=== PATIENT | male | born 1990 | race Caucasian/White ===

== ENCOUNTER 2019-05-04 18:31 | Inpatient (IN) | payer OTHER ==
[2019-05-04 21:30] VITALS: BMI 23.7
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
[2019-05-04] MEDS ORDERED: P-EPHED 60MG/TRIPROLIDI 2.5MG TABLET PO PRN (23:26)
[2019-05-04] MEDS ORDERED: MAGNESIUM CITRATE 300 ML BOTTLE PO PRN (23:26)
[2019-05-04] MEDS ORDERED: LOPERAMIDE HCL 2 MG CAPSULE PO PRN (23:26)
[2019-05-04] MEDS ORDERED: MAGNESIUM HYDROX 2400MG/30ML ORAL SUSPENSION 30 ML CUP PO PRN (23:26)
[2019-05-04] MEDS ORDERED: IBUPROFEN 400 MG TABLET (FP) PO PRN (23:26)
[2019-05-04] MEDS ORDERED: ACETAMINOPHEN 325 MG TABLET (FP) PO PRN (23:26)
[2019-05-04] MEDS ORDERED: MAG HYDROX/AL HYDROX/SIMETH 30 ML UNIT-DOSE CUP PO PRN (23:26)
[2019-05-05] MEDS: hydrOXYzine PAMOATE 50 MG CAPSULE (FP) PO PRN ×2 (03:00→21:39)
--- NOTE | 2019-05-05 10:14 | EKG ---
Test Reason : Blood Pressure : / mmHG Vent. Rate : 064 BPM Atrial Rate : 064 BPM P-R Int : 158 ms QRS Dur : 088 ms QT Int : 404 ms P-R-T Axes : 042 083 062 degrees QTc Int : 416 ms NORMAL SINUS RHYTHM NORMAL ECG NO PREVIOUS ECGS AVAILABLE Confirmed by Clifford Laguna MD ([id number]) on 05/05/2019 10:13:54 AM Referred By: JEANNA Confirmed By:Clifford Laguna MD
[2019-05-05] MEDS: PRENATAL VITAMINS W/ FOLIC ACID TABLET (FP) PO SCH (10:36)
[2019-05-05] MEDS: NICOTINE 14 MG/24 HOURS TOPICAL PATCH TD SCH (10:36)
[2019-05-05 12:08] LABS: HEMATOCRIT 43.6 % (35.4-49); HEMOGLOBIN 14.9 GM/dL (11.7-16.9); MCHC 34.3 g/dl (32.0-35.9); MEAN CELL VOLUME 87.4 fl (80-96); MEAN PLT VOLUME 8.3 fl (7.5-11.1); PLATELET COUNT 371 K/MM3 (134-434); RBC 4.99 M/mm3 (4.00-5.60); RDW 13.1 % (11.9-15.9); WHITE BLOOD COUNT 6.9 K/mm3 (4.0-10.0)
[2019-05-05 12:35] LABS: ALBUMIN 3.8 g/dl (3.4-5.0); BILIRUBIN,TOTAL 0.4 mg/dL (0.2-1); BLOOD UREA NITROGEN 15.2 mg/dL (7-18); CALCIUM 9.3 mg/dL (8.5-10.1); CREATININE 0.9 mg/dL (0.55-1.3); POTASSIUM 4.2 mmol/L (3.5-5.1); TOT PROT 7.1 g/dl (6.4-8.2)
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
[2019-05-05] MEDS: NICOTINE POLACRILEX 2 MG GUM BC PRN ×2 (13:54→17:29)
[2019-05-05] MEDS: MELATONIN 5 MG TABLETS PO PRN (21:37)
[2019-05-05] MEDS: THIAMINE HCL 100 MG TABLET (FP) PO SCH (21:37)
[2019-05-05] MEDS: MIRTAZAPINE 15 MG TABLET (FP) PO PRN (21:39)
[2019-05-05] MEDS ORDERED: MIRTAZAPINE 15 MG TABLET (FP) ONE (21:39)
[2019-05-06] MEDS: PRENATAL VITAMINS W/ FOLIC ACID TABLET (FP) PO SCH (10:25)
[2019-05-06] MEDS: NICOTINE 14 MG/24 HOURS TOPICAL PATCH TD SCH (10:25)
[2019-05-06] MEDS: NICOTINE POLACRILEX 2 MG GUM BC PRN ×3 (10:27→17:17)
[2019-05-06] MEDS: THIAMINE HCL 100 MG TABLET (FP) PO SCH (22:03)
[2019-05-07] MEDS: hydrOXYzine PAMOATE 50 MG CAPSULE (FP) PO PRN ×2 (06:15→21:46)
[2019-05-07] MEDS: PRENATAL VITAMINS W/ FOLIC ACID TABLET (FP) PO SCH (11:14)
[2019-05-07] MEDS: NICOTINE 14 MG/24 HOURS TOPICAL PATCH TD SCH (11:14)
[2019-05-07] MEDS: MENTHOL/PHENOL 1 EACH UD MM PRN (11:16)
[2019-05-07 17:12] LABS: PH,URINE >= 9.0 (5.0-8.0); URINE APPEARANCE CLEAR; URINE BILIRUBIN NEGATIVE (NEGATIVE); URINE COLOR YELLOW; URINE GLUCOSE (UA) NEGATIVE (NEGATIVE); URINE KETONE NEGATIVE (NEGATIVE); URINE LEUK ESTERASE NEGATIVE (NEGATIVE); URINE NITRITE NEGATIVE (NEGATIVE); URINE PROTEIN NEGATIVE (NEGATIVE); URINE UROBILINOGEN 0.2 mg/dL (0.2-1.0)
[2019-05-07] MEDS: NICOTINE POLACRILEX 2 MG GUM BC PRN ×2 (17:50→19:49)
[2019-05-07] MEDS: MELATONIN 5 MG TABLETS PO PRN (21:45)
[2019-05-07] MEDS: THIAMINE HCL 100 MG TABLET (FP) PO SCH (21:45)
[2019-05-07] MEDS: MIRTAZAPINE 15 MG TABLET (FP) PO PRN (21:47)
[2019-05-08] MEDS: PRENATAL VITAMINS W/ FOLIC ACID TABLET (FP) PO SCH (10:43)
[2019-05-08] MEDS: NICOTINE 14 MG/24 HOURS TOPICAL PATCH TD SCH (10:43)
[2019-05-08] MEDS: hydrOXYzine PAMOATE 50 MG CAPSULE (FP) PO PRN ×2 (10:45→21:38)
[2019-05-08] MEDS: NICOTINE POLACRILEX 2 MG GUM BC PRN ×2 (16:05→21:38)
[2019-05-08] MEDS: THIAMINE HCL 100 MG TABLET (FP) PO SCH (21:37)
[2019-05-08] MEDS: MIRTAZAPINE 15 MG TABLET (FP) PO PRN (21:38)
[2019-05-09] MEDS: NICOTINE 14 MG/24 HOURS TOPICAL PATCH TD SCH (10:17)
[2019-05-09] MEDS: PRENATAL VITAMINS W/ FOLIC ACID TABLET (FP) PO SCH (10:17)
[2019-05-09] MEDS: NICOTINE POLACRILEX 2 MG GUM BC PRN ×2 (10:18→18:30)
[2019-05-09] MEDS: THIAMINE HCL 100 MG TABLET (FP) PO SCH (21:37)
[2019-05-09] MEDS: MIRTAZAPINE 15 MG TABLET (FP) PO PRN (21:37)
[2019-05-09] MEDS: hydrOXYzine PAMOATE 50 MG CAPSULE (FP) PO PRN (21:37)
[2019-05-10] MEDS: PRENATAL VITAMINS W/ FOLIC ACID TABLET (FP) PO SCH (10:28)
[2019-05-10] MEDS: NICOTINE 14 MG/24 HOURS TOPICAL PATCH TD SCH (10:28)
[2019-05-10] MEDS: hydrOXYzine PAMOATE 50 MG CAPSULE (FP) PO PRN (10:29)
[2019-05-10] MEDS: NICOTINE POLACRILEX 2 MG GUM BC PRN (10:30)
[2019-05-10] MEDS: MELATONIN 5 MG TABLETS PO PRN (21:27)
[2019-05-10] MEDS: THIAMINE HCL 100 MG TABLET (FP) PO SCH (21:27)
[2019-05-11] MEDS: MENTHOL/PHENOL 1 EACH UD MM PRN (06:50)
[2019-05-11] MEDS: PRENATAL VITAMINS W/ FOLIC ACID TABLET (FP) PO SCH (10:21)
[2019-05-11] MEDS: NICOTINE 14 MG/24 HOURS TOPICAL PATCH TD SCH (10:21)
[2019-05-11] MEDS: hydrOXYzine PAMOATE 50 MG CAPSULE (FP) PO PRN ×3 (10:27→21:39)
[2019-05-11] MEDS: guaiFENesin 200 MG/10 ML 10 ML UNIT-DOSE CUPS PO PRN (16:42)
[2019-05-11] MEDS: THIAMINE HCL 100 MG TABLET (FP) PO SCH (21:38)
[2019-05-11] MEDS: MELATONIN 5 MG TABLETS PO PRN (21:38)
[2019-05-11] MEDS: MIRTAZAPINE 15 MG TABLET (FP) PO PRN (21:40)
[2019-05-12] MEDS: guaiFENesin 200 MG/10 ML 10 ML UNIT-DOSE CUPS PO PRN (08:19)
[2019-05-12] MEDS: hydrOXYzine PAMOATE 50 MG CAPSULE (FP) PO PRN ×3 (08:21→21:37)
[2019-05-12] MEDS: PRENATAL VITAMINS W/ FOLIC ACID TABLET (FP) PO SCH (11:02)
[2019-05-12] MEDS: NICOTINE 14 MG/24 HOURS TOPICAL PATCH TD SCH (11:02)
[2019-05-12] MEDS ORDERED: TUBERCULIN PPD 5 TU/0.1ML VIAL ID ONE (15:47)
[2019-05-12] MEDS: MELATONIN 5 MG TABLETS PO PRN (21:36)
[2019-05-12] MEDS: MIRTAZAPINE 15 MG TABLET (FP) PO PRN (21:36)
[2019-05-12] MEDS: THIAMINE HCL 100 MG TABLET (FP) PO SCH (21:36)
[2019-05-13] MEDS: PRENATAL VITAMINS W/ FOLIC ACID TABLET (FP) PO SCH (10:29)
[2019-05-13] MEDS: hydrOXYzine PAMOATE 50 MG CAPSULE (FP) PO PRN ×3 (10:29→21:31)
[2019-05-13] MEDS: NICOTINE 14 MG/24 HOURS TOPICAL PATCH TD SCH (10:29)
[2019-05-13] MEDS: NICOTINE POLACRILEX 2 MG GUM BC PRN (10:30)
[2019-05-13] MEDS: guaiFENesin 200 MG/10 ML 10 ML UNIT-DOSE CUPS PO PRN (19:41)
[2019-05-13] MEDS: THIAMINE HCL 100 MG TABLET (FP) PO SCH (21:30)
[2019-05-13] MEDS: MELATONIN 5 MG TABLETS PO PRN (21:31)
[2019-05-13] MEDS: MIRTAZAPINE 15 MG TABLET (FP) PO PRN (21:31)
[2019-05-14] MEDS: NICOTINE 14 MG/24 HOURS TOPICAL PATCH TD SCH (10:16)
[2019-05-14] MEDS: PRENATAL VITAMINS W/ FOLIC ACID TABLET (FP) PO SCH (10:16)
[2019-05-14] MEDS: hydrOXYzine PAMOATE 50 MG CAPSULE (FP) PO PRN ×2 (10:17→21:26)
[2019-05-14] MEDS: THIAMINE HCL 100 MG TABLET (FP) PO SCH (21:25)
[2019-05-14] MEDS: MIRTAZAPINE 15 MG TABLET (FP) PO PRN (21:26)
[2019-05-14] MEDS: MELATONIN 5 MG TABLETS PO PRN (21:27)
[2019-05-15] MEDS: PRENATAL VITAMINS W/ FOLIC ACID TABLET (FP) PO SCH (10:25)
[2019-05-15] MEDS: NICOTINE 14 MG/24 HOURS TOPICAL PATCH TD SCH (10:25)
[2019-05-15] MEDS: NICOTINE POLACRILEX 2 MG GUM BC PRN ×2 (10:27→17:04)
[2019-05-15] MEDS: hydrOXYzine PAMOATE 50 MG CAPSULE (FP) PO PRN ×2 (17:04→21:26)
[2019-05-15] MEDS: MIRTAZAPINE 15 MG TABLET (FP) PO PRN (21:26)
[2019-05-15] MEDS: MELATONIN 5 MG TABLETS PO PRN (21:26)
[2019-05-15] MEDS: THIAMINE HCL 100 MG TABLET (FP) PO SCH (21:26)
[2019-05-16] MEDS: hydrOXYzine PAMOATE 50 MG CAPSULE (FP) PO PRN ×2 (11:15→21:49)
[2019-05-16] MEDS: NICOTINE 14 MG/24 HOURS TOPICAL PATCH TD SCH (11:15)
[2019-05-16] MEDS: PRENATAL VITAMINS W/ FOLIC ACID TABLET (FP) PO SCH (11:15)
[2019-05-16] MEDS: NICOTINE POLACRILEX 2 MG GUM BC PRN ×3 (11:17→21:50)
[2019-05-16] MEDS: THIAMINE HCL 100 MG TABLET (FP) PO SCH (21:48)
[2019-05-16] MEDS: MIRTAZAPINE 15 MG TABLET (FP) PO PRN (21:49)
[2019-05-16] MEDS: MELATONIN 5 MG TABLETS PO PRN (21:49)
[2019-05-17] MEDS: PRENATAL VITAMINS W/ FOLIC ACID TABLET (FP) PO SCH (10:09)
[2019-05-17] MEDS: NICOTINE 14 MG/24 HOURS TOPICAL PATCH TD SCH (10:09)
[2019-05-17] MEDS: hydrOXYzine PAMOATE 50 MG CAPSULE (FP) PO PRN (10:09)
[2019-05-17] MEDS: NICOTINE POLACRILEX 2 MG GUM BC PRN (10:12)
[2019-05-17] MEDS: THIAMINE HCL 100 MG TABLET (FP) PO SCH (21:38)
[2019-05-17] MEDS: MIRTAZAPINE 15 MG TABLET (FP) PO PRN (21:38)
[2019-05-18] MEDS: hydrOXYzine PAMOATE 50 MG CAPSULE (FP) PO PRN ×3 (02:06→21:23)
[2019-05-18] MEDS: NICOTINE 14 MG/24 HOURS TOPICAL PATCH TD SCH (10:33)
[2019-05-18] MEDS: PRENATAL VITAMINS W/ FOLIC ACID TABLET (FP) PO SCH (10:33)
[2019-05-18] MEDS: NICOTINE POLACRILEX 2 MG GUM BC PRN (10:38)
--- NOTE | 2019-05-18 13:57 | PN ---
[facility] Progress Note Note: c/o groin itch when used soap on the wall to shower. Denies pain or burning on urination. Vital Signs - 24 hr 05/18/19 05/18/19 00:30 06:30 Respiratory 18 18 Rate Laboratory Tests 05/05/19 05/05/19 05/05/19 08:20 08:20 08:20 WBC 6.9 RBC 4.99 Hgb 14.9 Hct 43.6 MCV 87.4 MCH 30.0 MCHC 34.3 RDW 13.1 Plt Count 371 MPV 8.3 Sodium 139 Potassium 4.2 Chloride 104 Carbon Dioxide 28 Anion Gap 7 L BUN 15.2 Creatinine 0.9 Est GFR (CKD-EPI)AfAm 133.30 Est GFR (CKD-EPI)NonAf 115.01 Random Glucose 90 Calcium 9.3 Total Bilirubin 0.4 AST 17 ALT 41 Alkaline Phosphatase 58 Total Protein 7.1 Albumin 3.8 Urine Color Urine Appearance Urine pH Ur Specific [place] Urine Protein Urine Glucose (UA) Urine Ketones Urine Blood Urine Nitrite Urine Bilirubin Urine Urobilinogen Ur Leukocyte Esterase RPR Titer Nonreactive 05/07/19 11:50 WBC RBC Hgb Hct MCV MCH MCHC RDW Plt Count MPV Sodium Potassium Chloride Carbon Dioxide Anion Gap BUN Creatinine Est GFR (CKD-EPI)AfAm Est GFR (CKD-EPI)NonAf Random Glucose Calcium Total Bilirubin AST ALT Alkaline Phosphatase Total Protein Albumin Urine Color Yellow Urine Appearance Clear Urine pH >= 9.0 H Ur Specific [place] 1.022 Urine Protein Negative Urine Glucose (UA) Negative Urine Ketones Negative Urine Blood Negative Urine Nitrite Negative Urine Bilirubin Negative Urine Urobilinogen 0.2 Ur Leukocyte Esterase Negative RPR Titer Labs wnl A/P groin itch Tinea cruris D/w pt will order Tinactin cream apply as directed Aveeno soap increase po fluids. Requests to repeat urine because he wants to be sure it is still ok with no infection.
[2019-05-18] MEDS: TOLNAFTATE 1% CREAM 15 GM TUBE TP SCH ×2 (14:31→21:45)
[2019-05-18] MEDS: THIAMINE HCL 100 MG TABLET (FP) PO SCH (21:23)
[2019-05-18] MEDS: MIRTAZAPINE 15 MG TABLET (FP) PO PRN (21:23)
[2019-05-18] MEDS: MELATONIN 5 MG TABLETS PO PRN (21:23)
[2019-05-19] MEDS: TOLNAFTATE 1% CREAM 15 GM TUBE TP SCH ×2 (10:21→21:25)
[2019-05-19] MEDS: NICOTINE 14 MG/24 HOURS TOPICAL PATCH TD SCH (10:21)
[2019-05-19] MEDS: PRENATAL VITAMINS W/ FOLIC ACID TABLET (FP) PO SCH (10:21)
[2019-05-19] MEDS: hydrOXYzine PAMOATE 50 MG CAPSULE (FP) PO PRN ×2 (10:23→21:25)
[2019-05-19] MEDS: NICOTINE POLACRILEX 2 MG GUM BC PRN ×3 (10:24→21:25)
[2019-05-19 12:13] LABS: EPI CELLS 1.6 /HPF (0-5/HPF); HYALINE CASTS 17 /lpf (0-8); URINE APPEARANCE CLEAR; URINE BACTERIA 2.4 /hpf (NEGATIVE); URINE BILIRUBIN NEGATIVE (NEGATIVE); URINE COLOR YELLOW; URINE GLUCOSE (UA) NEGATIVE (NEGATIVE); URINE KETONE NEGATIVE (NEGATIVE); URINE LEUK ESTERASE TRACE (NEGATIVE); URINE NITRITE NEGATIVE (NEGATIVE); URINE PROTEIN NEGATIVE (NEGATIVE); URINE RBC 6 /hpf (0-4); URINE UROBILINOGEN 0.2 mg/dL (0.2-1.0); URINE WBC 4 /hpf (0-5)
[2019-05-19] MEDS: MELATONIN 5 MG TABLETS PO PRN (21:25)
[2019-05-19] MEDS: MIRTAZAPINE 15 MG TABLET (FP) PO PRN (21:25)
[2019-05-19] MEDS: THIAMINE HCL 100 MG TABLET (FP) PO SCH (21:25)
[2019-05-20] MEDS: NICOTINE 14 MG/24 HOURS TOPICAL PATCH TD SCH (10:39)
[2019-05-20] MEDS: PRENATAL VITAMINS W/ FOLIC ACID TABLET (FP) PO SCH (10:39)
[2019-05-20] MEDS: TOLNAFTATE 1% CREAM 15 GM TUBE TP SCH ×2 (10:39→21:33)
[2019-05-20] MEDS: NICOTINE POLACRILEX 2 MG GUM BC PRN (15:57)
[2019-05-20] MEDS: THIAMINE HCL 100 MG TABLET (FP) PO SCH (21:33)
[2019-05-20] MEDS: MELATONIN 5 MG TABLETS PO PRN (21:33)
[2019-05-21] MEDS: TOLNAFTATE 1% CREAM 15 GM TUBE TP SCH ×2 (10:26→21:24)
[2019-05-21] MEDS: NICOTINE 14 MG/24 HOURS TOPICAL PATCH TD SCH (10:26)
[2019-05-21] MEDS: PRENATAL VITAMINS W/ FOLIC ACID TABLET (FP) PO SCH (10:26)
[2019-05-21] MEDS: MELATONIN 5 MG TABLETS PO PRN (21:23)
[2019-05-21] MEDS: THIAMINE HCL 100 MG TABLET (FP) PO SCH (21:23)
[2019-05-22] MEDS: hydrOXYzine PAMOATE 50 MG CAPSULE (FP) PO PRN ×3 (01:36→21:41)
[2019-05-22] MEDS: TOLNAFTATE 1% CREAM 15 GM TUBE TP SCH ×2 (10:38→21:40)
[2019-05-22] MEDS: NICOTINE POLACRILEX 2 MG GUM BC PRN (10:39)
[2019-05-22] MEDS: PRENATAL VITAMINS W/ FOLIC ACID TABLET (FP) PO SCH (10:40)
[2019-05-22] MEDS: NICOTINE 14 MG/24 HOURS TOPICAL PATCH TD SCH (10:40)
[2019-05-22] MEDS: THIAMINE HCL 100 MG TABLET (FP) PO SCH (21:40)
[2019-05-22] MEDS: MIRTAZAPINE 15 MG TABLET (FP) PO PRN (21:41)
[2019-05-23] MEDS: TOLNAFTATE 1% CREAM 15 GM TUBE TP SCH ×2 (10:32→21:27)
[2019-05-23] MEDS: PRENATAL VITAMINS W/ FOLIC ACID TABLET (FP) PO SCH (10:32)
[2019-05-23] MEDS: NICOTINE 14 MG/24 HOURS TOPICAL PATCH TD SCH (10:32)
[2019-05-23] MEDS: NICOTINE POLACRILEX 2 MG GUM BC PRN ×2 (15:39→18:05)
[2019-05-23] MEDS: MELATONIN 5 MG TABLETS PO PRN (21:26)
[2019-05-23] MEDS: MIRTAZAPINE 15 MG TABLET (FP) PO PRN (21:26)
[2019-05-23] MEDS: hydrOXYzine PAMOATE 50 MG CAPSULE (FP) PO PRN (21:26)
[2019-05-23] MEDS: THIAMINE HCL 100 MG TABLET (FP) PO SCH (21:27)
[2019-05-24] MEDS: NICOTINE 14 MG/24 HOURS TOPICAL PATCH TD SCH (09:56)
[2019-05-24] MEDS: NICOTINE POLACRILEX 2 MG GUM BC PRN ×2 (09:57→12:24)
[2019-05-24] MEDS: PRENATAL VITAMINS W/ FOLIC ACID TABLET (FP) PO SCH (09:57)
[2019-05-24] MEDS: TOLNAFTATE 1% CREAM 15 GM TUBE TP SCH ×2 (09:58→21:23)
--- NOTE | 2019-05-24 14:08 | PN ---
[facility] Progress Note Note: Patient is scheduled for discharge tomorrow. Script for 30 days supply of Remeron 15 mg/hs will be electronically transmitted to [facility] at [address] [place] [address] Pharmacy at [address] [place] [address]
[2019-05-24] MEDS: MIRTAZAPINE 15 MG TABLET (FP) PO PRN (21:22)
[2019-05-24] MEDS: MELATONIN 5 MG TABLETS PO PRN (21:22)
[2019-05-24] MEDS: hydrOXYzine PAMOATE 50 MG CAPSULE (FP) PO PRN (21:22)
[2019-05-24] MEDS: THIAMINE HCL 100 MG TABLET (FP) PO SCH (21:22)
[2019-05-25 07:18] VITALS: BP 106/68; PULSE 64; TEMP 98
--- NOTE | 2019-05-25 09:45 | DS ---
[facility] Rehab Discharge Summary - [facility] Rehab Discharge Summary Admission Date: 05/04/19 Discharge Date: 05/25/19 - History Present History: Alcohol dependence, Cannabis dependence, Cocaine dependence Additional Comments: Pt is a 28 y/o male with a hx of polysubstance use disorder admitted to rehab and discharged today. Pertinent Past History: Hx Diverticulitis Insomnia Anxiety Disorder - Discharge Physical Exam Vital Signs: Vital Signs Temperature 98.0 F 05/25/19 07:17 Pulse Rate 64 05/25/19 07:17 Respiratory Rate 18 05/25/19 07:17 Blood Pressure 106/68 05/25/19 07:17 O2 Sat by Pulse Oximetry (%) Alert o x 3 nad oob ambulating with steady gait cardiac:s1 s2,rrr lungs:cta,tristen. abdomen:soft,+bs,nt,nd extremities/skin:no edema,Full ROM;skin intact Pertinent Admission Physical Exam Findings: Laboratory Tests 05/05/19 05/05/19 05/05/19 08:20 08:20 08:20 WBC 6.9 RBC 4.99 Hgb 14.9 Hct 43.6 MCV 87.4 MCH 30.0 MCHC 34.3 RDW 13.1 Plt Count 371 MPV 8.3 Sodium 139 Potassium 4.2 Chloride 104 Carbon Dioxide 28 Anion Gap 7 L BUN 15.2 Creatinine 0.9 Est GFR (CKD-EPI)AfAm 133.30 Est GFR (CKD-EPI)NonAf 115.01 Random Glucose 90 Calcium 9.3 Total Bilirubin 0.4 AST 17 ALT 41 Alkaline Phosphatase 58 Total Protein 7.1 Albumin 3.8 Urine Color Urine Appearance Urine pH Ur Specific [place] Urine Protein Urine Glucose (UA) Urine Ketones Urine Blood Urine Nitrite Urine Bilirubin Urine Urobilinogen Ur Leukocyte Esterase Urine WBC (Auto) Urine RBC (Auto) Urine Casts (Auto) U Epithel Cells (Auto) Urine Bacteria (Auto) RPR Titer Nonreactive 05/07/19 05/19/19 11:50 10:25 WBC RBC Hgb Hct MCV MCH MCHC RDW Plt Count MPV Sodium Potassium Chloride Carbon Dioxide Anion Gap BUN Creatinine Est GFR (CKD-EPI)AfAm Est GFR (CKD-EPI)NonAf Random Glucose Calcium Total Bilirubin AST ALT Alkaline Phosphatase Total Protein Albumin Urine Color Yellow Yellow Urine Appearance Clear Clear Urine pH >= 9.0 H 7.0 D Ur Specific [place] 1.022 1.023 Urine Protein Negative Negative Urine Glucose (UA) Negative Negative Urine Ketones Negative Negative Urine Blood Negative Negative Urine Nitrite Negative Negative Urine Bilirubin Negative Negative Urine Urobilinogen 0.2 0.2 Ur Leukocyte Esterase Negative Trace Urine WBC (Auto) 4 Urine RBC (Auto) 6 Urine Casts (Auto) 17 U Epithel Cells (Auto) 1.6 Urine Bacteria (Auto) 2.4 RPR Titer - Treatment Discharge Condition: Discharge condition good Hospital Course: Rehabilitated safely and responded well. Participated in unit activities/groups. CD aftercare accepted - Medication Discharge Medications: Ambulatory Orders Mirtazapine [Remeron -] 15 mg PO HS #30 tablet 05/24/19 - Medication-Assisted Treatment (MAT) Medication-Assisted Treatment (MAT): No - Discharge Instructions Diet, activity, other medical instructions: Diet:Regular Activity: ad zohra Other medical instructions:follow up with CD aftercare at [facility] as recommended/scheduled. Follow up with primary care with your primary care within 1 - 2 weeks after discharge. - Diagnosis (1) Alcohol dependence Status: Chronic Qualifiers: Substance use status: uncomplicated Qualified Code(s): F10.20 - Alcohol dependence, uncomplicated (2) Cannabis dependence Status: Chronic (3) Cocaine dependence Status: Chronic Qualifiers: Substance use status: uncomplicated Qualified Code(s): F14.20 - Cocaine dependence, uncomplicated (4) Nicotine dependence Status: Chronic Qualifiers: Nicotine product type: cigarettes Substance use status: uncomplicated Qualified Code(s): F17.210 - Nicotine dependence, cigarettes, uncomplicated (5) Nicotine dependence Status: Chronic Qualifiers: Nicotine product type: cigarettes Substance use status: uncomplicated Qualified Code(s): F17.210 - Nicotine dependence, cigarettes, uncomplicated (6) Uncomplicated alcohol dependence Status: Chronic (7) Cannabis dependence, uncomplicated Status: Chronic (8) Cocaine dependence, uncomplicated Status: Chronic - Follow-up Referral Minutes to complete discharge: 20 - AMA Did Patient Leave Against Medical Advice: No Additional Comments: Pt reports he has a primary care at [address] [place] [address]. Forgot the name of the doctor.
[2019-05-25] MEDS: TOLNAFTATE 1% CREAM 15 GM TUBE TP SCH (10:04)
[2019-05-25] MEDS: PRENATAL VITAMINS W/ FOLIC ACID TABLET (FP) PO SCH (10:04)
[2019-05-25] MEDS: NICOTINE 14 MG/24 HOURS TOPICAL PATCH TD SCH (10:04)
== END 2019-05-25 10:05 | disposition home or self-care (01) | DRG 772 ==
LOC: YASAS 18:31 → Y5N 23:28
PROVIDERS: ADMIT Neuromusculoskeletal Medicine & OMM; ATTEND Neuromusculoskeletal Medicine & OMM
PROC: HZ42ZZZ Group Counseling for Substance Abuse Treatment, Cognitive-Behavioral (ICD-10-PCS; principal; 2019-05-04)
DX: F10.20 Alcohol dependence, uncomplicated (principal); F14.20 Cocaine dependence, uncomplicated; F12.20 Cannabis dependence, uncomplicated; F17.210 Nicotine dependence, cigarettes, uncomplicated; F19.280 Other psychoactive substance dependence with psychoactive substance-induced anxiety disorder; F19.282 Other psychoactive substance dependence with psychoactive substance-induced sleep disorder; K57.92 Diverticulitis of intestine, part unspecified, without perforation or abscess without bleeding; B35.6 Tinea cruris
CPT/HCPCS: 36415; 80053; 81003; 85027; 86593; 93005; 93010

== ENCOUNTER 2020-04-16 08:15 | Inpatient (IN) | payer OTHER ==
--- NOTE | 2020-04-16 08:58 | BHS.RME ---
Substance Use & Tx History - Substance Use History Heroin Substance amount: 20 bags Frequency of use: Daily Substance route: Inhalation (ex: sniffing or snorting) Date of Last Use: 04/15/20 Cocaine- Powder Substance amount: 2 grams Frequency of use: Less than 3 times per week Date of Last Use: 04/11/20 Marijuana/Hashish Substance amount: 5$ Frequency of use: Less than 3 times per week Substance route: Smoking Date of Last Use: 04/09/20 Buprenorphine Substance amount: 4mg/1mg Substance route: Oral Date of Last Use: 04/12/20 - Last Treatment Date of last treatment: [facility] 12/20/19 to 12/25/19 Where was last treatment: Detox Physical/Psych/Mental Status - Behavior Eye Contact: Normal - Cooperativeness Cooperativeness: Cooperative - Thinking Thought Processes: Logical Thought content: Future oriented - Physical Health Problems Is patient presently having any pain?: No Does patient presently have any injuries (include location): No Does patient currently have a fever: No COWS - Scale Resting Pulse: 0= RI 80 or Below Sweatin= No chills or Flushing Restless Observation: 0= Sits Still Pupil Size: 1= Pupils >than Normal Bone or Joint Aches: 2= Severe Diffuse Aches Runny Nose/ Eye Tearin= Runny Nose/Eyes GI Upset > 30mins: 2= Nausea/Diarrhea Tremor Observation: 2= Slight Tremor Visible Yawning Observation: 1= 1-2x During Session Anxiety or Irritability: 2=Irritable/Anxious Goose Flesh Skin: 3=Piloerection COWS Score: 15
--- NOTE | 2020-04-16 09:43 | HP ---
COWS - Scale Resting Pulse: 0= [place] 80 or Below Sweatin= No chills or Flushing Restless Observation: 0= Sits Still Pupil Size: 1= Pupils >than Normal Bone or Joint Aches: 2= Severe Diffuse Aches Runny Nose/ Eye Tearin= Runny Nose/Eyes GI Upset > 30mins: 2= Nausea/Diarrhea Tremor Observation: 2= Slight Tremor Visible Yawning Observation: 1= 1-2x During Session Anxiety or Irritability: 2=Irritable/Anxious Goose Flesh Skin: 3=Piloerection COWS Score: 15 CIWA Score - Admission Criteria OASAS Guidelines: Admission for Medically Managed Detox: Requires at least one of the followin. CIWA greater than 12 2. Seizures within the past 24 hours 3. Delirium tremens within the past 24 hours 4. Hallucinations within the past 24 hours 5. Acute intervention needed for co occurring medical disorder 6. Acute intervention needed for co occurring psychiatric disorder 7. Severe withdrawal that cannot be handled at a lower level of care (continued vomiting, continued diarrhea, abnormal vital signs) requiring intravenous medication and/or fluids 8. Admitting History and Physical - Admission Chief Complaint: i need help to stop using drugs History of Present Illness: this 29 years old male with heroin and cocaine,marijuana dependence seeking help to stop History Source: Patient Limitations to Obtaining History: No Limitations - Smoking History Smoking history: Current every day smoker Have you smoked in the past 12 months: Yes Aproximately how many cigarettes per day: 5 - Alcohol/Substance Use Hx Alcohol Use: Yes - Social History Usual Living Arrangement: Yes: Other (homeless) Do you think of yourself as: Straight/Heterosexual History of Recent Travel: No Other Social History: homeless.unemployed,no legal issue Admission ROS [facility] Chief Complaint: i need help to strop using heroin and drugs Allergies/Adverse Reactions: Allergies Allergy/AdvReac Type Severity Reaction Status Date / Time No Known Allergies Allergy Verified 04/16/20 10:00 History of Present Illness: this 29 years old with heroin ,cocaine,marijuana dependence seeking help in detox,withdrawal symptom, had previous admissions in this facility before detox and rehab last admission in detox 12/20/19 to 12/25/19 denied seizure,denied syncope denied suboxone maintenance i stop showed patient suboxone 4mg/1 mg 30 films on 02/26/20 stated use suboxone off the street 4mg/1 mg film on 04/11/20 homeless,unemployed,no legal issue no significant period of sobriety plan for rehab after detox Exam Limitations: No Limitations - Ebola screening Have you traveled outside of the country in the last 21 days: No Have you had contact with anyone from an Ebola affected area: No Have you been sick,other than usual withdrawal symptoms: No Do you have a fever: No - Review of Systems Constitutional: Loss of Appetite, Malaise, Night Sweats, Changes in sleep EENT: reports: Nose Congestion Respiratory: reports: No Symptoms reported Cardiac: reports: No Symptoms Reported GI: reports: Diarrhea, Nausea, Poor Appetite, Vomiting, Abdominal cramping : reports: No Symptoms Reported Musculoskeletal: reports: Back Pain, Joint Pain, Muscle Pain Integumentary: reports: Dryness Neuro: reports: Headache, Tremors Endocrine: reports: No Symptoms Reported Hematology: reports: No Symptoms Reported Psychiatric: reports: No Sypmtoms Reported, Judgement Intact, Mood/Affect Appropiate, Orientated x3 Patient History - Patient Medical History Hx Anemia: No Hx Asthma: No Hx Chronic Obstructive Pulmonary Disease (COPD): No Hx Cancer: No Hx Cardiac Disorders: No Hx Congestive Heart Failure: No Hx Hypertension: No Hx Hypercholesterolemia: No Hx Pacemaker: No HX Cerebrovascular Accident: No Hx Seizures: No Hx Dementia: No Hx Diabetes: No Hx Gastrointestinal Disorders: No Hx Liver Disease: No Hx Genitourinary Disorders: No Hx Sexually Transmitted Disorders: No Hx Renal Disease (ESRD): No Hx Thyroid Disease: No Hx Human Immunodeficiency Virus (HIV): No (last 12/2019 negative) Hx Hepatitis C: No Hx Depression: Yes Hx Suicide Attempt: No Hx Bipolar Disorder: No Hx Schizophrenia: No Other Medical History: no suicidal,no homicidal - Patient Surgical History Past Surgical History: No Hx Neurologic Surgery: No Hx Cataract Extraction: No Hx Cardiac Surgery: No Hx Lung Surgery: No Hx Breast Surgery: No Hx Breast Biopsy: No Hx Abdominal Surgery: No Hx Appendectomy: No Hx Cholecystectomy: No Hx Genitourinary Surgery: No Hx Section: No Hx Orthopedic Surgery: No Anesthesia Reaction: No - PPD History Previous Implant?: Yes Documented Results: Negative w/proof Implanted On Prior R Admission?: Yes Date: 12/22/19 Results: 0 mm. PPD to be Administered?: No - Smoking Cessation Smoking history: Current every day smoker Have you smoked in the past 12 months: Yes Aproximately how many cigarettes per day: 5 Cigars Per Day: 0 Hx Chewing Tobacco Use: No Initiated information on smoking cessation: Yes 'Breaking Loose' booklet given: 04/16/20 - Substance & Tx. History Hx Alcohol Use: No Hx Substance Use: Yes Substance Use Type: Cocaine, Heroin, Marijuana Hx Substance Use Treatment: Yes ([facility] 12/2019) - Substances abused Heroin Substance route: Inhalation Frequency: Daily Amount used: 20 bags Age of first use: 26 Date of last use: 04/15/20 Cocaine Substance route: Inhalation Frequency: 1-2 times per week Amount used: 2 grams Age of first use: 25 Date of last use: 04/11/20 Marijuana/Hashish Substance route: Smoking Frequency: 1-2 times per week Amount used: 5$ Age of first use: 16 Date of last use: 04/09/20 Buprenorphine Substance route: Oral Frequency: 1-3 times last 30 days Amount used: 4mg/1mg film Age of first use: 29 Date of last use: 04/11/20 Admission Physical Exam S - Vital Signs Vital Signs: 119/81,p63,r18,t98.7 radha 0.00,pulse ox 100 - Physical General Appearance: Yes: Moderate Distress, Tremorous, Irritable, Sweating, Anxious HEENTM: Yes: Normal ENT Inspection, MICKI, Pharynx Normal Respiratory: Yes: Lungs Clear, Normal Breath Sounds, No Respiratory Distress Neck: Yes: Within Normal Limits, Supple, Trachea in good position Breast: Yes: Within Normal Limits Cardiology: Yes: Within Normal Limits, Regular Rhythm, Regular Rate, S1, S2 Abdominal: Yes: Within Normal Limits, Normal Bowel Sounds, Non Tender, Flat, Soft Genitourinary: Yes: Within Normal Limits Back: Yes: Muscle Spasm Musculoskeletal: Yes: Back pain, Muscle Pain Extremities: Yes: Within Normal Limits, Normal Range of Motion, Tremors Neurological: Yes: quality 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 coach II-XII NML intact, Fully Oriented, Alert, Motor Strength 5/5 Integumentary: Yes: Dry Lymphatic: Yes: Within Normal Limits - Diagnostic (1) Opioid dependence with withdrawal Current Visit: Yes Status: Acute (2) Cannabis dependence, uncomplicated Current Visit: No Status: Chronic (3) Cocaine dependence Current Visit: No Status: Chronic Qualifiers: Substance use status: uncomplicated Qualified Code(s): F14.20 - Cocaine dependence, uncomplicated (4) Nicotine dependence Current Visit: No Status: Chronic Qualifiers: Nicotine product type: cigarettes Substance use status: uncomplicated Qualified Code(s): F17.210 - Nicotine dependence, cigarettes, uncomplicated (5) Insomnia Current Visit: Yes Status: Acute Cleared for Admission S - Detox or Rehab [facility] Level of Care: Medically Managed Detox Regimen/Protocol: Methadone Breathalyzer - Breathalyzer Breathalyzer: 0 Urine Drug Screen - Test Device Lot number: [id number] Expiration date: 04/04/21 - Control Is test valid?: Yes - Results Drug screen NEGATIVE: No Urine drug screen results: THC-Marijuana, NATALIIA-Cocaine, FEN-Fentanyl, MOP- Opiates, BZO-Benzodiazepines Inpatient Rehab Admission - Rehab Decision to Admit Inpatient rehab admission?: No
[2020-04-16 10:07] VITALS: BMI 23.8
[2020-04-16] MEDS ORDERED: cloNIDine HCL 0.1 MG TABLET PO PRN (10:08)
[2020-04-16] MEDS ORDERED: IBUPROFEN 400 MG TABLET (FP) PO PRN (10:08)
[2020-04-16] MEDS ORDERED: BISMUTH SUBSALICYLATE 524 MG/30 ML UD PO PRN (10:08)
[2020-04-16] MEDS ORDERED: NALOXONE HCL 0.4 MG/ML VIAL IM PRN (10:08)
[2020-04-16] MEDS ORDERED: METHADONE HCL 10 MG TABLET (FOR DETOX USE ONLY) PO ONE (10:08)
[2020-04-16] MEDS ORDERED: MENTHOL/PHENOL 1 EACH UD MM PRN (10:08)
[2020-04-16] MEDS ORDERED: MAGNESIUM HYDROX 2400MG/30ML ORAL SUSPENSION 30 ML CUP PO PRN (10:08)
[2020-04-16] MEDS ORDERED: MAGNESIUM CITRATE 300 ML BOTTLE PO PRN (10:08)
[2020-04-16] MEDS ORDERED: ACETAMINOPHEN 325 MG TABLET (FP) PO PRN (10:08)
[2020-04-16] MEDS ORDERED: ONDANSETRON *ODT* 4 MG TABLET SL PRN (10:08)
[2020-04-16] MEDS ORDERED: MAG HYDROX/AL HYDROX/SIMETH 30 ML UNIT-DOSE CUP PO PRN (10:08)
[2020-04-16] MEDS: hydrOXYzine PAMOATE 25 MG CAPSULE (FP) PO SCH ×2 (14:34→23:57)
[2020-04-16 15:05] LABS: HEMATOCRIT 44.6 % (35.4-49); HEMOGLOBIN 14.4 GM/dL (11.7-16.9); MCH 28.9 pg (25.7-33.7); MCHC 32.3 g/dl (32.0-35.9); MEAN CELL VOLUME 89.4 fl (80-96); MEAN PLT VOLUME 8.5 fl (7.5-11.1); PLATELET COUNT 300 K/MM3 (134-434); RBC 4.98 M/mm3 (4.00-5.60); RDW 14.1 % (11.9-15.9); WHITE BLOOD COUNT 6.1 K/mm3 (4.0-10.0)
[2020-04-16 15:10] LABS: BILIRUBIN,TOTAL 0.4 mg/dL (0.2-1); CALCIUM 9.2 mg/dL (8.5-10.1); POTASSIUM 4.6 mmol/L (3.5-5.1); TOT PROT 7.5 g/dl (6.4-8.2)
[2020-04-16] MEDS: MELATONIN 5 MG TABLETS PO SCH (23:56)
[2020-04-16] MEDS: THIAMINE HCL 100 MG TABLET (FP) PO SCH (23:57)
[2020-04-17] MEDS: hydrOXYzine PAMOATE 25 MG CAPSULE (FP) PO SCH ×5 (07:20→23:45)
[2020-04-17] MEDS ORDERED: METHADONE HCL 5 MG TABLET (FOR DETOX USE ONLY) ONE (09:28)
[2020-04-17] MEDS ORDERED: METHADONE HCL 10 MG TABLET (FOR DETOX USE ONLY) ONE (09:28)
[2020-04-17] MEDS: PRENATAL VITAMINS W/ FOLIC ACID TABLET (FP) PO SCH (09:58)
[2020-04-17] MEDS ORDERED: METHADONE (DETOX) 20 MG, METHADONE (DETOX) 5 MG PO ONE (10:00)
[2020-04-17] MEDS: NICOTINE 7 MG/24 HOURS TOPICAL PATCH TD SCH (10:01)
[2020-04-17] MEDS: NICOTINE POLACRILEX 2 MG GUM BUC PRN ×2 (11:45→18:40)
--- NOTE | 2020-04-17 14:58 | PN ---
S COWS - Scale Resting Pulse: 0= [place] 80 or Below Sweatin= Chills/Flushing Restless Observation: 0= Sits Still Pupil Size: 1= Pupils >than Normal Bone or Joint Aches: 2= Severe Diffuse Aches Runny Nose/ Eye Tearin= None GI Upset > 30mins: 1= Stomach Cramp Tremor Observation of Outstretched Hands: 2= Slight Tremor Visible Yawning Observation: 0= None Anxiety or Irritability: 2=Irritable/Anxious Goose Flesh Skin: 3=Piloerection COWS Score: 12 S Progress Note (SOAP) Subjective: 29 years old male was admitted on 04/15/20 for opiate withdrawal sx management treating with methadone detox regiment reports long history of anxiety requests to be seen by a psychiatrist psychiatrist referral vistaril increase to 50mg po Objective: 04/17/20 14:59 Vital Signs - 24 hr 04/16/20 04/16/20 04/17/20 16:39 20:51 05:20 Temperature 97.7 F 97.5 F L 97.5 F L Pulse Rate 73 80 69 Respiratory 18 18 18 Rate Blood Pressure 134/80 115/66 95/55 L O2 Sat by Pulse 96 97 Oximetry (%) 04/17/20 08:27 Temperature 97.1 F L Pulse Rate 65 Respiratory 18 Rate Blood Pressure 115/75 O2 Sat by Pulse Oximetry (%) Laboratory Tests 04/16/20 04/16/20 04/16/20 10:10 10:10 10:10 WBC RBC Hgb Hct MCV MCH MCHC RDW Plt Count MPV Sodium 140 Potassium 4.6 Chloride 107 Carbon Dioxide 31 Anion Gap 3 L BUN 13.0 Creatinine 1.0 Est GFR (CKD-EPI)AfAm 116.54 Est GFR (CKD-EPI)NonAf 100.55 Random Glucose 59 L Calcium 9.2 Total Bilirubin 0.4 AST 15 ALT 26 Alkaline Phosphatase 63 Total Protein 7.5 Albumin 4.0 Syphilis Serology Non-reactive COVID-19 ([facility]) Not detected 04/16/20 10:10 WBC 6.1 RBC 4.98 Hgb 14.4 Hct 44.6 MCV 89.4 MCH 28.9 MCHC 32.3 RDW 14.1 Plt Count 300 D MPV 8.5 Sodium Potassium Chloride Carbon Dioxide Anion Gap BUN Creatinine Est GFR (CKD-EPI)AfAm Est GFR (CKD-EPI)NonAf Random Glucose Calcium Total Bilirubin AST ALT Alkaline Phosphatase Total Protein Albumin Syphilis Serology COVID-19 ([facility]) lab noted Assessment: 04/17/20 15:00 opiate withdrawal Plan: methadone regiment
[2020-04-17] MEDS: diazePAM 5 MG TABLET PO PRN ×2 (18:40→23:48)
[2020-04-17] MEDS: MELATONIN 5 MG TABLETS PO SCH (23:44)
[2020-04-17] MEDS: THIAMINE HCL 100 MG TABLET (FP) PO SCH (23:45)
[2020-04-18] MEDS: hydrOXYzine PAMOATE 25 MG CAPSULE (FP) PO SCH ×4 (05:18→22:53)
[2020-04-18] MEDS: diazePAM 5 MG TABLET PO PRN ×4 (05:20→19:11)
--- NOTE | 2020-04-18 09:05 | CONSULT ---
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 Refer to addiction counselor's summary for further information Medical History: Significant for diverticulitis and history of treatment for gastroenteritis at [facility]. Smokes 5 cigarettes daily Psychiatric History: Patient is known for three previous admissions to this facility. He was approached at bedside for psychiatric interview and he declined to be seen
[2020-04-18] MEDS ORDERED: METHADONE HCL 10 MG TABLET (FOR DETOX USE ONLY) PO ONE (10:00)
[2020-04-18] MEDS: PRENATAL VITAMINS W/ FOLIC ACID TABLET (FP) PO SCH (10:24)
[2020-04-18] MEDS: NICOTINE 7 MG/24 HOURS TOPICAL PATCH TD SCH (10:24)
[2020-04-18] MEDS: NICOTINE POLACRILEX 2 MG GUM BUC PRN ×3 (10:28→18:04)
--- NOTE | 2020-04-18 12:09 | PN ---
S COWS - Scale Resting Pulse: 0= [place] 80 or Below Sweatin= No chills or Flushing Restless Observation: 0= Sits Still Pupil Size: 1= Pupils >than Normal Bone or Joint Aches: 2= Severe Diffuse Aches Runny Nose/ Eye Tearin= Runny Nose/Eyes GI Upset > 30mins: 2= Nausea/Diarrhea Tremor Observation of Outstretched Hands: 2= Slight Tremor Visible Yawning Observation: 1= 1-2x During Session Anxiety or Irritability: 2=Irritable/Anxious Goose Flesh Skin: 0=Smooth Skin COWS Score: 12 S Progress Note (SOAP) Subjective: alert,irritable,anxious,interrupted sleep,tremor,pain in the body and back,interrupted sleep,aching pain Objective: 04/18/20 18:03 Vital Signs Temperature 98.0 F 04/18/20 16:28 Pulse Rate 73 04/18/20 16:28 Respiratory Rate 18 04/18/20 16:28 Blood Pressure 109/58 L 04/18/20 16:28 O2 Sat by Pulse Oximetry (%) 96 04/18/20 12:58 Laboratory Last Values WBC 6.1 K/mm3 (4.0-10.0) 04/16/20 10:10 RBC 4.98 M/mm3 (4.00-5.60) 04/16/20 10:10 Hgb 14.4 GM/dL (11.7-16.9) 04/16/20 10:10 Hct 44.6 % (35.4-49) 04/16/20 10:10 MCV 89.4 fl (80-96) 04/16/20 10:10 MCH 28.9 pg (25.7-33.7) 04/16/20 10:10 MCHC 32.3 g/dl (32.0-35.9) 04/16/20 10:10 RDW 14.1 % (11.9-15.9) 04/16/20 10:10 Plt Count 300 K/MM3 (134-434) D 04/16/20 10:10 MPV 8.5 fl (7.5-11.1) 04/16/20 10:10 Sodium 140 mmol/L (136-145) 04/16/20 10:10 Potassium 4.6 mmol/L (3.5-5.1) 04/16/20 10:10 Chloride 107 mmol/L (98-107) 04/16/20 10:10 Carbon Dioxide 31 mmol/L (21-32) 04/16/20 10:10 Anion Gap 3 MMOL/L (8-16) L 04/16/20 10:10 BUN 13.0 mg/dL (7-18) 04/16/20 10:10 Creatinine 1.0 mg/dL (0.55-1.3) 04/16/20 10:10 Est GFR (CKD-EPI)AfAm 116.54 04/16/20 10:10 Est GFR (CKD-EPI)NonAf 100.55 04/16/20 10:10 Random Glucose 59 mg/dL (74-106) L 04/16/20 10:10 Calcium 9.2 mg/dL (8.5-10.1) 04/16/20 10:10 Total Bilirubin 0.4 mg/dL (0.2-1) 04/16/20 10:10 AST 15 U/L (15-37) 04/16/20 10:10 ALT 26 U/L (13-61) 04/16/20 10:10 Alkaline Phosphatase 63 U/L (45-117) 04/16/20 10:10 Total Protein 7.5 g/dl (6.4-8.2) 04/16/20 10:10 Albumin 4.0 g/dl (3.4-5.0) 04/16/20 10:10 Syphilis Serology Non-reactive (NONREACTIVE) 04/16/20 10:10 COVID-19 ([facility]) Not detected (Not Detected) 04/16/20 10:10 Assessment: 04/18/20 18:04 withdrawal symptom Plan: continue detox methadone regimen,initial glucose 59,repeat bgm now
[2020-04-18] MEDS: METHOCARBAMOL 500 MG TABLET PO PRN (15:11)
[2020-04-18] MEDS: THIAMINE HCL 100 MG TABLET (FP) PO SCH (22:53)
[2020-04-18] MEDS: MELATONIN 5 MG TABLETS PO SCH (22:53)
[2020-04-19] MEDS: diazePAM 5 MG TABLET PO PRN ×2 (05:21→09:26)
[2020-04-19] MEDS: METHOCARBAMOL 500 MG TABLET PO PRN ×3 (05:21→18:53)
[2020-04-19] MEDS: hydrOXYzine PAMOATE 25 MG CAPSULE (FP) PO SCH ×4 (05:22→22:59)
[2020-04-19] MEDS ORDERED: METHADONE HCL 10 MG TABLET (FOR DETOX USE ONLY) ONE (09:09)
[2020-04-19] MEDS ORDERED: METHADONE HCL 5 MG TABLET (FOR DETOX USE ONLY) ONE (09:09)
[2020-04-19] MEDS ORDERED: METHADONE (DETOX) 10 MG, METHADONE (DETOX) 5 MG PO ONE (10:00)
[2020-04-19] MEDS: PRENATAL VITAMINS W/ FOLIC ACID TABLET (FP) PO SCH (10:34)
[2020-04-19] MEDS: NICOTINE 7 MG/24 HOURS TOPICAL PATCH TD SCH (10:35)
--- NOTE | 2020-04-19 10:52 | PN ---
[facility] CIWA - CIWA Score Nausea/Vomitin-Mild Nausea/No Vomiting Muscle Tremors: 2 Anxiety: 2 Agitation: 2 Paroxysmal Sweats: No Perspiration Orientation: 0-Oriented Tacttile Disturbances: 1-Very Mild Itch/Numbness Auditory Disturbances: 0-None Visual Disturbances: 0-None Headache: 2-Mild CIWA-Ar Total Score: 10 BHS COWS - Scale Resting Pulse: 1= [place] 81-100 Sweatin= No chills or Flushing Restless Observation: 0= Sits Still Pupil Size: 0= Normal to Room Light Bone or Joint Aches: 1= Mild Discomfort Runny Nose/ Eye Tearin= Nasal Congestion GI Upset > 30mins: 1= Stomach Cramp Tremor Observation of Outstretched Hands: 2= Slight Tremor Visible Yawning Observation: 0= None Anxiety or Irritability: 2=Irritable/Anxious Goose Flesh Skin: 0=Smooth Skin COWS Score: 8 BHS Progress Note (SOAP) Subjective: alert,irritable,anxious,interrupted sleep,aching pain in the body and back Objective: 04/19/20 15:38 Vital Signs Temperature 97.3 F L 04/19/20 12:44 Pulse Rate 81 04/19/20 12:44 Respiratory Rate 18 04/19/20 12:44 Blood Pressure 118/78 04/19/20 12:44 O2 Sat by Pulse Oximetry (%) 98 04/19/20 12:44 Laboratory Last Values WBC 6.1 K/mm3 (4.0-10.0) 04/16/20 10:10 RBC 4.98 M/mm3 (4.00-5.60) 04/16/20 10:10 Hgb 14.4 GM/dL (11.7-16.9) 04/16/20 10:10 Hct 44.6 % (35.4-49) 04/16/20 10:10 MCV 89.4 fl (80-96) 04/16/20 10:10 MCH 28.9 pg (25.7-33.7) 04/16/20 10:10 MCHC 32.3 g/dl (32.0-35.9) 04/16/20 10:10 RDW 14.1 % (11.9-15.9) 04/16/20 10:10 Plt Count 300 K/MM3 (134-434) D 09/12/20 10:10 MPV 8.5 fl (7.5-11.1) 04/16/20 10:10 Sodium 140 mmol/L (136-145) 04/16/20 10:10 Potassium 4.6 mmol/L (3.5-5.1) 04/16/20 10:10 Chloride 107 mmol/L (98-107) 04/16/20 10:10 Carbon Dioxide 31 mmol/L (21-32) 04/16/20 10:10 Anion Gap 3 MMOL/L (8-16) L 04/16/20 10:10 BUN 13.0 mg/dL (7-18) 04/16/20 10:10 Creatinine 1.0 mg/dL (0.55-1.3) 04/16/20 10:10 Est GFR (CKD-EPI)AfAm 116.54 04/16/20 10:10 Est GFR (CKD-EPI)NonAf 100.55 04/16/20 10:10 POC Glucometer 107 UNITS (80-120) 04/19/20 05:23 Random Glucose 59 mg/dL (74-106) L 04/16/20 10:10 Calcium 9.2 mg/dL (8.5-10.1) 04/16/20 10:10 Total Bilirubin 0.4 mg/dL (0.2-1) 04/16/20 10:10 AST 15 U/L (15-37) 04/16/20 10:10 ALT 26 U/L (13-61) 04/16/20 10:10 Alkaline Phosphatase 63 U/L (45-117) 04/16/20 10:10 Total Protein 7.5 g/dl (6.4-8.2) 04/16/20 10:10 Albumin 4.0 g/dl (3.4-5.0) 04/16/20 10:10 Syphilis Serology Non-reactive (NONREACTIVE) 04/16/20 10:10 COVID-19 ([facility]) Not detected (Not Detected) 04/16/20 10:10 Assessment: 04/19/20 15:39 withdrawal symptom Plan: continue detox methadone and librium regimen
[2020-04-19] MEDS: THIAMINE HCL 100 MG TABLET (FP) PO SCH (22:59)
[2020-04-19] MEDS: MELATONIN 5 MG TABLETS PO SCH (22:59)
[2020-04-20] MEDS: hydrOXYzine PAMOATE 25 MG CAPSULE (FP) PO SCH ×4 (06:52→22:52)
--- NOTE | 2020-04-20 09:46 | PN ---
[facility] CIWA - CIWA Score Nausea/Vomitin-Mild Nausea/No Vomiting Muscle Tremors: 1-None Visible, but [place] Anxiety: 2 Agitation: 2 Paroxysmal Sweats: No Perspiration Orientation: 0-Oriented Tacttile Disturbances: 1-Very Mild Itch/Numbness Auditory Disturbances: 0-None Visual Disturbances: 0-None Headache: 1-Very Mild CIWA-Ar Total Score: 8 S COWS - Scale Resting Pulse: 0= [place] 80 or Below Sweatin= No chills or Flushing Restless Observation: 0= Sits Still Pupil Size: 0= Normal to Room Light Bone or Joint Aches: 1= Mild Discomfort Runny Nose/ Eye Tearin= Nasal Congestion GI Upset > 30mins: 1= Stomach Cramp Tremor Observation of Outstretched Hands: 2= Slight Tremor Visible Yawning Observation: 0= None Anxiety or Irritability: 2=Irritable/Anxious Goose Flesh Skin: 0=Smooth Skin COWS Score: 7 S Progress Note (SOAP) Subjective: alert,irritable,anxious,interrupted sleep,aching pain in the body and back Objective: 04/20/20 14:47 Vital Signs Temperature 96.9 F L 04/20/20 12:55 Pulse Rate 108 H 04/20/20 12:55 Respiratory Rate 18 04/20/20 12:55 Blood Pressure 128/79 04/20/20 12:55 O2 Sat by Pulse Oximetry (%) 98 04/20/20 12:55 04/20/20 14:47 Laboratory Last Values WBC 6.1 K/mm3 (4.0-10.0) 04/16/20 10:10 RBC 4.98 M/mm3 (4.00-5.60) 04/16/20 10:10 Hgb 14.4 GM/dL (11.7-16.9) 04/16/20 10:10 Hct 44.6 % (35.4-49) 04/16/20 10:10 MCV 89.4 fl (80-96) 04/16/20 10:10 MCH 28.9 pg (25.7-33.7) 04/16/20 10:10 MCHC 32.3 g/dl (32.0-35.9) 04/16/20 10:10 RDW 14.1 % (11.9-15.9) 04/16/20 10:10 Plt Count 300 K/MM3 (134-434) D 04/16/20 10:10 MPV 8.5 fl (7.5-11.1) 04/16/20 10:10 Sodium 140 mmol/L (136-145) 04/16/20 10:10 Potassium 4.6 mmol/L (3.5-5.1) 04/16/20 10:10 Chloride 107 mmol/L (98-107) 04/16/20 10:10 Carbon Dioxide 31 mmol/L (21-32) 04/16/20 10:10 Anion Gap 3 MMOL/L (8-16) L 04/16/20 10:10 BUN 13.0 mg/dL (7-18) 04/16/20 10:10 Creatinine 1.0 mg/dL (0.55-1.3) 04/16/20 10:10 Est GFR (CKD-EPI)AfAm 116.54 04/16/20 10:10 Est GFR (CKD-EPI)NonAf 100.55 04/16/20 10:10 POC Glucometer 107 UNITS (80-120) 04/19/20 05:23 Random Glucose 59 mg/dL (74-106) L 04/16/20 10:10 Calcium 9.2 mg/dL (8.5-10.1) 04/16/20 10:10 Total Bilirubin 0.4 mg/dL (0.2-1) 04/16/20 10:10 AST 15 U/L (15-37) 04/16/20 10:10 ALT 26 U/L (13-61) 04/16/20 10:10 Alkaline Phosphatase 63 U/L (45-117) 04/16/20 10:10 Total Protein 7.5 g/dl (6.4-8.2) 04/16/20 10:10 Albumin 4.0 g/dl (3.4-5.0) 04/16/20 10:10 Syphilis Serology Non-reactive (NONREACTIVE) 04/16/20 10:10 COVID-19 ([facility]) Not detected (Not Detected) 04/16/20 10:10 Assessment: 04/20/20 14:48 withdrawal symptom Plan: continue detox methadone and librium regimen,discharge in am
[2020-04-20] MEDS ORDERED: METHADONE HCL 10 MG TABLET (FOR DETOX USE ONLY) PO ONE (10:00)
[2020-04-20] MEDS: METHOCARBAMOL 500 MG TABLET PO PRN ×2 (10:14→17:26)
[2020-04-20] MEDS: PRENATAL VITAMINS W/ FOLIC ACID TABLET (FP) PO SCH (10:14)
[2020-04-20] MEDS: NICOTINE 7 MG/24 HOURS TOPICAL PATCH TD SCH (10:15)
[2020-04-20] MEDS: ACETAMINOPHEN 325 MG TABLET (FP) PO PRN (17:27)
[2020-04-20] MEDS: NICOTINE POLACRILEX 2 MG GUM BUC PRN (19:11)
[2020-04-20] MEDS: MELATONIN 5 MG TABLETS PO SCH (22:52)
[2020-04-20] MEDS: THIAMINE HCL 100 MG TABLET (FP) PO SCH (22:52)
[2020-04-21] MEDS ORDERED: METHADONE HCL 5 MG TABLET (FOR DETOX USE ONLY) PO ONE (06:00)
[2020-04-21 06:16] VITALS: TEMP 98.2
[2020-04-21] MEDS: hydrOXYzine PAMOATE 25 MG CAPSULE (FP) PO SCH (07:16)
--- NOTE | 2020-04-21 07:35 | PN ---
[facility] Progress Note Note: addendum patient is on methadone regimen
--- NOTE | 2020-04-21 08:52 | PN ---
[facility] COWS - Scale Resting Pulse: 1= [place] 81-100 Sweatin= No chills or Flushing Restless Observation: 0= Sits Still Pupil Size: 0= Normal to Room Light Bone or Joint Aches: 0= None Runny Nose/ Eye Tearin= None GI Upset > 30mins: 0= None Tremor Observation of Outstretched Hands: 0= None Yawning Observation: 0= None Anxiety or Irritability: 1=Feels Anxious/Irritable Goose Flesh Skin: 0=Smooth Skin COWS Score: 2 BHS Progress Note (SOAP) Subjective: alert,no complaint Objective: 04/21/20 10:08 Vital Signs Temperature 98.2 F 04/21/20 08:39 Pulse Rate 83 04/21/20 08:39 Respiratory Rate 18 04/21/20 08:39 Blood Pressure 127/76 04/21/20 08:39 O2 Sat by Pulse Oximetry (%) 99 04/21/20 06:16 Assessment: 04/21/20 10:08 detox completed,no withdrawal symptom Plan: discharge today,follow up with after care program [facility] as arrangement
--- NOTE | 2020-04-21 08:52 | DS ---
[facility] Detox Discharge Summary Admission Date: 04/16/20 Discharge Date: 04/21/20 - History Present History: Cannabis Dependence, Cocaine Dependence, Opioid Dependence Additional Comments: alert,oriented x 3 ambulation on the unit lung clear on auscultation bilaterally abdomen soft,no distension,no pain or tenderness detox completed,no withdrawal symptom stable for discharge today follow up with after care program as arrangement rehab total time of discharge spending 35 minutes Pertinent Past History: nicotine dependence anxiety disorder - Physical Exam Results Vital Signs: Vital Signs Temperature 98.2 F 04/21/20 06:16 Pulse Rate 66 04/21/20 06:16 Respiratory Rate 18 04/21/20 06:16 Blood Pressure 104/62 04/21/20 06:16 O2 Sat by Pulse Oximetry (%) 99 04/21/20 06:16 Pertinent Admission Physical Exam Findings: withdrawal signs and symptom Vital Signs Temperature 98.2 F 04/21/20 08:39 Pulse Rate 83 04/21/20 08:39 Respiratory Rate 18 04/21/20 08:39 Blood Pressure 127/76 04/21/20 08:39 O2 Sat by Pulse Oximetry (%) 99 04/21/20 06:16 Laboratory Last Values WBC 6.1 K/mm3 (4.0-10.0) 04/16/20 10:10 RBC 4.98 M/mm3 (4.00-5.60) 04/16/20 10:10 Hgb 14.4 GM/dL (11.7-16.9) 04/16/20 10:10 Hct 44.6 % (35.4-49) 04/16/20 10:10 MCV 89.4 fl (80-96) 04/16/20 10:10 MCH 28.9 pg (25.7-33.7) 04/16/20 10:10 MCHC 32.3 g/dl (32.0-35.9) 04/16/20 10:10 RDW 14.1 % (11.9-15.9) 04/16/20 10:10 Plt Count 300 K/MM3 (134-434) D 04/16/20 10:10 MPV 8.5 fl (7.5-11.1) 04/16/20 10:10 Sodium 140 mmol/L (136-145) 04/16/20 10:10 Potassium 4.6 mmol/L (3.5-5.1) 04/16/20 10:10 Chloride 107 mmol/L (98-107) 04/16/20 10:10 Carbon Dioxide 31 mmol/L (21-32) 04/16/20 10:10 Anion Gap 3 MMOL/L (8-16) L 04/16/20 10:10 BUN 13.0 mg/dL (7-18) 04/16/20 10:10 Creatinine 1.0 mg/dL (0.55-1.3) 04/16/20 10:10 Est GFR (CKD-EPI)AfAm 116.54 04/16/20 10:10 Est GFR (CKD-EPI)NonAf 100.55 04/16/20 10:10 POC Glucometer 107 UNITS (80-120) 04/19/20 05:23 Random Glucose 59 mg/dL (74-106) L 04/16/20 10:10 Calcium 9.2 mg/dL (8.5-10.1) 04/16/20 10:10 Total Bilirubin 0.4 mg/dL (0.2-1) 04/16/20 10:10 AST 15 U/L (15-37) 04/16/20 10:10 ALT 26 U/L (13-61) 04/16/20 10:10 Alkaline Phosphatase 63 U/L (45-117) 04/16/20 10:10 Total Protein 7.5 g/dl (6.4-8.2) 04/16/20 10:10 Albumin 4.0 g/dl (3.4-5.0) 04/16/20 10:10 Syphilis Serology Non-reactive (NONREACTIVE) 04/16/20 10:10 COVID-19 ([facility]) Not detected (Not Detected) 04/16/20 10:10 - Treatment Hospital Course: Detox Protocol Followed, Detoxed Safely, Responded well, Discharged Condition Good, Rehab Referral Accepted - Medication Discharge Medications: Ambulatory Orders NK [No Known Home Medication] 04/16/20 - Diagnosis (1) Opioid dependence with withdrawal Status: Acute (2) Cannabis dependence, uncomplicated Status: Chronic (3) Cocaine dependence Status: Chronic Qualifiers: Substance use status: uncomplicated Qualified Code(s): F14.20 - Cocaine dependence, uncomplicated (4) Nicotine dependence Status: Chronic Qualifiers: Nicotine product type: cigarettes Substance use status: uncomplicated Qualified Code(s): F17.210 - Nicotine dependence, cigarettes, uncomplicated (5) Insomnia Status: Acute - AMA Did Patient Leave Against Medical Advice: No
[2020-04-21] MEDS: METHOCARBAMOL 500 MG TABLET PO PRN (09:04)
[2020-04-21] MEDS: ACETAMINOPHEN 325 MG TABLET (FP) PO PRN (09:05)
[2020-04-21] MEDS: NICOTINE 7 MG/24 HOURS TOPICAL PATCH TD SCH (09:06)
[2020-04-21] MEDS: PRENATAL VITAMINS W/ FOLIC ACID TABLET (FP) PO SCH (09:06)
[2020-04-21 09:23] VITALS: BP 127/76; PULSE 83
== END 2020-04-21 09:26 | disposition other institution (70) | DRG 773 ==
LOC: YASAS 08:15 → Y3N 09:48
PROVIDERS: ADMIT Allergy & Immunology; ATTEND Allergy & Immunology
PROC: HZ2ZZZZ Detoxification Services for Substance Abuse Treatment (ICD-10-PCS; principal; 2020-04-16)
DX: F11.23 Opioid dependence with withdrawal (principal); F14.20 Cocaine dependence, uncomplicated; F12.20 Cannabis dependence, uncomplicated; F17.210 Nicotine dependence, cigarettes, uncomplicated; F41.9 Anxiety disorder, unspecified; G47.00 Insomnia, unspecified; Z87.19 Personal history of other diseases of the digestive system; Z56.0 Unemployment, unspecified; Z59.0 Homelessness
CPT/HCPCS: 36415; 80053; 82962; 85027; 86780; U0003

== ENCOUNTER 2020-04-21 09:37 | Inpatient (IN) | payer OTHER ==
--- OUTSIDE RECORDS SUMMARY | 2020-04-21 10:38 | XMS ---
:1990 Author Organization [facility] Care Team Providers Name Role Phone LIONEL ASKEW Unavailable Unavailable KULDEEP RHODES MD Unavailable Unavailable Re-disclosure Warning The records that you are about to access may contain information from federally- assisted alcohol or drug abuse programs. If such information is present, then the following federally mandated warning applies: This information has been disclosed to you from records protected by federal confidentiality rules (42 CFR part 2). The federal rules prohibit you from making any further disclosure of this information unless further disclosure is expressly permitted by the written consent of the person to whom it pertains or as otherwise permitted by 42 CFR part 2. A general authorization for the release of medical or other information is NOT sufficient for this purpose. The Federal rules restrict any use of the information to criminally investigate or prosecute any alcohol or drug abuse patient.The records that you are about to access may contain highly sensitive health information, the redisclosure of which is protected by Article 27-F of the [facility] Public Health law. If you continue you may haveaccess to information: Regarding HIV / AIDS; Provided by facilities licensed or operated by the [facility] Office of Mental Health; or Provided by the [facility] Office for People With Developmental Disabilities. If such information is present, then the following [facility] mandated warning applies: This information has been disclosed to you from confidential records which are protected by state law. State law prohibits you from making any further disclosure of this information without the specific written consent of the person to whom it pertains, or as otherwise permitted by law. Any unauthorized further disclosure in violation of state law may result in a fine or custodial sentence or both. A general authorization for the release of medical or other information is NOT sufficient authorization for further disclosure. Encounters Encounter Providers Location Date Indications Data Source(s ) IR Admitter: KULDEEP 10/10/2019 Opiate dependence [facility] AFFUL 02:23:00 PM Hospital EST - 11/07/2019 10:00:00 AM EDT Opiate dependence Patient discharged. Inpatient 10/10/2019 01:00:00 [facility] AM EST [facility] IR Admitter: LIONEL 10/06/2019 07:07:38 [facility] 10[facility]10[facility]2019 treatment Hospi ananda 02:15:00 PM EST EVAL for special treatment Patient discharged. Emergency 10/06/2019 12:00:00 AM EST [facility] Emergency 10/05/2019 04:06:23 PM EST - eval de tox [facility] 10/05/2019 07:32:00 PM EST eval detox Patient discharged. Emergency 10/05/2019 12:00:00 AM EST [facility] Immunizations Vaccine Date Status Description Data Source(s) TB Skin test 11/06/2019 completed TB Skin Test 11/06/2019 [facility] is not 12:00:00 AM EDT (PPD) (Deferred: - Shan[place] vaccine. Intradermal neg), 11/05/2019 H [facility]alth (), 11/04/2019, [employer] 10/06/2019 () Deferred: - neg TB Skin test 11/05/2019 completed TB Skin Test 11/06/2019 [facility] is not 12:00:00 AM EDT (PPD) (Deferred: - [place] vaccine. Intradermal neg), 11/05/2019 H ealth (), 11/04/2019, [employer] 10/06/2019 () TB Skin test 11/04/2019 completed TB Skin Test 11/06/2019 [facility] is not 12:00:00 AM EDT (PPD) (Deferred: - [place] vaccine. Intradermal neg), 11/05/2019 H ealth (), 11/04/2019, [employer] 10/06/2019 () TB Skin test 10/06/2019 completed TB Skin Test 11/06/2019 [facility] is not 12:00:00 AM EST (PPD) (Deferred: - [place] vaccine. Intradermal neg), 11/05/2019 H [facility]alth (), 11/04/2019, [facility] 10/06/2019 () Medications Medication Brand Start Product Dose Route Administrative Pharmacy [facility] Indications Reaction Description Data Name Date Form Instructions Instructions Source(s) Buprenorphi bupren SubLIN aborted prevention 2 Film by Bon ne 2 MG / orphin 2019 {film Gual of relapse SubLIN Gual [facility] Naloxone e-nalo 12:00: } to opioid route d aily Shanique 0.5 MG Oral xone 00 AM dependence for 7 days. Health Strip (SUBOX EDT Max Daily [employer] buprenorphi ONE) Amount: 2 ne-naloxone 2-0.5 Film. (SUBOXONE) mg Indications: 2-0.5 mg film prevention film sublin of relapse sublingual gual to opioid film film dependence prevention of relapse to opioid dependen ce Buprenorphine 2 MG / buprenorphine-naloxone 11/07/2019 2 SubL INGual active prevention 2 Film by Bon Naloxone 0.5 MG Oral (SUBOXONE) 2-0.5 mg 12:00:00 AM {film} of relapse SubLINGual [facility] Strip film sublingual film EDT to opioid route daily [place] buprenorphine-naloxone dependence for 7 days. Health (SUBOXONE) 2-0.5 mg Max D aily System film sublingual film Amou nt: 2 Inc Film. Indications: prevention of relapse to opioid dependence prevention of relapse to opioid dependen ce Buprenorphine 2 MG / buprenorphine-naloxone 11/07/2019 2 SubL INGual aborted prevention 2 Film by Bon Naloxone 0.5 MG Oral (SUBOXONE) 2-0.5 mg 12:00:00 AM {film} of relapse SubLINGual [facility] Strip film sublingual film EDT to opioid route daily [place] buprenorphine-naloxone dependence for 7 days. Health (SUBOXONE) 2-0.5 mg Max D aily System film sublingual film Amou nt: 2 Inc Film. Indications: prevention of relapse to opioid dependence prevention of relapse to opioid dependen ce Trazodone traZODone 11/06/2019 150 Oral active insomnia Take 1 Tab by Bon Hydrochloride (DESYREL) 12:00:00 AM mg associate d mouth nightly [facility] 150 MG Oral 150 mg EDT with for 30 days . Shanique Tablet tablet depression Indication s: Health traZODone insomnia System (DESYREL) 150 associated Inc mg tablet with depression insomnia associated with depression Cephalexin cephALEXin 10/05/2019 500 Oral completed 500 mg, Bon 500 MG Oral (KEFLEX) 06:57:00 PM mg Or al, [facility] Capsule capsule 500 EST NOW, 1 Coty rity cephALEXin mg dose, Health (KEFLEX) Mon System capsule 500 3/2/20 Inc mg at 1857 Medication administered onsite Ibuprofen ibuprofen 10/05/2019 600 mg Oral completed 600 mg, Bon 600 MG Oral (MOTRIN) 06:57:00 PM Or al, [facility] Tablet tablet 600 EST NOW, 1 Cielo ty ibuprofen mg dose, Health (MOTRIN) Mon System tablet 600 3/2/20 Inc mg at 1857 Medication administered onsite Cephalexin 500 cephALEXin 10/05/2019 500 Oral aborted Take 1 Bon MG Oral Capsule (KEFLEX) 500 mg 12:00:00 AM mg Cap by [facility] cephALEXin capsule EST mouth Cielo ty (KEFLEX) 500 mg four Heal th capsule (4) System times Inc daily for 7 days. Ibuprofen 600 ibuprofen 10/05/2019 600 Oral aborted Take 1 Bon MG Oral Tablet (MOTRIN) 600 mg 12:00:00 AM mg Tab by [facility] ibuprofen tablet EST mouth Shanique (MOTRIN) 600 mg every Hea lth tablet six (6) System hours Inc as needed for Pain. Acetaminophen acetaminophen 10/05/2019 650 Oral active pain Take 2 Bon 325 MG Oral (TYLENOL) 325 12:00:00 AM mg Tabs by [facility] Tablet mg tablet EST mouth Shanique acetaminophen every Healt h (TYLENOL) 325 four System mg tablet (4) Inc hours as needed for Pain. pain Insurance Providers Payer name Policy type Policy ID Covered Covered green party's Policy P dayron / Coverage green party ID relationship to Lopez Inf ormation type lopez [facility] [id number] T [facility] [id number] T [facility] [id number] T [facility] [id number] [place] [employer] Managed Care [id number] MEDICAID Medicaid MEDICAID [id number] Problems, Conditions, and Diagnoses Code Display Name Description Problem Type Effective Data Sour ce(s) Dates F11.10 Opiate abuse, Opiate abuse, 15070226 10/11/2019 [facility] continuous continuous 12:00:00 AM [employer] 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 Severe major 14889680 10/09/2019 Baird s depression without depression without 12:00:00 AM [employer] psychotic features psychotic features EST System Inc F17.210 Dependence on Dependence on 66273083 10/07/2019 [facility] nicotine from nicotine from 12:00:00 AM [employer] cigarettes cigarettes EST System Inc F14.10 Cocaine abuse Cocaine abuse 23250336 10/07/2019 [facility] 12:00:00 AM [employer] EST System Inc F12.10 Marijuana abuse Marijuana abuse 44059538 10/07/2019 [facility] 12:00:00 AM [employer] F11.10 Heroin abuse Heroin abuse 93112370 10/07/2019 Baird s 12:00:00 AM [employer] F11.23 Opiate withdrawal Opiate withdrawal 14704100 10/06/2019 [facility] 12:00:00 AM [employer] F11.10 Opioid abuse, Opioid abuse, Diagnosis 10/10/2019 [facility] - uncomplicated uncomplicated 02:23:00 PM [facility] [place] [place] F11.23 Opioid dependence Opioid dependence Diagnosis 10/06/2019 [facility] - with withdrawal with withdrawal 06:54:56 AM [facility] L08.9 Local infection of Local infection of Diagnosis 0 [facility] - the skin and the skin and 03:49:03 PM [facility] subcutaneous subcutaneous [facility] Hospital tissue, tissue, unspecified unspecified H60.12 Cellulitis of left Cellulitis of left Diagnosis 0 [facility] - external ear external ear 03:49:03 PM [facility] 4082 4082 prevention of Diagnosis [facility] relapse to opioid Shan[place] Well [employer] dependence [facility] 4082 4082 prevention of Diagnosis [facility] relapse to opioid [place] Well [employer] dependence System Inc 4851 4853 insomnia Diagnosis [facility] associated with [facility] depression System Inc 4082 4082 [facility] to [facility] dependence System [facility] [phone] pain Diagnosis [facility] Surgeries/Procedures Procedure Description Date Indications Data Source(s) PLEASE READ & <td><content 11/06/2019 Antonio Hand arity DOCUMENT PPD TEST ID="[id number]"> 08:52:00 PM [facility] HRS PLEASE READ & EDT DOCUMENT PPD TEST IN 48 HRS</content></td><td >Routine</td><td>10/2019 8:52 PM EDT</td><td></td><td> <paragraph styleCode="header">Re sults for this procedure are in the <content styleCode="xLink2-Res [id number]">results section</content>.</p aragraph></td> HEPATIC FUNCTION HEPATIC FUNCTION STAT 10/31/2019 Bon PANEL PANEL 7:02 AM EDT 07:02:00 AM [facility] EDT [facility] HC DRUG SCR QL HC DRUG SCR QL STAT 10/26/2019 020 Bon INST ALLEGRA INST ALLEGRA 2:45 PM EDT 02:45:00 PM [facility] OPTICAL READ OPTICAL READ EDT [facility] HC DRUG SCR QL HC DRUG SCR QL Routine 10/24/2019 020 Bon INST ALLEGRA INST ALLEGRA 7:50 PM EDT 07:50:00 PM [facility] OPTICAL READ OPTICAL READ EDT [facility] URINALYSIS W/ URINALYSIS W/ STAT 10/06/2019 0 Bon RFLX MICROSCOPIC RFLX MICROSCOPIC 7:05 AM EST 07 :05:00 AM [facility] EST [facility] HC DRUG SCR QL HC DRUG SCR QL STAT 10/06/2019 020 Bon INST ALLEGRA INST ALLEGRA 7:05 AM EST 07:05:00 AM [facility] OPTICAL READ OPTICAL READ EST [facility] URINE MICROSCOPIC URINE MICROSCOPIC STAT 10/05/2019 0 10/05/2019 Bon 4:10 PM EST 04:10:00 PM [facility] EST [facility] BILIRUBIN, BILIRUBIN, STAT 10/05/2019 10/05/2019 Bon CONFIRM CONFIRM 4:10 PM EST 04:10:[facility]/ URINALYSIS W/ STAT 10/05/2019 0 Bon RFLX MICROSCOPIC RFLX MICROSCOPIC 4:10 PM EST 04 :10:00 [facility] DR[facility] S[facility]EN, DRUG SCREEN, STAT 10/05/2019 10/05/2019 Bon URINE URINE 4:10 PM EST 04:10:00 [facility] HC DRUG SCR QL HC DRUG SCR QL STAT 10/05/2019 020 Bon INST ALLEGRA INST ALLEGRA 4:05 PM EST 04:05:00 [facility] OPTICAL READ OPTICAL READ [facility] nc METABOLIC PANEL, METABOLIC PANEL, STAT 10/05/201909/2019 Bon COMPREHENSIVE COMPREHENSIVE 4:05 PM EST 04:05:00 PM [facility] nc CBC WITH CBC WITH STAT 10/05/2019 10/05/2019 Bon AUTOMATED DIFF AUTOMATED DIFF 4:05 PM EST 04:05: 00 PM [facility] nc XR SHOULDER LT XR SHOULDER LT STAT 10/05/2019 020 Bon AP/LAT MIN 2 V AP/LAT MIN 2 V 3:59 PM EST 03:59: 54 PM [facility] nc Results ID Date Data Source [id number] 04/16/2020 10:10:00 AM EDT [facility] Name Value Range Interpretation Description Data Sup porting Code Source(s) Document(s ) SARS [facility] coronavirus 2 RNA This lab was ordered by [facility] ct Bill Inter and reported by [facility]. ID Date Data Source [id number] 12/20/2019 03:45:00 PM EDT [facility] Name Value Range Interpretation Description Data Sup porting Code Source(s) Document(s ) SARS [facility] CORONAVIRUS 2 RNA This lab was ordered by [facility] Ac ct Bill Inter and reported by [facility]. ID Date Data Source [id number] 11/26/2019 12:44:11 PM EDT [facility] Discharge summary:Rikki Eckert [address] [phone] (home): 1990S#: [id number] or/Plan Subscr Sex Relation Sub. Ins. ID Effective Group Num1. [place] [facility]* RIKKI LUO 1990 Male Self [id number] 05/05/19 [place] [id number] was admitted to the program on [facility]10[facility] as of 11/07/2019 Date Reviewed: 10/19/2019 Codes Class Noted - Reso lved POA Opiate abuse, continuous (HCC) ICD-10-CM: F11.10ICD-9-CM: 305.51 020 - Present Yes Severe major depression without psychotic features (HCC) ICD-10- CM: F32.2ICD-9-CM: 296.23 10/09/2019 - Present Yes Marijuana abuse ICD-10-CM: F12.10ICD -9-CM: 305.20 10/07/2019 - Present Yes Cocaine abuse (HCC) ICD-10-CM: F14.10ICD-9-CM: 3 05.60 10/07/2019 - Present Yes Dependence on nicotine from cigarettes ICD-10-CM: F17. 210ICD-9-CM: 305.1 10/07/2019 - Present YesCourse of treatment: Rikki was activ lenny participated in the program, completedassignments when given, followe d all unit rules/regulations. Rikki D/C onS11/08/19 to his sister house at [address] [place] [address]. [place], [place].Rikki outpatient program is at [address] [phone] fax [phone] on Saturday11/10/19 at 10:00am with Delaney for his substance abuse and MAT Suboxion. he will see the onSaturday11/10/2019 to continue his MAT. Rikki was accepted t [facility] ,but need to call daily ,they was not accepting new admission be cause ofthe COVID-19 disaster emergency Stop his admission at this time. Babita mix [facility] Department of homeless Services new intake packet, emailed [email or web address].[email or web address] as instructed. Turnaround time could be 1-2 businessdays. Treatment tiffany acosta also included [facility] Homeless Residential information if needed,[facility] if needed, and [facility] if needed on his D/C papers. Rikki was able toreport how his addiction affe ct his life and what he needs to implement in hislife ,so he can become a better fathe r and a productive member of society.Sky Diver gave pt. information on effective commun ication skills, Basic DistressTolerance, Coping strategies that he would be able to practice in life to helpmaintain his sobriety. Rikki reported being aware of his feelings to have abetter understanding of emotional triggers. Rikki completed the program with acertificate and coin.Discharge/Aftercare: Patient did floyd ccessfully complete the program on 11/07/2019Follow-up Information Follow up With Specialties Details Why Contact Info [facility] Call he was ac cepted, but is on hold at this time forlong-term treatment he need to contin ue calling [address] [place] [address] [phone] sig gerardo Sister home Go on 11/07/2019 [place] [phone] [facility] re Recovery [facility] On 11/10/2019 at 10:00 am with Delaney for his substanceabuse and MAT Suboxone. he will see the Dr. Luna [address] [address] fax [phone] signed [facility] Call To follow up on celso hearn for residential chemical dependencytreatment [address] [place], [place] [address]Y: [phone]: [phone] consent [facility] Homeless Residential Intake Center Go to As needed, [facility] [address], [place]: [place] [address] east to [address] venue, turn left, andgo north to [address]. Entrance is now at [address] and [address]. [facility] Go to As needed, Emergency housin goption near sister's home [address] [place], [place] [address]C: [phone] [facility] residence Go to As needed, Emergencyhou sing option near sister's home [address] [place], [place] [address]Y: [phone] [facility] Housing Go to As needed, Emergencyhousi ng option near sister's home [address] [place], [place] [address]T: [phone] [facility] Marlena Go to As needed, Emergency housing optionnear sis ter's home [address] [place], [place] [address]K: [phone] Bsi, Not On File Not O n File (58) Patient has a PCP but that physician isnot listed in [facility]. Name Value Range Interpretation Code Description Data Tashia rce(s) Supporting Document(s ) ID Date Data Source [id number] 11/17/2019 01:57:49 PM EDT [facility] Problem: Chemical Dependency (Adult/Ped iatric)Goal: *STG: Able to indentify relapse triggers including interpersonal/sociala nd familial factorsDescription: Rikki will begin to explore triggers that promote i ncrease inurges or cravings to use. Rikki will identify at least 4 triggers that c ouldlead to a possible relapse and explore 4 coping skills that can be utilized topre vent a potential relapse to decrease urges and cravings.Outcome: Resolved/MetProble m: Chemical Dependency (Adult/Pediatric)Goal: *STG/LTG: Relapse prevention plan in kirsten ce to include housing/aftercare,leisure activities, and spiritualityDescription: Rikki and counselor will set up the appropriate after care asneeded to [facility] help him in his recovery.Outcome: Progressing Towards GoalRikki reported that he recognize that boredom is a trigger for him. Rikkireported that he needs to stay busy. Rikki's outpatient program is at [address] [place] [address], [id number] fax [phone] on Saturday11/10/2019 at 10:00 am with Usha alex his substance abuse treatment. Rikki was accepted to [facility] to continue calling them daily for approval for admission. Rikki willattend online meet ings until they open back up for walk in's.AA/NA meetings - MeetMeTix and Https:// Football Meister.PolyeraProblem: Social DiscomfortGoal: *STG: Verbally re port positive outcomes of participation in social &support groupsDescription: Karla whalen will identify the positive things he has learn/experiencedin the groups dony vargas here in rehabOutcome: Progressing Towards GoalRikik reported that he learned that they are two type of behavioral relapsesuch as; A Chemical relapse, And a 0behavior al relapse.Rikki reported that he has learned how to manage his anxiety in hea lthy wayssuch as; breathing and praying.Rikki reported that he learnd m ore ways to address his addiction such as; goingto AA/NA meeting,outpatient program and findingAway to talk about his emotions Name Value Range Interpretation Code Description Data Tashia rce(s) Supporting Document(s ) ID Date Data Source [id number] 11/17/2019 01:56:51 PM EDT [facility] Treatment Plan ReviewRikki marquez date: 10/10/2019 2:23 PMToday's date: 10/22/19Members Present During Treatment Plan Review: [x] Patient [x] Nurse: Selina Peguero [x] NICHOLE [facility] team to review patient's progress toward treatment goals andaddre ss any concerns or discharge needs. For detail on progress please see careplan.C urrent Urges & Cravings: None at this timePost acute withdrawal updates: liam Solorzano planning progress: Rikki D/C date is Saturday10/27/19 he was acce [facility]tedto [facility].Additional Information/Assessment: Rikki refuse to take some of his medication.He stated that his sister just had a nervous breakdown, Rikki mother said " becareful of the medication that you are taking." Rikki reported that when hefirst came into rehab he wanted anything to get a" buzz". Jhon monson reported sincehe been here and learned some things ,he no longer want to take anything thatis a mood altering chemical. Name Value Range Interpretation Code Description Data Tashia rce(s) Supporting Document(s ) ID Date Data Source [id number] 11/17/2019 01:52:24 PM EDT [facility] Treatment Plan ReviewRikki Lucio alma date: 10/10/2019 2:23 PMToday's date: 10/29/19Members Present During Treatment Plan Review: [x] Patient [x] Nurse: Laura Flores [x] NICHOLE [facility] treatment team to review patient's progress toward treatment goals andaddre ss any concerns or discharge needs. For detail on progress please see careplan.C urrent Urges & Cravings: yes feeling agitatedPost acute withdrawal updates: a nxiousnessDischarge planning progress: Rikki is getting D/C to his sister home at [address] [place] [address]. [place], [place].He is going to a outpatient program [facility] [place] [address] fax [phone] on Saturday11/10/2019 at 10:00 amwith Delaney. Consent was signed. Rikki D/C is Saturday11/06/19. Rikki was accepted[facility] but have to continue calling them daily for approval foradmission.Additional Informa tion/Assessment: Rikki reported that he is bored, Sky Diver willcontinue giving him as signments.Rikki would like to start MAT Suboxone and his outpatient will continu eUrszula Writekenyon Logan [facility] will need a pres cription for MAT for a week worth of Suboxone.He will see the , on 11/11/2019 Name Value Range Interpretation Code Description Data Tashia rce(s) Supporting Document(s ) ID Date Data Source [id number] 11/17/2019 01:51:35 PM EDT [facility] Note -3:15am- 4:00 pmGroup Topic - The [place] and Struggle of Free Will. Sky Diver brought literaturefocusing on wha t you deciding to do for your recovery, what you willing to doand not willing to do f or your recovery. The discussion about the literatureturned into a group discussion about the effort that it is going to take fromthe individual to get started on the road to recovery such as; Building aFoundation for recovery, Avoiding Relap se, attending Rehab, Going to Self- Helpgroups, Participating in Outpatient Programs, Learning How to Stuart attitude,Ideas, and Behaviors. What you are not willing to do such as; Changing friends,finding new places to hang out a t, not changing attitude, ideas and behaviors,not staying away from people w ho used drugs/or alcohol, not going to anyaftercare from rehab, and not trying to develop something positive for leisuretime. The topic took on a life o f its own in the group as each participant hadthe chance to share their ideas, thou ghts, Feeling and experiences about whatthey willing or not willing to do for their r ecovery. Sky Diver elaborated on howthe above mentioned components (some of many) of r ecovery were essential inunderstanding the magnitude of addiction and what it will take to properlyaddress it. Patient participated in topic being discussed an d how it pertained to theirrecovery. Name Value Range Interpretation Code Description Data Tashia rce(s) Supporting Document(s ) ID Date Data Source [id number] 11/13/2019 09:51:20 AM EDT [facility] Discharge Summary Rikki Mendoza / [id number] : 1990 Admitted 10/10/2019 Discharged: 11/07/19COURSE OF HOSPITAL STA Y: Rikki Mendoza is a 29 y.o. male who was admitted forinpatient rehab treatment. P atient successfully completed the rehab treatmentand was discharged as scheduled on Saturday11/07/19.Discharge Medication List as of 11/07/2019 9:52 AMSTART taking thes e medications DetailstraZODone (DESYREL) 150 mg tablet Take 1 Tab by mouth nightly fo r 30 days.Indications: insomnia associated with depression, Normal, Disp-30 Tab, R- 0CONTINUE these medications which have CHANGED Detailsbuprenorphine-naloxone (S UBOXONE) 2-0.5 mg film sublingual film 2 Film bySubLINGual route daily for 7 days. Max Daily Amount: 2 Film. Indications:prevention of relapse to opioid dependence, Print, Disp-14 Film,[id number] these medications which have NOT CHANGED Detai lsacetaminophen (TYLENOL) 325 mg tablet Take 2 Tabs by mouth every four (4) hoursas n eeded for Pain., Normal, Disp-20 Tab, R-0STOP taking these medications ibuprofen (MOTR IN) 600 mg tablet Comments:Reason for Stopping: cephALEXin (KEFLEX) 500 mg cap dillan Comments:Reason for Stopping:No Known AllergiesDISCHARGE DIAGNOSIS/PLAN:Jr peguero Active Problem List Diagnosis Date Noted Opiate abuse, continuous ([facility]) 0 Severe major depression without psychotic features ([facility]) 10/09/2019 Heroin abuse ([facility]) 10/07/2019 Marijuana abuse 10/07/2019 Cocaine abuse ([facility]) 10/07/2019 Dependen ce on nicotine from cigarettes 10/07/2019 Opiate withdrawal ([facility]) 10/06/2019Contin ue after care as set up and agreed upon with clinical counselorFU with PCP and Psychi atrist as outpatientFollowing instructions given to patient:Take discharge medicati ons as prescribed and as instructed. It is important that you take the medication e xactly as they are prescribed. Keep your medication in the bottles provided by [facility] pharmacist and keep a listof the medication names, dosages, and times to be taken in your wallet. Do not take other medications without consulting your doct or.Risks/Benefits/potential adverse reactions have been discussed with the patientfor current and new medicationsEmmanjosephine Marquez NP Name Value Range Interpretation Code Description Data Tashia rce(s) Supporting Document(s ) ID Date Data Source [id number] 11/10/2019 02:44:41 PM EDT [facility] Group Topic: 11:15 AM- 12:00 PMGroup Not e: Spiritual Principals: Sky Diver gave out a sheet of paper with a listof Spiritual p rincipals: Spiritual principal are essentially universal truthsrelating to the deepest values and meanings by which people live in order toachieve genuine i nner peace. Spiritual principal (some of many) can be Discoverthe essence of one' s being such as: Honesty ,acceptance, Surrender, Hope,Commitment, jamel ,Coura ge, Willingness, Humility, Unconditional love,Perseverance, Open mindedness, God- centeredness, Awareness and Self -discipline,Positive thinking, Forgivene ss, Gratitude, service, and Tolerance. Writerelaborated on how the above mentio gerardo Spiritual Principals are essential inunderstanding the magnitude of differe nt solutions and what it will take toproperly address their Addicted behavior. Sky Diver spoke on the SpiritualPrincipal that can play a major role in their recovery. Each mem igor also sharedtheir own experience with spiritual principal and talk about what spiritualprincipal means to them and the need for applying them in their daily life. T heywere supportive towards each other.Patient was accepting of the information and ack nowledged the benefits ofspiritual principals in their life. Name Value Range Interpretation Code Description Data Tashia rce(s) Supporting Document(s ) ID Date Data Source [id number] 11/10/2019 02:43:36 PM EDT [facility] Group Note: 1:15-3:pmGroup Topic: Formin g Stable Relationships:Exploring the different between Healthy and Unhealthy relationships, due torelationships being one of the common stressors that lead to a r elapse. A Goodrelationship supports recovery under other kinds of stress. Forming sta blerelationships is a valuable life skill. Sky Diver explored ways of identifyingsigns of an unhealthy and healthy relationships and tips for maintaining healthyrelation ships with the group members. Some characteristics of healthyrelationships: Honesty, Compromise, Good communication, Anger control, Mutualrespect, Individual ity, Fighting Fear, Understanding, and Self-confidence. Theunhealthy characteri stics is; Control, Hostility, Dishonesty, Disrespect,intimidation, Physical violen ce, Sexual violence. Each Patient provided theirown experience and each patient gav e supportive feedback to their peers. Writeralso included education on addicti on, and the process of relapse that canoccurred in their recovery. Not just putting down the drink or drug but changingtheir attitude, Idea, and behavi or, in order to stay in recovery. Sky Diver dariaa Movie called through the good ti mes and through the bad times, When a ManLoves a Woman, a passionate couple wh ose once-stable marriage is rocked by herincreasing dependence on alcohol. As they strive to overcome this challenge,they discover a renewed sense of love and com mitment to themselves and eachother.Patient was engaged and participated in topic/mo vie being watch and discussed. Name Value Range Interpretation Code Description Data Tashia rce(s) Supporting Document(s ) ID Date Data Source [id number] 11/06/2019 05:01:53 PM EDT [facility] Problem: Chemical Dependency (Adult/Pedi atric)Goal: *STG/LTG: Relapse prevention plan in place to include housing/aftercare,le isure activities, and spiritualityDescription: Rikki and ermelinda shaw will set up the appropriate after care asneeded to further help him in his [place] very.Outcome: Resolved/Met Completed [facility] Department of Homeless Services new jaison ke packet, emailed [email or web address] as instruc maria del rosario. Turnaround time could be 1-2 businessdays. James updated that he woul d likely still need [facility] [place] and comp lete the process there as well. Goldyrequested to try speaking with his sister one more time to explore that as ahousing option. In speaking with his si ster and her boyfriend, both agreed thatif James if making healthy choices he would be able to stay there but if he isstruggling with sobriety then he would have to sumaya gonsalves James verbalizedunderstanding and communicated the aftercare plans with des malin by phone. Directorof Social Work Elaine obtained train ticket to [place] which is very close tohis sister's residence in [place], [place]. James still plans on att ending outpttxt in [place] as scheduled. KENNETH Burk made aware of plan. [facility] sportation arranged for discharge via [employer] at 9AM on 11/06 (invoice#[phone]) t o take him to [facility] [employer] in [place] to case picker medicationsthen to [facility] s Train station in order to get 10:40AM train to [facility];James will then make his own way from [place] to his sister's place in [facility]. Name Value Range Interpretation Code Description Data Tashia rce(s) Supporting Document(s ) ID Date Data Source [id number] 11/06/2019 04:38:04 PM EDT [facility] Dual Diagnosis Group Note 11:15AM-12PMDi fferential diagnosis: Purpose to provide better understanding of howaddiction, ps ychiatric conditions, and medical conditions can overlap in theirappearances.Group wa s provided with broad understanding of mood disorders, thoughtdisorders, and persona lity disorders including their typical symptoms, culturalinfluences, and possib le treatment options (medications, therapy, etc.).Discussion ensured regarding perso nal experiences with specific diagnosis orcircumstances that contributed to them . Provided with basic criterion of selectpsychiatric conditions and what ot her possible medical or psychiatric conditionscould look similar depending o n the situation. For example, someone having apanic attack may appear on a superficia l level to be having heart attack orsomeone under the influence of cocaine could lee ear manic.Pt was not present for group. Followed up after and stated that he fel l asleepaccidentally. Name Value Range Interpretation Code Description Data Tashia rce(s) Supporting Document(s ) ID Date Data Source [id number] 11/06/2019 04:07:40 PM EDT [facility] Group Note 3:15PM-4PM"DBT House": Purpos e is to identify how things build on each other and functiontogether in order to g ain a positive outcome overall.Group was asked to identify part of a house and ho w they function: foundation issomething you build on, galdamez are supportive, roof is protective, a banner showsthe outside world what we're about, each level builds on t he previous one, achimney releases something and how each part can relate to life. Gr oup wasinstructed to draw a picture of a house with each of those parts and 4 lev fei identify each of the following for themselves.Group then processed which ar eas of the house were easier and most difficulty toidentify for themselves. Th e majority of the group identified that it was easierto identify the things that ma ke them happy and that it was more difficult tothe things that keep them hidden from others. Group then processed how each ofthese aspects of a house affect how the overal l house functions. For example, ifsteam can't escape from the roof then smoke will meehan ld up and suffocate what'sin the house or if one doesn't have the support from the mn lls each level can'tbuild on itself. Group was receptive to the activity and acknow ledged thatunderstanding how each aspect is connected helps in a house makes it help ful tosee how things in a person's life are also connected. Name Value Range Interpretation Code Description Data [facility](s) Supporting Document(s ) ID Date Data Source [id number] 11/06/2019 12:42:17 PM EDT [facility] Pt collecting breakfast tray and does no t show up for morning meds. [facility] 1230. When asked why, Pt replied "no onewoke me up". Reminded of of the daily rules of the it as well as medicationand rule times. Pt stormed off stating he will not take his evening meds. Name Value Range Interpretation Code Description Data [facility](s) Supporting Document(s ) ID Date Data Source [id number] 11/06/2019 11:25:08 AM EDT [facility] Progress Note:Patient missed 9 am group this morning, asked RN's if patient was excused andRN's confirmed that patient w as not excused from group.Counselor aware, and was reported in AM rounds/report (9: 15). Name Value Range Interpretation Code Description Data [facility](s) Supporting Document(s ) ID Date Data Source [id number] 11/06/2019 09:06:07 AM EDT [facility] Late entry for 11/04:Stages of Change Grou p Note 1:15PM-2PMStages of Change: Purpose is to educate on the process of the stages of changeand be able to identify statements in each category.Provided with a basic u nderstanding of pre-contemplation, contemplation,preparation, action, maint enance, and relapse. Group members were then givenexamples of statements and were tas ked to identify which stage it belonged in.Pt was accepting of the information and was able to identify appropriate stagesof change. Name Value Range Interpretation Code Description Data Tashia rce(s) Supporting Document(s ) ID Date Data Source [id number] 11/05/2019 05:50:25 PM EDT [facility] Problem: Chemical Dependency (Adult/Pedi atric)Goal: *STG: Will identify negative impact of chemical dependency including theuse of tobacco, alcohol, and other substancesDescription: Rikki will work with his primary counselor to identify andverbalize the negative impact that dr barriga and alcohol have had on his life.Rikki will also identify how a life free of dr barriga and alcohol can restore asense of normalcy to her life.Outcome: Resolved/M etProblem: Chemical Dependency (Adult/Pediatric)Goal: *STG: Agrees to p articipate in outpatient after care program [facility] healthOutcome: Resolved/MetProblem: Chemical Dependency (Adult/Pediatric)Goal: *STG: Identify li festyle changes to support alf sobriety such asvocation, employment, education, and legal issuesDescription: Rikki will begin to implement a daily schedule/rout ine for himselfincorporating positive activities that are substance-free. Jhon monson will identifypositive activities and work with counselor to being implementation i nto a soberlifestyle.Outcome: Resolved/MetProblem: Social DiscomfortGo al: *STG: Verbally report positive outcomes of participation in social &support grou psDescription: Rikki will identify the positive things he has learn/experienced in the groups setting here in rehabOutcome: Progressing Towards GoalTylerdeion was able to report that he has learned that his disease is his thinking.He reported that he has learned that changing is prespective is changing his oldway of thinking.Clara hearn reported that he has learned that he needs to make self-help groups andget a sponso r.Rikki reported that he learned that he has to change his behaviors,attitude andidea s to maintain his recovery. Name Value Range Interpretation Code Description Data Tashia rce(s) Supporting Document(s ) ID Date Data Source [id number] 11/05/2019 05:50:20 PM EDT [facility] Treatment Plan ReviewRikki marquez date: 10/10/2019 2:23 PMToday's date: 11/05/19Members Present During Treatment Plan Review: [x] Patient [x] Nurse: Jerardo Alex [x] [facility] to review patient's progress toward treatment goals andaddre ss any concerns or discharge needs. For detail on progress please see careplan.C urrent Urges & Cravings: None at this timePost acute withdrawal updates: anxio usness and anxiety.Discharge planning progress: Rikki D/C was Saturday 0 going home to hismother or father house in [place]. Rikki parents stated he could not c ome home atthis time. Rikki D/C planing has change his D[facility] still at [address] [address] fax [phone] on Saturday11/10/19 at10:00 am with Delaney for his substance abuse and MAT Suboxone. he will see theDr. Yepez ay 11/10/2019. Rikki need to fill out the packet forAdditional Information/Assessm ent: Rikki need to case picker his prescriptionbefore he get's to the [facility]. Rikki don't have any money for the co-paymentif needed. Name Value Range Interpretation Code Description Data Tashia rce(s) Supporting Document(s ) ID Date Data Source [id number] 11/05/2019 05:41:27 PM EDT [facility] Patient declined 1600 Suboxone stating t hat he did not sleep well in the nightand believes that the medicine kept him awak e. Name Value Range Interpretation Code Description Data Tashia rce(s) Supporting Document(s ) ID Date Data Source [id number] 11/05/2019 05:09:05 PM EDT [facility] Group Note (4:15-5:00 pm) TOPIC: ADDICTI ON Documentary-Why can't they just stop?Documentary from the National [facility] tute on Drug Abuse (MANUELA) Table of Contents: Continue of Disc 1. Saturday night in a [place] [facility]. A mother's desperation. The science ofrelapse. The adolescent addict . Brain imaging. Opiate addiction: a new medication. Topiramate: a clinical trial foralcoholism. [facility] 638. Insurance woes Patient's all watched dis c 1 of the Documentary. Patient's all were observedactively listening to topic at h and. Name Value Range Interpretation Code Description Data Tashia rce(s) Supporting Document(s ) ID Date Data Source [id number] 11/05/2019 04:21:19 PM EDT [facility] Group Note (3:15-4:00 pm)TOPIC: ADDICTIO N Documentary-Why can't they just stop?[facility] the [facility] ([facility])Table of Contents:? Disc 1. Saturday night in a [place] [facility]. A mother's desperation. The science ofrelapse. The adolescent addict. Brain imaging. Op iate addiction: a new medication. Topiramate: a clinical trial foralcoholism. [facility] 638. Insurance woesPatient's all watched disc 1 of the Documentary. P atient's all were observedactively listening to topic at hand. Name Value Range Interpretation Code Description Data Tashia rce(s) Supporting Document(s ) ID Date Data Source [id number] 11/05/2019 04:13:29 PM EDT [facility] Inpatient Behavioral Health ServicesProv ider Daily Progress NotePatient: Rikki Mendoza Age: 29 y.o. : 1990EX : male CSN: [id number] Date: 10/10/2019 Attending: Bryon Rhodes, MDSUBJECTIVE: Patient seen with the treatment team. Treatment plan goals and aftercare plans discussed with the patient. Patient denies any cravings at thistime. Patient maintained on MAT with suboxone Doing well in rehabtreatment. Attending groups. Stable on current meds. Denies si/hi. Denieshallucinations. Denies CP, Palpita tions, SOB.OBJECTIVE:Physical Exam:CHEST: Heart S1, S2, no murmurs, gallops, rhyth m regular.LUNGS: Clear, no rales, no rhonchi heard.ABDOMEN: Soft, nontender, no organ omegaly noted.EXTREMITIES: no cyanosis, clubbing, edema noted.CENTRAL NERVOUS SY STEM: Unremarkable.Vitals:Patient Vitals for the past 24 hrs: Temp Pulse Resp BP SpO2 11/05/19 0803 97.6 F (36.4 C) 68 14 115/78 100 %11/04/192010 98.6 F (37 C) 88 - 133/79 96 %Visit VitalsBP 115/78Pulse 68Temp 97.6 F (36.4 C)Resp 14Wt 77.6 kg (171 lb)SpO2 100%BMI 21.96 kg/m Current Medications:Current Facility-Administere d MedicationsMedication Dose Route Frequency Provider Last Rate Last Dose tuberculin injection 5 Units 5 Units IntraDERMal ONCE Wm Marquez NP 5Units at 11/04/192105 buprenorphine-naloxone (SUBOXONE) 2mg-0.5mg SL film 1 Film SubLINGual BID Wm Marquez NP 1 Film at 11/05/19 1034 traZODone (DESYREL) tablet 150 mg 150 mg Oral QHS Wm Marquez NP 150mg at 11/04/19 210 diphenhydrAMINE (BENADRYL ) capsule 50 mg 50 mg Oral QHS PRN Gómez Solis MD 50 mg at 11/05/19 0115 a cetaminophen (TYLENOL) tablet 650 mg 650 mg Oral Q4H PRN Kuldeep Rhodes MD alum-ma g hydroxide-simeth (MYLANTA) oral suspension 30 mL 30 mL Oral Q4H PRNAKuldeep chino MD bisacodyL (DULCOLAX) tablet 5 mg 5 mg Oral DAILY PRN Kuldeep Rhodes MD cloNI Dine HCL (CATAPRES) tablet 0.1 mg 0.1 mg Oral Q4H PRN Kuldepe Rhodes MD cyclobe nzaprine (FLEXERIL) tablet 10 mg 10 mg Oral TID PRN Kuldeep Rhodes MD10 mg at 10/11 223 dicyclomine (BENTYL) capsule 20 mg 20 mg Oral Q8H PRN Kuldeep Rhodes MD h ydrOXYzine HCL (ATARAX) tablet 50 mg 50 mg Oral Q4H PRN Kuldeep Rhodes MD50 mg at 11/04/192101 ibuprofen (MOTRIN) tablet 600 mg 600 mg Oral Q6H PRN Kuldeep Rhodes MD 600mg at 11/04/19 1650 loperamide (IMODIUM) capsule 2 mg 2 mg Oral Q3H [place] Kuldeep Rhodes MD magnesium hydroxide (MILK OF MAGNESIA) 400 mg/5 mL oral susp ension 30 mL 30mL Oral QHS PRN Kuldeep Rhodes MD prochlorperazine (COMPAZINE ) tablet 10 mg 10 mg Oral Q6H PRN Kuldeep Rhodes MD trimethobenzamide (TIGAN) in jection 200 mg 200 mg IntraMUSCular Q6H PRNAKuldeep chino MD nicotine (NICORET TE) gum 4 mg 4 mg Oral Q2H PRN Kuldeep Rhodes MD 4 mg at11/05/19 1040Labs: Results:Chemistry No results for input(s): GLU, NA, K, CL, CO2, BUN, CREA, CA, AGAP ,BUCR, TBIL, GPT, AP, TP, ALB, GLOB, AGRAT in the last 72 hours.CBC w/Diff No results for input(s): WBC, RBC, HGB, HCT, PLT, GRANS, LYMPH, EOS,HGBEXT, HCTEXT, PLTEXT, HGBEX T, HCTEXT, PLTEXT in the last 72 hours.Coagulation No results for input(s ): PTP, INR, APTT, INREXT, INREXT in the last72 hours.Liver Enzymes No results fo r input(s): TP, ALB, TBIL, AP, SGOT, GPT in the last72 hours.No lab exists for compo nent: DBILUrine Analysis ColorDate Value Ref Range Ihbwgy3310/06/2019 YELLOW FinalApp earanceDate Value Ref Range Rtffve1310/06/2019 CLEAR FinalpH (UA)Date Value Ref Range Brfcvy8510/06/2019 7.0 FinalProteinDate Value Ref Range Mcibqj6210/06/2019 NEGATIV E mg/dL FinalKetoneDate Value Ref Range Birvbu7610/06/2019 NEGATIVE mg/dL FinalBi lirubinDate Value Ref Range Hlsgxq9310/06/2019 NEGATIVE FinalBloodDate Value Ref Ran ge Regblm1910/06/2019 NEGATIVE FinalUrobilinogenDate Value Ref Range St atus10/06/2019 2.0 EU/dL FinalNitritesDate Value Ref Range Nokbdc6410/06/2019 NEGATIV E FinalLeukocyte EsteraseDate Value Ref Range Wypbxl7610/06/2019 NEGATIVE Final ASSESSMENT/PLAN:Active Problems: Marijuana abuse (10/07/2019) Cocaine abuse (HCC) () Dependence on nicotine from cigarettes (10/07/2019) Severe major depr ession without psychotic features (HCC) (10/09/2019) Opiate abuse, continuous ([facility] C) (10/11/2019) Continue rehab treatment per unit protocol.Pt is participating in ind ividual and group therapies.Encourage PO fluids to maintain hydrationHydroxyzine PRN for anxietyMVI dailyPsych FU PRN for Supportive Psychoeducation and Psychiatr ic medication review.Patient continues to receive:Substance Abuse Treatment Counse vlad including Family CounselingGroup [id number], Continuing Care, and Ps ychoeducation.Individual therapy-Behavioral, Cognitive, Cognitive-Behavioral, and Con tinuingCare.Will continue to adjust medications as deemed appropriate and to response forsymptom management (see medication orders made in EMR).Risks/Dmitriy efits/potential adverse reactions have been discussed with the patientfor current an d new medicationsEmnathaniel Marquez NP11/05/2019 Name Value Range Interpretation Code Description Data Tashia rce(s) Supporting Document(s ) ID Date Data Source [id number] 11/05/2019 04:12:10 PM EDT [facility] Inpatient Behavioral Health ServicesProv ider Daily Progress NotePatient: Rikki Mendoza Age: 29 y.o. : 1990EX : male CSN: [id number] Date: 10/10/2019 Attending: Bryon Rhodes, MDSUBJECTIVE: Patient started on MAT with suboxone by the covering psychiatrist.No c/o except for insomnia. Trazodone increased. Prescribing provider contacte dto confirm suboxone dose and dose was decreased. Doing well in rehabtreatment. Attending groups. Stable on current meds. Denies si/hi. Denieshallucinations. Star es CP, Palpitations, SOB.OBJECTIVE:Physical Exam:CHEST: Heart S1, S2, no murmurs, ga llops, rhythm regular.LUNGS: Clear, no rales, no rhonchi heard.ABDOMEN: Soft, nontende r, no organomegaly noted.EXTREMITIES: no cyanosis, clubbing, edema noted.CENTRAL NERVOUS SYSTEM: Unremarkable.Vitals:Patient Vitals for the past 24 hrs: Temp Pulse R aurelia BP CwS95011/03/19 0801 98 F (36.7 C) 85 16 121/83 96 %11/03/19 0717 98.1 F (36. 7 C) - - - -11/02/19 1758 98.2 F (36.8 C) 99 17 130/87 98 %Visit VitalsBP 121/83Pu lse 85Temp 98 F (36.7 C)Resp 16Wt 77.6 kg (171 lb)SpO2 96%BMI 21.96 kg/m Current M edications:Current Facility-Administered MedicationsMedication Dose Route Frequen cy Provider Last Rate Last Dose traZODone (DESYREL) tablet 100 mg 100 mg Oral QHS Wm Marquez NP buprenorphine-naloxone (SUBOXONE) 2mg-0.5mg SL film 1 Film Sub LINGual BIDAntocherise, MD Shira diphenhydrAMINE (BENADRYL) capsule 50 mg 50 mg Oral QHS PRN Gómez Solis MD 50 mg at 11/03/19 0333 acetaminophen (TYLE NOL) tablet 650 mg 650 mg Oral Q4H PRN Kuldeep Rhodes MD alum-mag hydroxide-s imeth (MYLANTA) oral suspension 30 mL 30 mL Oral Q4H PRNAKuldeep chino MD bisacody L (DULCOLAX) tablet 5 mg 5 mg Oral DAILY PRN Kuldeep Rhodes MD cloNIDine HCL (CATAP RES) tablet 0.1 mg 0.1 mg Oral Q4H PRN Kuldeep Rhodes MD cyclobenzaprine (FLE XERIL) tablet 10 mg 10 mg Oral TID PRN Kuldeep Rhodes MD10 mg at 10/12/192231 dicyclomine (BENTYL) capsule 20 mg 20 mg Oral Q8H PRN Kuldeep Rhodes MD hydrOXY zine HCL (ATARAX) tablet 50 mg 50 mg Oral Q4H PRN Kuldeep Rhodes MD50 mg at 11/02 0801 ibuprofen (MOTRIN) tablet 600 mg 600 mg Oral Q6H PRN Kuldeep Rhodes MD 600mg at 10/30/19 1340 loperamide (IMODIUM) capsule 2 mg 2 mg Oral Q3H PRN Hi Rhodes MD magnesium hydroxide (MILK OF MAGNESIA) 400 mg/5 mL oral suspension 30 mL 30mL Oral QHS PRN Kuldeep Rhodes MD prochlorperazine (COMPAZINE) tablet 10 m g 10 mg Oral Q6H PRN Kuldeep Rhodes MD trimethobenzamide (TIGAN) injection 200 mg 200 mg IntraMUSCular Q6H PRNAKuldeep chino MD nicotine (NICORETTE) gum 4 mg 4 mg Oral Q2H PRN Kuldeep Rhodes MD 4 mg at11/03/19 1238Labs: Results:Chemistr y No results for input(s): GLU, NA, K, CL, CO2, BUN, CREA, CA, AGAP,BUCR, TBIL, GPT , AP, TP, ALB, GLOB, AGRAT in the last 72 hours.CBC w/Diff No results for input(s) : WBC, RBC, HGB, HCT, PLT, GRANS, LYMPH, EOS,HGBEXT, HCTEXT, PLTEXT in the last 7 2 hours.Coagulation No results for input(s): PTP, INR, APTT, INREXT in the last 72hou rs.Liver Enzymes No results for input(s): TP, ALB, TBIL, AP, SGOT, GPT in the last72 h ours.No lab exists for component: DBILUrine Analysis ColorDate Value Ref Range Statu s010/06/2019 YELLOW FinalAppearanceDate Value Ref Range Jxodub4510/06/2019 CLEAR FinalpH (UA)Date Value Ref Range Pfmxsg6010/06/2019 7.0 FinalProteinDate Value Ref Range Qjqele6210/06/2019 NEGATIVE mg/dL FinalKetoneDate Value Ref Range St atus10/06/2019 NEGATIVE mg/dL FinalBilirubinDate Value Ref Range Statu s010/06/2019 NEGATIVE FinalBloodDate Value Ref Range Qwzdhl1210/06/2019 NEGATIVE F inalUrobilinogenDate Value Ref Range Tnjdxb1610/06/2019 2.0 EU/dL FinalNitrites Date Value Ref Range Vpvjgg5410/06/2019 NEGATIVE FinalLeukocyte EsteraseDate Value Ref Range Deiagh4310/06/2019 NEGATIVE FinalASSESSMENT/PLAN:Active Problems: M arijuana abuse (10/07/2019) Cocaine abuse (HCC) (10/07/2019) Dependence on nicotine from cigarettes (10/07/2019) Severe major depression without psychotic features (H CC) (10/09/2019) Opiate abuse, continuous (HCC) (10/11/2019) Continue rehab treatme nt per unit protocol.Pt is participating in individual and group therapies.Encourage PO fluids to maintain hydrationHydroxyzine PRN for anxietyMVI dailyPsych FU PRN for Supportive Psychoeducation and Psychiatric medication review.Patient continues to r eceive:Substance Abuse Treatment Counseling including Family CounselingGroup therapy -12-Step, Continuing Care, and Psychoeducation.Individual therapy-Behav ioral, Cognitive, Cognitive-Behavioral, and ContinuingCare.Will continue to adjust m edications as deemed appropriate and to response forsymptom management (see medi cation orders made in EMR).Risks/Benefits/potential adverse re actions have been discussed with the patientfor current and new medicationsEm nathaniel Marquez, NP11/03/2019 Name Value Range Interpretation Code Description Data [facility](s) Supporting Document(s ) ID Date Data Source [id number] 11/05/2019 03:06:33 PM EDT [facility] Nurse Group Note: Theme: What do you wa nt on our crown? The Peres-virus as aconduit of depression, devastation, and was the backdrop for ourdiscussion. Patients were given paper crowns and a w ord list with both positiveand negative qualities and entities that patients cou ld select from. They wereto select words that they regarded as aspirational and a ppropriate for they waythey want to lead their life --words that would be emblema tic of a "crown thatthey would wear." All who attended participated in the project/dis cussion. Name Value Range Interpretation Code Description Data [facility](s) Supporting Document(s ) ID Date Data Source [id number] 11/05/2019 01:47:58 PM EDT [facility] Patient much more conversational -- sull en mood lifted. States that he is doingmuch better. Eating. Interacting with select peers. Name Value Range Interpretation Code Description Data [facility](s) Supporting Document(s ) ID Date Data Source [id number] 11/05/2019 10:11:02 AM EDT [facility] Rikki did not attend morning group. I requested him to come now to receive hismedications. He stated that he did n ot sleep well in the night. He wasencouraged to come down to the desk which he said h e would do. Name Value Range Interpretation Code Description Data [facility](s) Supporting Document(s ) ID Date Data Source [id number] 11/05/2019 09:25:38 AM EDT [facility] Patient presents as sullen this morning. No brightening upon approach.Cooperated with vital signs but did not stay to acc ept medications. Notinterested in conversation as he usually is. Continue to monitor. Name Value Range Interpretation Code Description Data [facility](s) Supporting Document(s ) ID Date Data Source [id number] 11/04/2019 05:25:20 PM EDT [facility] Sky Diver met with PT, he was mora during t he session. Rikki was told by hissister that he could not come and stay with her and his mother at [address] [place] [address]. Rikki sister stated that his mother is staying with herto babysit her granddaughter at this time; also it's no t enough room for pt.Rikki reach out to his father Mr. Mendoza who stated to Tech (Y M) she wastranslating Telugu to Turkish for telegraphic typewriter operator chief, saying don't believe Rikki will go to his long-term treatment program [place], [place]. Mr. Mendoza stated that Rikki will try and manipulate him, sohe doesn't go to [facility]. Rikki fatherstated that pt. told him [facility] is a dangerous and nasty place suchas; "patients are eating out o f the garbage". Mr. Mendoza stated Rikki cannotcome and stay with him at t his time. Sky Diver reported to Rikki what his fatherstated and Rikik stated "that's f ine I will go to a snf". Rikki reportedto telegraphic typewriter operator chief that he would like his outpatient to stay where it's at [address] [place] [address] and if wr iter can get him a snf around [facility] or in [place]. Sky Diver reaches out to a homeless snf such as; [facility] at [address] [place] [address] # Who stated they have totake in people from [facility] [address] [place] [id number] # [phone] who stated they are not krzysztof ing any more admissionat this time, [facility] Department of Homeless [address] [place], [place] [address] #[phone] telegraphic typewriter operator chief left message. Sky Diver [facility] consent was sign ed. Name Value Range Interpretation Code Description Data [facility](s) Supporting Document(s ) ID Date Data Source [id number] 11/04/2019 04:27:55 PM EDT [facility] Group Note (3:15-4:00 pm)TOPIC: Motivati onal Speech by Zackery Mix."How to stop negative thinking"Patient's all lis tened to motivational speech by Zackery Mix. Patients were allasked about what they t hought of the speech and if it was helpful in motivatingthem. What resonated with them ? How can you incorporate or try these suggestionsin speech in their lives? Wha t holds them back from trying new and positivethings in their lives? Patient's all discussed questions at the end andidentified with materials that was sp oken about.Patient participated in the group process. Name Value Range Interpretation Code Description Data [facility](s) Supporting Document(s ) ID Date Data Source [id number] 11/04/2019 04:20:52 PM EDT [facility] Group Note 2:15 -2:45 pmTOPIC: Recovery Jenga/FeelingsPt's were all asked to play recovery Jenga. They set up teams of 5 a nd pickedpiecesAnd answered one question on one side of the piece, and on the opposi te side wasAnother question. Some examples of questions on the pieces were:One thing I am most proud of is?What is one thing I am not?Ten years from now what do I want to remember?Tell me about a time when you were most Vulnerable?Pt's all participated in the group process. Each gave positive feedback to eachOther during the group p rocess.These are just some examples of the questions, pt's all participated in theg roup process.Pt's all had the opportunity to also give feed back to their peers. Name Value Range Interpretation Code Description Data [facility](s) Supporting Document(s ) ID Date Data Source [id number] 11/04/2019 01:45:49 PM EDT [facility] Stress Management Group Note 1:15PM-2PMP rogressive Muscle Relaxation: Purpose is to learn stress management techniques.Group was provided with general information on stress management in physicallyactive (e x: exercise) and physically passive (ex: deep breathing) ways and thatit is beneficial to having more than one way to manage stress in differentsituations. Group was advise d that it is important not to strain to the point ofpain and each person has their o wn range of motion especially if they have a hxof injuries where pain can be exacerba maria del rosario. Group then practiced tensing andreleasing different muscles throughou t their body starting with hands, neck, andjaw then arms and midsection, then le gs and feet.Pt participated in the activity and acknowledged that it will take time to learnhow to relax without mood altering substances. Name Value Range Interpretation Code Description Data [facility](s) Supporting Document(s ) ID Date Data Source [id number] 11/03/2019 11:38:54 PM EDT [facility] Pt showered and now requesting prn Benad ryl, states he feels his BP is high.WNL. Will monitor. Name Value Range Interpretation Code Description Data [facility](s) Supporting Document(s ) ID Date Data Source [id number] 11/03/2019 04:21:38 PM EDT [facility] Group Note 3:15PM-4PMDistorted thinking: Purpose is to identify how thought process can interferewith rational thinking and decision-making.Group was provided with psycho-education on 10 types of distorte d thinking - Allor nothing thinking, Overgeneralization, Mental filter, Disco unting thepositive, Jumping to conclusions (mind reading, fortune telling), Magnifi cation,Emotional reasoning, "Should" statements, Labeling, andPersonalization /blaming. Group then took turns choosing popular songs to listento then would cho ose the examples of distorted thought processes in the lyrics.Pt participated in the group and acknowledged the role of thought processes inrecovery. Name Value Range Interpretation Code Description Data [facility] rce(s) Supporting Document(s ) ID Date Data Source [id number] 11/03/2019 12:17:27 PM EDT [facility] Nurse group note: 11:15 Decision making . Patients were given a useful decisionmaking grid to assist in making life choices. All in the group participated inthe discussion. Name Value Range Interpretation Code Description Data [facility] rce(s) Supporting Document(s ) ID Date Data Source [id number] 11/03/2019 11:13:21 AM EDT [facility] Discussed in morning meeting that pt has been awake all night related to lateadministration time and dosage of Floyd boxone. Per Latisha INFORMATION RESOURCE CONSULTANT , she will speakwith prescribing MD Bar about it. Name Value Range Interpretation Code Description Data [facility] rce(s) Supporting Document(s ) ID Date Data Source [id number] 11/03/2019 08:06:05 AM EDT [facility] Patient c/o being very tired. Did not sl eep at all last night. Referred to NPfor med review. Name Value Range Interpretation Code Description Data [facility] rce(s) Supporting Document(s ) ID Date Data Source [id number] 11/03/2019 04:40:58 AM EDT [facility] 0440- Pt to mens lounge to watch TV. Name Value Range Interpretation Code Description Data [facility] rce(s) Supporting Document(s ) ID Date Data Source [id number] 11/03/2019 03:50:44 AM EDT [facility] Pt still awake , now asking for cereal a nd milk. Given and pt returned to room.0330 pt awake again requesting prn Benadryl, given and showered. Will monitor,pt then asking for nicotine gum. Informed that t his is not administered throughthe middle of the night.Perhaps the new dose of Suboxo ne may need to be adjusted. Pt had not been takingmuch medication at HS. Name Value Range Interpretation Code Description Data [facility](s) Supporting Document(s ) ID Date Data Source [id number] 11/02/2019 11:57:55 PM EDT [facility] Pt given standing Trazodone at HS. Now r equesting prn vistaril to assist withsleep. Given and returned to bed. Will monitor. Name Value Range Interpretation Code Description Data [facility] rce(s) Supporting Document(s ) ID Date Data Source [id number] 11/02/2019 10:44:40 PM EDT [facility] VSS. Visible on the unit. Андрей snacks & b everages. Name Value Range Interpretation Code Description Data [facility] rce(s) Supporting Document(s ) ID Date Data Source [id number] 11/02/2019 04:05:42 PM EDT [facility] Family Dynamics Group Note 3:15PM-4PMPut ting yourself in a loved ones shoes: Purpose is to practice empathy andimprove insigh t toward family members.Group was given general education on how addiction is a disease that can affectthe whole family. Provided group with education on the str ramone genetic componentwith addiction as well. Tasked the group to consider what their family (lovedones, spouses, children, parents, etc.) would think, feel, and ac t if given theopportunity to explain their points of view. Volunteers then pretende d to putthemselves in a loved ones shoes where the group asked questions to thevo lunteer and they would answer as if they were the family member.James volunteered to p ut himself in his father's shoes; identified that hisfather does see value in James a s a father himself and does have valid advicefor him since he is in recovery hi mself. Name Value Range Interpretation Code Description Data [facility](s) Supporting Document(s ) ID Date Data Source [id number] 11/02/2019 04:00:17 PM EDT [facility] Life Skills Group Note 1:15PM-2PMConflic t Resolution: Purpose is to provide tools necessary to communicateeffectively. Sher up was provided with a list of strategies for managing conflictin an assertive way inc luding the following: when angry, separate yourself fromthe situation and take time to cool off, attack the problem, not the person,focus on the issue, not your posi tion on the issue, accept and respect thatindividual opinions may differ, don' t try to force compliance, work to develop acommon agreement, don't make assumption s about what another person is feeling orthinking, listen without interrupting, forget the past and stay in the present.Group then engaged in several ro le plays where they communicated passively,passive-aggressively, aggressi vely, and assertively and discussed how eachscenario could be improved using ass ertive skills.Pt was accepting of the information and acknowledged the benefit s of improvinginterpersonal communication. Name Value Range Interpretation Code Description Data [facility](s) Supporting Document(s ) ID Date Data Source [id number] 11/02/2019 01:16:16 PM EDT [facility] Patient seen and evaluated and I am fami liar with the patient as I have seen him2 other times. He has a history of opiate depeendence and was on Suboxone last 6months ago. He has not had any withdrawal sympt oms but has he gets closer todischarge he gets concerned about relapsing. We will restart medications he waspreviously on of suboxone 2-..5 one BIDPatient will need a close appointment made for his new Suboxone provider. Name Value Range Interpretation Code Description Data [facility](s) Supporting Document(s ) ID Date Data Source [id number] 11/02/2019 01:09:07 PM EDT [facility] Pt meeting with Dr Bar for MAT. Name Value Range Interpretation Code Description Data [facility](s) Supporting Document(s ) ID Date Data Source [id number] 11/01/2019 06:40:06 PM EDT [facility] SBAR report given to Operator Engineer. Name Value Range Interpretation Code Description Data [facility](s) Supporting Document(s ) ID Date Data Source [id number] 11/01/2019 05:50:04 PM EDT [facility] Pt was cooperative and pleasant. Pt atte nded groups. Pt was social with peersand staff. Pt took all scheduled meds. Name Value Range Interpretation Code Description Data [facility] r[facility](s) Supporting Document(s ) ID Date Data Source [id number] 11/01/2019 04:25:32 PM EDT [facility] Group Note 3:15 pm - cravings and urges. The discussion is a follow up discussion from yesterday's topic. The purpose offollowi ng up was to process any lingering though's about using drugs at thistime. The group members were made aware that due to the adjustments in their txschedule, and on the unit, it can illicit feelings of frustration anddiscouragement. As a resu lt, thoughts of using can become pattern. They weremade aware that it's okay to dey ve thoughts or caving's, and that it's better toshare about it and not keep it a secre t. They were also made aware that acraving reaches it maximum level of intensity in 15 minutes. During that timeit's crucial to utilize the coping techniques they learn ed to manage that 15minute period. The discussion was low on energy and enthusi asm. The groupmembers appeared to be only moderately interested on the topic. Tam bj, theywere supportive towards each other Name Value Range Interpretation Code Description Data [facility](s) Supporting Document(s ) ID Date Data Source [id number] 10/31/2019 06:39:57 PM EDT [facility] SBAR report given to Operator Engineer. Name Value Range Interpretation Code Description Data [facility](s) Supporting Document(s ) ID Date Data Source [id number] 10/31/2019 04:04:35 PM EDT [facility] Sky Diver met with PT he was anxious and ex periencing urges and craving during the, session. Rikki reported that he has str ramone urges and craving on Saturday10/31/19. Sky Diver was able to get an appointment wi th his outpatient program thatwill continue his MAT Suboxone. Rikki came to telegraphic typewriter operator chief and stated he seen thepsychiatrist who stated he could not start it this but h e need to waituntil Saturday. Rikki was upset and stated to telegraphic typewriter operator chief that he mention thi s onThurs10/29/19 and why it can't get done. Sky Diver tried to encourage pt. that he needs to practice some coping skill so he can continue managing his emotionswith t he help of this telegraphic typewriter operator chief. Sky Diver sat with pt. and did motivationalinterviewing with loraine karla to help with his urges and craving and went over somecoping strategies. Rikki atten ds all the groups and participated in thediscussions. Rikki wanted to use the phone to speak to his cousin. Writersencourage Rikki to speak Turkish on the phone and remember that his last phonecall trigger him,so he has to put i t on speaker phone. Name Value Range Interpretation Code Description Data [facility]ia e(s) Supporting Document(s ) ID Date Data Source [id number] 10/31/2019 02:55:55 PM EDT [facility] Treatment planning group 1:15-2pmThe gr oup was asked to bring in their tx plans to work on an exercise designedto help them get sufficiently specific with their tx plan goals. They wereencouraged to be suffi ciently detailed in looking at the components of theirlast relapse in order to make a detailed plan corresponding from the identifiedproblem issues (ex. factors le ading to their relapse). The major theme detailedtoday was looking at relapse pre vention detail including from usingfriends, and identifying specific t riggers and the power of the triggers inrelationship to other life values (chi ldren, moral standards, health). Patient participated in topic being discussed an d how it pertained to theirrecovery. Name Value Range Interpretation Code Description Data [facility](s) Supporting Document(s ) ID Date Data Source [id number] 10/31/2019 02:47:07 PM EDT [facility] Group Note: 11:15am-12pmTopics: Urges an d Cravings and ways to manage subconcious/conscious reservationto rati onalize relapse upon discharge.Discussed with patient recent reports given that unit p opulation is experiencingurges and cravings to use. Addressed with group the reality that drugs/alcoholcan be available in unexpected places and that "plans" stuart e and how groupplans to better manage unforseen situations and life circumstan nikhil upondischarge.Patient was engaged in topic and feedback being discussed.Abbi Triplett LMSW Name Value Range Interpretation Code Description Data [facility](s) Supporting Document(s ) ID Date Data Source [id number] 10/31/2019 02:03:50 PM EDT [facility] Patient cooperative with staff and peers . Name Value Range Interpretation Code Description Data [facility] r[facility](s) Supporting Document(s ) ID Date Data Source [id number] 10/31/2019 07:28:44 AM EDT [facility] Name Value Range Interpretation Description Data Sup porting Code Source(s) Document(s ) Bilirubin.total 0.5 0.2-1.0 [facility] [Mass/volume] in mg/dL [facility] Serum or Plasma [employer] Bilirubin.direct 0.1 0.1-0.2 [facility] [Mass/volume] in mg/dL [facility] Serum or Plasma [employer] Alanine 27 U/L 12-78 [facility] aminotransferase Shanique [Enzymatic Health activity/volume] in [employer] Serum or Plasma Aspartate 12 U/L 15-37 Below low normal [facility] aminotransferase Shanique [Enzymatic Health activity/volume] in [employer] Serum or Plasma by With P-5'-P Alkaline 60 U/L 46-116 [facility] phosphatase Shanique [Enzymatic Health activity/volume] in [employer] Serum or Plasma Protein 7.3 6.4-8.2 [facility] [Mass/volume] in g/dL [facility] Serum or Plasma [facility] Albumin 3.8 3.4-5.0 [facility] [Mass/volume] in g/dL [facility] Serum or Plasma [employer] Bromocresol purple [employer] (BCP) dye binding method Globulin 3.5 2.8-3.9 [facility] [Mass/volume] in g/dL Shanique Serum by [facility] [employer] Albumin/Globulin 1.1 1.0-1.5 [facility] [Mass Ratio] in Shanique Serum or Plasma [facility] [employer] ID Date Data Source [id number] 10/31/2019 02:01:45 AM EDT [facility] Problem: Chemical Dependency (Adult/Pedi atric)Goal: *STG: Remains safe in hospitalOutcome: Progressing Towards Goa l Name Value Range Interpretation Code Description Data [facility] r[facility](s) Supporting Document(s ) ID Date Data Source [id number] 10/30/2019 04:19:45 PM EDT [facility] Group Note 1:15-2:00 pmTopic: Film on 'W hy can't he/she just stop using", by Daniel Corral MD, [facility].Film di scussed the Disease of Addiction, gave examples of what makes addictionand alco holism a disease. Discussed the progression of addiction/alcoholism andwalked audien ce through the early, middle, and late stages of addiction.Educated the audience on facts of the disease of chemical dependencyexamples being: chronic, compu lsive, progressive, having tolerance, physicaladdiction, withdrawals, and biog enetic.Patient's all actively listened and discussed material at the end of group.P atient's all identified with the topics at hand and processed the information.Stephanie nt was late to group, came at 1:22 pm, after staying for about 5 minutespatient got u p and left group with out being excused from this telegraphic typewriter operator chief.Patient never returned to oup. Name Value Range Interpretation Code Description Data Tashia rce(s) Supporting Document(s ) ID Date Data Source [id number] 10/30/2019 03:44:32 PM EDT [facility] Dual Diagnosis Group Note 11:15AM-12PMPo st-Traumatic Stress Disorder: Purpose is to provide psychoeducation on traumadisorde rs and responses.Reviewed basic information on mood disorders and how our responses to stressfulsituations may not make sense to others and often are the result of manyf actors. Group was provided basic criteria for PTSD and Acute Stress Disorder.Group was educated on overlapping symptoms with other psychiatric disorders.Provided informati on on fight and flight responses which are typically moreassociated with male respo nses and that those who display this type do notnecessarily feel traumatized since th ey have taken a more active role incombating it. Provided information on freeze, frie nd, and flop responses whichare generally more associated with women and children, which tend to be moretraumatized as they are more passive ways of responding. Discuss ed how none ofthe responses or right or wrong, but each person can respond diffe rently even ifit does not make sense to them or the outside world. Encouraged group t o speakindividually with counseling staff to discuss information further if needed.Pt was accepting of the information and acknowledged that trauma is common among substance use and would benefit from learning more about it. Name Value Range Interpretation Code Description Data Tashia rce(s) Supporting Document(s ) ID Date Data Source [id number] 10/30/2019 02:50:09 PM EDT [facility] Inpatient Behavioral Health ServicesProv ider Daily Progress NotePatient: Rikki Mendoza Age: 29 y.o. : 1990EX : male CSN: [id number] Date: 10/10/2019 Attending: Bryon Rhodes MDSUBJECTIVE: Patient was educated and asked about MAT on a few occasionsinclud ing yesterday during treatment team meeting and opted not to try any MAT.Today, trang ent voiced interested on starting MAT with suboxone. Patient stateshe's having urge s and is craving heroin. Patient's current labs from thisadmission reviewed-Kidney function are normal but LFT AST noted to be elevatedat 109 on admission. LFTs repeat ed today. Once patient is medically cleared, hewill be initiated on MAT with suboxone . He already has a confirmed appointmentwith an outpatient provider for continuation of MAT. Otherwise doing well inrehab treatment. Attending groups. Denies si/ hi. Denies hallucinations. DeniesCP, Palpitations, SOB.OBJECTIVE:Physical Exa m:CHEST: Heart S1, S2, no murmurs, gallops, rhythm regular.LUNGS: Clear, no rales, n o rhonchi heard.ABDOMEN: Soft, nontender, no organomegaly noted.EXTREMITIES: no cyano sis, clubbing, edema noted.CENTRAL NERVOUS SYSTEM: Unremarkable.Vitals:Patient Makayla ls for the past 24 hrs: Temp Pulse Resp BP [id number]/30/19 0846 97.6 F (36.4 C) - - - -10/29/192002 98.2 F (36.8 C) 86 16 117/73 96 %Visit VitalsBP 117/73 (BP 1 L ocation: Left arm, BP Patient Position: Standing)Pulse 86Temp 97.6 F (36.4 C)R aurelia 16Wt 77.6 kg (171 lb)SpO2 96%BMI 21.96 kg/m Current Medications:Current Facilit y-Administered MedicationsMedication Dose Route Frequency Provider Last Rate Last Dose diphenhydrAMINE (BENADRYL) capsule 50 mg 50 mg Oral QHS PRN Gómez Solis M D 50 mg at 10/19/19 0009 acetaminophen (TYLENOL) tablet 650 mg 650 mg Oral Q4H PRN Kuldeep Rhodes MD alum-mag hydroxide-simeth (MYLANTA) oral suspensi on 30 mL 30 mL Oral Q4H PRNAKuldeep chino MD bisacodyL (DULCOLAX) tablet 5 mg 5 mg Oral DAILY PRN Kuldeep Rhodes MD cloNIDine HCL (CATAPRES) tablet 0.1 mg 0.1 mg Oral Q4H PRN Kuldeep Rhodes MD cyclobenzaprine (FLEXERIL) tablet 10 mg 10 mg Oral TID PRN Kuldeep Rhodes MD10 mg at 10/12/19 2232 dicyclomine (BENTYL) c apsule 20 mg 20 mg Oral Q8H PRN Kuldeep Rhodes MD hydrOXYzine HCL (ATARAX) ta blet 50 mg 50 mg Oral Q4H PRN Kuldeep Rhodes MD50 mg at 10/30/19 1420 ibupr ofen (MOTRIN) tablet 600 mg 600 mg Oral Q6H PRN Kuldeep Rhodes MD 600mg at 0 1340 loperamide (IMODIUM) capsule 2 mg 2 mg Oral Q3H PRN Kuldeep Rhodes MD magn esium hydroxide (MILK OF MAGNESIA) 400 mg/5 mL oral suspension 30 mL 30mL Oral QHS PRN Kuldeep Rhodes MD prochlorperazine (COMPAZINE) tablet 10 mg 10 mg Oral Q6H PRN Kuldeep Rhodes MD trimethobenzamide (TIGAN) injection 200 mg 200 mg IntraMU SCular Q6H PRNAKuldeep chino MD nicotine (NICORETTE) gum 4 mg 4 mg Oral Q2H PRN Kuldeep Rhodes MD 4 mg at10/20/19 1418 traZODone (DESYREL) tablet 50 mg 50 mg Oral QHS Kuldeep Rhodes MD 50 mg at10/27/19 2249Labs: Results:Chemistry N o results for input(s): GLU, NA, K, CL, CO2, BUN, CREA, CA, AGAP,BUCR, TBIL, GPT, AP, TP, ALB, GLOB, AGRAT in the last 72 hours.CBC w/Diff No results for input(s) : WBC, RBC, HGB, HCT, PLT, GRANS, LYMPH, EOS,HGBEXT, HCTEXT, PLTEXT in the last 7 2 hours.Coagulation No results for input(s): PTP, INR, APTT, INREXT in the last 72hou rs.Liver Enzymes No results for input(s): TP, ALB, TBIL, AP, SGOT, GPT in the last72 h ours.No lab exists for component: DBILUrine Analysis ColorDate Value Ref Range Statu s010/06/2019 YELLOW FinalAppearanceDate Value Ref Range Ecwwsg0010/06/2019 CLEAR FinalpH (UA)Date Value Ref Range Tztymy6110/06/2019 7.0 FinalProteinDate Value Ref Range Sozoci3110/06/2019 NEGATIVE mg/dL FinalKetoneDate Value Ref Range St atus10/06/2019 NEGATIVE mg/dL FinalBilirubinDate Value Ref Range Statu s010/06/2019 NEGATIVE FinalBloodDate Value Ref Range Zszpnh4410/06/2019 NEGATIVE F inalUrobilinogenDate Value Ref Range Mtonne8810/06/2019 2.0 EU/dL FinalNitrites Date Value Ref Range Rbxdvv4610/06/2019 NEGATIVE FinalLeukocyte EsteraseDate Value Ref Range Jbvxlu3410/06/2019 NEGATIVE FinalASSESSMENT/PLAN:Active Problems: M arijuana abuse (10/07/2019) Cocaine abuse (HCC) (10/07/2019) Dependence on nicotine from cigarettes (10/07/2019) Severe major depression without psychotic features (H CC) (10/09/2019) Opiate abuse, continuous (HCC) (10/11/2019)Follow LFT resultCoverin g Psychiatrist to evaluate patient for initiation of suboxone in am. Continue r ehab treatment per unit protocol.Pt is participating in individual and group th erapies.Encourage PO fluids to maintain hydrationHydroxyzine PRN for anxietyMVI dailyPsych FU PRN for Supportive Psychoeducation and Psychiatric medicati on review.Patient continues to receive:Substance Abuse Treatment Counse vlad including Family CounselingGroup [id number], Continuing Care, and Ps ychoeducation.Individual therapy-Behavioral, Cognitive, Cognitive-Behavioral, and Con tinuingCare.Will continue to adjust medications as deemed appropriate and to response forsymptom management (see medication orders made in EMR).Risks/Dmitriy efits/potential adverse reactions have been discussed with the patientfor current an d new medicationsWm Marquez NP10/30/2019 Name Value Range Interpretation Code Description Data [facility]) Supporting Document(s ) ID Date Data Source [id number] 10/30/2019 01:42:07 PM EDT [facility] Pt has been given verbal and literary ed ucation upon and since admission. Willcontinue to provide education as nee ded.Pt has been visible on the unit throughout the day. Pt has been social withstaff and peers. Compliant with medications and program. No complaints. Willcontinue to monitor for safety. Name Value Range Interpretation Code Description Data [facility]) Supporting Document(s ) ID Date Data Source [id number] 10/30/2019 06:47:39 AM EDT [facility] SBAR report given to Day Shift. Name Value Range Interpretation Code Description Data [facility]) Supporting Document(s ) ID Date Data Source [id number] 10/30/2019 02:57:12 AM EDT [facility] Problem: Chemical Dependency (Adult/Pedi atric)Goal: *STG: Remains safe in hospitalOutcome: Progressing Towards Goa lGoal: *STG: Complies with medication therapyOutcome: Not Progressing Towards GoalGoal: *STG: Attends activities and groupsOutcome: Not Progressing Towards G oalGoal: *STG: Maintains appropriate nutrition and hydrationOutcome: Progress ing Towards GoalGoal: *STG: Vital signs within defined limitsOutcome: Progressin g Towards Goal Refuses all meds. Does not follow rules or instructions. Difficult to redirect.Visible on unit. Ongoing monitoring. Safety checks in place. Name Value Range Interpretation Code Description Data Tashia rce(s) Supporting Document(s ) ID Date Data Source [id number] 10/29/2019 04:56:08 PM EDT [facility] Clinical meeting held with donal manriquez RN, to address staff putting him mik 24 hour contract for non-compliance with ru les and regulations of the unitsuch as; tampering with a smoke detector (putting paper towels over device tocover it), attempting to smoke and/or obtain matche s or oil well service operator helper from someoneelse on the unit. Rikki had to address the treatment team and explain why theteam should have him continue staying here in [place]. Rikki reportedthat he put that towels during the time he rolled over from detox to re habintending that he would get a cigarette during his stay in rehab. Rikkireported that desire to smoke a cigarette was no longer and issue he stated hedidn't even use gum or patch during his stay in rehab. Rikki reported that henoticed that his behaviors became very apparent and disruptive to him and hispeers. Rikki reported brandan t he is aware of his addictive behaviors and coming torehab gave him the opportunity to address some of his behaviors. Rikki statedthat he has been learning that his problem is his behaviors, and attitude. Hethought it was appropriate and he is f inding out that his thinking is distorted.Rikki reported that he never thought he would feel grateful about getting upevery morning clean, not wanting to go use any drugs/alcohol. Rikki seems likehe want more of this recovery process and i s willing to continue working thisprogram. Sky Diver did motivational interviewing wit h pt to try and get him tounderstanding that his poor decisions is not a setback, but can be a set up forhim to continue learning from his mistakes. Rikki reported that he was sorryfor his behaviors and will not break any rules or regulations while he is herein rehab. Sky Diver received a message from Gus at [facility] he stat edthat at this time there will not be bringing any new admissions. Sky Diver call [facility] and left message about they pt that got accepted to their facility.Sky Diver apryl Brandt set up another aftercare plan such as; Rikki getting D/C tohis sister home at [address] [place] [address]. [place], [place] going to his outpatientprogram for his s ubstance abuse treatment at [address] [place], [place] [id number] fa x [phone] on Saturday11/10/2019 at 10:00 am with Olgaand consent signed. Rikki D /C is Saturday11/06/19. Name Value Range Interpretation Code Description Data Tashia rce(s) Supporting Document(s ) ID Date Data Source [id number] 10/29/2019 04:24:16 PM EDT [facility] Group Note 3:15 pm - The fuck it'sGroup members were educated on the poor me syndrome also known as "a case of thefuck it s". They were allowed to process why they abandon there commitment whenfaced with adversity. Some of the group members shared about experiencing timeswhen they was un willing to fight through adversary because it was to challengingand there was no guara ntee that the outcome would be what they wanted. Some ofthe other reasons was brandan t they change their short term goals . The group endedafter they were encouraged to constantly renew their committment to recovery andface adversary. Name Value Range Interpretation Code Description Data Tashia rce(s) Supporting Document(s ) ID Date Data Source [id number] 10/29/2019 02:27:26 PM EDT [facility] Stages of Change Group Note 1:15Pm-2PMEm ergency Crisis Plan: Purpose is to develop an emergency/crisis place for ifrelapse saini s occur.Group was educated on the benefits of having an emergency plan so that ifrelap se does occur, they already have a plan in place for how to do the nextright thing instead of scrambling to create a plan when things are already notgoing well. Group together created a sample plan with at least 3 options for whoto call, where to go, a nd what to do (ex: coping skills to get back on track).Group processed how external f actors could affect the plan (ex: no beds atrehab, no transportation to a self-hel p meeting, etc.) so it is important tohave a variety of options but not so much that it is overwhelming to complete,3-5 being a good start. Group also processed how to mitigate risks so that ifyou do not have adequate coping skills then it is import ant to have people orplaces that are healthy in place or vice versa. Group struggled withcross-talking throughout even after many redirections. Advised that due torunning out of time we would have to complete the assignment at a later time.Pt participat ed in the activity and acknowledged the importance to use the timenow to have a healthy plan instead of waiting until he is already in anemergency. Name Value Range Interpretation Code Description Data Tashia rce(s) Supporting Document(s ) ID Date Data Source [id number] 10/29/2019 12:03:31 PM EDT [facility] Inpatient Behavioral Health ServicesProv ider Daily Progress NotePatient: Rikki Mendoza Age: 29 y.o. : 1990EX : male CSN: [id number] Date: 10/10/2019 Attending: Bryon Rhodes MDSUBJECTIVE: Patient seen with the treatment team. Treatment plan goals and aftercare plans discussed with the patient. Patient denies any cravings at thistime. Doing well in rehab treatment. Attending groups. Stable on current meds.Denies si /hi. Denies hallucinations. Denies CP, Palpitations, SOB.OBJECTIVE:Physical Exa m:CHEST: Heart S1, S2, no murmurs, gallops, rhythm regular.LUNGS: Clear, no rales, n o rhonchi heard.ABDOMEN: Soft, nontender, no organomegaly noted.EXTREMITIES: no cyano sis, clubbing, edema noted.CENTRAL NERVOUS SYSTEM: Unremarkable.Vitals:Patient Makayla ls for the past 24 hrs: Temp Pulse Resp BP [id number]/29/19 0820 97.6 F (36.4 C) - - - -10/28/192008 99 F (37.2 C) 84 16 128/66 98 %Visit VitalsBP 128/66 (BP 1 Location : Left arm, BP Patient Position: Sitting)Pulse 84Temp 97.6 F (36.4 C)Re sp 16Wt 77.6 kg (171 lb)SpO2 98%BMI 21.96 kg/m Current Medications:Current Facilit y-Administered MedicationsMedication Dose Route Frequency Provider Last Rate Last Dose diphenhydrAMINE (BENADRYL) capsule 50 mg 50 mg Oral QHS PRN Gómez Solis M D 50 mg at 10/19/19 0009 acetaminophen (TYLENOL) tablet 650 mg 650 mg Oral Q4H PRN Kuldeep Rhodes MD alum-mag hydroxide-simeth (MYLANTA) oral suspensi on 30 mL 30 mL Oral Q4H PRKuldeep Astorga MD bisacodyL (DULCOLAX) tablet 5 mg 5 mg Oral DAILY PRN Kuldeep Rhodes MD cloNIDine HCL (CATAPRES) tablet 0.1 mg 0.1 mg Oral Q4H PRN Kuldeep Rhodes MD cyclobenzaprine (FLEXERIL) tablet 10 mg 10 mg Oral TID PRN Kuldeep Rhodes MD10 mg at 10/12/192 dicyclomine (BENTYL) c apsule 20 mg 20 mg Oral Q8H PRN Kuldeep Rhodes MD hydrOXYzine HCL (ATARAX) ta blet 50 mg 50 mg Oral Q4H PRN Kuldeep Rhodes MD50 mg at 10/26/198 ibupr ofen (MOTRIN) tablet 600 mg 600 mg Oral Q6H PRN Kuldeep Rhodes MD loperamide (IMOD IUM) capsule 2 mg 2 mg Oral Q3H PRN Kuldeep Rhodes MD magnesium hydroxide (MILK O F MAGNESIA) 400 mg/5 mL oral suspension 30 mL 30mL Oral QHS PRN Kuldeep Rhodes MD p rochlorperazine (COMPAZINE) tablet 10 mg 10 mg Oral Q6H PRN Kuldeep Rhodes MD trime thobenzamide (TIGAN) injection 200 mg 200 mg IntraMUSCular Q6H PRKuldeep Astorga MD nicotine (NICORETTE) gum 4 mg 4 mg Oral Q2H PRN Kuldeep Rhodes MD 4 mg at10/20/19 1418 traZODone (DESYREL) tablet 50 mg 50 mg Oral QHS Kuldeep Rhodes MD 50 mg a t010/27/19 2249Labs: Results:Chemistry No results for input(s): GLU, NA, K, CL, CO 2, BUN, CREA, CA, AGAP,BUCR, TBIL, GPT, AP, TP, ALB, GLOB, AGRAT in the last 72 hour s.CBC w/Diff No results for input(s): WBC, RBC, HGB, HCT, PLT, GRANS, LYMPH, EOS,HG BEXT, HCTEXT, PLTEXT in the last 72 hours.Coagulation No results for input(s ): PTP, INR, APTT, INREXT in the last 72hours.Liver Enzymes No results for inp ut(s): TP, ALB, TBIL, AP, SGOT, GPT in the last72 hours.No lab exists for component : DBILUrine Analysis ColorDate Value Ref Range Lsmxcy4610/06/2019 YELLOW FinalApp earanceDate Value Ref Range Rcdvkq9610/06/2019 CLEAR FinalpH (UA)Date Value Ref Range Pdxfdh0910/06/2019 7.0 FinalProteinDate Value Ref Range Igrsvu1710/06/2019 NEGATIV E mg/dL FinalKetoneDate Value Ref Range Gvaxvs8710/06/2019 NEGATIVE mg/dL FinalBi lirubinDate Value Ref Range Hwswem7610/06/2019 NEGATIVE FinalBloodDate Value Ref Ran ge Czkqnz1810/06/2019 NEGATIVE FinalUrobilinogenDate Value Ref Range St atus10/06/2019 2.0 EU/dL FinalNitritesDate Value Ref Range Vogkmi8310/06/2019 NEGATIV E FinalLeukocyte EsteraseDate Value Ref Range Vgebkh4910/06/2019 NEGATIVE Final ASSESSMENT/PLAN:Active Problems: Marijuana abuse (10/07/2019) Cocaine abuse (HCC) () Dependence on nicotine from cigarettes (10/07/2019) Severe major depr ession without psychotic features (HCC) (10/09/2019) Opiate abuse, continuous (HC C) (10/11/2019) Continue rehab treatment per unit protocol.Pt is participating in ind ividual and group therapies.Encourage PO fluids to maintain hydrationHydroxyzine PRN for anxietyMVI dailyPsych FU PRN for Supportive Psychoeducation and Psychiatr ic medication review.Patient continues to receive:Substance Abuse Treatment Arnol chu including Family CounselingGroup [id number], Continuing Care, and Ps ychoeducation.Individual therapy-Behavioral, Cognitive, Cognitive-Behavioral, and Con tinuingCare.Will continue to adjust medications as deemed appropriate and to response forsymptom management (see medication orders made in EMR).Risks/Dmitriy efits/potential adverse reactions have been discussed with the patientfor current an d new medicationsKailanathaniel MarquezKENNETH10/29/2019 Name Value Range Interpretation Code Description Data Tashia rce(s) Supporting Document(s ) ID Date Data Source [id number] 10/29/2019 08:37:24 AM EDT [facility] Late Entry note for 10/28/2019:Group Top ic: Relapse Prevention PlanThis telegraphic typewriter operator chief brought in a folder that included a carmen jamison for the followingtopics in order for the client to develop a relapse preventi on plan:Trigger, Managing Cravings, Useful Tools i.e Gratitude list, relaxationtec hniques, stress management techniques, Support Network, Red Flags, RiskySituati ons, People, Places, Things, Life Improvements, and Recovery Program.This telegraphic typewriter operator chief shared with the group that by working this plan on a daily basis, itwill keep their awareness heightened to the point where they will understandthemselves better th an anyone and it will assist them in avoiding relapse.This telegraphic typewriter operator chief also shared with the group that this plan will not be done whilethey are in treatment, the fact brandan t this plan will be forever in the works issomething they need to understand full y in order to work on themselves daily.This telegraphic typewriter operator chief suggested they share their plan w ith a loved one or someone inrecovery that can understand them better in order to s ee their red flags or therisky situations they are putting themselves in when they choose to ignore themin order to avoid relapse.Patient participated in the grou p process. Name Value Range Interpretation Code Description Data Tashia rce(s) Supporting Document(s ) ID Date Data Source [id number] 10/28/2019 08:22:03 PM EDT [facility] Pt found by MHT SS in room 405. Pt arcadio dy on contract; Pt dis-interested inprogram. Pt relates he went into 405 to see pt PD & that PD was saying his leghurt. Reminded James that he has difficulty following t he unit rules &guidelines. He is now late for 815 group, going to his room a second ti mebecause he "forgot his inventory paper:" Name Value Range Interpretation Code Description Data [facility]) Supporting Document(s ) ID Date Data Source [id number] 10/28/2019 06:50:46 PM EDT [facility] Verbal report given to oncoming shift us ing SBAR, Doc Flowsheets and MAR. Name Value Range Interpretation Code Description Data [facility](s) Supporting Document(s ) ID Date Data Source [id number] 10/28/2019 04:11:46 PM EDT [facility] Group Note: 3:15-4:00pm Motivational G Roberthis group was shown a video, The Simple Secret to Happiness,and The Crawls cene from facing adversity which talked about learning to find your motivationwithin y ourself. It modeled perseverance and courage to face adversities. Ittalked about bein g the best version of you, helping others with no intent,Pouring happiness in some one life, Making that first impression stick and countfor something good. After the v ideo there was a group discussion about how thevideo impacted them and their lives. They participants an shared their thoughtsand experiences related to the movie and how they were inspired to continuetheir journey of recovery and adversities in their own lives.Patient participated in topic being discussed and how it pertained to theirr ecovery Name Value Range Interpretation Code Description Data [facility]) Supporting Document(s ) ID Date Data Source [id number] 10/28/2019 03:27:54 PM EDT [facility] Late Entry for 10/12/2019Writer met with Stanislaw Peguero he was restless and anxious during the 1,1 session. Rikki florencia 29 year old male. Patient completed detox treatment for opiatewithdrawal and rolled over to reha b to address his substance abuse. Patientdenied a history of rehab and out patient before but feels like he could benefitfrom rehab at this time. Rikki r eported using 2 bags/daily (snorting) ofheroin, weekly use of cocaine and augustin vida, As a result he as poorrelationship with his family, poor parenting skills, conflict with family andhis daughter's mother, having legal issues, and difficu lty getting employment.Rikki reported originally being from the [place] but relocated due to hisaddiction and is currently residing with his parents. Man deion reported pendinggrand larceny charges in [facility]. Rikki Reported to have had court o n 10/01/19 whichhe did'nt attend. Rikki reports to have one daughter age 4 that [facility]. Reports having contact with his daughter's but limited due to h isaddiction. Rikki denies history of mental health at this time. Rikki reportedbein g very anxious and restlessness at this time. Sky Diver had a conversation withpt. about attending all groups and only being excused by Nurse or counselor forthe second time . Name Value Range Interpretation Code Description Data Tashia macias(s) Supporting Document(s ) ID Date Data Source [id number] 10/28/2019 03:27:33 PM EDT [facility] This telegraphic typewriter operator chief and supervisor fine grading Elaine Muñiz met with pt. And addressed his poorgroup attendance. He was made aware of the nee d to attend all groups and followall of the unit rules and regulations. He was in ag reement with thatrecommendation. He stated that he was not getting much sleep durin g the night,and is using music as a coping technique to stay woke during the day ti me.However, after the conversation he missed the next group.[facility]. His aftercare plan is still beingexplored wi mary telegraphic typewriter operator chief and Rikki. Name Value Range Interpretation Code Description Data [facility] Supporting Document(s ) ID Date Data Source [id number] 10/28/2019 10:37:42 AM EDT [facility] Group Topic: 3:15 PM- 4:00 PMGroup Note: Spiritual Principals: Sky Diver gave out a sheet of paper with a listof Spiritual p rincipals: Spiritual principal are essentially universal truthsrelating to the deepest values and meanings by which people live in order toachieve genuine i nner peace. Spiritual principal (some of many) can be Discoverthe essence of one' s being such as: Honesty ,acceptance, Surrender, Hope,Commitment, jamel ,Coura ge, Willingness, Humility, Unconditional love,Perseverance, Open mindedness, God- centeredness, Awareness and Self -discipline,Positive thinking, Forgivene ss, Gratitude, service, and Tolerance. Writerelaborated on how the above mentio gerardo Spiritual Principals are essential inunderstanding the magnitude of differe nt solutions and what it will take toproperly address their Addicted behavior. Sky Diver spoke on the SpiritualPrincipal that can play a major role in their recovery. Each mem igor also sharedtheir own experience with spiritual principal and talk about what spiritualprincipal means to them and the need for applying them in their daily life. T heywere supportive towards each other.Patient was accepting of the information and ack nowledged the benefits ofspiritual principals in their life. Name Value Range Interpretation Code Description Data Tashia rce(s) Supporting Document(s ) ID Date Data Source [id number] 10/28/2019 10:37:26 AM EDT [facility] Group Topic: 3:15 PM- 4:00 PMGroup Note: Spiritual Principals: Sky Diver gave out a sheet of paper with a listof Spiritual p rincipals: Spiritual principal are essentially universal truthsrelating to the deepest values and meanings by which people live in order toachieve genuine i nner peace. Spiritual principal (some of many) can be Discoverthe essence of one' s being such as: Honesty ,acceptance, Surrender, Hope,Commitment, jamel ,Coura ge, Willingness, Humility, Unconditional love,Perseverance, Open mindedness, God- centeredness, Awareness and Self -discipline,Positive thinking, Forgivene ss, Gratitude, service, and Tolerance. Writerelaborated on how the above mentio gerardo Spiritual Principals are essential inunderstanding the magnitude of differe nt solutions and what it will take toproperly address their Addicted behavior. Sky Diver spoke on the SpiritualPrincipal that can play a major role in their recovery. Each mem igor also sharedtheir own experience with spiritual principal and talk about what spiritualprincipal means to them and the need for applying them in their daily life. T heywere supportive towards each other.Patient was accepting of the information and ack nowledged the benefits ofspiritual principals in their life. Name Value Range Interpretation Code Description Data Tashia rce(s) Supporting Document(s ) ID Date Data Source [id number] 10/28/2019 10:34:32 AM EDT [facility] Problem: Chemical Dependency (Adult/Pedi atric)Goal: *STG: Will identify negative impact of chemical dependency including theuse of tobacco, alcohol, and other substancesDescription: Rikki will work with his primary counselor to identify andverbalize the negative impact that dr barriga and alcohol have had on his life.Rikki will also identify how a life free of dr barriga and alcohol can restore asense of normalcy to her life.Outcome: Jamilah Chau Pérez reported that his addiction affected his relationship with his daughter'smother and his daughter,Rikki reported that his addiction affected his employment and housingsituations. He has been living with different family member s. Rikki reportedthat taking care of his self-care was affected by his addiction. Problem: Chemical Dependency (Adult/Pediatric)Goal: *STG: Identify li festyle changes to support ceiling installer sobriety such asvocation, employment, education, and legal issuesDescription: Rikki will begin to implement a daily schedule/rout ine for himselfincorporating positive activities that are substance-free. Jhon monson will identifypositive activities and work with counselor to being implementation i nto a soberlifestyle.Outcome: Progressing Towards Pérez reported that he need s to address his addiction for more than 28 days.Rikki wanted to attend a long-term treatment program such as; [facility]. Rikki reported that he needs to get a s upport groups that can help himwith his sobriety. Rikki reported that he would like to go back to school. Rikki reported that he would like to relocate to a [email or web address] community.Problem: Chemical Dependency (Adult/Pediatric)Goal: *STG/LTG: Relapse prevention plan in place to include housing/aftercare,leisure activities, an d spiritualityDescription: Rikki and counselor will set up the appropriate af ter care asneeded to further help him in his recovery.Outcome: Progressing Towards Go Mckenzie was [facility] to [facility] on 10/27/19 to help maintain hissobrietyManu iona reported that he would be attending self- help group once he get D/C fromhis long -term treatment program.Rikki reported that he would get a sponsor to help guide him through hisrecovery. Name Value Range Interpretation Code Description Data [facility](s) Supporting Document(s ) ID Date Data Source [id number] 10/28/2019 10:32:15 AM EDT [facility] Rikki had a phone screening with [facility] today Saturday10/20/2019. Whostated to give them a call t o see if he was accepted to their long-termtreatment program. Sky Diver is st ill waiting for a phone assessment from [facility], sohe can get some assistance to attend a long-term treatment program. Rikki isstill working on his treatment goals and manag ing his emotions. Sky Diver was doinggroup and witnessed another peer getting smart wit h Rikki for no reason,however, Rikki didn't respond to it. Sky Diver encouraged Rikki to continue tostay focused on his own behaviors and not respond to someone els gabriel's badbehavior. Sky Diver informed Rikki that recovery happens in the moment ,and he d loan good job by not responding to the negativity. Name Value Range Interpretation Code Description Data [facility](s) Supporting Document(s ) ID Date Data Source [id number] 10/28/2019 10:26:04 AM EDT [facility] Group Note 3:15 pm- 4:00 pmGroups Topic: Unhealthy Boundaries/ Healthy Boundaries members participated in adiscussion cent ered on boundaries: Sky Diver handed out a paper with differentSigns of Unhealthy Boundar ies/ Healthy Boundaries. Sky Diver talk about somedifferent statements on unhealthy taz undaries such as, Going against personalvalues or rights in order to ple ase others, Giving as much as you can for thesake of giving, Not speaking up when you are treated poorly, and healthyboundaries such as; Being more in touch with realit y, Staying focused on yourown growth and recovery, Knowing who you are and what y ou want, Appropriatetrust, The group was able to talk about some possible solutions wi th Healthy/unhealthy boundaries that occurred in their lives. Sky Diver elaborated on how theabove mentioned components (some of many) of recovery were essential inunderstandi ng the magnitude of different solutions and what it will take toproperly address the ir Healthy/Unhealthy Boundaries. Sky Diver also includededucation on addiction. Each mem igor shard their thoughts on boundaries amongeach other and gave feedback.Jr sudhir participated in topic being discussed on Unhealthy Boundaries/ HealthyBoundaries and how it pertained to their recovery. Name Value Range Interpretation Code Description Data Tashia e(s) Supporting Document(s ) ID Date Data Source [id number] 10/28/2019 10:24:37 AM EDT [facility] Group Note 3:15pm-4:00pmGroup Topic: Per tatyana Drug Use QuestionnaireGroup members participated in a discussion centered on Readiness for change inalcohol/drug abusers. Sky Diver handed out a packet with ningchano peguero questions toassess the motivation for change ,which they had to indicate how m uch they agreeor disagree with it right now such as; I really want to make changes i n my useof drugs/alcohol, Sometimes I wonder if I am an alcoholic, If I don't change mydrinking soon ,my problems are going to get worse, Sometimes I wonder if mydrinking is hurting other people, I am an alcoholic/addict, I am working hard toch jaron my drinking/drugs, There are times when I wonder if I drink/used drugstoo much , I'm not just thinking about changing my drinking, I'm already doingsomething abo ut it. Sky Diver also included education on addiction, and the processof relapse brandan t can occurred in their recovery, not just putting down the drinkor drug but changi ng their attitude Ideas and behavior. Each group member alsoshared their experience with the different questions. They were supportivetowards each other.Patient was an active participant in the group discussion. Name Value Range Interpretation Code Description Data Tashia rce(s) Supporting Document(s ) ID Date Data Source [id number] 10/28/2019 06:37:47 AM EDT [facility] Report to day staff using SBAR Name Value Range Interpretation Code Description Data Tashia rce(s) Supporting Document(s ) ID Date Data Source [id number] 10/27/2019 06:35:50 PM EDT [facility] Treatment Plan ReviewRikki Lucio alma date: 10/10/2019 2:23 PMToday's date: 10/15/19Members Present During Treatment Plan Review: [x] Patient [x] Nurse: Selina Rosas [] Nam GreenMet with treatme nt team to review patient's progress toward treatment goals andaddress any concerns or discharge needs. For detail on progress please see careplan.Current Urges & Crav ings: yes nightmares of using drugsPost acute withdrawal updates: anxietyDischarge kirsten nning progress: Counselor and Rikki is still working on his D/Cdate. Rikki [facility] was [facility]: Rikki will like to start MAT Vivitrol tohelp him with his urges and cravings. Name Value Range Interpretation Code Description Data Tashia rce(s) Supporting Document(s ) ID Date Data Source [id number] 10/27/2019 06:35:13 PM EDT [facility] Group Note: 11:15-12:00 pmCBT, Behaviora l and Solution Focused TherapyGroup Topic: Irrational and Distorted Thinking patter ns. Sky Diver discussed withgroup 9 common irrational or distorted thinking pattern s and ways to changeirrational belief system. Sky Diver discussed statements of irrationa lity and waysto promote a more rational thinking pattern. Sky Diver explored ways t he groupmembers could implement a more rational thinking pattern by Practicings tatements and challenging irrational believe with factual evidence. 9 commonexamples of negative thinkin. I will be happy once I have, 2. I wish I wereas, 3. seeing ot hers becoming successful makes me jealous and resentful, 4. I ama miserable failure-I can't seem to do anything right,5. I'm going to beat so-and-so no matter what -I'm be tter than him, And there's no way I'll help himsucceed -he might beat me.,6. Dammit! Why do these bad things always happen tome, 7. You can't do anything right! Why can' t you be like so-and-so, 8.Oh yeah?Well up yours too! 9. I don't think I can do thi s -I don't have enoughdiscipline. maybe some other time. Each Patient provided their own experienceand each patient gave supportive feedback to their peers.Stephanie ruelas participated in topic being discussed and how it pertained to theirrecovery Name Value Range Interpretation Code Description Data Tashia rce(s) Supporting Document(s ) ID Date Data Source [id number] 10/27/2019 06:34:57 PM EDT [facility] Group Note 1:15 pm-2:00 pmGroup Note: P ositive Problem Solving their Addiction.Group members participated in a discussion lorena tered on Positive Problem Solvingin Addiction. Sky Diver handed out a paper so patient can write out a list ofoptions and possible solutions that could help them in their recovery such as:AA/NA meeting, Medication/MAT, Sponsor, AA Big Book, NA Book, [facility], Positive people , Therapist, Psychiatrist, Outpatient balta tment ,Residential Program, Sky Diver elaborated on how the above mentioned co mponents(some of many) of recovery were essential in understanding the magnitude ofdifferent solutions and what it will take to properly address the Addictions.Write r also included education on addiction. Each member had to pick out someand write curt n their plan for them coming out this rehab. The group shared theirplan among each ot her and gave feedbackPatient participated in topic being discussed and how it pertain ed to theirrecovery Name Value Range Interpretation Code Description Data Tashia rce(s) Supporting Document(s ) ID Date Data Source [id number] 10/27/2019 04:52:55 PM EDT [facility] Group Note: 3:15pm-4:00pmGroup Topic: H ow to take responsibility for your actionsThis telegraphic typewriter operator chief brought in literature for the group to read aloud in group on how totake responsibility for your actions d ue to in our active addiction we did nottake responsibility for our actions and we di d not take accountability, we wouldblame others, and we would not even acknowledg e our wrong doings. This writerreviewed the following ways in how to start to take r esponsibility for our ownactions:1) Be accountable; whatever you do, you are re sponsible for your actions2) Stop Blaming others; Switch your focus from what went wrong to what wentright3) Acknowledge what happened so your integrity earns respect 4) Accentuate the positive, a small shift in focus turns a loser into a winner5) See yourself clearly; a responsible person continues to grow emotionally6) Say "Brandan nk You" and be sincere .7) Practice healthy self-focus, by knowing yourself and what makes you tick, robe gentle, reflective way is the beginning of self-love and person alresponsibility.This telegraphic typewriter operator chief had each member of the group write out the following:- T heir purpose-Their Gifts/Talents- Their strengths-Their weaknessPT participated in group. Name Value Range Interpretation Code Description Data Tashia rce(s) Supporting Document(s ) ID Date Data Source [id number] 10/27/2019 02:20:10 PM EDT [facility] Stress Management Group Note 1:15PM-2PMB reathing exercises: Purpose is to learn basic skills to monitor breaths andlengthen/sh orten breaths that may help manage anxiety or stress moreeffectively.Group provided [facility] basic psycho-education on breathing techniques and how theyserve as a fundam ent aspect of other relaxation or stress management techniques.Provided with samp le exercises for squeezing out more air at the end of a breathin order to full up w ith more air, breathing slower and deeper to manipulatebreaths more, and using counti ng to slow down breaths (breath in for 4 seconds,hold for 7, breath out for 8).Pt participated in the activity and acknowledged that it will take time to l earnhow to relax without mood altering substances. Name Value Range Interpretation Code Description Data Tashia rce(s) Supporting Document(s ) ID Date Data Source [id number] 10/26/2019 04:59:18 PM EDT [facility] Progress Note:Sky Diver, EVERTON Marks and Clara hearn met to place patient on a 24 Hr. Contract. patientwas being placed on a 24 Hr. Cont ract due to non compliance with rules andregulations of the unit, tampering wi th a smoke detector (putting paper towelsover device to cover it), attempting to smoke and/or obtain matches or lighterfrom someone else on the unit, and engaging in addict nakul behavior's. patient wasaccepting of the 24 Hr. Notice Contract and was informed of what he is expectedto do when meeting with the [place] Team on 10/26 @ 10:30 am. Patient was told thathe is to explain why he would like to remain in [place] at [facility], and writedown what behaviors moving forward are we expected to see from him that are positive. Patient acknowledged.Will continue to monitor patient. Name Value Range Interpretation Code Description Data Tashia rce(s) Supporting Document(s ) ID Date Data Source [id number] 10/26/2019 04:44:50 PM EDT [facility] Group Note: 3:15-4pmDiscussing recovery plans, supports systems, and ways to promote self-awarenessin recovery as a form of r elapse prevention. Group discussed triggers inrelation to support systems, ways to b bobby manage support systems andcommunicate in addition to ways to challenge their o wn thinking patterns andbehaviors to prevent relapse upon discharge.Patient briefly p articipated in topic being discussed, prior to being pulled outby clinical team.Sam Triplett LMSW Name Value Range Interpretation Code Description Data Tashia rce(s) Supporting Document(s ) ID Date Data Source [id number] 10/26/2019 03:10:34 PM EDT [employer] [facility] Name Value Range Interpretation Description Data Sup porting Code Source(s) Document(s ) Amphetamine NEG [facility] Urine by Screen [employer] method Inc Backup method used Methamphetamine [Presence] in Urine NEG [facility] [employer] [facility] [employer] Backup method used Barbiturates [Presence] in Urine by NEG [employer] Screen method Inc Backup method used Benzodiazepines [Presence] in Urine NEG [facility] Inc Backup method used Cocaine [Presence] in Urine by Screen NEG [facility] method Inc Backup method used Methadone [Presence] in Urine NEG [facility] Inc Backup method used Opiates [Presence] in Urine NEG [facility] Backup method used Phencyclidine [Presence] in NEG Abnormal (applies to [facility] Urine non-numeric results) [facility] Cannabinoids [Presence] in NEG [facility] Urine by Screen method [facility] Backup method used Tricyclic antidepressants [Presence] in NEG [facility] Inc Backup method used(NOTE)Threshold Concen trations:Acetaminophen 5ug/mld-Amphetamine 1000ng/mld-M ethamphetamine 1000ng/mlBarbiturates 300ng/mlBenzodiazepine 300ng/ mlCocaine 300ng/mlMethadone 300ng/mlOpiates 30 0ng/mlPCP 25ng/mlTHC 50ng/mlTCA 1000ng/mlThese threshold concentrations are used to separate a negative resultfrom a presumptive positive result. These results are unconfirmed. Ifconfirmation of a pre sumptive positive is desired, an order for thespecific drug test is needed within 7 2 hours. A listing ofinterfering substances is available at the nursing unit and in thelaboratory. [employer] [facility] ID Date Data Source [id number] 10/26/2019 02:34:14 PM EDT [facility] Life Skills Group Note 1:15PM-2PMExpecta tions of self, others, and situations: Purpose is to learn how toidentify reali stic versus unrealistic expectations.Group was provided with psycho-education and s ituations involving emotionalsituations such as anger. For example, a father getting angry that his andtwo young children are not ready to leave for vacation early in the morning.Group then identified his expectations including: that his childre n would beready without help, that family would be as focused on leaving early as he was,that objects such as alarm clock and car would be in perfect working order, a ndthat traffic would be significant which justified leaving early. They thenidenti fied which of these were realistic and unrealistic then developed a planfor how to manage that situation differently.Pt was receptive to understanding that having e xpectations of ourselves, others,and situations is normal, but it is importan t to acknowledge when it isunrealistic that expectations be met at all times. Name Value Range Interpretation Code Description Data [facility] Supporting Document(s ) ID Date Data Source [id number] 10/26/2019 01:13:54 PM EDT [facility] Left message for Lidya Bucio ([phone], ext [phone]) to confirmif patient is still confirmed for admission tomorrow, or if all admissions areno longer being allowed. Requested call back.Abbi Triplett [facility] Name Value Range Interpretation Code Description Data [facility](s) Supporting Document(s ) ID Date Data Source [id number] 10/26/2019 01:01:05 PM EDT [facility] During unit searches, patient's bathroom smoke detector was found to have papertowels wrapped around it. Brought patient and his roommate in to the room toquestion them. Rikki did state that it was "an ex periment". His roommate wasexcused from the room and discussed further with Rikki. Patient stated someonehad cigarettes on the unit so he was going to smoke but then d enied smoking.Patient denied having cigarettes. He was confronted on possib ly being involvedwith using other contraband on the unit as well. He denied using an y othersubstance on unit. Will continue to monitor for safety. Name Value Range Interpretation Code Description Data [facility](s) Supporting Document(s ) ID Date Data Source [id number] 10/25/2019 06:50:09 AM EDT [facility] SBAR report given to Day Shift Name Value Range Interpretation Code Description Data [facility](s) Supporting Document(s ) ID Date Data Source [id number] 10/25/2019 05:14:28 AM EDT [facility] Problem: Chemical Dependency (Adult/Pedi atric)Goal: *STG: Remains safe in hospitalOutcome: Progressing Towards Goa lGoal: *STG: Complies with medication therapyOutcome: Not Progressing Towards GoalGoal: *STG: Maintains appropriate nutrition and hydrationOutcome: Progress ing Towards GoalGoal: *STG: Vital signs within defined limitsOutcome: Progressin g Towards Goal Name Value Range Interpretation Code Description Data Tashia rce(s) Supporting Document(s ) ID Date Data Source [id number] 10/24/2019 07:58:12 PM EDT [facility] Rikki was found during 7:15pm group in the [facility] lounge watching television. Hewas directed to go to group and then started walking to his room. He wasdirected again to group but attempted to resist stating he had to use thebathroom. He was reminded he didn't have to use the bathroom while watchingtelevision and to go to group.He complied. Name Value Range Interpretation Code Description Data [facility] rce(s) Supporting Document(s ) ID Date Data Source [id number] 10/24/2019 08:38:21 PM EDT [employer] [facility] [employer] [facility] [employer] Name Value Range Interpretation Description Data Sup porting Code Source(s) Document(s ) Amphetamine NEG [facility] Urine by Screen [employer] method Inc Backup method used Methamphetamine [Presence] in Urine NEG [facility] Backup method used Barbiturates [Presence] in Urine by NEG [facility] Screen method Inc Backup method used Benzodiazepines [Presence] in Urine NEG [facility] Backup method used Cocaine [Presence] in Urine by Screen NEG [facility] method Inc Backup method used Methadone [Presence] in Urine NEG [facility] Backup method used Opiates [Presence] in Urine NEG [facility] Backup method used Phencyclidine [Presence] in NEG Abnormal (applies to [facility] Urine non-numeric results) [facility] [employer] [facility] Cannabinoids [Presence] in NEG [facility] Urine by Screen method [facility] Backup method used Tricyclic antidepressants [Presence] in NEG [facility] Backup method used(NOTE)Threshold Concen trations:Acetaminophen 5ug/mld-Amphetamine 1000ng/mld-M ethamphetamine 1000ng/mlBarbiturates 300ng/mlBenzodiazepine 300ng/ mlCocaine 300ng/mlMethadone 300ng/mlOpiates 30 0ng/mlPCP 25ng/mlTHC 50ng/mlTCA 1000ng/mlThese threshold concentrations are used to separate a negative resultfrom a presumptive positive result. These results are unconfirmed. Ifconfirmation of a pre sumptive positive is desired, an order for thespecific drug test is needed within 7 2 hours. A listing ofinterfering substances is available at the nursing unit and in thelaboratory. MIGUEL [facility] ID Date Data Source [id number] 10/24/2019 03:06:49 PM EDT [facility] Treatment Planning group 1:15-2pmThe sher up was given a piece of paper to work on a "specificity exercise" thattaught them h ow to identify a specific relapse trigger and then identify thespecifics using who, wh at , where , when, how and why . After identifying thesespecifics they were the n asked to come up with a corresponding relapseprevention plan/skill . The empha sis was on treatment plan specificity and itscorresponding higher probability of s uccess. Rikki wrote that "[place]" washis main trigger and that he needs to "stay and and pray" Name Value Range Interpretation Code Description Data Tashia rce(s) Supporting Document(s ) ID Date Data Source [id number] 10/24/2019 02:00:51 PM EDT [facility] Problem: Falls - Risk ofGoal: *Absence o f FallsDescription: Document Qian Fall Risk and appropriate interventions in theflow sheet.Outcome: Progressing Towards GoalNote: Fall Risk Interventions:Rikki remains s table. Ambulatory on the unit with a steady gait. Verbalizeswith staff and peers. Dey s remained compliant with unit rules. Attends andparticipates in groups and activities . Offers no complaints at this time. Willcontinue to monitor for safety. Name Value Range Interpretation Code Description Data Tsahia rce(s) Supporting Document(s ) ID Date Data Source [id number] 10/24/2019 12:13:44 PM EDT [facility] Group Note 11:15 AM - The Stabilization Stage of Recovery.Group members were educated on the stabilization stage of the recove ry process.The discussion centered around making them aware that after putting curt n thealcohol and drugs the next step is to assess their physical, emotional, mental impairment that was caused by their chronic alcohol and drug use. That includemedica tion adjustment if needed, any mental health limitations, and cognitivedysfunction. M ost of the discussion focused on their poor decisions, emotionaloutburst, and consta ntly misunderstanding other people's intentions. Some of thegroup members sha red on how their poor assessment of others contributed tohaving a verbal conflict. They were encouraged to continue sharing honestly, andhaving a open mind by allow ing new information to come in. The group memberswere supportive towards others. Name Value Range Interpretation Code Description Data Tashia rce(s) Supporting Document(s ) ID Date Data Source [id number] 10/24/2019 06:43:49 AM EDT [facility] Report to day staff using SBAR Name Value Range Interpretation Code Description Data Tashia rce(s) Supporting Document(s ) ID Date Data Source [id number] 10/24/2019 02:07:13 AM EDT [facility] Patient administered vistaril 50 mg po a t this time to encourage rest Name Value Range Interpretation Code Description Data Tashia rce(s) Supporting Document(s ) ID Date Data Source [id number] 10/23/2019 12:12:37 PM EDT [facility] Dual Diagnosis Group Note 11:15AM-12PMUn derstanding Dual Diagnosis: Purpose is to provide basic information on howmental h ealth issues and addiction issues can relate and exacerbate one another.Group was pro vided with basic psycho-education on how symptoms of mental healthissues can over lap and can be difficult to distinguish between them. Advised ofthe importance o f having txt for both conditions at the same time due to highlikelihood of relapse if one condition or both are not being treated. Discussedhow self-medication is common as a means to reduce symptoms despite thelong-term consequences (ex: legal iss ues, symptoms worsening over time,relationship conflict, loss of empl oyment, etc.)Pt was accepting of the information and acknowledged the need to treat mentalhealth and addiction issues simultaneously for greater effectiveness . Name Value Range Interpretation Code Description Data Tashia rce(s) Supporting Document(s ) ID Date Data Source [id number] 10/23/2019 04:51:59 AM EDT [facility] Problem: Chemical Dependency (Adult/Pedi atric)Goal: *STG: Remains safe in hospitalOutcome: Progressing Towards Goa l Name Value Range Interpretation Code Description Data [facility] rce(s) Supporting Document(s ) ID Date Data Source [id number] 10/22/2019 05:29:43 PM EDT [facility] Group Note 3:15 PM - SUPPORT NETWORKGrou p members participated in a discussion centered around the benefits ofhaving a support network. The group members were made aware of what a supportnetwork is and th at it requires them to allow other to get to know them. Some ofthe patients stated th at they have difficulty trusting others, and takingsuggestion. The were supportive to wards each other and provided helpfulsuggestions. Name Value Range Interpretation Code Description Data [facility]) Supporting Document(s ) ID Date Data Source [id number] 10/22/2019 03:23:43 PM EDT [facility] Group Note 1:71Kp-2IORulwdcollv-Hjsawvwo Treatment: Purpose is to provide education on a using [place] to assist in the recovery process.Group was provided with education on examples of Medication-assi sted treatmentfor tobacco, alcohol, and opiates and potential risks and benefits of it.Provided information on how MAT can be used as a skill to enhance recovery,prov ided additional support to manage cravings/urges, and connect with medical professions on other areas that may be in impacted by substance use. Alsorodriguez tate discussed the stigma inside and outside of the addiction fieldregarding MAT.Pt was initially present for group, left midway to meet with counselor. WhenManny returned he stayed for about 10 minutes then left without explanation.Prior to group, Gold tate made a comment to this telegraphic typewriter operator chief about not attending thegroup if he did not feel li ke in a very casual manner but ultimately waspresent. At the beginning of group, Karla burris and other peers (RW, PD, OH, TW)appeared to be making sarcastic comments to one a nother in mumbled voices. Noneof which prevented group from moving forward. Dileep Oglesby advised of themadison. Name Value Range Interpretation Code Description Data Tashia rce(s) Supporting Document(s ) ID Date Data Source [id number] 10/22/2019 11:51:27 AM EDT [facility] Daily Progress NotePatient: Rikki Mendoza Age: 29 y.o. : 1990EX : male CSN: [id number] Date: 10/10/2019 Attending: Bryon Rhodes, TINYUBJECTIVE: Patient seen with the treatment team. Treatment plan goals and aftercare plans discussed with the patient. Patient denies any cravings at thistime. Doing well in rehab treatment. Attending groups. Stable on current meds.Denies si /hi. Denies hallucinations. Denies CP, Palpitations, SOB.OBJECTIVE:Physical Exa m:CHEST: Heart S1, S2, no murmurs, gallops, rhythm regular.LUNGS: Clear, no rales, n o rhonchi heard.ABDOMEN: Soft, nontender, no organomegaly noted.EXTREMITIES: no cyano sis, clubbing, edema noted.CENTRAL NERVOUS SYSTEM: Unremarkable.Vitals: No data fou nd.Visit VitalsBP 130/88 (BP 1 Location: Right arm)Pulse 84Temp 98.5 F (36.9 C) Resp 16Wt 77.6 kg (171 lb)SpO2 98%BMI 21.96 kg/m Current Medications:Current Facilit y-Administered MedicationsMedication Dose Route Frequency Provider Last Rate Last Dose diphenhydrAMINE (BENADRYL) capsule 50 mg 50 mg Oral QHS PRN Gómez Solis M D 50 mg at 10/19/19 0009 acetaminophen (TYLENOL) tablet 650 mg 650 mg Oral Q4H PRN Kuldeep Rhodes MD alum-mag hydroxide-simeth (MYLANTA) oral suspensi on 30 mL 30 mL Oral Q4H PRNAKuldeep chino MD bisacodyL (DULCOLAX) tablet 5 mg 5 mg Oral DAILY PRN Kuldeep Rhodes MD cloNIDine HCL (CATAPRES) tablet 0.1 mg 0.1 mg Oral Q4H PRN Kuldeep Rhodes MD cyclobenzaprine (FLEXERIL) tablet 10 mg 10 mg Oral TID PRN Kuldeep Rhodes MD10 mg at 10/12/19 2232 dicyclomine (BENTYL) c apsule 20 mg 20 mg Oral Q8H PRN Kuldeep Rhodes MD hydrOXYzine HCL (ATARAX) ta blet 50 mg 50 mg Oral Q4H PRN Kuldeep Rhodes MD50 mg at 10/19/19 0114 ibupr ofen (MOTRIN) tablet 600 mg 600 mg Oral Q6H PRN Kuldeep Rhodes MD loperamide (IMOD IUM) capsule 2 mg 2 mg Oral Q3H PRN Kuldeep Rhodes MD magnesium hydroxide (MILK O F MAGNESIA) 400 mg/5 mL oral suspension 30 mL 30mL Oral QHS PRN Kuldeep Rhodes MD m ultivitamin (ONE A DAY) tablet 1 Tab 1 Tab Oral DAILY Kuldeep Rhodes MD 1Tab at 10/16/19 1001 prochlorperazine (COMPAZINE) tablet 10 mg 10 mg Oral Q6H PRN Kuldeep Rhodes MD thiamine mononitrate (B-1) tablet 100 mg 100 mg Oral DAILY Kuldeep Rhodes MD100 mg at 10/16/19 1001 trimethobenzamide (TIGAN) injection 200 mg 200 mg IntraMUSCular Q6H PRNAKuldeep chino MD mupirocin (BACTROBAN) 2 % o intment Topical DAILY Kuldeep Rhodes MD nicotine (NICORETTE) gum 4 mg 4 mg Oral Q2H PRN Kuldeep Rhodes MD 4 mg at10/20/19 1418 traZODone (DESYREL) tablet 50 mg 50 mg Oral QHS Kuldeep Rhodes MD 50 mg at10/19/19 2234Labs: Results:Chemistry N o results for input(s): GLU, NA, K, CL, CO2, BUN, CREA, CA, AGAP,BUCR, TBIL, GPT, AP, TP, ALB, GLOB, AGRAT in the last 72 hours.CBC w/Diff No results for input(s) : WBC, RBC, HGB, HCT, PLT, GRANS, LYMPH, EOS,HGBEXT, HCTEXT, PLTEXT in the last 7 2 hours.Coagulation No results for input(s): PTP, INR, APTT, INREXT in the last 72hou rs.Liver Enzymes No results for input(s): TP, ALB, TBIL, AP, SGOT, GPT in the last72 h ours.No lab exists for component: DBILUrine Analysis ColorDate Value Ref Range Statu s010/06/2019 YELLOW FinalAppearanceDate Value Ref Range Pumfio9210/06/2019 CLEAR FinalpH (UA)Date Value Ref Range Bfzhjs5810/06/2019 7.0 FinalProteinDate Value Ref Range Gzcmpx7910/06/2019 NEGATIVE mg/dL FinalKetoneDate Value Ref Range St atus10/06/2019 NEGATIVE mg/dL FinalBilirubinDate Value Ref Range Statu s010/06/2019 NEGATIVE FinalBloodDate Value Ref Range Eebknw1110/06/2019 NEGATIVE F inalUrobilinogenDate Value Ref Range Bhpboe1810/06/2019 2.0 EU/dL FinalNitrites Date Value Ref Range Hjxgns8510/06/2019 NEGATIVE FinalLeukocyte EsteraseDate Value Ref Range Tgbwev4610/06/2019 NEGATIVE FinalASSESSMENT/PLAN:Active Problems: M arijuana abuse (10/07/2019) Cocaine abuse (HCC) (10/07/2019) Dependence on nicotine from cigarettes (10/07/2019) Severe major depression without psychotic features (H CC) (10/09/2019) Opiate abuse, continuous (HCC) (10/11/2019) Continue rehab treatme nt per unit protocol.Pt is participating in individual and group therapies.Encourage PO fluids to maintain hydrationHydroxyzine PRN for anxietyMVI dailyPsych FU PRN for Supportive Psychoeducation and Psychiatric medication review.Patient continues to r eceive:Substance Abuse Treatment Counseling including Family CounselingGroup therapy -12-Step, Continuing Care, and Psychoeducation.Individual therapy-Behav ioral, Cognitive, Cognitive-Behavioral, and ContinuingCare.Will continue to adjust m edications as deemed appropriate and to response forsymptom management (see medi cation orders made in EMR).Risks/Benefits/potential adverse re actions have been discussed with the patientfor current and new medicationsEm nathaniel Marquez, NP10/22/2019 Name Value Range Interpretation Code Description Data Tashia rce(s) Supporting Document(s ) ID Date Data Source [id number] 10/22/2019 02:38:52 AM EDT [facility] Problem: Chemical Dependency (Adult/Pedi atric)Goal: *STG: Remains safe in hospitalOutcome: Progressing Towards Goa lGoal: *STG: Complies with medication therapyOutcome: Progressing Towards Goal Name Value Range Interpretation Code Description Data [facility] rce(s) Supporting Document(s ) ID Date Data Source [id number] 10/21/2019 06:53:46 PM EDT [facility] SBAR report given to silo painter. Name Value Range Interpretation Code Description Data [facility] rce(s) Supporting Document(s ) ID Date Data Source [id number] 10/21/2019 04:51:43 PM EDT [facility] Rikki has been visible on he unit. Att ending and participating in groupactivities. Maintaining safety. Taking nourishment. Name Value Range Interpretation Code Description Data [facility] rce(s) Supporting Document(s ) ID Date Data Source [id number] 10/21/2019 04:31:39 PM EDT [facility] Group Note 3:15 PM - The progression of addiction, and cognitive impairment.Group members participated in a discussion brandan t focused on understanding howalcohol and drug use progresses to dependency. The g roup members were made awarethat during the course of demonstrating high risk taking behavior it progressesto consequences and impaired logic that include justifying t heir behavior, andignoring consequences to achieve whatever pleasure they are seeki ng.Some of thegroup members shared examples of how their addiction to out of control use andthe some of the problems that were caused by their usage. They were alsosup portive towards each other. Name Value Range Interpretation Code Description Data [facility] rce(s) Supporting Document(s ) ID Date Data Source [id number] 10/21/2019 03:40:52 PM EDT [facility] Group Note 1:15PM-2PMAddictions as a Bra in Disease: Purpose is to provide education on how drugs (ex:alcohol, cocaine, heroi n, caffeine, nicotine, etc.) affect brain function andpleasure centers in the brai n.Group was provided with education on brain structure, neurotransmitters, and howthe y are connected with substance use, withdrawal, and continued addictivebehav ior. Information also given on how relapse/adherence to treatment rates are roughly the same with addiction as they are to other chronic medical conditions(HTC, asthma, diabetes) and overall brain/body system of how these diseases workare sim ilar to addiction. Provided with examples of how overdose is treated inan ED compared to any other emergent medical condition and the shame that isattached to addiction a nd noncompliance with treatment.Pt was receptive to the information and acknowl edged that having a betterunderstanding of addiction can help to plan for long-term sobriety. Name Value Range Interpretation Code Description Data [facility](s) Supporting Document(s ) ID Date Data Source [id number] 10/21/2019 01:37:36 PM EDT [facility] Group Note 11:15 PM - consequences of po or decisions.Group members participated in a discussion centered around identifying t heconsequences from their poor decisions. The goal of the discussion was toacknowledge that chronic drug and alcohol use contribute to poor decisions, andthat taking a look at those decisions and the consequences that followed canprevent a repeat of that beh avior. They were also encouraged to verbalize thefeelings they experienced because of the consequences.. Group members were alsoencouraged to identify some of the p ositive decisions they made and the positiveresults from those decisions. Th e decisions that were identified consisted ofvarious things including using drugs a nd alcohol, quitting school, havingchildren at a young age, and recent relapse. They were supportive towards eachother. Name Value Range Interpretation Code Description Data [facility]) Supporting Document(s ) ID Date Data Source [id number] 10/21/2019 05:09:36 AM EDT [facility] Pt declined scheduled HS Trazodone; " I want to try to sleep without it". Thiswriter reminded pt that he tried this the prior evening, was unable to sleep &eventually took the trazodone. Pt decided to shower & try to sleep. No furtherc/o @ this time. Name Value Range Interpretation Code Description Data [facility]) Supporting Document(s ) ID Date Data Source [id number] 10/20/2019 06:50:13 PM EDT [facility] Pt has been given verbal and literary ed ucation on hospital safety. Pt has beenambulating on the unit with a steady gait.Pt has been visible on the unit throughout the day. Pt has been social withstaff and peers. Compliant with medications and program. Pt has attende d andparticipated in Nursing Group on the topic of Medications. No complaints. W illcontinue to monitor for safety. Name Value Range Interpretation Code Description Data [facility](s) Supporting Document(s ) ID Date Data Source [id number] 10/20/2019 02:13:45 PM EDT [facility] Stress Management Group Note 1:15PM-2PMV isualization: Purpose is to develop relaxation skills to help manage stresso rs.Group was directed to make themselves as comfortable as possible (ex: puttingthei r head down, using a pillow). Group then watched a video with guidance onbreathin g and relaxation that also included visuals of the ocean to help withcreating a soot beata atmosphere. Following the activity, group members wereencouraged to take not ice of their internal body stress (physical sensations,thought pattern) to gauge if their stress/anxiety level was better, worse, orabout the same than when they began.Pt was meeting with counselor during group. Name Value Range Interpretation Code Description Data [facility](s) Supporting Document(s ) ID Date Data Source [id number] 10/19/2019 04:52:30 PM EDT [facility] Group Note 1:15PM-2PMGroup followed up o n topic of recent stressors. Group identified recent publichealth issues as a concern for themselves and for their loved ones. Processedthe change in [facility] but alsofeeling powerless to manage their ow n environment the way they would in thecommunity. For example, the group mely ntified that if they were home and feltsick they could take direct action to ease th eir symptoms by taking OTCmedications or making an appt with their doctor whereas here they mustcommunicate their symptoms to medical staff then wait for the INFORMATION RESOURCE CONSULTANT/MD wh ich couldtake longer than they wish. Group was able to identify things that couldal leviate their stress in some way such as going for a walk outside to get freshair .James was initially present for group, left midway and did not return. Name Value Range Interpretation Code Description Data Tashia rce(s) Supporting Document(s ) ID Date Data Source [id number] 10/19/2019 04:48:45 PM EDT [facility] Health ServicesProv ider Daily Progress NotePatient: Rikki Mendoza Age: 29 y.o. : 1990EX : male CSN: [id number] Date: 10/10/2019 Attending: Bryon Rhodes MDSUBJECTIVE: Patient has been refusing his medications, got agitated yesterday, punch and broke a wall sign. Paych consult pending for evaluation. Attendinggroups . Denies si/hi. Denies hallucinations.OBJECTIVE:Physical Exam:C HEST: Heart S1, S2, no murmurs, gallops, rhythm regular.LUNGS: Clear, no rales, n o rhonchi heard.ABDOMEN: Soft, nontender, no organomegaly noted.EXTREMITIES: no cyano sis, clubbing, edema noted.CENTRAL NERVOUS SYSTEM: Unremarkable.Vitals:Patient Makayla ls for the past 24 hrs: Temp Pulse Resp BP [id number]/18/19 2134 98.4 F (36.9 C) 82 1 6 128/77 99 %Visit VitalsBP 128/77 (BP 1 Location: Left arm, BP Patient Position: At rest)Pulse 82Temp 98.4 F (36.9 C)Resp 16Wt 77.6 kg (171 lb)SpO2 99%BMI 21.96 k g/m Current Medications:Current Facility-Administered MedicationsMedicat ion Dose Route Frequency Provider Last Rate Last Dose diphenhydrAMINE (BENADRYL) ca psule 50 mg 50 mg Oral QHS PRN Gómez Solis MD 50 mg at 10/19/19 0009 acetami nophen (TYLENOL) tablet 650 mg 650 mg Oral Q4H PRN Kuldeep Rhodes MD alum-mag hyd roxide-simeth (MYLANTA) oral suspension 30 mL 30 mL Oral Q4H PRNAKuldeep chino MD b isacodyL (DULCOLAX) tablet 5 mg 5 mg Oral DAILY PRN Kuldeep Rhodes MD cloNIDine HCL (CATAPRES) tablet 0.1 mg 0.1 mg Oral Q4H PRN Kuldeep Rhodes MD cyclobenzaprine (FLEXERIL) tablet 10 mg 10 mg Oral TID PRN Kuldeep Rhodes MD10 mg at 10/12/19 2232 dicyclomine (BENTYL) capsule 20 mg 20 mg Oral Q8H PRN Kuldeep Rhodes MD hydrOXY zine HCL (ATARAX) tablet 50 mg 50 mg Oral Q4H PRN Kuldeep Rhodes MD50 mg at 10/18 0114 ibuprofen (MOTRIN) tablet 600 mg 600 mg Oral Q6H PRN Kuldeep Rhodes MD loperamide (IMODIUM) capsule 2 mg 2 mg Oral Q3H PRN Kuldeep Rhodes MD magnesium hy droxide (MILK OF MAGNESIA) 400 mg/5 mL oral suspension 30 mL 30mL Oral QHS PRN Kuldeep Clemons MD multivitamin (ONE A DAY) tablet 1 Tab 1 Tab Oral DAILY Rina Rhodes MD 1Tab at 10/16/19 1001 prochlorperazine (COMPAZINE) tablet 10 m g 10 mg Oral Q6H PRN Kuldeep Rhodes MD thiamine mononitrate (B-1) tablet 100 mg 100 mg Oral DAILY Kuldeep Rhodes MD100 mg at 10/16/19 1001 trimethobenzamide (TIG AN) injection 200 mg 200 mg IntraMUSCular Q6H PRNAKuldeep chino MD mupirocin (BA CTROBAN) 2 % ointment Topical DAILY Kuldeep Rhodes MD nicotine (NICORETTE) gum 4 mg 4 mg Oral Q2H PRN Kuldeep Rhodes MD 4 mg at10/18/19 1359 traZODone (DESYREL) tablet 50 mg 50 mg Oral QHS Kuldeep Rhodes MD 50 mg at10/15/193Labs: Results: Chemistry No results for input(s): GLU, NA, K, CL, CO2, BUN, CREA, CA, AGAP,BUCR, TB IL, GPT, AP, TP, ALB, GLOB, AGRAT in the last 72 hours.CBC w/Diff No results for input (s): WBC, RBC, HGB, HCT, PLT, GRANS, LYMPH, EOS,HGBEXT, HCTEXT, PLTEXT, HGBEXT, HCTE XT, PLTEXT in the last 72 hours.Coagulation No results for input(s): PTP, INR, APTT, INREXT, INREXT in the last72 hours.Liver Enzymes No results for input(s): TP, ALB , TBIL, AP, SGOT, GPT in the last72 hours.No lab exists for component: DBILUrine Anal ysis ColorDate Value Ref Range Bjfsjg5210/06/2019 YELLOW FinalAppearanc eDate Value Ref Range Qdxwri9210/06/2019 CLEAR FinalpH (UA)Date Value Ref Range Status 10/06/2019 7.0 FinalProteinDate Value Ref Range Odexdp4410/06/2019 NEGATIVE mg/dL F inalKetoneDate Value Ref Range Hromdz9310/06/2019 NEGATIVE mg/dL FinalBi lirubinDate Value Ref Range Sveoph6110/06/2019 NEGATIVE FinalBloodDate Value Ref Ran ge Afxhes9410/06/2019 NEGATIVE FinalUrobilinogenDate Value Ref Range St atus10/06/2019 2.0 EU/dL FinalNitritesDate Value Ref Range Huuupv5410/06/2019 NEGATIV E FinalLeukocyte EsteraseDate Value Ref Range Qiocgg9010/06/2019 NEGATIVE Final ASSESSMENT/PLAN:Active Problems: Marijuana abuse (10/07/2019) Cocaine abuse (HCC) () Dependence on nicotine from cigarettes (10/07/2019) Severe major depr ession without psychotic features (HCC) (10/09/2019) Opiate abuse, continuous (HC C) (10/11/2019)Psych consult for Psychiatric medication review.Continue rehab treatme nt per unit protocol.Pt is participating in individual and group therapies.Encourage PO fluids to maintain hydrationHydroxyzine PRN for anxietyMVI dailyPatient continue s to receive:Substance Abuse Treatment Counseling including Family CounselingGr oup [id number], Continuing Care, and Psychoeducation.Individual therapy-Behav ioral, Cognitive, Cognitive-Behavioral, and ContinuingCare.Will continue to adjust m edications as deemed appropriate and to response forsymptom management (see medi cation orders made in EMR).Risks/Benefits/potential adverse re actions have been discussed with the patientfor current and new medicationsEm nathaniel Marquez, NP10/19/2019 Name Value Range Interpretation Code Description Data Tashia rce(s) Supporting Document(s ) ID Date Data Source [id number] 10/19/2019 01:16:11 AM EDT [facility] Pt c/o room mate talking in his sleep. R equested prn Vistaril now. Name Value Range Interpretation Code Description Data Tashia rce(s) Supporting Document(s ) ID Date Data Source [id number] 10/19/2019 12:11:41 AM EDT [facility] Pt awake, requested prn Benadryl. Given and returned to bed. Name Value Range Interpretation Code Description Data Tashia rce(s) Supporting Document(s ) ID Date Data Source [id number] 10/18/2019 06:11:56 PM EDT [facility] Pt has been given verbal and literary ed ucation upon and since admission. Willcontinue to provide education as nee ded.Pt has been visible on the unit throughout the day. Pt has been social withstaff and peers. Compliant with medications and program. No complaints. Willcontinue to monitor for safety. Name Value Range Interpretation Code Description Data Tashia rce(s) Supporting Document(s ) ID Date Data Source [id number] 10/18/2019 04:28:17 PM EDT [facility] SW Note - 4:15pm group: Patient attended group as required. Sky Diver went aroundthe room to check in with patients that had a visit to see if they were willingto share their thoughts, feelings or had any comm ents regarding their visit.Others that didn't have a visit were asked to share their t houghts or feelingson not having one, and how, or if it impacted their stay here i n rehab. Patientparticipated in the group discussion.Jason Hobbs LMSW,SHAMAR Name Value Range Interpretation Code Description Data Tashia rce(s) Supporting Document(s ) ID Date Data Source [id number] 10/18/2019 06:39:57 AM EDT [facility] Report to day staff using SBAR Name Value Range Interpretation Code Description Data Tashia rce(s) Supporting Document(s ) ID Date Data Source [id number] 10/18/2019 06:08:05 AM EDT [facility] Pt awake, states he slept well. Name Value Range Interpretation Code Description Data Tashia rce(s) Supporting Document(s ) ID Date Data Source [id number] 10/18/2019 12:57:38 AM EDT [facility] Seen by Dr Solis late evening who adjuste d his medication regime to facilitatesleep Will continue to monitor Name Value Range Interpretation Code Description Data [facility] rce(s) Supporting Document(s ) ID Date Data Source [id number] 10/17/2019 08:01:33 PM EDT [facility] Patient reports that he lost his temper earlier and punched the wall. He statesthat he does not usually loose his temper eas camryn most of the time. He statesthat his depression and anxiety have resolved and has not been taking hisvenlafaxine due to that. Reports that he still has some di fficulty with sleepand he wishes to try benadryl prn for sleep.Risks/Benefits/po tential adverse reactions have been discussed with the patientfor current and new medi cations Name Value Range Interpretation Code Description Data [facility] rce(s) Supporting Document(s ) ID Date Data Source [id number] 10/17/2019 05:30:16 PM EDT [facility] Patient refused all his medications toda y. When asked why, patient replied he"was gonna do it right this time and not take anything that he didn't think heneeded or was helping him." Name Value Range Interpretation Code Description Data [facility] rce(s) Supporting Document(s ) ID Date Data Source [id number] 10/17/2019 03:49:50 PM EDT [facility] SW Note: Sky Diver met with patient and RN Selina after this telegraphic typewriter operator chief was informedthat this patient became upset and hit a sign on t he wall and the sign broke.This telegraphic typewriter operator chief spoke with staff and patient to get all of the facts regarding whattook place so that this telegraphic typewriter operator chief could proceed in a fair and just manner. Writerwas informed that this patient was told that he could not go outside be cause hedid not go to group in the morning. Patient made this telegraphic typewriter operator chief aware that he w asexcused from group by nursing staff. This was not mentioned initially. Thiswriter asked Selina could a patient be refused a walk if he was excused bymedical staff from [place] earlier in the day. Selina stated that patient still hadthe right to go on a wa lk. This telegraphic typewriter operator chief asked "then why was he told he could notgo on the walk?". This write r counseled patient on his response to being told"no". Sky Diver reiterated to patient that even if he felt he was being treatedwrongly that he still has respons ibility to address his issue in the appropriatemanner. Patient was contrite and apologetic for his behavior but stated that hefelt that he has been targeted by [facility] in small ways for some time now. Hestated that he feels that he pushes hi s buttons to get a response out of him.This telegraphic typewriter operator chief told Selina and patient that this information would be [facility] counselor and the rest of the st aff in handoff and this issuecan hopefully be resolved. This telegraphic typewriter operator chief is taking no actio n at this time as thereseems to be some possible transference/countertransferen ce issues that may beworth exploring prior to any punitive actions.Jason TAYLOR,ANDREA Name Value Range Interpretation Code Description Data Tashia rce(s) Supporting Document(s ) ID Date Data Source [id number] 10/17/2019 03:09:44 PM EDT [facility] Pt came to breakfast this morning wearin g patient pajama pants. Pt was remindedthat he needed to be dressed when out of his room. Pt reported that he had noclothes. Pt was told that we could look in donation closet later if he wanted totry to find some clothes. Pt did not respond. Later after breakfast, pt'sroommate came to this telegraphic typewriter operator chief reporting, "are you guys gonna do someth ing with myroommate? He smells, doesn't shower, has clothes all over floor." As roommatewas saying this, Rikki was walking around the corner of nursing station. Th iswriter again reminded pt that if he had clothes that he needed to be wearingthem when out of his room instead of pajamas. Pt just continued to walk down thehall and ignore this telegraphic typewriter operator chief. Pt shortly after asked for shampoo and soap fortheshower. Name Value Range Interpretation Code Description Data Tashia rce(s) Supporting Document(s ) ID Date Data Source [id number] 10/17/2019 03:04:22 PM EDT [facility] Pt did not attend the 11:15am group and was not medically excused. Name Value Range Interpretation Code Description Data [facility] rce(s) Supporting Document(s ) ID Date Data Source [id number] 10/17/2019 03:03:46 PM EDT [facility] Pt watching tv during the entire free ti me period today from 10am to 11:15 anddecided to go use the bathroom at 11:15am which is when group began. Pt wasapproximately 10 minutes late for group. Name Value Range Interpretation Code Description Data [facility](s) Supporting Document(s ) ID Date Data Source [id number] 10/17/2019 03:03:25 PM EDT [facility] Late entry: A female pt LORI came to this telegraphic typewriter operator chief reporting that another peerobserved Rikki standing outside her bedroom door with his ear to the door forseveral minutes the other night. Pt LORI voiced feeling un comfortable about thisbehavior. Told LORI that the above would be addressed. Name Value Range Interpretation Code Description Data [facility](s) Supporting Document(s ) ID Date Data Source [id number] 10/17/2019 03:02:18 PM EDT [facility] Pt continues to test limits and boundari es. Immediately following the reportfrom counseling that pt is being placed on a behavioral contract, he is observedcoming out of room 412. Pt was told by this telegraphic typewriter operator chief that he can not go into otherrooms. Pt reported, "there's no one in this room." Again pt was told to read hisrule book. 5 minutes later pt is seen eating from a b owl of fresh fruit that hetook off a dirty tray sitting on a cart in the crump way. Pt again was remindedthat he was just literally placed on a behavorial contrac t and that he needed tofollow the unit rules in order to continue with this program. Pt reported,"what? It was just left there. I'm hungry. Pt had just been offered sec onds onsnack and did not accept 5 minutes prior to eating this fruit. Also reminde d ptof the health risk he is taking by taking food off of some one else's half eatentr ay. Name Value Range Interpretation Code Description Data [facility](s) Supporting Document(s ) ID Date Data Source [id number] 10/17/2019 02:39:53 PM EDT [facility] Treatment planning group 1:15-2pmThe sher up was first asked to identify the specific location where their lastrelapse occurre d and then unpack the specifics details surrounding andcontributing to that rela pse. They were then asked if they believed that thiscontained virtually everything they needed to formulate a current treatmentplan. The group then shared th eir specific locations of their last relapses andcontinued to ask each other more spec ifying questions identifying the specificcircumstances, triggers and warn ing signs. From this they worked on the specificcorresponding relapse prevention skills. Manual shared how he was using inrehab, but then had to leave the group because he was feeling triggered andnervous hearing the other stories. He was debrie fed about this in a one on onesession after the group which helped him process the f eelings. Name Value Range Interpretation Code Description Data [facility](s) Supporting Document(s ) ID Date Data Source [id number] 10/17/2019 01:28:12 PM EDT [facility] SW Note 11:15am Group - Sky Diver introduce d literature titled "coping afterrehab". The literature covered subtopics like "the d angers of relapse,challenges of moving from rehab to normal living, how to cope afte r rehab andpreparing to leave rehab". Patient was an active participant in the groupdi scussion following the reading of the literature.Jason Hobbs LMSW,CASAC Name Value Range Interpretation Code Description Data [facility]s) Supporting Document(s ) ID Date Data Source [id number] 10/17/2019 06:56:41 AM EDT [facility] Report to day staff using SBAR Name Value Range Interpretation Code Description Data Tashia rce(s) Supporting Document(s ) ID Date Data Source [id number] 10/17/2019 02:00:00 AM EDT [facility] Patient refused his HS medications stati ng that trazodone makes him anxiousRefused offered vistaril stating that he does no t want to leave treatmentaddicted to drugs Unwilling to accept medication but daniel nues frustratedbecause he is awake. All attempts to encourage him to a different understandingrejected Patient states that he would like to speak with MD in am Name Value Range Interpretation Code Description Data [facility] rce(s) Supporting Document(s ) ID Date Data Source [id number] 10/16/2019 07:00:38 PM EDT [facility] Verbal report given to oncoming shift us ing SBAR, Doc Flowsheets and MAR. Name Value Range Interpretation Code Description Data [facility]s) Supporting Document(s ) ID Date Data Source [id number] 10/16/2019 04:32:04 PM EDT [facility] Group Note 1:15 PM - SpiritualityGroup m embers were made aware of the difference between latter day andspirituality, and wh y spiritual values are important in the recovery process.The discussion centered around identifying spiritual values that will enhancetheir recovery. Some of the qualities that were discussed included honesty,acceptance, respect, patients, s elf less ness, and accountable.They were alsosupportive towards each other. Name Value Range Interpretation Code Description Data [facility]s) Supporting Document(s ) ID Date Data Source [id number] 10/16/2019 04:13:05 PM EDT [facility] Group Note 3:15PM-4PMDischarge planning: Purpose is to provide information on differences between LOC(criteria and pro s/cons).Group was provided with basic information regarding OASAS tool to dete rmineappropriate treatment (LOCADTR) from most intensive to least intensive. Revie wedthe pros and cons of each such as an Intensive Residential being very help to those who have having behavioral/emotional instability in a controlled settingbut i t does put many other life issues on hold (ex: family obligations, legalobligation s, etc.). Discussed how someone may benefit from a LOC but notnecessary require the type of treatment (ex: it could help someone get a jumpstart with medical or psychiat johnnie co-morbidities that could also occur over alonger period of time at a lower LOC). Also advised of practice things that canaffect where someone goes for treatme nt including insurance benefits, publicassistance, or history of violence /aggression.Pt was accepting of the information and acknowledge the factors that impacttreatment placement. Name Value Range Interpretation Code Description Data Tashia rce(s) Supporting Document(s ) ID Date Data Source [id number] 10/16/2019 03:53:44 PM EDT [facility] Group Note 11:15pm-12:00pmGroup Topic: T wo Kinds of RelapseGroup members participated in a discussion centered on two kinds of Relapse Triggers. Sky Diver distribute handout on the topic that identify therelapse be fore it becomes a reality. The addict in recovery wants to stoprelapse in its tra cks, for this reason, we conceptualize two types of relapse:behavioral relapse and Chemical relapse. Sky Diver explained the differences andhow they were related, Be havioral relapse describes a time of eminent danger ofrelapse, The person may start h aving old thoughts of using or going back toplaces where they used ,or suffering f rom some of the emotional pains thatcaused them to use in the first place. The Chem ical relapse describes when aperson actually used the drink/drug. The group discussed individual relapsesituations and brainstorm other alternative methods of stopping re lapse. Writerreceived feedback from the group, Sky Diver talked about the benefits ofrecognizing potentially risky situations that can lead up to relapsebefore that h appens. Group select a few risky situations and role -play each oneto allow members to be aware of relapse behavioral. However if one does notpossess the tools and the re sources to deal with Life's stresses, they tend tofall back on old inappropriate me thods and relapse on the drug/alcohol or oldbehaviors. Sky Diver also included educa tion on addiction, and the process ofrelapse that can occurred in their recovery. Not just putting down the drink ordrug but changing their attitude Idea and behavio r in order to stay clean. Eachgroup member also shared their experience with the di fferent Risky Situationsand their relapse. They were supportive towards each other. Patient participated in topic being discussed and how it pertained to theirr ecovery Name Value Range Interpretation Code Description Data Tashia macias(s) Supporting Document(s ) ID Date Data Source [id number] 10/16/2019 03:44:06 PM EDT [facility] Problem: Chemical Dependency (Adult/Pedi atric)Goal: *STG: Able to indentify relapse triggers including interpersonal/sociala nd familial factorsDescription: Rikki will begin to explore triggers that promote i ncrease inurges or cravings to use. Rikki will identify at least 4 triggers that c ouldlead to a possible relapse and explore 4 coping skills that can be utilized topre vent a potential relapse to decrease urges and cravings.Outcome: Progressing Toward s GoalRikki reported that his triggers are going back to [place].Rikki reported that wi s trigger is being around other people that is using.Rikki reported that going back to his old neighborhood is a triggerProblem: Chemical Dependency (Adult/Pediatric)Goa l: *STG: Identify lifestyle changes to support alf sobriety such asvocati on, employment, education, and legal issuesDescription: Rikki will begin to implement a daily schedule/routine for himselfincorporating positive activities that are substance-free. Rikki will identifypositive activities and work wit h counselor to being implementation into a soberlifestyle.Outcome: Progressing Towa rds GoalRikki reported that he would like to start MAT vivitrol to help him with hisu rges and craving.Rikki reported that he understand that he needs to attend NA/AA meeting to helpsupport his recovery.Rikki reported that he would stay away from p eope and places.Problem: Social DiscomfortGoal: *STG: Verbally report po sitive outcomes of participation in social &support groupsDescription: Rikki will identify the positive things he has learn/experiencedin the groups setting h ere in rehabOutcome: Progressing Towards GoalRikki will continue atending the gr oups to learn about his disease and copingskill that can help him maintain his sobriety. Name Value Range Interpretation Code Description Data Tashia rce(s) Supporting Document(s ) ID Date Data Source [id number] 10/16/2019 03:05:00 PM EDT [facility] Pt was seen as he stopped taking the Eff exor as he felt it was not helpful andhe felt he could handle things on his own. He dey d Was having nightmares Butthat's better. He is really opening up to counselots fo r the first time. Iwarned him of potential issues of withdrawal with effexor..sierra red to when Iprevious saw he is much better. Not feeling down and not depressed. We w ill talkmore next week Name Value Range Interpretation Code Description Data [facility](s) Supporting Document(s ) ID Date Data Source [id number] 10/16/2019 10:02:45 AM EDT [facility] Pt refused Neurontin and Effexor, states "I am not feeling anxious, I don't wantthose meds" Name Value Range Interpretation Code Description Data [facility](s) Supporting Document(s ) ID Date Data Source [id number] 10/15/2019 06:17:04 PM EDT [facility] Kimberley Floyd RNRegistered [facility] NotesSignedDate of Service: 10/15/191813[]Hide copied text[]Murray garner or detailsNurse Group Notes: 2:15 Theme was the "Hidden Faces of Anger." Patient slearned about the various emotional expressions that masquerade anger. Ways todeal with anger in a healthy way were discussed. Name Value Range Interpretation Code Description Data [facility](s) Supporting Document(s ) ID Date Data Source [id number] 10/15/2019 04:35:16 PM EDT [facility] Group Note 3:15 PM - POP QUIZGroup membe rs participated in a discussion centered around answering questionthat explained basic information about the recovery process. The questionsincluded what is the differ ence between a craving and a urge, verbalize 5 PAWsymptoms, Verbalize 5 defence mecha nisms, verbalize the difference betweenevaluation someone and judging so meone. There were other question they wereexpected to answer that related to t heir recovery. They were also supportivetowards each other. Name Value Range Interpretation Code Description Data Tashia rce(s) Supporting Document(s ) ID Date Data Source [id number] 10/15/2019 03:53:05 PM EDT [facility] Stages of Change Group Note 1:15PM-2PmUn [facility] Change [facility] Scale (URICA): Purpose is tocomplete que stionnaire identifying one's stage of change with regards to theirsubstance of choice .Group completed the URICA scale, scored themselves, and then discussed resultsin the group included where they fell on within the pre-contemplation,contemplation, pre paration/action, maintenance stages of change. Advised groupthat stage of stuart e can depend on current stressors, motivation, physicalcondition, mental he alth conditions, and mood. Encouraged pt to keep theirsurveys to compare scores toda y with a later time to see the progress orsetbacks they may experience. Also enc ouraged pts to review individual scoreswith their counselors to assess more fully th eir motivation and readiness tomake meaningful change.Pt was meeting with co unselor for majority of group, when present was acceptingof the information. Name Value Range Interpretation Code Description Data Tashia rce(s) Supporting Document(s ) ID Date Data Source [id number] 10/15/2019 02:35:27 PM EDT [facility] Discharge summary:Rikki Bartholomewra[address] [phone] (home): 1990S#: [id number] or/Plan Subscr Sex Relation Sub. Ins. ID Effective Group Num1. [place] [facility]* RIKKI LUO 1990 Male Self [id number] 05[birth year]05/19 [place] [id number] was admitted to the program on 10/06/2019 for detox tx.Hospita l Problems as of 10/10/2019 Date Reviewed: 10/09/2019 Codes Class Noted - Resol michael POA Severe major depression without psychotic features (HCC) ICD-10-CM: F32. 2ICD-9-CM: 296.23 10/09/2019 - Present Yes Heroin abuse (HCC) ICD-10-CM: F11.10ICD- 9-CM: 305.50 10/07/2019 - Present Yes Marijuana abuse ICD-10-CM: F12.10ICD-9-C M: 305.20 10/07/2019 - Present Yes Cocaine abuse (HCC) ICD-10-CM: F14.10ICD-9-CM: 3 05.60 10/07/2019 - Present Yes Dependence on nicotine from cigarettes ICD-10-CM: F17. 210ICD-9-CM: 305.1 10/07/2019 - Present Yes * (Principal) Opiate withdrawal (HCC) ICD- 10-CM: F11.23ICD-9-CM: 292.0, 304.00 10/06/2019 - Present YesCourse of treatmen t: Rikki was self referred to detox to address his opiatewithdrawal symptoms. Jimbo rios complied with the withdrawal medication protocol andsuccessfully completed detox . His aftercare plan consist of rolling over torehab to continue his substance abuse tx. He was physically stable upondischarge, and appeared to be motivated for tx at t his time.Discharge/Aftercare: Patient did successfully complete the program on 10/09.Follow-up Information Follow up With Specialties Details Why Contact Info Dis charge to inpatient rehabiltiation Pt interested to roll over to inpatientwhen taper is completed. Shuttle Fixer made aware [facility] New D[facility], Not On File Not On File (58) Patient has a PCP but that physician isnot listed in [facility]. Name Value Range Interpretation Code Description Data [facility](s) Supporting Document(s ) ID Date Data Source [id number] 10/15/2019 02:31:39 PM EDT [facility] This telegraphic typewriter operator chief met with pt in his room. He stated that he was feeling physicallysick.He also stated that he made the medical sta ff aware of his withdrawalsymptoms. Name Value Range Interpretation Code Description Data [facility](s) Supporting Document(s ) ID Date Data Source [id number] 10/15/2019 11:30:41 AM EDT [facility] Late entry for 10/12:Stress Management Gr oup Note 1:15PM-2PMNature Sounds: Purpose is to develop relaxation skills to help man age stressors.Group listened to a relaxation tape in which calming and soothing natur e soundsplayed without narration or guidance. Group was instructed to make themselves ascomfortable as possible in the room by playing their heads on the table orclosi ng their eyes while listening to the tape. Group advised that it may bedifficult to focus on the exercise due to background noise from the hallway andnoises from pe ers within the room; however, there is likely never to be aperfect circumstance to foster rn and practice relaxation skills as distractions area normal part of the pro cess.Pt was not present for group. Name Value Range Interpretation Code Description Data [facility] rce(s) Supporting Document(s ) ID Date Data Source [id number] 10/15/2019 11:10:10 AM EDT [facility] Late entry for 10/13: During 3:15PM grou p, James and peer WR were heard shoutingin the day room. James was escorted by staf f to the hallway by staff. Uponfurther conversation with WR and other peers pre sent (KJ, MS, NK), NK wassharing a personal experience of difficulty at age 15 when she became ,WR then began laughing at the other end of the room. James then re sponded bysaying something similar to "why are you laughing? You have a 16 y/o daug hter,what if that happened to her?" WR reportedly then began shouting at [facility] to notspeak about his daughter and reportedly pushed the table toward James. Staffable to deescalate situation and switch rooms so that Manhy and WR are notrooming mari swenson Name Value Range Interpretation Code Description Data [facility] rce(s) Supporting Document(s ) ID Date Data Source [id number] 10/15/2019 06:40:29 AM EDT [facility] Verbal report given to day shift using SBAR and MAR. Name Value Range Interpretation Code Description Data [facility] rce(s) Supporting Document(s ) ID Date Data Source [id number] 10/15/2019 03:34:39 AM EDT [facility] Patient able to attend all of evening program. Patient refused neurontin,stated it might bother his stomach if taken with t he trazodone. Name Value Range Interpretation Code Description Data Tashia rce(s) Supporting Document(s ) ID Date Data Source [id number] 10/14/2019 06:42:48 PM EDT [facility] Pt has been given verbal and literary ed ucation upon and since admission. Willcontinue to provide education as nee jamal.Pt has been visible on the unit throughout the day. Pt has been social withstaff and peers. Compliant with medications and program. Pt has attende d andparticipated in Nursing Group with topic of Rules and Regulations. Nocomplaints. Will continue to monitor for safety. Name Value Range Interpretation Code Description Data [facility]) Supporting Document(s ) ID Date Data Source [id number] 10/14/2019 05:18:03 PM EDT [facility] Pt was involved in a verbal altercation with another male pt on the unit. Itappeared to be a misunderstanding that escalated to a verbal confrontation thatwas centered around a comment that was said during gr oup. Both pts were wereseparated and spoken to be staff. However because they were r oom mates, one ofthe pt's was moved to another room. Both pt. Need to be monito red very closely. Name Value Range Interpretation Code Description Data [facility]) Supporting Document(s ) ID Date Data Source [id number] 10/14/2019 04:58:21 PM EDT [facility] Group Note 3:15-4pm: Discussing early ex posure to substance use during childhoodand when the first time one utilized a subst ance what was going on in theirlife, to better understand early stages of learne d behavior and coping. Patient was involved in group topic. Patient during female pa tient discussingevents of her hx, was observed to be in an argument with patie nt W.R. Thiswriter turned when patient W.R. was getting louder. This telegraphic typewriter operator chief overhear d W.Rreference a comment Jessica made about his daughter. This was not overheard by this telegraphic typewriter operator chief. This telegraphic typewriter operator chief observed patient M.B continuing to engage in argument withpat leobardo, and was asked by this telegraphic typewriter operator chief to stop, while this telegraphic typewriter operator chief asked patientW.R to le ave the room and go for a walk. Neither patient listened, continued toescalate w hen patient W.R pushed table into M.B and this telegraphic typewriter operator chief requested staffassistance.Catarino borrego was taken out by clinical team to deescalate. Patient returned to groupand continued to be involved in topic. Pierre Triplett [facility] Name Value Range Interpretation Code Description Data [facility]) Supporting Document(s ) ID Date Data Source [id number] 10/14/2019 02:58:18 PM EDT [facility] Group Note 1:15 PM - men's groupThe disc ussion centered around identifying qualities that contribute to becominga man. Group members identified qualities such as, being a leader, being strong,being honest, havin g dignity,and being dependable.as some of the qualities thatthat help them be and live as men. They were also made aware of the need tocontinue to develop relationships with other men in recovery. Name Value Range Interpretation Code Description Data [facility](s) Supporting Document(s ) ID Date Data Source [id number] 10/14/2019 05:53:55 AM EDT [facility] Patient doesn't appear vested in program . Asked for Vistaril at 0600 for sleep.When patient was denied and upset when he did not get his own way. Name Value Range Interpretation Code Description Data [facility](s) Supporting Document(s ) ID Date Data Source [id number] 10/13/2019 07:02:38 PM EDT [facility] Admission note:Rikki Bartholomewra[address] [phone] (home): 1990S#: [id number] or/Plan Subscr Sex Relation Sub. Ins. ID Effective Group Num1. [place] [facility] STEVE IMELDARIKKI 1990 Male Self [id number] 05/[birth year] [place] [id number] was admitted [facility] for [x] Rehab [] Detox on .Met with pt to begin BPS, PAS, and txt plan. Patient's mood is anxious. Catarino andino cooperative with assessment.Pt was referred by selfPt was usingHave You Con sumed Alcohol Over the Past 12 Months: Yes (10/10/19 155)Have You Used Tobacco in the Past 30 Days: Yes (10/10/19 155)Marijuana: Yes (10/10/19 155)Cocai ne/Crack: Yes (10/10/19 155)Heroin: Yes (10/10/19 155)Benzodiazepines/Barbitura niya: Yes (10/10/191550)Hallucinogens: No (10/10/191550)Club Drugs: No (10/10/191550)Opiates: No (10/10/191550)Methadone: No (10/10/191550)Inhalants/Other: No (02/21)What urges & cravings is patient experiencing: strong thoughts of usingto bacco,restlessnessAre there post acute withdrawal symptoms present (give specif ics): anxiety andanxiousnessDISCHARGE PLANNING:Treatment Recommendation & Init ial Discharge Plan: [x] To home outpatient [] Inpatient Rehab [] Residential [ ] Other:Program Name: to be determinedPt. signed consents for the following: none at this time.Will continue to work with pt on treatment and aftercare needs. Name Value Range Interpretation Code Description Data [facility]ash[facility] rce(s) Supporting Document(s ) ID Date Data Source [id number] 10/13/2019 07:01:55 PM EDT [facility] UpdateTylerchildren[facility] [address] [phone] (home): 1990S#: [id number]/Plan Subscr Sex Rel ation Sub. Ins. ID Effective Group Num1. [place] [facility] RIKKI MENDOZA 1990 Mal e Self [id number] [birth year] [place] [id number] FOR ENTERING TREATMENT AT THIS TIME (in the patient's own words): I wantto learn ho w to stay stopSubstance Use Since Last Admission (type, amount, frequency, age at onset,impairment, treatment):TYPE OF DRUG USED SPECIFIC TYPE OF DRUG OR ALCOHOL RO HUSSEIN OF ADMINISTRATION AGEOF 1ST USE AMOUNT & FREQUENCY DATE/AMOUNT OF LAST USEHave Yo u Consumed Alcohol Over the Past 12 Months: Yes (10/10/191550)Have You Used Tobacco in the Past 30 Days: Yes (10/10/191550)Marijuana: Yes (10/10/191550)Cocai ne/Crack: Yes (10/10/191550)Heroin: Yes (10/10/191550)Benzodiazepines/Barbitura niya: Yes (10/10/191550)Hallucinogens: No (10/10/191550)Club Drugs: No (10/10/191550)Opiates: No (10/10/191550)Methadone: No (10/10/191550)Inhalants/Other: No (02/21)Alcohol/Substance Use Treatment Since Last Admission:Program Name Type o f Program Dates Attended CompletedNone reported [] Inpatient [] Outpatient/IO P[] Residential [] Crisis[] Frannie [] Detox[] Other: [] Yes [] No [] In patient [] Outpatient/IOP[] Residential [] Crisis[] Frannie [] Detox[] Ot her: [] Yes [] No [] Inpatient [] Outpatient/IOP[] Residential [] Crisi s[] Frannie [] Detox[] Other: [] Yes [] No [] Inpatient [] Outpatient/ IOP[] Residential [] Crisis[] Frannie [] Detox[] Other: [] Yes [] N oFamily/Social Changes Since Last Admission: poor social and family relationshipsat t his time.Housing: The patient does plan to return home upon discharge. This enviro nmentis conducive to recovery.Employment/Education Changes Si nce Last Admission: NoneWhat does the patient see as their strengths? Motivation for t x at this time.Mental Health Treatment Since Last Admission:Facility Dates ReasonNone reportedLegal Changes Since Last Admission: NoneDISCHARGE PLANNING:Addictions Treatm ent:: The level of care recommended is Inpatient, Outpatient,Residential, Halfw ay House, Intensive Outpatient, Self- help and MAT. Thepatient is willing to attend In patient, Outpatient, Residential, Frannie,Intensive Outpatient, Self-help, M AT and Peer Support. Specifically, referralswill be made to none at this [facility].Mental Health Treatment: He reported being depressed and would benefit from apsych eval.Housing: Plan for snf is he has a home to return to, however, he isconside ring being referred to tx program with a housing component ([facility]).Transpo rtation: transportation is needed upon discharge.Financial: noneWork / School: unemployedSpiritual Needs: He believes in GOD.Legal Follow-up Needed: He has briana ges pending, he also missed court on 10/01/19[place] 10/11/2019[facility] Rikki [address] [place] [address] [phone] (home): 1990S#: [id number] or/Plan Subscr Sex Relation Sub. Ins. ID Effective Group Num1. [place] [facility] STEVE SEGURARIKKI 1990 Male Self [id number] 05[birth year] [place] [id number] REASON FOR ENTERING TREATMENT AT THIS TIME (in the patient's own words): "Ineed to be there for my daughter" ETHNICITY/CULTURE:Race: HISP ANIC Ethnicity: Unknown Primary Language: Turkish PHYSICAL HEALTH: Primary Medica l Doctor: Michael, Not On File Other Medical Providers: Medical History:Past Medical History:Diagnosis Date Heroin abuse (HCC) []? History of Seizures related to wit hdrawal Date of LastSeizure: []? History of blackouts Date o f Last blackout: Does getting high affect your physical health or physical health lead to gettinghigh? Patient reported having been prescribed percocet 5mg afte r a tooth achewhich had lead to his substance abuse. HIV RISK ASSESSMENT (per patient ) HIV STATUS: []? Unknown [x]?Negative []? PositiveDat e of last test: Have you put yourself at risk? NO[]? Unprotected sex []? M ultiple partners[]? Sharing needles []? Other:Substance Use History (type, amoun t, frequency, age at onset, impairment,treatment):TYPE OF DRUG USED SPECIFIC TYPE OF DRUG OR ALCOHOL ROUTE OF ADMINISTRATION AGEOF 1ST USE AMOUNT & FR EQUENCY DATE/AMOUNT OF LAST USEHave You Consumed Alcohol Over the Past 12 Months : Yes (10/06/19821) Beer Oral17 2-3 fhbvd4f/month 2weeks agoHave You Used To bacco in the Past 30 Days: Yes (10/06/19821) Ciggs Smoking 241/2 ppd 10/06/19Mari vida: Yes (10/06/19821) Marijuana Smoking 17 1 blunt/week 10/06/19Cocaine/Crack: Yes (10/06/19821) Cocaine Snorting 25 $10 worth/week 1 week agoHeroin: Yes (821) Heroin Snorting 27 2 bags/day 10/06/19Benzodiazepines/Barbiturates: Yes (10/06/19821) Xanax Oral 21 2 mg 1 week agoHallucinogens: No (10/06/19821) Den ied Club Drugs: No (10/06/19821) Denied Opiates: No (10/06/19821 ) Denied Methadone: No (10/06/19821) Denied Inhalants/Other: No (10/05) Denied ALCOHOL/SUBSTANCE ABUSE TREATMENT PROGRAMS ATTENDED WITHIN THE PAST THREE YEARS:Program Name Type of Program Dates Attended [facility]pleted[facility] [place] []? Inpatient []? Outpatient/IOP[]? Residential []? Cri sis[]? Frannie [x]? Detox[]? Other: 05/2019 [x]? Yes []? No [facility] []? Inpatient []? Outpatient/IOP[]? Residential []? Crisis[]? [facility] [x]? Detox[]? Other: 2017 [x]? Yes []? No Denied hx of inpatient or outpatient tx []? Inpatient []? Outpatient/IOP[]? Residential []? Crisis[]? [facility] []? Detox[]? Other: []? Yes []? No []? Inpatient []? Outpatient/IOP[]? Re sidential []? Crisis[]? Frannie []? Detox[]? Other: []? Yes []? No Cu rrent Symptoms: chills, sweats, body aches and cravings History of Symptoms: vomit ing, diarrhea, chills, sweats, body aches andcravings SELF HELP EXPERIENCE: Have y ou ever regularly attended a 12-step program? NO Do you have a sponsor? NO IMPACT OF USE: Uses aloneMorning useContinuous use for 30 daysContinuous use despite awaren ess of problems/consequencesUse interferes with important activities such as taking care daughter, legalissuesFeelings of anxietyFeelings of depression RELAPSE H ISTORY:What is your longest abstinence from all mood-altering chemicals and howachie michael? 8 months in 2016 through reconnecting with family. What triggers/cures can yo u identify as leading to relapse? (What was happening,NOT happening?Feelings? Though ts?) Thinking about my daughter and her mother, I get depressedand sad that I am not with them. FAMILY/RELATIONSHIPS:The patient was born in [place], [place] and raised by both parents. Family historyPositive for mental illness and Positive for substanc e abuse. Reports thatfather is an alcoholic, and is in recovery; reports brother also has a hx ofesctasy. Reports brother is dx bipolar. The patient is heterosexual and is Single. The patient has been 0times. The patient lives with a parent . Substance use has interfered withrelationships with significant other s. The patient has one child age 4. Thereis not CPS involvement. Substance use has i ntefered with child rearing.Who do you consider "family"? "My parents, my daug hter" Does your "family" support you with your decision to enter treatment? yes How does your family believe your addiction should be addressed? In treatment Who w ill participate in the Family Program for visitation? N/A at this level Housing St atus: The patient does plan to return home upon discharge. Thisenvironment is cond ucive to recovery. LEVEL OF EDUCATION (give specific details as indicated): Patient' s highest level of education includes Bachelors Degree. Patient did nothave stanislaw rea with education. Getting high did not effect His education. 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 Major da camryn leisure activities: How do you spend your day? "Not good destructive, most of the days using" With whom do you do each of these things? "Myself" What kinds of th ings would you enjoy doing? "I like to work, hiking, climbing" How can these things b e part of your recovery process? "Could help" How did the use of drugs and/or a lcohol impact on your work and dailyactivities? []? Failure to partici deleon in activities such as []? Poor work performance related to substance use []? Absences related to substance use [x]? Using while at work [x]? Termination du e to addiction [x]? Loss of friends/relationships due to addiction [ x]? Increased conflict with others []? Physical altercations with others [x]? Loss of interest in activities [x]? Neglect of self-care HISTORY: NO BRANC H: Between what years: []? Served in combat[]? Discharge Type:[]? Used drugs during service; Type:[]? Disciplinary actions taken; What kind and reason: PSYCHIATRIC HISTORY: NO Diagnosis pe r patient: []? Recent suicide attempt []? Recent suicidal ideation []? High impul sivity as evidenced by INPATIENT MENTAL HEALTH TREATMENT: Facility Dates ReasonD enied OUTPATIENT MENTAL HEALTH TREATMENT: Facility Name of Therapist/Do ctor DatesDenied TRAUMA HISTORY: Abuse/Neglect Admission Screeni ng:Physical Abuse/Neglect: DeniesSexual Abuse: DeniesVerbal Abuse: DeniesOther A buse/Issues: Denies Have you ever used verbal threats, intimidation, or physical viole nce towardothers? (Describe) Denied Have you ever experienced/witnessed trauma that i mpacts your current lifeexperience? (Describe) Denied LEGAL HISTORY: o ther charges pending for grand underwood Current legal involvement: []? Prob ation []? [place] []? ACD []?[address] P.O. Name: Phone: Pending Charge: (If yes, list specifics): No Next Court Lobo e: FAITH/SPIRITUAL/VALUESCHRISTIAN Describe your belief in God or a power g reater than yourself? "There isdefinitely a God" What gives your life meaning or pur pose? "I believe we are all profits and havea bigger purpose" What gives you hop e? "My daughter" How are your beliefs part of your daily life? "I dont know" What spiritual practices/routines should we know about in order to plan yourcare and resp ect your practices? N/A CULTURAL BELIEFS: Describe what your values and beliefs ar e: "My daughter, family" How can your values help in your recovery? "I definitely wa nt them around" How do your values create barriers in your recovery? "No" What do you consider your greatest personal strengths that can enhance yourrecovery? Exercisin g self-direction/Resourceful, Access to housing/residentialstability, Interperso nal/supportive relationships (family, friends, peers),Awareness of Substance a buse issues and Cultural/spiritual/jainism andcommunity involvement Are there any b arriers to your recovery? legal issues What specific needs/preferences do you have f or your treatment here andafterwards? N/A EVALUATION SUMMARY:Describe factors lead ing to the onset of dependency, current stage of change,and assessment of biopsychosoc ial needs for recovery process.Patient is a 29 year old male. Patient prese nted with flat affect, moodsubdued. Patient admitted himself into detox treatment fo r opiate withdrawal.Patient reported that this is his third time entering into det ox treatment.Denied a hx of outpatient or inpatient admissions. Reported to use 2 bags/daily(snorting) of heroin. Reports weekly use of cocaine and marijuana as w ell.Patient reports to have relocated due to his addiction and is currently residingw ith his parents. Patient was originally from [facility] [place]. Patient denied anycurrent empl oyment at this time. Patient reported pending grand kj charges[facility]. Reported to have had court on 10/01/19 which he did not attend. Patientreports to have one daugh ter age 3 that resides with her mother. Reports contactwith daughter but limited due to his addiction. Denies hx of MH. Patient isinterested [facility] program upondetox completion. DISCHARGE PLANNING : Addictions Treatment:: The level of care recommended is Inpatient. The patientis willing to attend Inpatient. Specifically, referrals will be made to [facility] Direct ions. Shuttle Fixer has been notified. Mental Health Treatment: Patient denied a hx. Housing: Plan for snf is to return home with family. Transportation: Will e xplore family or medicaid transportation. Financial: none Work / School: unemploye d Spiritual Needs: Will continue to explore in treatment. Legal Follow-up Needed: Stanislaw rodrigues has court on 10/01/19 which he did not attend.Will need to further consult with patient while in rehabilitation if he wouldlike this to be addressed and stefany eduled in treatment. Pierre Triplett 10/07/2019, [facility] Name Value Range Interpretation Code Description Data [facility](s) Supporting Document(s ) ID Date Data Source [id number] 10/13/2019 06:52:14 PM EDT [facility] Pt has been pushing the limit on rules, like trying to due wash during quiettime. Pt has been going to groups. Pt social with peers. Compliant with meds. Name Value Range Interpretation Code Description Data [facility](s) Supporting Document(s ) ID Date Data Source [id number] 10/13/2019 06:39:57 PM EDT [facility] Problem: Chemical Dependency (Adult/Pedi atric)Goal: *STG: Able to indentify relapse triggers including interpersonal/sociala nd familial factorsDescriptionManuel will begin to explore triggers that promote i ncrease in urges orcravings to use. Rikki will identify at least 4 triggers that c ould lead to apossible relapse and explore 4 coping skills that can be utilized to pr event apotential relapse to decrease urges and cravings.Outcome: Progressing Toward s GoalManuel triggers are; negative people, and places, missing his little girl,losi ng his job, andHaving nothing to do.Problem: Chemical Dependency (Adult/Pediatric)Goa l: *STG/LTG: Relapse prevention plan in place to include housing/aftercare,leisure act ivities, and spiritualityDescriptionRikki and counselor will set up the appropriat e after care as needed to furtherhelp him in his recovery.Outcome: Progressing Toward s GoalRikki is interested in MAT, suboxone. He is unsure about aftercare at thistime . He is currently working on aftercare with this telegraphic typewriter operator chief.Problem: Social DiscomfortGo al: *STG: Verbally report positive outcomes of participation in social &support grou psDescriptionRikki will identify the positive things he has learn/experienced in the groupssetting here in rehabOutcome: Progressing Towards Goalhe is struggling going to groups. he received a contract for missing groups andnot following the rule s/regulations. Name Value Range Interpretation Code Description Data [facility]) Supporting Document(s ) ID Date Data Source [id number] 10/13/2019 05:09:05 AM EDT [facility] Problem: Chemical Dependency (Adult/Pedi atric)Goal: *STG: Remains safe in hospitalOutcome: Progressing Towards Goa lGoal: *STG: Complies with medication therapyOutcome: Progressing Towards Goal Name Value Range Interpretation Code Description Data [facility]) Supporting Document(s ) ID Date Data Source [id number] 10/12/2019 11:20:12 PM EDT [facility] Patient left "AA" meeting at 1945 and re turned at 1999. Patient not redirectabletonight. Asking for food galeas ghing, thinking everything this telegraphic typewriter operator chief said was ajoke. Gave patient two crackers to take with his medication at 2232 when given geothermal operating engineer of flexeril. When patient finally d ecided to go back to bed sort of hidingnear the med window and being silly. Patient finally went down the crump andlooking in each room. When discussing with Tech on this evening, he noticed thatpatient missed 7 groups in the last 3 days. Name Value Range Interpretation Code Description Data [facility] rce(s) Supporting Document(s ) ID Date Data Source [id number] 10/12/2019 10:40:08 PM EDT [facility] Pt.found in tv room watching tv with doo r locked during quiet time Name Value Range Interpretation Code Description Data [facility] rce(s) Supporting Document(s ) ID Date Data Source [id number] 10/12/2019 10:39:58 PM EDT [facility] Pt. Continues to do his own program pt w ent to aa group 10 minutes late stayedfor 5 minutes the left pt did not say anything to staff Name Value Range Interpretation Code Description Data Tashia rce(s) Supporting Document(s ) ID Date Data Source [id number] 10/12/2019 06:26:35 PM EDT [facility] Pt has been given verbal and literary ed ucation on hospital safety. Pt has beenambulating on the unit with a steady gait.Pt has been visible on the unit throughout the day. Pt has been social withstaff and peers. Compliant with medications and program. No complaints. Willcontinue to monitor for safety. Name Value Range Interpretation Code Description Data [facility](s) Supporting Document(s ) ID Date Data Source [id number] 10/12/2019 04:49:42 PM EDT [facility] Life Skills Group Note 1:15PM-2PMConflic t Style Questionnaire: Purpose is to determine what conflict styles canbe use d to manage interpersonal arguments or situations with opposing views.Group was provided with questions related to how they manage an argumentincluding how they bj bally interact with others and what their motives are in asituation (ex: I can fig ure out what needs to be done and I am usually right, Iavoid hard feelings by k eeping my disagreements with others to myself, I try tomeet the expectations of others). Group then scored the quiz to determine whichof the following they mos t closely related to, the pros/cons of each, and ifthey were surprised or not by the results: Collaborative style, Competing style,Avoiding style, Accommodating styl e, Compromising style.Pt was accepting of the information and acknowledged the benefit s of improvinginterpersonal communication. Name Value Range Interpretation Code Description Data [facility] rce(s) Supporting Document(s ) ID Date Data Source [id number] 10/12/2019 02:30:17 PM EDT [facility] 48 HOUR NOTIFICATION and INITIAL TREATME SURAJ [address] [facility] [phone] (home)DO B: 1990Date of Admission: 10/10/19Diagnosis:Patient Active Problem L istDiagnosis Code Opiate withdrawal (HCC) F11.23 Heroin abuse (HCC) F11.10 Marij uana abuse F12.10 Cocaine abuse (HCC) F14.10 Dependence on nicotine from cigarettes F 17.210 Severe major depression without psychotic features (HCC) F32.2 Opiate a buse, continuous (HCC) F11.61KLHESRI8 Report (Attached) Rehab Initial Treatment PlanInitial Goal(s) [x] Individual [x] Group [] Family sessions: [x] Skills/Medication to reduc e urges/craving [x] Motivational Interviewing to increase internal Commitment [x] Copi ng skills building to improve emotional regulation, self-soothing [x] Facilitate engagement with others - social skills to support recovery [] Other:Private Branch Exchange Operator A ssigned: Mendel Green [x] Education about, orientation to, and the opportuni ty to participate in,relevant self-help groups [x] Assessment and referral services fo r patients and significant others [] HIV and AIDS education, risk assessment, and sup portive counseling andReferral [] Date of Medical consultation: [] Date of Psychi atric consultation (as needed):Beverly Jones Name Value Range Interpretation Code Description Data Tashia rce(s) Supporting Document(s ) ID Date Data Source [id number] 10/12/2019 09:48:49 AM EDT [facility] NUTRITIONNutrition screening referral wa s triggered based on results obtained duringnursing admission assessment. Pt triggered for weight loss- pt was seen bydietitian on 10/08/2019. The patient's c jose was reviewed and nutrition assessmentis not indicated at this time.Sakina nugent, RD, CDE Name Value Range Interpretation Code Description Data Tashia rce(s) Supporting Document(s ) ID Date Data Source [id number] 10/12/2019 06:41:44 AM EDT [facility] SBAR to day shift. Name Value Range Interpretation Code Description Data [facility](s) Supporting Document(s ) ID Date Data Source [id number] 10/12/2019 06:41:23 AM EDT [facility] Pt again came to nursing area to state h e can't sleep because he is hungry.Again suggested that he needs to stay awake du ring the evening and attend thegroups and get snacks at the times they are scheduled. He states now that thestarting of the new medication neurontin made him sleepy. Al so suggested that hetake the Vistaril after eating cereal banana with milk. Will mon itor. Name Value Range Interpretation Code Description Data [facility](s) Supporting Document(s ) ID Date Data Source [id number] 10/11/2019 09:24:09 PM EDT [facility] Pt did come out of room at 2100 after al l meetings looking for snack andwatching TV. Suggested pt to come to groups and snack on time - given an orange.He states he is doing his best. Encouraged better attend ance tomorrow. Name Value Range Interpretation Code Description Data [facility](s) Supporting Document(s ) ID Date Data Source [id number] 10/11/2019 09:20:35 PM EDT [facility] After receiving a verbal warning today f or missing groups 3 within 2 days ptdid not attend 7pm aa group and 8:15pm wrap up g roup Name Value Range Interpretation Code Description Data [facility](s) Supporting Document(s ) ID Date Data Source [id number] 10/11/2019 03:46:44 PM EDT [facility] History and PhysicalNAME: Rikki Mendoza : 1990MRN: [id number]/Time: 10/11/2019 12:33 PMPatient PCP: Michael, Not On File Subjec tive: CHIEF COMPLAINT: Substance abuse.HISTORY OF PRESENT ILLNESS:Patient is 29 year old male with history of opioid use disorder who came inrequesting rehab treatment for opioid dependence. Patient completed det ox forheroin withdrawal. He denies any withdrawal symptoms. Denies CP, Palpita tions,SOB. He complained of anxiety. Pt admitted for inpatient rehab. Past Medi mirta History:Diagnosis Date Heroin abuse (HCC)No past surgical history on file.So cial HistoryTobacco Use Smoking status: Light Tobacco Smoker Packs/day: 0.25 S mokeless tobacco: Never UsedSubstance Use Topics Alcohol use: Yes Comment: meghan Rosales family history on file.No Known AllergiesPrior to Admission medicationsM edication Sig Start Date End Date Taking? Authorizing Provideribuprofen (MOTRIN) 6 00 mg tablet Take 1 Tab by mouth every six (6) hours asneeded for Pain. 10/05/19 Fo Kuldeep felton, PAacetaminophen (TYLENOL) 325 mg tablet Take 2 Tabs by mouth every four (4) hoursas needed for Pain. 10/05/19 Kuldeep Whittaker, PAcephALEXin (KEFLE X) 500 mg capsule Take 1 Cap by mouth four (4) times daily for7 days. 10/05/19 10/12/19 Kuldeep Whittaker PAREVIEW OF SYSTEMS:[x]Total of 12 systems reviewed as follows:Constitutional: negative fever, negative chills, negative weight lossEye s: negative visual changesENT: negative sore throat, tongue or lip swellingRespi ratory: negative cough, negative dyspneaCards: negative for chest pain, palpitations, lower extremity edemaGI: negative for nausea, vomiting, diarrhea, and abdominal painGenitourinary: negative for frequency, dysuriaIntegument: negat nakul for rashHematologic: negative for easy bruising and gum/nose bleedingMusculoske l: negative for myalgias, back painNeurological: negative for headache s, dizziness, vertigo, weaknessBehavl/Psych: positive for feelings of anxiety, H/O de pressionObjective:VITALS:Visit VitalsBP 128/83 (BP 1 Location: Right arm)Pulse 8 8Temp 97.9 F (36.6 C)Resp 16Wt 77.6 kg (171 lb)SpO2 98%BMI 21.96 kg/m PHYSICAL EXAM: General: Alert, cooperative, no distress, appears stated age.HEENT: Atraumatic, an icteric sclerae, pink conjunctivae No oral ulcers, mucosa moist, throat clearNeck: Supple, symmetrical, thyroid: non tenderLungs: Clear to auscultation tristen aterally. No Wheezing or Rhonchi. No rales.Chest wall: No tenderness No Acc essory muscle use.Heart: Regular rhythm, No murmur No edemaAbdomen: Soft, no n-tender. Not distended. Bowel sounds normalExtremities: No cyanosis. No club bingSkin: Not pale. Not Jaundiced No rashesPsych: Good insight. Not depress ed. Not anxious or agitated.Neurologic: EOMs intact. No facial asymmetry. No aphasia or slurred speech.Symmetrical strength, Alert and oriented X 3. Procedures : see electronic medical records for all proce dures/Xrays and detailswhich were not copied into this note but were reviewed prior t o creation ofPlan.LAB DATA REVIEWED:No results found for this or any previous v isit (from the past 24 hour(s)).Assessment/PlanActive Problems: Opiate abuse, continuous (HCC) (10/11/2019)The patient will be admitted t o the Rehab unit and oriented tothe unit policies and procedures.Continue rehab t reatment per unit protocolStart Gabapentin 200mg tidEncourage PO fluids to maintain hydrationMVI dailyNicotine ReplacementPsych consult PRN for Supportive Psychoeducati on and Psychiatric medicationreview.Will continue to adjust medications as deemed appropriate and to response forsymptom management (see medication orders made i n EMR).Patient to receive:Substance Abuse Treatment Counseling including Family Co unselingGroup therapy to include 12-Step, Continuing Care, Psychoeducation, andInt erpersonalIndividual therapy to include Behavioral, Cognitive, Cognitive-Behavio ral, andContinuing Care. Patient was seen, examined, and [facility] whoconcurs with above plan. Risks/Benefits/potential adverse reactio ns have been discussed with the patientfor current and new medications Kuldeep hearn MD10/11/2019 Name Value Range Interpretation Code Description Data [facility] rce(s) Supporting Document(s ) ID Date Data Source [id number] 10/11/2019 09:58:53 AM EDT [facility] Informed pt multiple times to get OOB fo r AM medications and group, ptverbalized understanding, however, did not leave ro om. Was not given permissionto not attend first group. Name Value Range Interpretation Code Description Data [facility] rce(s) Supporting Document(s ) ID Date Data Source [id number] 10/10/2019 04:01:20 PM EST [facility] Patient completed detox and admitted to [facility]. Name Value Range Interpretation Code Description Data [facility] rce(s) Supporting Document(s ) ID Date Data Source [id number] 10/10/2019 01:45:02 PM EST [place] [id number] Dis[facility] SummaryPatient ID:Rikki Bartholomew [id number] y.o.1990Admit date: 10/06/2019Discharge date: 10/10/2019* Admiss ion Diagnoses: Opiate withdrawal (HCC) [F11.23]Opiate withdrawal (HCC) [F11.23] * Discharge Diagnoses:Hospital Problems as of 10/10/2019 Date Reviewed: 10/09/2019 C odes Class Noted - Resolved POA Severe major depression without psychotic features (H CC) ICD-10-CM: F32.2ICD-9-CM: 296.23 10/09/2019 - Present Yes Heroin abuse (HCC ) ICD-10-CM: F11.10ICD-9-CM: 305.50 10/07/2019 - Present Yes Marijuana abuse ICD-10-CM: F12.10ICD-9-CM: 305.20 10/07/2019 - Present Yes Cocaine abuse (HCC) ICD-10-CM: F14.1 0ICD-9-CM: 305.60 10/07/2019 - Present Yes Dependence on nicotine from cigarettes I CD-10-CM: F17.210ICD-9-CM: 305.1 10/07/2019 - Present Yes * (Principal) Opiate withdra wal (HCC) ICD-10-CM: F11.23ICD-9-CM: 292.0, 304.00 10/06/2019 - Present Yes* Disposit ion: medical rehab facility* Discharged Condition: stablePast Medical History:Di agnosis Date Heroin abuse (HCC)History reviewed. No pertinent family history.An ti-Psychotics on Discharge-Patient is being discharged on >1 anti-psychotic medicati on? [] Yes [x] NoIF YES, Please select from one of the options below;1. Minimum of 3 failed monotherapy trials? (List medications below) [] Yes[] NoMedicati on #1-Medication #2-Medication #3-2. Plan for cross taper? (List medication to be incr eased, and medicationTo be decreased below) [] In progress [] RecommendationMedicat ion Increased -Medication decreased -3. Augmentation of Clozapine Trialed? [] Ye s [x] NoTobacco Use: TobaccoAge First Used: (23) (10/06/19821)Current Amount Used (# of packs/day): (5 cigarettes/day) (10/06/19821)Date of Last Use: 0 (10/06/19821)Are You Able to Stop on Your Own: Yes (10/06/19821)Tobacco cessatio n prescribed at discharge:[] Yes[] No - Patient Not a Smoker[] No - Patient Refu sed[] No - Patient [x] No - other - Provide detailed description (ie - "Post -operative", "Impairedwound healing", "Increased risk for side-effects") - Tr ansferred to rehabPrior to Admission medicationsMedication Sig Start Date End Date Taking? Authorizing Provideribuprofen (MOTRIN) 600 mg tablet Take 1 Tab by joshua th every six (6) hours asneeded for Pain. 10/05/19 Yes Kuldeep Whittaker PAaceta minophen (TYLENOL) 325 mg tablet Take 2 Tabs by mouth every four (4) hoursas needed f or Pain. 10/05/19 Yes Kuldeep Whittaker, PAcephALEXin (KEFLEX) 500 mg capsule Krzysztof e 1 Cap by mouth four (4) times daily for7 days. 10/05/19 10/12/19 Yes Zack Whittaker PANo Known Allergies* Hospital Course:The patient was admitted to [facility] detox for heroin withdrawal. He wasmanaged with methadone detox protocol . He tolerated treatment well and deniedside effects. He was engaged in individual, group, therapies, and occupationaltherapy. At the time of discharge, the patient denie d current homicidal orcurrent suicidal ideation. Patient was not psychotic and was capable of selfcare and competent to make their own financial and medical dec isions. Thepatient has an understanding of treatment recommendations and medication management on discharge. Patient transferred to rehab for continuation of careConsult ations : noneDischarge Exams:Mental Status exam: WNLPhysical exam:Visit VitalsBP 12 Pulse 83Temp 98 F (36.7 C)Resp 16Ht 6' 2" (1.88 m)Wt 77.6 kg (171 lb)SpO2 98%BM I 21.96 kg/m General: Alert, cooperative, no distress, appears stated age.Head: Norm ocephalic, without obvious abnormality, atraumatic.Eyes: Conjunctivae/corneas c lear. PERRL, EOMs intact. Fundi benignEars: Normal TMs and external ear canals both ears.Nose: Nares normal. Septum midline. Mucosa normal. No drainage or sinustende rness.Throat: Lips, mucosa, and tongue normal. Teeth and gums normal.Neck: Supp le, symmetrical, trachea midline, no adenopathy, thyroid: noenlargement/tende rness/nodules, no carotid bruit and no JVD.Back: Symmetric, no curvature. ROM normal. No CVA tenderness.Lungs: Clear to auscultation bilaterally.Chest wall: No tenderness or deformity.Heart: Regular rate and rhythm, S1, S2 normal, no murmur, cl ick, rub or gallop.Abdomen: Soft, non-tender. Bowel sounds normal. No mass es, No organomegaly.Genitalia: Normal male without lesion, discharge or tenderness. Rectal: Normal tone, normal prostate, no masses or tendernessGuaiac negative stoo l.Extremities: Extremities normal, atraumatic, no cyanosis or edema.Pulses: 2+ and symmetric all extremities.Skin: Skin color, texture, turgor normal. No rashes or lesionsLymph nodes: Cervical, supraclavicular, and axillary nodes norm al.Neurologic: CNII-XII intact. Normal strength, sensation and reflexes through out.Additional tests conducted: noneLab/Data Review:All lab results for the last 24 h ours reviewed.Last 5 Lipid panels-No results found for: CHOL, CHOLPOCT, CHOLX, CHLST, CHOLV, HDL, HDLP, LDL, LDLC,DLDLP, TGLX, TRIGL, TRIGP, TGLPOCT, NTGLT, CHHD, CHHD XLast 365 days of A1C results-No results found for: HBA1C, HGBE8, TZE3IXAD, HBA1C EXTTreatment and Response: betterSignificant adverse reaction to drugs: noneDischarge Medications:Current Discharge Medication List* Follow-up Care/Patient Instruction s:Activity: Activity as toleratedDiet: Regular DietAlcohol or other drug disord er treatment provided or offered?[] Alcohol or drug disorder medication[x] Referral for addictions treatment[] Patient Refused Alcohol or Drug use disorder txFollow-up with:Follow-up Information Follow up With Specialties Details Why Contact Info Dis charge to inpatient rehabiltiation Pt interested to roll over to inpatientwhen taper is completed. Shuttle Fixer made aware [facility] New Directions Bsi, Not On File Not On File (58) Patient has a PCP but that physician isnot listed in [facility].Risks/Benefits/potential adverse reactions have been discussed with the p atientfor current and new medicationsSigned:Kuldeep Rhodes MD/02/03 0201:08 PM Name Value Range Interpretation Code Description Data [facility](s) Supporting Document(s ) ID Date Data Source [id number] 10/10/2019 03:40:43 AM EST [facility] Visible on unit..Patient is on Methadone taper. Received 5 mg.Saturday night.Monitoring on going Safety checks in place. Name Value Range Interpretation Code Description Data [facility](s) Supporting Document(s ) ID Date Data Source [id number] 10/10/2019 03:37:31 AM [facility] Problem: Patient Education: Go to Patien t Education ActivityGoal: Patient/Family EducationOutcome: Progressing Towards Go alProblem: Anxiety-Behavioral Health (Adult/Pediatric)Goal: *STG: Attends act ivities and groupsDescriptionAttending activities as ableOutcome: Progressing T owards GoalGoal: *STG/LTG: Complies with medication therapyDescriptionCompliant w [facility] protocolOutcome: Progressing Towards GoalProblem: Opiate WithdrawalGo al: *STG: Complies with medication therapyDescriptionManuel will take all m edication as prescribed.Outcome: Progressing Towards Goal Name Value Range Interpretation Code Description Data [facility](s) Supporting Document(s ) ID Date Data Source [id number] 10/09/2019 06:21:40 PM [facility] Patient did eat dinner. He was out on t he unit for a while in the Edufii's loungeaGigstarterer dinner. Name Value Range Interpretation Code Description Data [facility]s) Supporting Document(s ) ID Date Data Source [id number] 10/09/2019 04:27:04 PM [facility] Detox Progress NoteDate: 10/09/2019Account Number: [id number]: Rikki GoodenUBJECTIVE:Pt seen and examined. Pt continues on the detox protocol with methadone taperas ordered. Patient was evaluated by the Psychiatrist yesterday and started onantidepressant and he's feelin g better today just very tired. Denies SI or HI.Denies hallucinations. Pt c/o anxiet y, restlessness/insomnia, c/o muscle aches,abdominal cramps; nausea. Denies C P, SOB, Palpitations, headaches. Chartreviewed in full including consulta nt notes, ancillary staff notes, vitals andlabs in [facility] EMR reviewed in f ull. OBJECTIVE: Physical Exam:CHEST: Heart S1, S2, no murmurs, gallops, rhythm regu lar.LUNGS: Clear, no rales, no rhonchi heard.ABDOMEN: Soft, nontender, no organ omegaly noted.EXTREMITIES: no cyanosis, clubbing, edema noted.CENTRAL NERVOUS SY STEM: Unremarkable. Pertinant Data:Patient Vitals for the past 8 hrs: Temp Pulse Re sp BP SdA749/06/20 1200 98.1 F (36.7 C) 80 14 117/89 98 %No results found for this or any previous visit (from the past 24 hour(s)).Medications:Current Facility-Ad ministered MedicationsMedication Dose Route Frequency traZODone (DESYREL) tablet 50 mg 50 mg Oral QHS venlafaxine-SR (EFFEXOR-XR) capsule 37.5 mg 37.5 mg Or al DAILY WITH BREAKFAST methadone (DOLOPHINE) tablet 5 mg 5 mg Oral Q12H [START ON 10/10/2019] methadone (DOLOPHINE) tablet 5 mg 5 mg Oral DAILY nicotine ( NICORETTE) gum 4 mg 4 mg Oral Q2H PRN mupirocin (BACTROBAN) 2 % ointment Top ical DAILY cephALEXin (KEFLEX) capsule 500 mg 500 mg Oral QID hydroxyzine HCL (AT ARAX) tablet 50 mg 50 mg Oral Q4H PRN prochlorperazine (COMPAZINE) tablet 10 m g 10 mg Oral Q6H PRN trimethobenzamide (TIGAN) injection 200 mg 200 mg IntraMU SCular Q6H PRN cloNIDine HCL (CATAPRES) tablet 0.1 mg 0.1 mg Oral Q4H PRN andrei ramide (IMODIUM) capsule 2 mg 2 mg Oral Q3H PRN acetaminophen (TYLENOL) tablet 650 mg 650 mg Oral Q4H PRN ibuprofen (MOTRIN) tablet 600 mg 600 mg Oral Q6H PRN dicy clomine (BENTYL) capsule 20 mg 20 mg Oral Q8H PRN alum-mag hydroxide-simeth (KATHLEEN NTA) oral suspension 30 mL 30 mL Oral Q4H PRN cyclobenzaprine (FLEXERIL) tablet 1 0 mg 10 mg Oral TID PRN multivitamin (ONE A DAY) tablet 1 Tab 1 Tab Oral DAILY thi amine mononitrate (B-1) tablet 100 mg 100 mg Oral DAILY magnesium hydroxide (MILK OF MAGNESIA) 400 mg/5 mL oral suspension 30 mL 30mL Oral QHS PRN bisacodyL (DULCOLAX) tablet 5 mg 5 mg Oral DAILY PRNScheduled Medications:Current Facility-Administere d MedicationsMedication Dose Route Frequency traZODone (DESYREL) tablet 50 mg 50 mg Oral QHS venlafaxine-SR (EFFEXOR-XR) capsule 37.5 mg 37.5 mg Oral DAILY WITH BREAKFA ST methadone (DOLOPHINE) tablet 5 mg 5 mg Oral Q12H [START ON 10/10/2019] methadone (DOLOPHINE) tablet 5 mg 5 mg Oral DAILY mupirocin (BACTROBAN) 2 % ointment Top ical DAILY cephALEXin (KEFLEX) capsule 500 mg 500 mg Oral QID multivitamin (ONE A DAY) tablet 1 Tab 1 Tab Oral DAILY thiamine mononitrate (B-1) tablet 100 mg 100 mg Oral DAILYASSESSMENT/PLAN:Principal Problem: Opiate withdrawal (HCC) ( 020)Active Problems: Heroin abuse (HCC) (10/07/2019) Marijuana abuse (10/07/2019) Cocaine abuse ([facility]) (10/07/2019) Dependence on nicotine from cigarettes (10/07/2019) Sev ere major depression without psychotic features ([facility]) (10/09/2019)Continue Methad one taper as orderedContinue detox treatment per unit protocolContinue PRN meds for w ithdrawal symptomsPsych FU PRNMonitor closelyCoordinated treatment team rounds conducted with nurse automotive quality manager, nurse, andsocial worker present... discussions held re: POC for this patient.Will continue to adjust medications as deemed appropri ate and to response forsymptom management (see medication orders made in EMR).Risk s/Benefits/potential adverse reactions have been discussed with the patientfor dimitri ruelas and new medicationsWm Marquez NP10/09/2019 Name Value Range Interpretation Code Description Data [facility](s) Supporting Document(s ) ID Date Data Source [id number] 10/09/2019 03:50:55 PM [facility] Patient has remained in his room and on his bed all day except to shower andeat. Continues on taper. He has not been in g rou today. Name Value Range Interpretation Code Description Data [facility](s) Supporting Document(s ) ID Date Data Source [id number] 10/09/2019 11:19:41 AM [facility] Patient prompted to come for assessment and medications. Still waiting forpatient. Name Value Range Interpretation Code Description Data [facility](s) Supporting Document(s ) ID Date Data Source [id number] 10/09/2019 11:00:00 AM [facility] Patient has been sleeping in his room th is morning. Name Value Range Interpretation Code Description Data [facility]s) Supporting Document(s ) ID Date Data Source [id number] 10/08/2019 11:56:12 PM [facility] VSS this evening. Con't with Methadone t aper, 7.5 mg po @ HS. Social with peers;visible on the unit. Name Value Range Interpretation Code Description Data [facility](s) Supporting Document(s ) ID Date Data Source [id number] 10/08/2019 06:52:20 PM [facility] SBAR given to Operator Engineer. Name Value Range Interpretation Code Description Data [facility](s) Supporting Document(s ) ID Date Data Source [id number] 10/08/2019 05:20:47 PM [facility] Visible on unit. Taper given 7.5 mg. po Methadone Med education Andreinforcement. Follows smith routine. Monitoring ongoing . Safety checks in place. Name Value Range Interpretation Code Description Data [facility](s) Supporting Document(s ) ID Date Data Source [id number] 10/08/2019 03:44:12 PM [facility] Detox Progress NoteDate: 10/08/2019Account Number: [id number]: Rikki GoodenUBJECTIVE:Pt seen and examined. Pt continues on the detox protocol with methadone taperas ordered. Patient repo rts he's been feeling suicidal, doesn't feel like heshould continue to live because h e's a horrible dad to his 4 year old. Patientcounseled and reassured he's doin g the right thing by being here to address hisaddiction. Psychiatrist covering me c onsulted and will be up to evaluatepatient. Patient does not have a plan and denies HI. Denies hallucinations. Ptc/o anxiety, restlessness/insomnia-did not sleep much last night, c/o muscleaches, abdominal cramps; nausea. Denies CP, SOB, Palpitat ions, headaches. Chartreviewed in full including analytics consultant notes, ancillary st aff notes, vitals andlabs in [facility] EMR reviewed in full. OBJECTIVE: Physical Exam:CHEST: Heart S1, S2, no murmurs, gallops, rhythm regular.LUNGS: Clear, no rales, no rhonchi heard.ABDOMEN: Soft, nontender, no organomegaly noted.EXTREMI TIES: no cyanosis, clubbing, edema noted.CENTRAL NERVOUS SYSTEM: Unremarkab le. Pertinant Data:No data found.No results found for this or any previous visit (fr om the past 24 hour(s)).Medications:Current Facility-Administered MedicationsMedicat ion Dose Route Frequency traZODone (DESYREL) tablet 50 mg 50 mg Oral QHS methadone (DOLOPHINE) tablet 7.5 mg 7.5 mg Oral Q12H [START ON 10/09/2019] methadone (DOLOPHINE ) tablet 5 mg 5 mg Oral Q12H [START ON 10/10/2019] methadone (DOLOPHINE) tablet 5 mg 5 mg Oral DAILY nicotine (NICORETTE) gum 4 mg 4 mg Oral Q2H PRN mupirocin ( BACTROBAN) 2 % ointment Topical DAILY cephALEXin (KEFLEX) capsule 500 mg 500 mg Oral QID tuberculin injection 5 Units 5 Units IntraDERMal ONCE hydroxyzine HCL (ATARAX) tablet 50 mg 50 mg Oral Q4H PRN prochlorperazine (COMPAZINE) tablet 10 m g 10 mg Oral Q6H PRN trimethobenzamide (TIGAN) injection 200 mg 200 mg IntraMU SCular Q6H PRN cloNIDine HCL (CATAPRES) tablet 0.1 mg 0.1 mg Oral Q4H PRN andrei ramide (IMODIUM) capsule 2 mg 2 mg Oral Q3H PRN acetaminophen (TYLENOL) tablet 650 mg 650 mg Oral Q4H PRN ibuprofen (MOTRIN) tablet 600 mg 600 mg Oral Q6H PRN dicy clomine (BENTYL) capsule 20 mg 20 mg Oral Q8H PRN alum-mag hydroxide-simeth (KATHLEEN NTA) oral suspension 30 mL 30 mL Oral Q4H PRN cyclobenzaprine (FLEXERIL) tablet 1 0 mg 10 mg Oral TID PRN multivitamin (ONE A DAY) tablet 1 Tab 1 Tab Oral DAILY thi amine mononitrate (B-1) tablet 100 mg 100 mg Oral DAILY magnesium hydroxide (MILK OF MAGNESIA) 400 mg/5 mL oral suspension 30 mL 30mL Oral QHS PRN bisacodyL (DULCOLAX) tablet 5 mg 5 mg Oral DAILY PRNScheduled Medications:Current Facility-Administere d MedicationsMedication Dose Route Frequency traZODone (DESYREL) tablet 50 mg 50 mg Oral QHS methadone (DOLOPHINE) tablet 7.5 mg 7.5 mg Oral Q12H [START ON 10/09/2019] m ethadone (DOLOPHINE) tablet 5 mg 5 mg Oral Q12H [START ON 10/10/2019] methadone (DOL OPHINE) tablet 5 mg 5 mg Oral DAILY mupirocin (BACTROBAN) 2 % ointment Top ical DAILY cephALEXin (KEFLEX) capsule 500 mg 500 mg Oral QID tuberculin injectio n 5 Units 5 Units IntraDERMal ONCE multivitamin (ONE A DAY) tablet 1 Tab 1 Tab Oral DAILY thiamine mononitrate (B-1) tablet 100 mg 100 mg Oral DAILYASSESSME NT/PLAN:Principal Problem: Opiate withdrawal (HCC) (10/06/2019)Active Problems: Heroin abuse (HCC) (10/07/2019) Marijuana abuse (10/07/2019) Cocaine abuse (HCC) ( 0) Dependence on nicotine from cigarettes (10/07/2019)Continue Methadone taper as or deredContinue detox treatment per unit protocolContinue PRN meds for withdrawal symptomsPsych consultMonitor closelyCoordinated treatment team rounds conducted with nurse automotive quality manager, nurse, andsocial worker present... discussions held re: POC for this patient.Will continue to adjust medications as deemed appropri ate and to response forsymptom management (see medication orders made in EMR).Risk s/Benefits/potential adverse reactions have been discussed with the patientfor dimitri ruelas and new medicationsWm Marquez NP10/08/20192:44 PM Name Value Range Interpretation Code Description Data Tashia rce(s) Supporting Document(s ) ID Date Data Source [id number] 10/08/2019 03:35:03 PM EST [facility] 29 yo male with a history of opiate depe ndece admitted due to opiate dependencefor 3 years. He started with percocet that was prescribed for for dental pain.He was loved he feelibg it gave him and so he went to the streets to get it. Hestarted using heroin 3-4 years ago. Started using her oin because its cheaper.HE has be in rehab last one april 2019. This is his 4th inpatient treatment.He uses a few bags per day. He has been also using cocaine fat sme time.Started age 25. He first started alcghol and THC as a teenager who comes instates, anxious depressed, and having a lot of thoughts. I haven't spoke to mayra lundberg in 3 days. Be better if I am not around. Stressors include npt seeinghis Tim alex, his life has nto turned out the way he wants it. Reports feelingthis way the l ast 2 weeks. First thoughts were depression and shooting him.Hedidnt not go and see anyone about it becauae I bottle everything up. Usuallywont talk about things but u nclear why he is talking about it now Patient doesnot appear acutely suicidical as he his smiling laughing.Past psych hx: last seen a psychiatrist for drug use and getting treatment. Jaycob an outpatient psychiatrist. Reports depression since he was 7 yers old buthas never had treatment for it He stats he felt like his due to th way his chestlooks. No suicide attempt in pastPMHX: nonemeds prior o admission: no nePast substance history: drugs as a teen with alcohol and THC and cocaine andopia niya age 25. 3 previuos rehabs in past. He has job loss x 2. He has lostrelationship wi th mother of child due to drugs. But since cant get into arelationship because of c ontinued drug use He has worked for [employer],and on [employer] and lost both jobs due to drug use. He has had legal issuesdue to drugs. Just was arrested at or September for grand underwood. [facility]. He's done this before. Did this toobtain money for drugs. He missed his court date on because he wasgetting high. He thought he would jus t change the date and show up to court butnever went and then ended up here.FMH X: Brother with Bipolar affective disorderHe has support from gabriella and his sibling. Kiana with parents. HS grad [employer] in 2011. Not working now. Just lost a jobon [address] and Came to work under the influecne. T his happened in August.He had only dmitriy the less solorzano a monthMSE: appears stated age, good eye contact, mood is neutral, affect odes not lookdepressed, speech is RRR, T houghts are clear logical and goal directed. Thoughtscontent repoots fleeting SI but not really believable. most of his symptoms arepsychosocial related with court heari ng he missed and consequences of this.Judgment and inisght is fairAdjustm ent disorder with drpessed mood rule out substance induced mood disorder.Opiate u se disorderDoes not need inpatient psychiatric admssion. Will start effexor XR 37.5 formood symptoms. Follow up with him beginning of next week and refer foroutp atient treatment upon discharge Name Value Range Interpretation Code Description Data Tashia rce(s) Supporting Document(s ) ID Date Data Source [id number] 10/08/2019 01:47:53 PM [facility] RECOMMENDATIONS:Continue with the Usha peguero dietNUTRITION ASSESSMENT MST ScreenSubjective: Pt is alert and orien maria del rosario. PO intake is reported as good at thistime. No chewing or swallowing diffi culties reported. No GI issues reported atthis time. 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 Current weight-171 lb, Current BM I-21.96Admitting Dx: Opiate withdrawal (HCC) [F11.23]Opiate withdrawal (HCC) [F11.23] Medical Hx:Past Medical History:Diagnosis Date Heroin abuse (HCC)Diet Order:Activ e OrdersDiet DIET REGULARAllergies: Patient has no known allergies.Labs: All lab res ults for the last 24 hours reviewed.Nutritionally Significant Meds: Imodium, MOM, multivitamin, B-1AssessmentLast 3 Recorded Weights in this Encounter 10/06/19 0650Weight: 77.6 kg (171 lb)Height: 6' 2" (188 cm)Body mass index is 21.96 kg/m .UBW: 200 lb %UBW: 85%IBW: 190 lb %IBW: 90%Wt Readings fr om Last 3 Encounters:10/06/19 77.6 kg (171 lb)10/05/19 77.6 kg (171 lb)Nutrition Fo cused Physical Assessment:WDL Oral/GI Issues: None Skin: Intact Edema: Peripheral Vascular (WDL): Wit hin Defined LimitsAppetite: Good% Meal Intake: 75-100%No data found.Fluid Intak e: No intake or output data in the 24 hours ending 10/08/19 1338Nutrition Rx: 1940-2 328kcal;78 g protein (1g/kg);7286-2687 ml fluid (1ml/kcal)[based on: Kcal/kg] X 2 5-30 kcal/kg of ABW% Estimated Energy Needs Met: 75-100%% Estimated Protein Needs Me t: 75-100%% Fluid Needs Met: No dataEducation Needs: [x] Not indicated at this t jessica [] Indicated at this timeNutrition DiagnosisNo nutritional dx at this timeI ntervention:Recommend:Continue w/current dietSnacks to be provided on unitPt fill ing in menus for food preferencesGoals:Consumption of >75 % m eals/snacks during LOSWt maintenance/gain during admissionMonitoring and Evaluatio nRD will f/u as appropriate for further nutrition intervention and assessment as warranted or by IP Nutrition ConsultDischarge Planning:No Nutritional Discharge Needs/ Plan Identified [x] No cultural, jainism, or ethnic dietary needs identified [] C ultural, jainism and ethnic food preferences identified and addressed [] Participated in care plan, discharge planning/Interdisciplinary roundsJeremy Gr RD Name Value Range Interpretation Code Description Data Tashia rce(s) Supporting Document(s ) ID Date Data Source [id number] 10/08/2019 08:35:22 AM [facility] Patient is a 29 year old male. Patient presented with flat affect, moodsubdued. Patient admitted himself in to detox treatment for opiate withdrawal.Patient reported that this is his third time entering into detox treatment.Denied a hx of outpatient or i npatient admissions. Reported to use 2 bags/daily(snorting) of heroin. Reports weekly use of cocaine and marijuana as well.Patient reports to have relocated d ue to his addiction and is currently residingwith his parents. Patient was or iginally from [facility]. Patient denied anycurrent employment at this time. Trang froy reported pending grand kj chargesin [facility]. Reported to have had court on which he did not attend. Patientreports to have one daughter age 4 that resides wit h her mother. Reports contactwith daughter but limited due to his addiction. Denies hx of MH. Patient isinterested [facility] re[facility]itat ion program upondetox completion. Name Value Range Interpretation Code Description Data Tashia rce(s) Supporting Document(s ) ID Date Data Source [id number] 10/08/2019 08:35:11 AM EST [facility] PsychosocialStilwelluel [id number] [phone] ( home): 1990S#: [id number]/Plan Subscr Sex Rel ation Sub. Ins. ID Effective Group Num1. [place] [facility]* RIKKI MENDOZA 1990 Mal e Self [id number] 05/05/19 [place] [id number] FOR ENTERING TREATMENT AT THIS TIME (in the patient's own words): "Ineed to be ther e for my daughter"ETHNICITY/CULTURE:Race: HISPANICEthnicity: UnknownPrimary Langu age: EnglishPHYSICAL HEALTH:Primary Medical Doctor: Michael, Not On FileOther Medical Providers:Medical History:Past Medical History:Diagnosis Date Heroin abuse (HC C) [] History of Seizures related to withdrawal Date of Last Seizure: [ ] History of blackouts Date of Last blackout:Does getting high affect your p hysical health or physical health lead to gettinghigh? Patient reported having b een prescribed percocet 5mg after a tooth achewhich had lead to his substance abus e.HIV RISK ASSESSMENT (per patient)HIV STATUS: [] Unknown [x]Negative [] PositiveDate of last test:Have you put yourself at risk? NO[] Unprotected sex [] Multiple partners[] Sharing needles [] Other:Substance Use History (type, amoun t, frequency, age at onset, impairment,treatment):TYPE OF DRUG USED SPECIFIC TYPE OF DRUG OR ALCOHOL ROUTE OF ADMINISTRATION AGEOF 1ST USE AMOUNT & FR EQUENCY DATE/AMOUNT OF LAST USEHave You Consumed Alcohol Over the Past 12 Months : Yes (10/06/19821) Beer Oral17 2-3 tmvko9i/month 2weeks agoHave You Used To bacco in the Past 30 Days: Yes (10/06/19821) Ciggs Smoking 241/2 ppd 10/06/19Mari vida: Yes (10/06/19821) Marijuana Smoking 17 1 blunt/week 10/06/19Cocaine/Crack: Yes (10/06/19821) Cocaine Snorting 25 $10 worth/week 1 week agoHeroin: Yes (821) Heroin Snorting 27 2 bags/day 10/06/19Benzodiazepines/Barbiturates: Yes (10/06/19821) Xanax Oral 21 2 mg 1 week agoHallucinogens: No (10/06/19821) Den iedClub Drugs: No (10/06/19821) DeniedOpiates: No (10/06/19821) Denied Methadone: No (10/06/19821) DeniedInhalants/Other: No (10/06/19821 ) DeniedALCOHOL/SUBSTANCE ABUSE TREATMENT PROGRAMS ATTENDED WITHIN THE PAST THREE YEARS:Program Name Type of Program Dates Attended CompletedSt. [facility] [place] [] Inpatient [] Outpatient/IOP[] Residential [] Crisis[] Frannie [x] Detox[] Other: 05/2019 [x] Yes [] [facility] [] Inpatient [] Ou tpatient/IOP[] Residential [] Crisis[] Frannie [x] Detox[] Other: 2017 [ x] Yes [] NoDenied hx of inpatient or outpatient tx [] Inpatient [] Outpatie nt/IOP[] Residential [] Crisis[] Frannie [] Detox[] Other: [] Yes [] N o [] Inpatient [] Outpatient/IOP[] Residential [] Crisis[] Frannie [] Detox[] Other: [] Yes [] NoCurrent Symptoms: chills, sweats, body aches an d cravingsHistory of Symptoms: vomiting, diarrhea, chills, sweats, body aches and cravingsSELF HELP EXPERIENCE:Have you ever regularly attended a 12-step program? N ODo you have a sponsor? NOIMPACT OF USE: Uses aloneMorning useContinuous use for 30 daysContinuous use despite awareness of problems/consequencesUse interferes with important activities such as taking care daughter, legalissuesFeelings of anxiety Feelings of depressionRELAPSE HISTORY:What is your longest abstinence from all mood-al tering chemicals and howachieved? 8 months in 2016 through reconnecting with family.Wh at triggers/cures can you identify as leading to relapse? (What was happening,NOT happ ening?Feelings? Thoughts?) Thinking about my daughter and her mother, I get depressed and sad that I am not with them.FAMILY/RELATIONSHIPS:The patient wa s born in [place], [place] and raised by both parents. Family historyPositive for men ananda illness and Positive for substance abuse. Reports thatfather is an alcoholic, and is in recovery; reports brother also has a hx ofesctasy. Reports brother is dx bipo lar.The patient is heterosexual and is Single. The patient has been 0t imes. The patient lives with a parent. Substance use has interfered withrelatio nships with significant others. The patient has one child age 4. Thereis not CPS in volvement. Substance use has intefered with child rearing.Who do you consider "famil y"? "My parents, my daughter"Does your "family" support you with your deci alma to enter treatment? yesHow does your family believe your addiction should be addressed? In treatmentWho will participate in the Family Program for visitation? N/ A at this levelHousing Status: The patient does plan to return home upon discharge . Thisenvironment is conducive to recovery.LEVEL OF EDUCATION (give specif ic details as indicated):Patient's highest level of education includes Bachelors De gree. Patient did nothave problems with education. 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 "N ot good destructive, most of the days using"With whom do you do each of these things? "Myself"What kinds of things would you enjoy doing? "I like to work, hiking , climbing"How can these things be part of your recovery process? "Could help"How did the use of drugs and/or alcohol impact on your work and dailyactivities? [] Failu re to participate in activities such as [] Poor work performance related to substan ce use [] Absences related to substance use [x] Using while at work [x] Terminatio n due to addiction [x] Loss of friends/relationships due to addiction [ x] Increased conflict with others [] Physical altercations with others [x] L oss of interest in activities [x] Neglect of self-careMILITARY HISTORY: NOBRANCH: Between what years:[] Served in [employer][] Discharge Type:[] Used drugs during service; Type:[] Disciplinary actions taken; What kind and reason:PSYCHIATRIC HISTORY: NO Diagnosis per patient: [ ] Recent suicide attempt [] Recent suicidal ideation [] High impulsivity as evidenc ed byINPATIENT MENTAL HEALTH TREATMENT:Facility Dates ReasonDeniedOUT PATIENT MENTAL HEALTH TREATMENT:Facility Name of Therapist/Doctor DatesDeniedTRAUMA HI STORY:Abuse/Neglect Admission Screening:Physical Abuse/Neglect: Denies Sexual Abuse: DeniesVerbal Abuse: DeniesOther Abuse/Issues: DeniesHave you ever used v erbal threats, intimidation, or physical violence towardothers? (Describe) Denied Have you ever experienced/witnessed trauma that impacts your current lifeexperience ? (Describe) DeniedLEGAL HISTORY: other charges pending for grand larcenyCurrent legal involvement: [] Probation [] [place] [] ACD [] DrugCourtP.O. Na me: Phone:Pending Charge: (If yes, list spec ifics): NoNext Court Date:FAITH/SPIRITUAL/VALUESCHRISTIAN Describe your belief in God or a power greater than yourself? "There isdefini tely a God"What gives your life meaning or purpose? "I believe we are all profi ts and havea bigger purpose"What gives you hope? "My daughter"How are your beliefs part of your daily life? "I dont know"What spiritual practices/routines should we k now about in order to plan yourcare and respect your practices? N/ACULTURAL BEL IEFS:Describe what your values and beliefs are: "My daughter, family"How can your values help in your recovery? "I definitely want them around"How do your values create barriers in your recovery? "No"What do you consider your greatest p ersonal strengths that can enhance yourrecovery? Exercising self-direction/ Resourceful, Access to housing/residentialstability, Interperso nal/supportive relationships (family, friends, peers),Awareness of Substance a buse issues and Cultural/spiritual/jainism andcommunity involvementAre there any ba rriers to your recovery? legal issuesWhat specific needs/preferences do you have f or your treatment here andaftercentinela [facility]? N/AEVALUATION SUMMARY:Describe factors l eading to the onset of dependency, current stage of change,and assessment of biopsy chosocial needs for recovery process.Patient is a 29 year old male. Patient presented with flat affect, moodsubdued. Patient admitted himself into detox [facility] for opiate withdrawal.Patient reported that this is his third time entering int o detox treatment.Denied a hx of outpatient or inpatient admissions. Reported to use 2 bags/daily(snorting) of heroin. Reports weekly use of cocaine and marijuana as w ell.Patient reports to have relocated due to his addiction and is currently residingw ith his parents. Patient was originally from [facility]. Patient denied anycurrent empl oyment at this time. Patient reported pending grand larceny chargesin [facility]. Reported to have had court on 10/01/19 which he did not attend. Patientreports to have one daugh ter age 3 that resides with her mother. Reports contactwith daughter but limited due to his addiction. Denies hx of MH. Patient isinterested in attending [facility] program upondetox completion.DISCHARGE PLANNING: Addictions Treatment:: The level of care recommended is Inpatient. The patientis willing to attend Inpatient. Specifically, referrals will be [facility] to [facility] Direct ions. Shuttle Fixer has been notified.Mental Health Treatment: Jr peguero denied a hx.Housing: Plan for snf is to return home with family.Transportation: Will explore family or medicaid transportation.Financial: noneWork / Lela ool: unemployedSpiritual Needs: Will continue to explore in treatment.Legal F ollow-up Needed: Patient has court on 10/01/19 which he did not attend.Will nee d to further consult with patient while in rehabilitation if he wouldlike this to earnest e addressed and rescheduled in treatment.Pierre Triplett 10/07/2019 , [facility] Name Value Range Interpretation Code Description Data [facility](s) Supporting Document(s ) ID Date Data Source [id number] 10/08/2019 06:34:27 AM [facility] Report to day staff using SBAR Name Value Range Interpretation Code Description Data [facility](s) Supporting Document(s ) ID Date Data Source [id number] 10/08/2019 12:17:21 AM [facility] Patient settled following administration of methadone 10 mg flexeril andvistaril Will continue to monitor Name Value Range Interpretation Code Description Data [facility](s) Supporting Document(s ) ID Date Data Source [id number] 10/07/2019 10:13:39 PM [facility] History and PhysicalPatient: Rikki yeboah Sex: male DOA: 10/06/2019Date of : 1990 A ge: 29 y.o. LOS: LOS: 1 dayHPI:CHIEF COMPLAINT: Opiates withdrawal HISTORY O F PRESENT ILLNESS: Rikki Mendoza is a 29 y.o. male who presented to the ED reques ting detoxtreatment from opiates. Patient used 25mg of methadone in the past 24 ho urs andwill be starting on a methadone taper this morning. Denies si/hi. Denieshalluc inations. Denies CP, Palpitations, SOB. C/O anxiety, restlessness, bodyaches, feelin g hot and cold, abdominal/legs cramps. Pt admitted for inpatientdetox from opiates .History of use per clinical note:AlcoholAge First Got High: (17) (10/06/19821)Freq uency of Use: 1-3 times in the last month (10/06/19821)Average Amount Used: (4 b eers) (10/06/19821)How Long Using at Current Pattern: (years) (10/06/19821) Date of Last Use: 10/01/19 (10/06/19821)Amount of Last Use: (2 beers) (10/22)Are You Able to Stop on Your Own: No (10/06/19821)Symptoms: Binge use (0 10/06/19821)TobaccoAge First Used: (23) (10/06/19821)Current Amount Used (# of packs/day): (5 cigarettes/day) (10/06/19821)Date of Last Use: 10/05/19 (821)Are You Able to Stop on Your Own: Yes (10/06/19821)Benzodiazepines/Barbitura tesAge First Got High: (25) (10/06/19821)Pattern of Use in Past Year: (2 mg 1x/month - xanax) (10/06/19821)Frequency of Use: 1-3 times in the last month (821)Average Amount Used: (2 mg of xanax) (10/06/19821)How Long Using at Current Pattern: (since onset) (10/06/19821)Date of Last Use: 09/15/19 (10/06/19821)Kiana unt of Last Use: (2 mg of xanax) (10/06/19821)Are you able to stop on your own: Y es (10/06/19821)Symptoms: Anxiety (10/06/19821)MarijuanaAge First Got High: (16) ( 10/06/19821)Pattern of Use in Past Year: (1 blunt every other week) (10/06/19821)F requency of Use: 1-3 times in the last month (10/06/19821)Average Amount Used: (a b madeline) (10/06/19821)How Long Using at Current Pattern: (since onset) (10/06/19821)Date of Last Use: 10/05/19 (10/06/19821)Amount of Last Use: (1 bowl) (10/05)Are you able to stop on your own: Yes (10/06/19821)Symptoms: Anxiety (821)Cocaine/CrackAge First Got High: (29) (10/06/19821)Pattern of Use in Pa st Year: (1x usage - crack) (10/06/19821)Frequency of Use: 1-3 times in the last month (10/06/19821)Average Amount Used: ($100 wroth of crack) (10/06/1903 26)How Long Using at Current Pattern: (1x use) (10/06/19821)Date of Last Use: (10/06/19821)Amount of Last Use: ($100 worth) (10/06/19821)Are you able to stop on your own: Yes (10/06/19821)Symptoms: Binge use (10/06/19821) HeroinAge First Got High: (26) (10/06/19821)Pattern of Use in Past Year: (2-3 b ags/day/nasal) (10/06/19821)Frequency of Use: Daily (10/06/19821)Average Amount Used: (2-3 bags/nasal) (10/06/19821)How Long Using at Current Pattern: (1-year) (10/06/19821)Date of Last Use: 10/05/19 (10/06/19821)Amount of Last Use: (1 ba g) (10/06/19821)Are you able to stop on your own: No (10/06/19821)Symptoms: Co ntinuous use 30 days;Increased tolerance;Tremors;Unable tolimit/control (10/06/19821)Past Medical History:Diagnosis Date Heroin abuse (HC C)History reviewed. No pertinent surgical history.History reviewed. No pertinent f amily history.Social HistorySocioeconomic History Marital status: SINGLE Spouse name: Not on file Number of children: Not on file Years of education: Not on file H ighest education level: Not on fileTobacco Use Smoking status: Light Tobacco Smoke r Packs/day: 0.25 Smokeless tobacco: Never UsedSubstance and Sexual Activity Alcoh ol use: Yes Comment: occassionally Drug use: Yes Types: Heroin, Marijuana, Coca ine, Benzodiazepines Comment: daily heroin user Sexual activity: YesPatient Vitals for the past 24 hrs: Temp Pulse Resp BP MwM44710/07/19 0542 98.1 F (36.7 C) 76 1 6 129/84 98 %10/06/19 2239 97.8 F (36.6 C) 76 16 115/73 96 %10/06/19 1821 - 91 16 1 35/89 98 %10/06/19 1449 - 97 16 129/77 96 %Prior to Admission medicationsMedicatio n Sig Start Date End Date Taking? Authorizing Provideribuprofen (MOTRIN) 600 mg tablet Take 1 Tab by mouth every six (6) hours asneeded for Pain. 10/05/19 Yes Kuldeep Whittaker PAacetaminophen (TYLENOL) 325 mg tablet Take 2 Tabs by mouth every four ( 4) hoursas needed for Pain. 10/05/19 Yes Kuldeep Whittaker PAcephALEXin (KEFLE X) 500 mg capsule Take 1 Cap by mouth four (4) times daily for7 days. 10/05/19 10/12/19 Yes Kuldeep Whittaker PANo Known AllergiesREVIEW OF SYSTEMS: [x]Total of 12 systems reviewed as follows:Constitutional: negative fever, positive chills, feeling hot and coldEyes: negative visual changesENT: negative sore throat, tongue or lipswellingRespiratory: negative cough, negative dyspneaCards: negative for chest pain, palpitations, lower extremity edemaGI: + nausea, no vomiting, +abdominalpain/cram psGenitourinary: negative for frequency, dysuriaIntegument: negative for rashHematologic: negative for easy bruising and gum/nose bleedingMusculoskel: positive for myalgias/legs crampsNeurological: negative for headaches, dizziness, vertigo, weaknessBehavl/Psych: positiv e for anxietyPhysical Exam:Physical Exam:HEAD: Normocephalic, no signs of in jury.EYES: Pupils equal, react to light and accommodation. Fundinormal.EAR, NOSE, TH ROAT: No congestion, no discharge noted.NECK: Supple. No thyroid, no lymph nodes palpa ble.CHEST: Heart S1, S2, no murmurs, gallops, rhythm regular.LUNGS: Clear, no rales, n o rhonchi heard.ABDOMEN: Soft, nontender, no organomegaly noted.EXTREMITIES: no cyano sis, clubbing, edema noted.CENTRAL NERVOUS SYSTEM: Unremarkable. Labs Reviewed:LABS Labs: Results:Chemistry Recent Labs 10/05/201505GLU 90NA 137K 4.0CL 103CO2 2 9BUN 14CREA 1.14CA 8.3*AGAP 5AP 70TP 7.3ALB 3.7GLOB 3.6AGRAT 1.0CBC w/Diff Recent La bs 10/05/201505WBC 10.0RBC 4.93HGB 14.2HCT 43.1PLT 339GRANS 78*LYMPH 14*EOS 1Coagul ation No results for input(s): PTP, INR, APTT, INREXT, INREXT in the last72 hours .Liver Enzymes Recent Labs 10/05/201505TP 7.3ALB 3.7AP 70SGOT 109*Urine Analysis C olorDate Value Ref Range Lcxddq4310/06/2019 YELLOW FinalAppearanceDate Value Ref R jaron Ioteji4510/06/2019 CLEAR FinalpH (UA)Date Value Ref Range Gfbwhh40 0 7.0 FinalProteinDate Value Ref Range Zaxqai5210/06/2019 NEGATIVE mg/dL FinalKe toneDate Value Ref Range Hqlzwc1810/06/2019 NEGATIVE mg/dL FinalBilirubinDate Value Ref Range Zwukyx8110/06/2019 NEGATIVE FinalBloodDate Value Ref Range Qrbrit1410/2019 NEGATIVE FinalUrobilinogenDate Value Ref Range Mndrwx9110/06/2019 2.0 EU/ dL FinalNitritesDate Value Ref Range Fodxec1910/06/2019 NEGATIVE FinalLeukoc yte EsteraseDate Value Ref Range Zzjvyf2010/06/2019 NEGATIVE FinalAssess ment/PlanPrincipal Problem: Opiate withdrawal (HCC) (10/06/2019)Active Proble ms: Heroin abuse (HCC) (10/07/2019) Marijuana abuse (10/07/2019) Cocaine abuse (HCC) () Dependence on nicotine from cigarettes (10/07/2019)Methadone taper ord ered to start this morning.The patient was admitted to the Detox unit and oriented tothe unit policies and procedures.Continue detox protocol as ordered with methadone Continue PRN meds for withdrawal symptomsEncourage PO fluids to maintain hydrationMVI, folic acid, thiamine dailyPsych consult PRNWill continue to adjust medic ations as deemed appropriate and to response forsymptom management (see medication or ders made in EMR).Patient was seen, examined, and POC discussed with attending psychia trist whoconcurs with above plan. Risks/Benefits/potential adverse reactio ns have been discussed with the patientfor current and new medicationsEmnathaniel flores NP10/07/2019 Name Value Range Interpretation Code Description Data [facility] Supporting Document(s ) ID Date Data Source [id number] 10/07/2019 06:55:10 PM [facility] SBAR report given to Operator Engineer. Name Value Range Interpretation Code Description Data [facility] Supporting Document(s ) ID Date Data Source [id number] 10/07/2019 06:05:45 PM [facility] Problem: Opiate WithdrawalGoal: *STG: Co mplies with medication therapyDescriptionManuel will take all m edication as prescribed.Outcome: Progressing Towards GoalManuel is compliant with med ication therapy. Started Methadone taper. Sfmvsuhn64 mg Methadone this morning. Am bulatory on the unit with a steady gait.Verbalizes with staff and peers. Ap petite is good. Fluids encouraged andtolerated. Offers no complaints at th is time. Will continue to monitor forsafety. Name Value Range Interpretation Code Description Data [facility] Supporting Document(s ) ID Date Data Source [id number] 10/07/2019 02:00:28 PM [facility] Admission note:Rikki Mendoza[address] [facility] [phone] (home): 1990S#: [id number] or/Plan Subscr Sex Relation Sub. Ins. ID Effective Group Num1. [facility]* RIKKI LUO 1990 Male Self [id number] 05/05/19 [place] [id number] was admitted to [facility] for [] Rehab [x] Detox on .Met with pt to begin BPS, PAS, and txt plan. Patient's mood is subdued. Catarino andino cooperative with assessment.Pt was referred by self and familyPt was usingH ave You Consumed Alcohol Over the Past 12 Months: Yes (10/06/19821)Have You Used Tobacco in the Past 30 Days: Yes (10/06/19821)Marijuana: Yes (10/06/19821)Cocai ne/Crack: Yes (10/06/19821)Heroin: Yes (10/06/19821)Benzodiazepines/Barbitura niya: Yes (10/06/19821)Hallucinogens: No (10/06/19821)Club Drugs: No (10/06/19821)Opiates: No (10/06/19821)Methadone: No (10/06/19821)Inhalants/Other: No (10/22)What urges & cravings is patient experiencing: TobaccoAre there post acut e withdrawal symptoms present (give specifics): Patient is inactive withdraw als and on taper protocol.DISCHARGE PLANNING:Treatment Recommendation & Init ial Discharge Plan: [] To home outpatient [x] Inpatient Rehab [] Residential [] Other:[facility] consents for the following: None at this time.Will continue to work with pt on treatment and aftercare needs.Tim Triplett LMSW Name Value Range Interpretation Code Description Data Tashia rce(s) Supporting Document(s ) ID Date Data Source [id number] 10/07/2019 01:52:20 PM EST [facility] SCORE: 2[place] Gambling ScreenPatien ts name: Rikki Mendoza Date: 10/07/2019 1. Please indicate which of the following t ypes of gambling you have done inyour lifetime. For each type, ki ("X") one answer: "Not at All," "Less thanOnce a Week", or "Once a Week or More."PLEASE "X" ONE ANSWER FOR EACH STATEMENT: NOT AT ALL LESS THAN ONCE A WEEK ONCEA WEEKa. Playe d cards for money. Xb. Bet on horses, dogs, or other animals (at [employer], the track, or with a fountain waitress/waiter).Xc. Bet on sports (parlay cards, with fountain waitress/waiter, at [facility].) Xd. Pl ayed dice games, including craps, over and under or other dice games. Xe. Went to [employer] (legal or otherwise). Xf. Played the [employer] or bet on lotteries. Xg. Played bingo. Xh. Played the stock and/or commodities market. Xi. Played slot mach jerzy, poker machines, or other gambling machines. Xj. Bowled, shot pool, played golf, or some other game of skill for money. Xk. Played pull tabs or "paper" games ot her than lotteries. Xl. Some form of gambling not listed above (please specif y): X*place an "X" after the chosen answers below*2. What is the largest amount of m oney you have ever gambled with on anyone-day?[] Never Gambled[] $ 1.00 or less[] More than $1.00 up to $10.00[x] More than $10.00 up to 100.00[] More than $10 0.00 up to $1,000[] More than $1,000 up to $10,000[] More than $10,0003. Check ("X" ) which of the following people in your life has (or had) agambling problem.[] Father [] Mother[] Brother/Sister[] My spouse/partner[] My child(prosper)[] Another relative[] A Friend or someone important in my life[x] NONE4. When you leavitt, how o ften do you go back another day to win back money youhave lost?[] Never[] Most of th e time[x] Some of the time (less than half of time I lose)[] Every time that I lose5. Have you ever claimed to be winning money gambling, but weren't really? Infact you lost?[x] Never[] Yes, less than half the time I lost[] Yes, most of the time6. Do you feel you have ever had a problem with betting or money gambling?[x] No[] Yes[] Yes, in the past, but not now.7. Did you ever leavitt more than you intended to?[x ] Yes[] No8. Have people criticized your betting or told you that you had a probl em,regardless of whether or not you thought it was true?[] Yes[x] No9. Have you ever felt guilty about the way you leavitt, or what happens when yougamble?[] Yes[x] No 10. Have you ever felt like you would like to stop betting money on gambling,but did n ot think that you could?[] Yes[x] No11. Have you ever hidden betting slips, lottery t ickets, gambling money, IOUs,or other signs of betting or gambling from your spouse, children or otherimportant people in your life?[] Yes[x] No12. Have you ever argue d with people you live with over how you handle money?[] Yes[x] No13. (If you ans wered "yes": to question 12) Have money arguments ever centeredon your gambling? [] Yes[x] No14. Have you ever borrowed from someone and not paid them back as a resu lt ofyour gambling?[] Yes[x] No15. Have you ever lost time from work (or school) due to betting money orgambling?[] Yes[x] No16. If you borrowed money to leavitt or to pa y gambling debts, who or where didyou borrowfrom (put a "Y" for yes or "N" for no for each statement below):a. From household money Nb. From your spouse/par tner Nc. From relatives or in-laws Nd. From [employer] companies, or [employer] unions Ne. From credit cards Nf. From [employer] sharks Ng. You cashed in stocks, bonds or other securities Nh. You sold personal or family property Ni. You borrowed on your [employer] accounts (passed bad checks) Nj. You have (had) a credit line with a fountain waitress/waiter Nk. Yo u have (had) a credit line with a casino [employer] MUST PRINT AND USE THE SCORE SHEET PROVI DED AT NURSES STATION!!! Name Value Range Interpretation Code Description Data Tashia rce(s) Supporting Document(s ) ID Date Data Source [id number] 10/07/2019 10:27:40 AM [facility] 48 HOUR NOTIFICATION and INITIAL TREATME [address] [facility] [phone] (home)DO B: 1990Date of Admission: 10/06/2019Diagnosis:Patient Active Probl em ListDiagnosis Code Opiate withdrawal (HCC) F11.23 Heroin abuse (HCC) F11.10 Marijuana abuse F12.10 Cocaine abuse (HCC) F14.10 Dependence on nicotine from ciga rettes F17.468LANXVAH4 Report (Attached) Detox Initial Treatment PlanAdhere to ANEESH pratt proved detoxification taper/protocol:Current Facility-Administered MedicationsMedicat ion Dose Route Frequency Provider Last Rate Last Dose methadone (DOLOPHINE) tablet 10 mg 10 mg Oral Q12H Wm Marquez NP [START ON 10/08/2019] methadone (DOLOPHINE ) tablet 7.5 mg 7.5 mg Oral I90QZyawvWm porter NP [START ON 10/09/2019] methad one (DOLOPHINE) tablet 5 mg 5 mg Oral Q12H Wm Marquez NP [START ON 10/10/2019] methadone (DOLOPHINE) tablet 5 mg 5 mg Oral DAILY Wm Marquez NP mupirocin (IDALMIS TROBAN) 2 % ointment Topical DAILY Romario Doll MD cephALEXin (KEFLEX) capsule 500 mg 500 mg Oral QID Wm Marquez NP 500mg at 10/06/19 2241 t uberculin injection 5 Units 5 Units IntraDERMal ONCE Wm Marquez NP hy droxyzine HCL (ATARAX) tablet 50 mg 50 mg Oral Q4H PRN Wm Marquez NP50 mg at 10/06/19 2242 prochlorperazine (COMPAZINE) tablet 10 mg 10 mg Oral Q6H PRN Wm Marquez NP trimethobenzamide (TIGAN) injection 200 mg 200 mg IntraMUSCular Q 6H PRNLWm porter NP cloNIDine HCL (CATAPRES) tablet 0.1 mg 0.1 mg Oral Q4 H PRN Wm Marquez NP loperamide (IMODIUM) capsule 2 mg 2 mg Oral Q3H OH N Wm Marquez NP acetaminophen (TYLENOL) tablet 650 mg 650 mg Oral Q4H PRN Wm Marquez NP650 mg at 10/06/19 1240 ibuprofen (MOTRIN) tablet 600 mg 600 mg Oral Q6H PRN Wm Marquez NP600 mg at 10/06/19 1028 dicyclomine (BENTYL) c apsule 20 mg 20 mg Oral Q8H PRN Wm Marquez NP alum-mag hydroxide-simeth (MYLANTA) oral suspension 30 mL 30 mL Oral Q4H PRWm Kat NP cyclobenzapr ine (FLEXERIL) tablet 10 mg 10 mg Oral TID PRN Wm Marquez NP 10 mg at 0545 multivitamin (ONE A DAY) tablet 1 Tab 1 Tab Oral DAILY Wm Marquez N PStopped at 10/06/19 1100 thiamine mononitrate (B-1) tablet 100 mg 100 mg Oral DAILY Wm Marquez NP Stopped at 10/06/19 1100 magnesium hydroxide (MILK OF MAGNESIA) 400 mg/5 mL oral suspension 30 mL 30mL Oral QHS PRN Wm Marquez N P bisacodyL (DULCOLAX) tablet 5 mg 5 mg Oral DAILY PRN Wm Marquez NPPlanne d Taper Duration:Initial Discharge Plan: [x] To home outpatient [] Inpatient []Residential [] Other: [x] Medical Stabilization:Date of Assessment: 10/07/19 Med Orders: See abovemedication list [x] Psychiatric sta bilization:Date of Assessment: 10/07/19 Med Orders: Seeabove medication list Clinician assigned: Oxana Julio LMSW Name Value Range Interpretation Code Description Data Tashia rce(s) Supporting Document(s ) ID Date Data Source [id number] 10/07/2019 06:50:13 AM EST [facility] 29 y/o male presents with father reques ting detox from heroin. Pt reports ofleft shoulder pain s/p fall yesterday and inf ected pierced left ear. Pt stateslast time used heroin was 3 hours ago and denies d rug withdrawal symptoms, SI/HIor any other acute medical issues at this timePast Me dical History:Diagnosis Date Heroin abuse (HCC)History reviewed. No pertinent surg ical history.History reviewed. No pertinent family history.Social HistorySocioeconom ic History Marital status: SINGLE Spouse name: Not on file Number of children: N ot on file Years of education: Not on file Highest education level: Not on fileOccu pational History Not on fileSocial Needs Financial resource strain: Not on file Food insecurity: Worry: Not on file Inability: Not on file Transportation n eeds: Medical: Not on file Non- medical: Not on fileTobacco Use Smoking status: [facility] t Tobacco Smoker Packs/day: 0.25 Smokeless tobacco: Never UsedSubstance and Sexual Activity Alcohol use: Yes Comment: occassionally Drug use: Yes Types: Her oin, Marijuana, Cocaine, Benzodiazepines Comment: daily heroin user Sexual activ ity: YesLifestyle Physical activity: Days per week: Not on file Minutes per sessi on: Not on file Stress: Not on fileRelationships Social connections: Talks on phone: Not on file Gets together: Not on file Attends jainism service: Not on file Active member of club or organization: Not on file Attends meeti ngs of clubs or organizations: Not on file Relationship status: Not on file Intima te partner violence: Fear of current or ex partner: Not on file Emotionally abused : Not on file Physically abused: Not on file Forced sexual activity: Not on fileOthe r Topics Concern Not on fileSocial History Narrative Not on fileALLERGIES: Patient has no known allergies.Review of SystemsConstitutional: Negative for acti vity change, chills, fatigue and fever.HENT: Negative for drooling, mouth sores and s ore throat.Eyes: Negative for discharge and redness.Respiratory: Negative for shortn ess of breath, wheezing and stridor.Cardiovascular: Negative for jesus alberto st pain, palpitations and leg swelling.Gastrointestinal: Negative for diarrhea, nausea and vomiting.Endocrine: Negative for polydipsia, polyphagia and polyuria.Genitourinary: Negative for dysuria, frequency and urgency.Musculoskeletal: P ositive for arthralgias (left shoulder pain s/p fallyesterday). Negative for gait pr oblem and neck stiffness.Skin: Positive for wound (infected left ear lobe reyes). N egative for colorchange, pallor and rash.Allergic/Immunologic: Negative for environmental allergies.Neurological: Negative for dizziness, weakness, light- headedness and headaches.Psychiatric/Behavioral: Negati ve for agitation. The patient is notnervous/anxious.All other systems rev iewed and are negative.Vitals: 10/05/19 1539BP: 123/82Pulse: 83Resp: 18Temp: 98. 9 F (37.2 C)SpO2: 96%Weight: 77.6 kg (171 lb)Height: 6' 2" (1.88 m)Physical ExamCo nstitutional: General: He is not in acute distress. Appearance: He is well-devel oped. He is not ill-appearing, toxic-appearing ordiaphoretic.HENT: He ad: Normocephalic. Right Ear: Tympanic membrane, ear canal and external ear nor mal. No decreasedhearing noted. No drainage, swelling or tenderness. No middle ear ef fusion.There is no impacted cerumen. No mastoid tenderness. No hemotympanum. Tym panicmembrane is not perforated, erythematous or bulging. Left Ear: Tympanic membran e and ear canal normal. No decreased hearing noted.No drainage. No middle ear effusi on. There is no impacted cerumen. No mastoidtenderness. No hemotympanum. Tymp anic membrane is not perforated, erythematousor bulging. Ears: Nose: Nose normal. No congestion or rhinorrhea. Mouth/Throat: Mouth: Mucous membranes are moist.Eyes: General: No scleral icterus. Right eye: No discharge. Le ft eye: No discharge. Extraocular Movements: Extraocular movements intact. Conjunctiva/sclera: Conjunctivae normal. Pupils: Pupils are equal, round, and davidson ctive to light.Neck: Musculoskeletal: Normal range of motion. No neck rigidity or musculartenderness. Thyroid: No thyromegaly. Vascular: No JVD. Trach ea: No tracheal deviation.Cardiovascular: Rate and Rhythm: Normal rate and regular rhythm. Heart sounds: Normal heart sounds. No murmur. No friction rub. No gallop.Pu lmonary: Effort: Pulmonary effort is normal. No respiratory distress. Breat h sounds: No stridor. No wheezing, rhonchi or rales.Chest: Chest wall: No tenderness .Abdominal: General: Bowel sounds are normal. There is no distension. Palpat ions: Abdomen is soft. There is no mass. Tenderness: There is no abdominal tender ness. There is no right CVAtenderness, left CVA tenderness, guarding or rebound. H ernia: No hernia is present.Musculoskeletal: Right shoulder: He exhibits normal rang e of motion, no tenderness, no bonytenderness, no swelling, no effusion , no crepitus, no deformity, no laceration,no pain, no spasm, normal pulse and normal strength. Left shoulder: He exhibits decreased range of motion, tenderness (+ TTPanterior left shoulder muscles), bony tenderness (+TTP left AC joint) and pain (+left shoulder pain elicited with abduction). He exhibits no swelling, naif ffusion, no crepitus, no deformity, no laceration, no spasm, normal pulse andno rmal strength.Lymphadenopathy: Cervical: No cervical adenopathy.Skin: General: Ski n is warm. Capillary Refill: Capillary refill takes less than 2 seconds. Ostrander ration: Skin is not jaundiced or pale. Findings: No bruising, erythema, lesion or rash.Neurological: General: No focal deficit present. Mental Status: He is alert and oriented to person, place, and time. Cranial Nerves: No cranial nerve deficit. Sensory: No sensory deficit. Motor: No weakness or abnormal muscle to ne. Coordination: Coordination normal. Gait: Gait normal. Deep Tendon Reflexe s: Reflexes normal.Psychiatric: Mood and Affect: Mood normal. Behavior: Behavio r normal.MDMResults for orders placed or performed during the hospital encounter of 10/05/19CBC WITH AUTOMATED DIFFResult Value Ref Range WBC 10.0 4.8 - 10.6 K/uL RBC 4.93 4.70 - 6.00 M/uL HGB 14.2 14.0 - 18.0 g/dL HCT 43.1 42.0 - 52.0 % MCV 87. 4 81.0 - 94.0 FL MCH 28.8 27.0 - 35.0 PG MCHC 32.9 30.7 - 37.3 g/dL RDW 12.9 11.5 - 14 .0 % PLATELET 339 130 - 400 K/uL MPV 10.1 9.2 - 11.8 FL NRBC 0.0 0 PER 100 WBC ABSOLUT E NRBC 0.00 0.0 - 0.01 K/uL NEUTROPHILS 78 (H) 48.0 - 72.0 % LYMPHOCYTES 14 (L) 18. 0 - 40.0 % MONOCYTES 7 2.0 - 12.0 % EOSINOPHILS 1 0.0 - 7.0 % BASOPHILS 0 0. 0 - 3.0 % IMMATURE GRANULOCYTES 0 0.0 - 0.5 % ABS. NEUTROPHILS 7.8 (H) 2.3 - 7.6 K/UL ABS. LYMPHOCYTES 1.4 0.9 - 4.2 K/UL ABS. MONOCYTES 0.7 0.1 - 1.7 K/UL ABS. EOSINO PHILS 0.1 0.0 - 1.0 K/UL ABS. BASOPHILS 0.0 0.0 - 0.4 K/UL ABS. IMM. GRANS. 0.0 0.0 - 0.17 K/UL DF AUTOMATEDMETABOLIC PANEL, COMPREHENSIVEResult Value Ref Range Sodi um 137 136 - 145 mmol/L Potassium 4.0 3.5 - 5.1 mmol/L Chloride 103 98 - 107 mmol/L CO2 29 21 - 32 mmol/L Anion gap 5 4 - 12 mmol/L Glucose 90 74 - 106 mg/dL BUN 14 7 - 18 mg/dL Creatinine 1.14 0.70 - 1.30 mg/dL GFR est AA >60 >60 ml/min/1.73m2 G FR est non-AA >60 >60 ml/min/1.73m2 Calcium 8.3 (L) 8.5 - 10.1 mg/dL Bilirubin, tota l 0.7 0.2 - 1.0 mg/dL ALT (SGPT) 52 12 - 78 U/L AST (SGOT) 109 (H) 15 - 37 U/L Alk. phosphatase 70 46 - 116 U/L Protein, total 7.3 6.4 - 8.2 g/dL Albumin 3.7 3.4 - 5.0 g/dL Globulin 3.6 2.8 - 3.9 g/dL A-G Ratio 1.0 1.0 - 1.5DRUG SCREEN, URINEResult Va lue Ref Range AMPHETAMINES NEGATIVE NEG Methamphetamines NEGATIVE NEG BARBITURA NIYA NEGATIVE NEG BENZODIAZEPINES NEGATIVE NEG COCAINE Presumptive Positive (A) NEG METHADONE NEGATIVE NEG OPIATES Presumptive Positive (A) NEG PCP(PHENCYCLIDINE) BACK UP METHOD USED. DRUG NOT INCLUDED ON PANELS. (A) NEG THC (TH-CANNABINOL) NEGATIVE NE G TRICYCLICS NEGATIVE NEG DRUG SCREEN COMMENT URINEETHYL ALCOHOLResult Value R ef Range ETHYL ALCOHOL, SERUM <5.0 <5 MG/DLURINALYSIS W/ RFLX MICROSCOPICResul t Value Ref Range Color MICHAEL Appearance CLEAR Specific gravity >1.030 pH (UA) 6. 0 Protein NEGATIVE mg/dL Glucose NEGATIVE mg/dL Ketone 40 mg/dL Blood NEGATIVE Uro bilinogen 1.0 EU/dL Nitrites NEGATIVE Leukocyte Esterase NEGATIVEBILIRUBIN, CO NFIRMResult Value Ref Range Bilirubin UA, confirm NEGATIVE NEGURINE MICROSCOPICRe sult Value Ref Range WBC 0-3 /hpf RBC NONE NONE /hpf Epithelial cells NONE /hpf Idalmis teria NONE NONE /hpf Casts NONE NONE /lpf Mucus 1+ (A) NONE /lpf Amorphous Crystal s MODERATEProcedures<EMERGENCY DEPARTMENT CASE SUMMARY>Impression/Differential Salena gnosis: 29 y/o male presents with father requestingdetox from heroin. Pt reports of left shoulder pain s/p fall yesterday andinfected pierced left ear. Pt states last time used heroin was 3 hours ago anddenies drug withdrawal symptoms, SI/H I or any other acute medical issues at thistimePlan: detox labs and left should er XR ordered for further evalED Course: detox labs and left shoulder XR result r eviewed and discussed with ptin detail. Apply warm compresses to the left ear infectio n, Apply ice 20 minuteson and 20 minutes off to affected area 3 times a day for the f irst 48 hours.Rest and elevate the affected painful area. Referred to ortho. advised patientto follow the instructions of the social media specialist for an outpatienttreatment /resources. Follow up with PCP. Return to Ed if develop any withdrawalsymptomsFinal I mpression/Diagnosis: infected left ear pierced. Heroin dependence. Leftshoulder cpainPatient condition at time of disposition: Stable, d/c homeI have revi ewed the following home medications:Prior to Admission medicationsNot on VIJAY De Dios was personally available for consultation in the emergency department . I havereviewed the chart and agree with the documentation recorded by the MLP,in cluding the assessment, treatment plan, and disposition.Murray De León MD Name Value Range Interpretation Code Description Data [facility](s) Supporting Document(s ) ID Date Data Source [id number] 10/07/2019 06:48:46 AM [facility] Report to day staff using SBA Name Value Range Interpretation Code Description Data [facility](s) Supporting Document(s ) ID Date Data Source [id number] 10/07/2019 05:51:26 AM [facility] Patient able to sleep til 0540, out of bed, assessed, COW score 5, patientmedicated with methadone 5 mg and flexeril 10 mg. Patient complained of hunger,had 3 cereals and milk, tolerated, returned to bed. Name Value Range Interpretation Code Description Data [facility](s) Supporting Document(s ) ID Date Data Source [id number] 10/07/2019 12:54:14 AM [facility] Patient awaken fo r vital signs food and fluid at 2240hrs Patient vital signswithin normal limits Patient offering no compla ints other than general achiness.Administered flexeril and vistaril to promote comfort and rest Name Value Range Interpretation Code Description Data [facility](s) Supporting Document(s ) ID Date Data Source [id number] 10/06/2019 07:03:51 PM [facility] Pt cooperative and quiet. Pt remained in room most of the day. Pt took allscheduled meds and was evaluated for COW. Name Value Range Interpretation Code Description Data Tashia rce(s) Supporting Document(s ) ID Date Data Source [id number] 10/06/2019 03:15:14 PM [facility] social sciences chair NotePatient: Rikki barry Age: 29 y.o. : 1990EX: male CSN: [id number] from ED. Oriented to Unit.Substance Abused: HeroinLast Used: yesterdayLevel of C onsciousness: oriented to time, place, person and situationAllergies: No Known AllergiesMed Compliance: N/ACurrent Meds:Current Facility-Administered Medic ationsMedication Dose Route Frequency mupirocin (BACTROBAN) 2 % ointment Top ical DAILY cephALEXin (KEFLEX) capsule 500 mg 500 mg Oral QID methadone (DOLOPHIN E) tablet 5 mg 5 mg Oral Q4H PRN methadone (DOLOPHINE) tablet 10 mg 10 mg Oral Q4H PRN tuberculin injection 5 Units 5 Units IntraDERMal ONCE hydroxyzine HCL (ARIC X) tablet 50 mg 50 mg Oral Q4H PRN prochlorperazine (COMPAZINE) tablet 10 m g 10 mg Oral Q6H PRN trimethobenzamide (TIGAN) injection 200 mg 200 mg IntraMU SCular Q6H PRN cloNIDine HCL (CATAPRES) tablet 0.1 mg 0.1 mg Oral Q4H PRN andrei ramide (IMODIUM) capsule 4 mg 4 mg Oral ONCE loperamide (IMODIUM) capsule 2 mg 2 mg Oral Q3H PRN acetaminophen (TYLENOL) tablet 650 mg 650 mg Oral Q4H PRN ibuprofen ( MOTRIN) tablet 600 mg 600 mg Oral Q6H PRN dicyclomine (BENTYL) capsule 20 mg 20 m g Oral Q8H PRN alum-mag hydroxide-simeth (MYLANTA) oral suspension 30 mL 30 mL O ral Q4H PRN cyclobenzaprine (FLEXERIL) tablet 10 mg 10 mg Oral TID PRN multiv itamin (ONE A DAY) tablet 1 Tab 1 Tab Oral DAILY thiamine mononitrate (B-1) tablet 100 mg 100 mg Oral DAILY magnesium hydroxide (MILK OF MAGNESIA) 400 mg/5 mL oral suspension 30 mL 30mL Oral QHS PRN bisacodyL (DULCOLAX) tablet 5 mg 5 mg O ral DAILY PRNMedical History:Past Medical History:Diagnosis Date Heroin abuse (HC C)Last PPD test: unkHave you had an STD in the past? NoWould you like to be tested for an STD while here? NoWritten By:Selina Gunn RN 10/06/2019 3:13 PM Name Value Range Interpretation Code Description Data Tashia rce(s) Supporting Document(s ) ID Date Data Source [id number] 10/06/2019 12:07:18 PM [facility] Comprehensive Assessment Form Part 1Sect ion I - DispositionThe on-call Psychiatrist consulted was KENNETH MarquezThe admit ting Diagnosis is Opioid Dependence with withdrawal F11.23Parent/Guardian Name: e Payor source isPayor/Plan Subscr Sex Relation Sub. Ins. ID Effective Group Nu m1. [facility] RIKKI MENDOZA 1990 Male Self [id number] 05/05/19 [place] [id number] II - Integrated SummarySUM PRIMO:Summary: The patient is a 29 y.o. year old male [facility] y Department via walking and referred by Self.The information is given by the pat ient and past medical records.The Chief Complaint is Opioid Dependence.The Preci pitant Factors are Unable to control usagePrevious Hospitalizations: [facility] Det[facility]/rehab May 2019The patient has not previously been in restraints.Usha peguero Psychiatrist and/or Private Branch Exchange Operator is None.SW Screener Note:SW/Screener met with the p atient at the request of the ED Doctor. Patientpresented to the ED requesting de tox from heroin. Patient was alert and orientedx3. Patient came to the ED yeste rday and did not meet the criteria. Patientreports that his father dropped h im off here yesterday and went back to [facility].Patient reports staying at the [email or web address] station last night and came back here inthe am. Patient reports snorting 2-3 b ags of heroin daily for at least 1-year.Patient reports last using yester day morning, 1 bag. Patient reports history ofsubstance abuse treatment with last de tox in May 2019 at [facility]. Patient reports completing the program and relapsing. Patient alsoreports using xanax once in a while, last used 2 mg a couple of days ago.Patient reports drinking beer, but able to manage his dr inking. Patient smokesmarijuana every other day about 1 blunt. Patient reports using crack/cocaine forthe first time 2-weeks ago and smoked about $100.Patient reports dey ving a two seizures after overdosing on heroin last year.Patient denies history of mental health treatment. Patient denies history ofsuicidal ideation and/or attem pts. Patient denies being under the care of apsychiatrist and/or therapist. Patient reports being depressed, denies suicidalideation, homicidal ideation, au ditory/visual hallucinations.Patient reports living with his mother, has a 4-years ol d daughter, denies anyCPS and/or legal involvement.Much support offeredSW/Nakul pate will review the case with the psychiatrist for disposition Vitals: 0650BP: 137/89Pulse: 87Resp: 18Temp: 98.9 F (37.2 C)SpO2: 98%Weight: 77.6 k g (171 lb)Height: 6' 2" (1.88 m)Urine Toxicology = (+) Opiates, THC, CocaineDi sposition/Update:SW/Screener reviewed the case with the INFORMATION RESOURCE CONSULTANT. Per INFORMATION RESOURCE CONSULTANT Wade Marquez, admit to [facility]. Consents obtained and placed on chart with locadtr.Lethali ty Assessment:The potential for suicide noted by the following: current substance abus e . Thepotential for homicide is not noted. The patient has not reported access tow eapons.The patient has not been a perpetrator of sexual or physical abuse.The patient is not felt to be at risk for self harm or harm to others.Section III - Psychosocia lPatient presents with depression and substance abuse. Onset of symptoms wasgr adual. Patient states symptoms have been exacerbated by chemical dependency.The p atient's appearance is tense. The patient's behavior is restless. Thepatient is orie nted to time, place, person and situation. Feelings ofhelplessness and hopelessness are not observed. The patient's appetite showsno evidence of impairment.Sleep Pat ternSleep Pattern: Disturbed/Interrupted sleepUsual # of Hours of Sleep/Night: (1 0)Current # of Hours of Sleep/Night: (5)The patient speaks Turkish as a primary lang uage. The patient has nocommunication impairments affecting communication. The highest grade achieved isBachelors Degree with the overall quality of school exper ience being describedas fair.The patient's preference for learning can be described as: can read and writeadequately. The patient's hearing is normal. The patien t's vision is normal.The patient is single. The patient lives with a parent. The guille petty return home upon discharge.The patient's source of income comes from family. The patient is currentlyunemployed.The [facility]'s [facility] support comes from family and this person will beinvolved with the treatment.The p atient has not been in an event described as horrible or outside the realmof ordinary life experience either currently or in the past.The patient has not been a victim o f sexual/physical abuse.Legal status is none. The patient does not have legal issues pending.Section IV - Substance AbuseThe patient does has a substance abuse probl em. The patient does not havecurrent substance abuse treatment providers.Alco holAge First Got High: (17) (10/06/19821)Frequency of Use: 1-3 times in the last month (10/06/19821)Average Amount Used: (4 beers) (10/06/19821)How Long Using at Current Pattern: (years) (10/06/19821)Date of Last Use: 10/01/19 (821)Amount of Last Use: (2 beers) (10/06/19821)Are You Able to Stop on Y our Own: No (10/06/19821)Symptoms: Binge use (10/06/19821)TobaccoAge First Used : (23) (10/06/19821)Current Amount Used (# of packs/day): (5 cigarettes/day) (10/05)Date of Last Use: 10/05/19 (10/06/19821)Are You Able to Stop on Your Own: Y es (10/06/19821)Benzodiazepines/BarbituratesAge Fir st Got High: (25) (10/06/19821)Pattern of Use in Past Year: (2 mg 1x/month - xanax ) (10/06/19821)Frequency of Use: 1-3 times in the last month (10/06/19821)Average Amount Used: (2 mg of xanax) (10/06/19821)How Long Using at Current Pattern: (since onset) (10/06/19821)Date of Last Use: 09/15/19 (10/06/19821)Amount of L ast Use: (2 mg of xanax) (10/06/19821)Are you able to stop on your own: Yes (10/05)Symptoms: Anxiety (10/06/19821)MarijuanaAge First Got High: (16) ( 10/06/19821)Pattern of Use in Past Year: (1 blunt every other week) (10/06/19821)F requency of Use: 1-3 times in the last month (10/06/19821)Average Amount Used: (a b madeline) (10/06/19821)How Long Using at Current Pattern: (since onset) (10/06/19821)Date of Last Use: 10/05/19 (10/06/19821)Amount of Last Use: (1 bowl) (10/05)Are you able to stop on your own: Yes (10/06/19821)Symptoms: Anxiety (821)Cocaine/CrackAge First Got High: (29) (10/06/19821)Pattern of Use in Pa st Year: (1x usage - crack) (10/06/19821)Frequency of Use: 1-3 times in the last month (10/06/19821)Average Amount Used: ($100 wroth of crack) (10/06/1903 26)How Long Using at Current Pattern: (1x use) (10/06/19821)Date of Last Use: (10/06/19821)Amount of Last Use: ($100 worth) (10/06/19821)Are you able to stop on your own: Yes (10/06/19821)Symptoms: Binge use (10/06/19821) HeroinAge First Got High: (26) (10/06/19821)Pattern of Use in Past Year: (2-3 b ags/day/nasal) (10/06/19821)Frequency of Use: Daily (10/06/19821)Average Amount Used: (2-3 bags/nasal) (10/06/19821)How Long Using at Current Pattern: (1-year) (10/06/19821)Date of Last Use: 10/05/19 (10/06/19821)Amount of Last Use: (1 ba g) (10/06/19821)Are you able to stop on your own: No (10/06/19821)Symptoms: Co ntinuous use 30 days;Increased tolerance;Tremors;Unable tolimit/control (10/06/19821)Section V - Mental Status ExamAttitude and BehaviorGeneral Attitud e: CooperativeAffect: FlatMood: DepressedInsight: FairJudgement: IntactM joanne : IntactThought Content: Blaming selfHallucinations: NoneDelusions: NoneC oncentration: FairSpeech Pattern: SlowThought Process: UnremarkableMotor Activity: Res tlessness, TremorsBeverly A Dc Name Value Range Interpretation Code Description Data Tashia rce(s) Supporting Document(s ) ID Date Data Source 36N*ENCOUNTER [id number] 10/06/2019 10:11:53 AM EST BS [facility] BS 4 BEH AV HLTH DETOX [address] [facility] [address] [id number]/10/22 [place] mackeyRikki (Male) [id number] CARSON 3 ED Dispo:ADMIT Chief Complaint: Drug Problem Diagnosis: Substance abuse (HCC) [] Opiate withdrawal (HCC) [] Current Providers: Attending: Hi Doll; Santi Askew Primary Karis se: Elysia CCSN: [id number] [employer] [id number] - [facility] Ed Medva MrnMR N: [id number] Print [employer] [id number] - [facility] Ed Medva Age SexDOB 1990 AGE 29 SEX Male Primary Care Provider: Michael, Not On FileAllergies: (No Known Allergies)Date Reviewed: 10/06/2019Reviewed by: Anastasiia Sood, RN - Review CompleteED Provider Notes: All no tesHNO ID: [id number]: Romario Doll MDService: EMERGENCYAuthor Type: Physici anFiled: 10/06/19 0823Note Text:This pt is bib self co wanting help with his heroin addiction. Patient wasseen yesterday and had labs and was released and co left ear top of pinnainfection an d left shoulder pain and both are improving. Pt denies si orhi and has been tested per pt neg for hiv and hep c in past. Pt deniesfevers or chillsPt last used yesterday amThe history is provided by the patient and medical records.Drug ProblemThere areno seizures and no self-injury presen t at this time. This is arecurrent problem. Suspected agents include heroin. Pertinent negativ esinclude no fever. Associated medical issues do not include mental illnessand suicidal ideas .Past Medical History:Diagnosis Date Heroin abuse (HCC)History reviewed. No pertinent surg ical history.History reviewed. No pertinent family history.Social HistorySocioeconomic Hist ory Marital status: SINGLE Spouse name: Not on file Number of children: Not on file Years o f education: Not on file Highest education level: Not on fileOccupational History Not on fileSoc ial Needs Financial resource strain: Not on file Food insecurity: Worry: Not on file Inabili ty: Not on file Transportation needs: Medical: Not on file Non-medical: Not on fileTobacco Us e Smoking status: Light Tobacco Smoker Packs/day: 0.25 Smokeless tobacco: Never UsedSubstance a nd Sexual Activity Alcohol use: Yes Comment: occassionally Drug use: Yes Types: Her oin, Marijuana, Cocaine, Benzodiazepines Comment: daily heroin user Sexual activity: YesLifesty le Physical activity: Days per week: Not on file Minutes per session: Not on file Stress : Not on fileRelationships Social connections: Talks on phone: Not on file Gets together: Not o n file Attends jainism service: Not on file Active member of club or organization: Not on f ile Attends meetings of clubs or organizations: Not on file Relationship status: Not on file Intimate partner violence: Fear of current or ex partner: Not on file Emotionally abused : Not on file Physically abused: Not on file Forced sexual activity: Not on fileOther Topics Concern Not on fileSocial History Narrative Not on fileALLERGIES: Patient has no known ester rgies.Review of SystemsConstitutional: Negative for chills and fever.HENT: Negative for palmer estion and rhinorrhea.Eyes: Negative for pain and visual disturbance.Respiratory: Negative for co ugh and shortness of breath.Cardiovascular: Negative for chest pain and palpitations.Gastrointest inal: Negative for abdominal pain and blood in stool.Genitourinary: Negative for diffic ulty urinating, dysuria and frequency.Musculoskeletal: Negative for back pain and myalgias.Skin : Negative for color change and rash.Neurological: Negative for seizures and headaches.Psyc hiatric/Behavioral: Negative for dysphoric mood, self-injury andsuicidal ideas.Vitals: 0650BP: 137/89Pulse: 87Resp: 18Temp: 98.9 F (37.2 C)SpO2: 98%Weight: 77.6 kg (171 lb)Heig ht: 6' 2" (1.88 m)Physical ExamVitals signs and nursing note reviewed.Constitutional: General: He is not in acute distress. Appearance: He is well-developed. He is not diaphoretic.HE NT: Head: Normocephalic and atraumatic. Comments: Left top of ear, posterior pinna sl swel ling sl red nodrainage, minimally tenderEyes: General: No scleral icterus. Conjunctiva/sclera : Conjunctivae normal. Pupils: Pupils are equal, round, and reactive to light.Neck: Musculoske letal: Normal range of motion and neck supple. Trachea: No tracheal deviation.Cardiovascular: Rate and Rhythm: Normal rate and regular rhythm. Heart sounds: No murmur.Pulmonary: Effort: P ulmonary effort is normal. Breath sounds: Normal breath sounds.Abdominal: General: Bowel sound s are normal. Palpations: Abdomen is soft. Tenderness: There is no abdominal tender ness.Musculoskeletal: Normal range of motion. General: Tenderness (left shoulder sl tender to p alpation ) present.Skin: General: Skin is warm and dry. Findings: No rash.Neurological: Ment al Status: He is alert and oriented to person, place, and time.Psychiatric: Behavior: Behavior n ormal.MDMProcedures<EMERGENCY DEPARTMENT CASE SUMMARY>Impression/Differential Diagnosi s: ear lobe infection, left shoulder pain,opiate addictionPlan: Based on my initial histo ry, physical examination, this patient'spast history and risk factors, we will obtain diagnostics and based onthese and response to therapy will make a decision with best judgement toadmit, tr ansfer or discharge this patient with close follow up. Myinitial plan is likely to have sw see pt and determine dispoED Course:7:07 AMAwait uds and swRecent Results (from the past 24 hour( s))CBC WITH AUTOMATED DIFF Collection Time: 10/05/19 4:05 PMResult Value Ref Range WBC 10.0 4 .8 - 10.6 K/uL RBC 4.93 4.70 - 6.00 M/uL HGB 14.2 14.0 - 18.0 g/dL HCT 43.1 42.0 - 52.0 % MCV 87. 4 81.0 - 94.0 FL MCH 28.8 27.0 - 35.0 PG MCHC 32.9 30.7 - 37.3 g/dL RDW 12.9 11.5 - 14.0 % PLATELE T 339 130 - 400 K/uL MPV 10.1 9.2 - 11.8 FL NRBC 0.0 0 PER 100 WBC ABSOLUTE NRBC 0.00 0.0 - 0.0 1 K/uL NEUTROPHILS 78 (H) 48.0 - 72.0 % LYMPHOCYTES 14 (L) 18.0 - 40.0 % MONOCYTES 7 2.0 - 12.0 % EOSINOPHILS 1 0.0 - 7.0 % BASOPHILS 0 0.0 - 3.0 % IMMATURE GRANULOCYTES 0 0.0 - 0.5 % ABS. NEUTROPHILS 7.8 (H) 2.3 - 7.6 K/UL ABS. LYMPHOCYTES 1.4 0.9 - 4.2 K/UL ABS. MONOCYTES 0.7 0.1 - 1.7 K/UL ABS. EOSINOPHILS 0.1 0.0 - 1.0 K/UL ABS. BASOPHILS 0.0 0.0 - 0.4 K/UL ABS. IMM. G RANS. 0.0 0.0 - 0.17 K/UL DF AUTOMATEDMETABOLIC PANEL, COMPREHENSIVE Collection Time: 10/05/19 4:05 PMResult Value Ref Range Sodium 137 136 - 145 mmol/L Potassium 4.0 3.5 - 5.1 mmol/L Ch loride 103 98 - 107 mmol/L CO2 29 21 - 32 mmol/L Anion gap 5 4 - 12 mmol/L Glucose 90 74 - 106 mg/dL BUN 14 7 - 18 mg/dL Creatinine 1.14 0.70 - 1.30 mg/dL GFR est AA >60 >60 ml/min/1.73m2 G FR est non-AA >60 >60 ml/min/1.73m2 Calcium 8.3 (L) 8.5 - 10.1 mg/dL Bilirubin, total 0.7 0.2 - 1. 0 mg/dL ALT (SGPT) 52 12 - 78 U/L AST (SGOT) 109 (H) 15 - 37 U/L Alk. phosphatase 70 46 - 116 U/L Protein, total 7.3 6.4 - 8.2 g/dL Albumin 3.7 3.4 - 5.0 g/dL Globulin 3.6 2.8 - 3.9 g/dL A-G Rat io 1.0 1.0 - 1.5ETHYL ALCOHOL Collection Time: 10/05/19 4:05 PMResult Value Ref Range ETHYL ALCO HOL, SERUM <5.0 <5 MG/DLDRUG SCREEN, URINE Collection Time: 10/05/19 4:10 PMResult Value Ref Range AMPHETAMINES NEGATIVE NEG Methamphetamines NEGATIVE NEG BARBITURATES NEGATIVE NEG BENZODIAZEPINES NEGATIVE NEG COCAINE Presumptive Positive (A) NEG METHADONE NEGATIVE NEG OPIATES Presumptive Positive (A) NEG PCP(PHENCYCLIDINE) BACKUP METHOD USED. DRUG NOT INCLUDED ON PANELS. (A)NEG THC (TH-CANNABINOL) NEGATIVE NEG TRICYCLICS NEGATIVE NEG DRUG SCREEN COM MENT URINEURINALYSIS W/ RFLX MICROSCOPIC Collection Time: 10/05/19 4:10 PMResult Value Ref Range Color MICHAEL Appearance CLEAR Specific gravity >1.030 pH (UA) 6.0 Protein NEGATIVE mg/dL Glucose NEGATIVE mg/dL Ketone 40 mg/dL Blood NEGATIVE Urobilinogen 1.0 EU/dL Nitrites NEGATIVE Leukocyte Esterase NEGATIVEBILIRUBIN, CONFIRM Collection Time: 10/05/19 4:10 PMResult Value Ref Range Bilirubin UA, confirm NEGATIVE NEGURINE MICROSCOPIC Collection Time: 10/05/19 4 :10 PMResult Value Ref Range WBC 0-3 /hpf RBC NONE NONE /hpf Epithelial cells NONE /hpf Bacteria NONE NONE /hpf Casts NONE NONE /lpf Mucus 1+ (A) NONE /lpf Amorphous Crystals MODERATEDRUG SCR EEN, URINE Collection Time: 10/06/19 7:05 AMResult Value Ref Range AMPHETAMINES NEGATIVE NEG Met hamphetamines NEGATIVE NEG BARBITURATES NEGATIVE NEG BENZODIAZEPINES NEGATIVE NEG COCAINE Pr esumptive Positive (A) NEG METHADONE NEGATIVE NEG OPIATES Presumptive Positive (A) NEG PCP (PHENCYCLIDINE) BACKUP METHOD USED. DRUG NOT INCLUDED ON PANELS. (A)NEG THC (TH-CANNABINOL) Presu mptive Positive (A) NEG TRICYCLICS NEGATIVE NEG DRUG SCREEN COMMENT URINEURINALYSIS W/ RFLX M ICROSCOPIC Collection Time: 10/06/19 7:05 AMResult Value Ref Range Color YELLOW Appearance CLEAR Specific gravity 1.025 pH (UA) 7.0 Protein NEGATIVE mg/dL Glucose NEGATIVE mg/dL Ketone NEG ATIVE mg/dL Bilirubin NEGATIVE Blood NEGATIVE Urobilinogen 2.0 EU/dL Nitrites NEGATIVE Leukocyte Esterase NEGATIVESeen by chase Ocasio Impression/Diagnosis: opiate addictionPa tient condition at time of disposition: stableI have reviewed the following home medications: Prior to Admission medicationsMedication Sig Start Date End Date Taking? Authorizing Provideribu profen (MOTRIN) 600 mg tablet Take 1 Tab by mouth every six (6) hoursas needed for Pain. 10/05/19 Yes Kuldeep Whittaker, PAacetaminophen (TYLENOL) 325 mg tablet Take 2 Tabs by mouth every fou r (4)hours as needed for Pain. 10/05/19 Yes Kuldeep Whittaker, PAcephALEXin (KEFLEX) 500 mg capsule Take 1 Cap by mouth four (4) timesdaily for 7 days. 10/05/19 10/12/19 Yes Zack Whittaker PACraig Van Roekens, MDED Orders CON53 IP CONSULT TO PSYCHIATRY [#[id number]] Priority: STAT Class: Hospital Performed Standing Order Information Remainin g Occurrences:0 Interval:ONE TIME Last released:10/06/2019 Released orders : SatOct 06, 2019 6:59 AM by: ROMARIO DOLL Reason for Consult: -> heroin addcition Did you call or speak to the consulting provider? -> No Consult To -> sw Schedule When? -> TODAY CON53 IP CONSULT TO PSYCHIATRY [#[id number]] Priority: STAT Class: Hospital Performed Reason for Consult: -> heroin addcition Did yo u call or speak to the consulting provider? -> No Consult To -> sw Schedule When? -> TODAY Released on: 10/06/2019 6:59 AM [id number] DRUG SCREEN, URINE [#[id number]] Priority: STAT Class: ER Collect Standing Order Information Remaining Occurre nces:0/1 Interval:ONE TIME Last released:10/06/2019 Released orders : SatOct 06, 2019 6:59 AM by: ROMARIO DOLL [id number] URINALYSIS W/ RFLX MICRO SCOPIC [#[id number]] Priority: STAT Class: Lab Collect Standing Order Information Remaining Occurrences:0/1 Interval:ONE TIME Last released:10/06/2019 Relea sed orders: SatOct 06, 2019 6:59 AM by: ROMARIO DOLL [id number] DRUG SCREEN, UR INE [#[id number]] Priority: STAT Class: ER Collect Specimen Source: Urin e, random Specimen Collected: 10/06/2019 7:05 AM Resulting Agency: [facility] Test ID: [id number] Released on: 10/06/2019 6:59 AM [id number] URINALYSIS W/ RFLX MICROSCOPIC [#[id number]] Priority: STAT Class: Lab Collect Specimen Sourc e: Urine Specimen Collected: 10/06/2019 7:05 AM Resulting Agency: [facility] Test ID: [id number] Released on: 10/06/2019 6:59 AM TRIMETHOPR IM-SULFAMETHOXAZOLE 160 MG* [#[id number]] Priority: STAT Class: Normal Antibiotic Cassi cations -> Skin and Soft Tissue Infection MUPIROCIN 2 % OINTMENT [# [id number]] Priority: STAT Class: Normal ONDANSETRON 4 MG TAB, RAPID DISSOLVE [# [id number]] Priority: STAT Class: Normal ondansetron (ZOFRAN ODT) 4 mg tablet [# [id number]] Priority: None CEPHALEXIN 500 MG CAP [#[id number]] Prio rity: None Class: Normal Antibiotic Indications -> Skin and Soft Tissue Infection Skin duration of therapy -> 5 days METHADONE 10 MG TAB [#[id number]] Pr iority: None Class: Normal METHADONE 10 MG TAB [#[id number]] Priori ty: None Class: Normal TUBERCULIN PPD 5 UNIT/0.1 ML INTRADE* [#[id number]] Flor ority: None Class: Normal HYDROXYZINE 50 MG TAB [#[id number]] Prio rity: None Class: Normal PROCHLORPERAZINE MALEATE 5 MG TAB [#[id number]] Flor ority: None Class: Normal TRIMETHOBENZAMIDE 100 MG/ML IM [#[id number]] Prio rity: None Class: Normal CLONIDINE 0.1 MG TAB [#[id number]] Priority : None Class: Normal LOPERAMIDE 2 MG CAP [#[id number]] Priority: No ne Class: Normal LOPERAMIDE 2 MG CAP [#[id number]] Priority: None Class: Normal ACETAMINOPHEN 325 MG TABLET [#[id number]] Priority: None Clas s: Normal IBUPROFEN 600 MG TAB [#[id number]] Priority: None Class: N ormal DICYCLOMINE 10 MG CAP [#[id number]] Priority: None Class: N ormal ALUM-MAG HYDROXIDE- SIMETH 200 MG-200* [#[id number]] Priority: None Class: N ormal CYCLOBENZAPRINE 10 MG TAB [#[id number]] Priority: None Class: N ormal MULTIVITAMIN TAB [#[id number]] Priority: None Class: N ormal THIAMINE MONONITRATE 100 MG TABLET [#[id number]] Priority: None Class: N ormal MAGNESIUM HYDROXIDE 400 MG/5 ML ORAL* [#[id number]] Priority: None Class: N ormal BISACODYL 5 MG TAB, DELAYED RELEASE [#[id number]] Priority: None Class: N ormal [id number] DIET REGULAR [#[id number]] Priority: STAT Class: H ospital Performed Standing Order Information Remaining Occurrences:0/1 Inter sabina:DIET EFFECTIVE NOW Last released:10/06/2019 Released orders: SatOct 05 0 7:00 AM by: ROMARIO DOLL [id number] DIET REGULAR [#[id number]] Priority: STAT Class: Hospital Performed Released on: 10/06/2019 7:00 AM [id number] DIET REGULAR [#[id number]] Priority: STAT Class: Hospital Performe d Standing Order Information Remaining Occurrences:N/A-not released Interval :DIET EFFECTIVE NOW Comment:Encourage fluids [id number] EKG NOTEWRITER(ALF ONLY) [# [id number]] Canceled Priority: STAT Class: Clinic Performed Canceled by ROMARIO DOLL on SatOct 06, 2019 8:23 AM Reason: None Comment: Standing Order Information Remaining Occurrences:0/1 Last released:10/06/2019 Released orders : SatOct 06, 2019 8:23 AM by: ROMARIO DOLL Comment:This order was created via procedure documentation [id number] EKG [#[id number]] Canceled Priority: STAT Class: Clinic Performed Canceled by ROMARIO DOLL on Sat 8:23 AM Reason: None Comment: Comment:This order was created via proce dure documentation Released on: 10/06/2019 8:23 AM [id number] VITAL SIGNS PER UNIT ROUTINE [#[id number]] Priority: STAT Class: Hospital Performed Standing Order Information Remaining Occurrences:N/A-not released Interval:CONTINUOUS [id number] UP AD WILLIAM [#[id number]] Priority: STAT Class: Hospital Performed Stand ing Order Information Remaining Occurrences:N/A-not released Interval:CONTINUOUS [id number] NOTIFY PROVIDER: VITAL SIGNS CHANGES [#[id number]] Priority: STAT Class: Hospital Performe d Standing Order Information Remaining Occurrences:N/A-not released Interval :CONTINUOUS COD2 FULL CODE [#[id number]] Priority: Routine Cla ss: Hospital Performed Standing Order Information Remaining Occurrences:N/A-not released Interval:CONTINUOUS [id number] INITIAL PHYSICIAN ORDER: INPATIENT [#[id number]] Priority: R outine Class: ADT Pend Transfer Cosign required by LIONEL ASKEW[[id number]] Standing Or yovany Information Remaining Occurrences:0/ Interval:ONE TIME Last released:0 10/06/2019 Released orders: Tue Oct 06, 2019 9:40 AM by: WM MARQUEZs: -> IP REHABILITATION Inpatient Hospitalization Certified Necessary for the Following Re asons -> 3- . P- a- t- i- e- n- t r- e- c- e- i- v- i- n- g t- r- e- a- t- m- e- n- t t- h- a- t c- a- n o- n- l- y b- e p- r- o- v- i- d- e- d i - n a- n i- n- p- a- t- i- e- n- t s- e- t- t- i- n- g (- f- u- r- t- h- e- r c- l- a- r- i- f- i- c- a- t- i- o- n i- n H- &- P d- o- c- u- m- e- n- t- a- t- i- o- n- ) Admitting Diagnosis -> Opiate withdrawal (HCC) Admitting Physician -> LIONEL ASKEW Attending Physician -> LIONEL ASKEW Estimated Length of Stay -> 3-4 Midnigh ts Discharge Plan: -> Home with Office Follow-up [id number] INITIAL PHYSICIAN ORDER: INPATI ENT [#[id number]] Priority: Routine Class: ADT Pend Transfer Status: -> IP REHABILITATI ON Inpatient Hospitalization Certified Necessary for the Following Reasons -> 3- . P- a- t- i- e- n- t r- e- c- e- i- v- i- n- g t- r- e- a- t- m- e- n- t t- h- a- t c- a- n o- n- l- y b- e p- r- o- v- i- d- e- d i- n a- n i- n- p- a- t- i- e- n- t s- e- t- t- i- n- g (- f- u- r- t- h- e- r c- l- a- r- i- f- i- c- a- t- i- o- n i- n H- &- P d- o- c- u- m- e- n- t- a- t- i- o- n- ) Admitting Diagnosis -> Opiate withdrawal (HCC) Admitting Physician -> LIONEL ASKEW Attend ing Physician -> LIONEL ASKEW Estimated Length of Stay -> 3-4 Midnights Discharge Kirsten n: -> Home with Office Follow-up Released on: 10/06/2019 9:40 AM [id number] INITIAL YSICIAN ORDER: INPATIENT [#[id number]] Priority: Routine Class: ADT Pend Transfer Cos ign required by LIONEL ASKEW[[id number]] Standing Order Information Remaining Occurre nces:0/ Interval:ONE TIME Last released:10/06/2019 Released orders : SatOct 06, 2019 10:00 AM by: WM MARQUEZ Status: -> IP REHABILITATION I npatient Hospitalization Certified Necessary for the Following Reasons -> 3- . P- a- t- i- e- n- t r- e- c- e- i- v- i- n- g t- r- e- a- t- m- e- n- t t- h- a- t c- a- n o- n- l- y b- e p- r- o- v- i- d- e- d i- n a- n i- n- p- a- t- i- e- n- t s- e- t- t- i- n- g (- f- u- r- t- h- e- r c- l- a- r- i- f- i- c- a- t- i- o- n i- n H- &- P d- o - c- u- m- e- n- t- a- t- i- o- n- ) Admitting Diag nosis -> Opiate withdrawal (HCC) Admitting Physician -> LIONEL ASKEW Attending Physic hamlet -> LIONEL ASKEW Estimated Length of Stay -> 3-4 Midnights Discharge Plan: -> Ho nm with Office Follow-up [id number] INITIAL PHYSICIAN ORDER: INPATIENT [#[id number]] Magda tristan: Routine Class: ADT Pend Transfer Status: -> [facility] Cert[facility] Necessary for the Following Reasons -> 3- . P- a- t- i- e- n- t r- e- c- e- i- v- i- n- g t- r- e- a- t- m- e- n- t t- h- a- t c- a- n o- n- l- y b- e p- r- o- v- i- d- e- d i- n a- n i- n- p- a- t - i- e- n- t s- e- t- t- i- n- g (- f- u- r- t- h- e- r c- l- a- r- i- f- i- c- a- t- i- o- n i- n H- &- P d- o- c- u- m- e- n- t- a- t- i- o- n- ) Admitting Diagnosis -> Opiate withd michael (HCC) Admitting Physician -> LIONEL ASKEW Attending Physician -> FLORENCIO ASKEW Estimated Length of Stay -> 3-4 Midnights Discharge Plan: -> Home with Office Foll ow-up Released on: 10/06/2019 10:00 AM PRE9 SAFETY PRECAUTIONS [# [id number]] Priority: Routine Class: Hospital Performed Standing Order Information Remaining Occurrences:N/A-not released Interval:CONTINUOUS Comment:Every 15 minute rounds [id number] PLEASE READ & DOCUMENT PPD TEST IN 4* [#[id number]] Priority: STAT Cl ass: ER Collect Standing Order Information Remaining Occurrences:N/A-not released Interval:ONE TIME [id number] PLEASE READ & DOCUMENT PPD TEST IN 7* [#[id number]] Priority: STA T Class: ER Collect Standing Order Information Remaining Occurrences:N/A-not released Interval:ONE TIMERikki Mendoza MR#: [id number] * Rm: [id number] t: 6' 2" Wt: 171 lb Code: Not on file Iso:Diagnosis:Opiate withdrawal (HCC) [F 11.23]Allergies: No Known Allergies -------- Current as of: 10/06/19 1011 GI=Given -------ibuprofen (MOTRIN) tablet 600 mg #[id number] Admin Amount: 1 Tab (1 x 600 mg Tab) Ordered Dose: 600 mg Route: Oral Freq: NOW Start Date: 10/05/19 Administration times (back 96 hours, ahead 96 hours): 10/05/19: 1915GI -----cephALEXin (KEFLEX) capsule 500 mg #[id number] Admin Amount: 1 Cap (1 x 500 mg Cap) Ordered Dose: 500 mg Route: Oral Freq: NOW Start Date: 10/05/19 Administration times (back 96 hours, ahead 96 hours): 10/05/19: 1915GI -----trimethoprim -sulfamethoxazole (BACTRIM DS, SEPTRA DS ) 160-800 mg per*#[id number] Admin Amount: 1 Tab Ordered Dose: 1 Tab Route: Ora l Freq: NOW Start Date: 10/06/19 Administration times (back 96 hours, ahe ad 96 hours): 10/06/19: 0715GI -----mupirocin (BACTROBAN) 2 % ointment #[id number] Ordered Dose: Route: Topical Freq: DAILY Start Date: 10/06/19 Administration times (back 96 hours, ahead 96 hours): 10/06/19: 69910/07/19: 89910/08/19: 89910/09/19: 89910/10/19: 899 ---ondansetron (ZOFRAN ODT) tablet 4 mg #[id number] Admin Amount: 1 Tab (1 x 4 mg Tab) Ordered Dose: 4 mg Route: Oral Freq: NOW Start Date: 10/06/19 Administration times (back 96 hours, ahead 96 hours): 10/06/19: 0818GI 0819 ED Current OP Medicationsibuprofen (MOTRIN) 600 mg tabletSig:Take 1 Tab by mouth every six (6) hours as needed f or Pain.Dispense Amount:20 TabStart Date:10/05/2019End Date:Doc. Provider: Kuldeep Whittaker PAacetaminophen (TYLENOL) 325 mg tabletSig:Take 2 Tabs by mouth every four (4) hours as needed for Pain.Dispense Amount:20 TabStart Date:10/05/2019End Date:Doc. Provider: Kuldeep Whittaker PAcephALEXin (KEFLEX) 500 mg capsuleSig:Take 1 Cap by mouth four (4) times daily for 7 days.Di spense Amount:28 CapStart Date:10/05/2019End Date:10/12/2019Doc. Provider: Rina Whittaker PA ED Prescriptions None on FileFollow-up InformationNone Name Value Range Interpretation Code Description Data [facility](s) Supporting Document(s ) ID Date Data Source [id number] 10/06/2019 09:57:49 AM [facility] TRANSFER - OUT REPORT:Verbal report give n to Sammy jennifer Mendoza being transferred to [facility] on of careReport consisted of patient's Situation, Background, Assessment andRehi lyndaveronica(SBAR).Information from the following report(s) ED Summary was revie wed with thereceiving nurse.Lines:Opportunity for questions and clarification was prov ided.Patient transported with: securityComfortable at time of transfer Name Value Range Interpretation Code Description Data [facility]) Supporting Document(s ) ID Date Data Source [id number] 10/06/2019 09:35:50 AM [facility] Patient to be admitted. Name Value Range Interpretation Code Description Data [facility]) Supporting Document(s ) ID Date Data Source [id number] 10/06/2019 09:03:37 AM [facility] Resting quietly, dry heaves, med with on dansetron as ordered with good effect. Name Value Range Interpretation Code Description Data [facility] rce(s) Supporting Document(s ) ID Date Data Source [id number] 10/06/2019 08:23:52 AM [facility] This pt is bib self co wanting help with his heroin addiction. Patient was seenyesterday and had labs and was relea sed and co left ear top of pinna infectionand left shoulder pain and both are improvin g. Pt denies si or hi and has beentested per pt neg for hiv and hep c in past. Pt den ies fevers or chillsPt last used yesterday amThe history is provided by the patient and medical records.Drug ProblemThere areno seizures and no self-injury present at t his time. This is arecurrent problem. Suspected agents include heroin. Pertine nt negatives includeno fever. Associated medical issues do not include mental ill ness and suicidalideas.Past Medical History:Diagnosis Date Heroin abuse (HC C)History reviewed. No pertinent surgical history.History reviewed. No pertinent f amily history.Social HistorySocioeconomic History Marital status: SINGLE Spouse name: Not on file Number of children: Not on file Years of education: Not on file H ighest education level: Not on fileOccupational History Not on fileSoc ial Needs Financial resource strain: Not on file Food insecurity: Worry: Not on fi le Inability: Not on file Transportation needs: Medical: Not on file Non-medica l: Not on fileTobacco Use Smoking status: Light Tobacco Smoker Packs/day: 0.25 S mokeless tobacco: Never UsedSubstance and Sexual Activity Alcohol use: Yes Comme nt: occassionally Drug use: Yes Types: Heroin, Marijuana, Cocaine, Benzodiazepi ricky Comment: daily heroin user Sexual activity: YesLifestyle Physical activit y: Days per week: Not on file Minutes per session: Not on file Stress: Not on reinaldo eRelationships Social connections: Talks on phone: Not on file Gets together: Not o n file Attends jainism service: Not on file Active member of club or organizat ion: Not on file Attends meetings of clubs or organizations: Not on file Relations hip status: Not on file Intimate partner violence: Fear of current or ex partner : Not on file Emotionally abused: Not on file Physically abused: Not on file Fo rced sexual activity: Not on fileOther Topics Concern Not on fileSocial History Narra tive Not on fileALLERGIES: Patient has no known allergies.Review of SystemsConstit utional: Negative for chills and fever.HENT: Negative for congestion and rhinorrhea.E yes: Negative for pain and visual disturbance.Respiratory: Negative for co ugh and shortness of breath.Cardiovascular: Negative for chest pain and palpitations .Gastrointestinal: Negative for abdominal pain and blood in stool.Genitourinary: N egative for difficulty urinating, dysuria and frequency.Musculoskeletal: Negative for back pain and myalgias.Skin: Negative for color change and rash.Neurological: Nega tive for seizures and headaches.Psychiatric/Behavioral: Negati ve for dysphoric mood, self-injury and suicidalideas.Vitals: 10/06/19 0650BP: 1 37/89Pulse: 87Resp: 18Temp: 98.9 F (37.2 C)SpO2: 98%Weight: 77.6 kg (171 lb)Heigh t: 6' 2" (1.88 m)Physical ExamVitals signs and nursing note reviewed.Constitutional : General: He is not in acute distress. Appearance: He is well-developed. He is not diaphoretic.HENT: Head: Normocephalic and atraumatic. Comments: Left top of ear, posterior pinna sl swelling sl red no drainage,minimally tenderEyes: General : No scleral icterus. Conjunctiva/sclera: Conjunctivae normal. Pupils: Pupils ar e equal, round, and reactive to light.Neck: Musculoskeletal: Normal range of motion and neck supple. Trachea: No tracheal deviation.Cardiovascular: Rate and Rhy thm: Normal rate and regular rhythm. Heart sounds: No murmur.Pulmonary: Effort: P ulmonary effort is normal. Breath sounds: Normal breath sounds.Abdominal: Genera l: Bowel sounds are normal. Palpations: Abdomen is soft. Tenderness: There is no abdominal tenderness.Musculoskeletal: Normal range of motion. General: Tende rness (left shoulder sl tender to palpation ) present.Skin: General: Skin is warm an d dry. Findings: No rash.Neurological: Mental Status: He is alert and oriented to person, place, and time.Psychiatric: Behavior: Behavior normal.MDMProcedures< EMERGENCY DEPARTMENT CASE SUMMARY>Impression/Differential Diagnosi s: ear lobe infection, left shoulder pain,opiate addictionPlan: Based on my i nitial history, physical examination, this patient's pasthistory and risk factors, we will obtain diagnostics and based on these andresponse to therapy will make a decis ion with best judgement to admit, transferor discharge this patient with close follow up. My initial plan is likely tohave sw see pt and determine dispoED Course:7:07 AMA wait uds and swRecent Results (from the past 24 hour(s))CBC WITH AUTOMATED DIFF Colle ction Time: 10/05/19 4:05 PMResult Value Ref Range WBC 10.0 4.8 - 10.6 K/uL RBC 4.93 4.70 - 6.00 M/uL HGB 14.2 14.0 - 18.0 g/dL HCT 43.1 42.0 - 52.0 % MCV 87.4 81.0 - 9 4.0 FL MCH 28.8 27.0 - 35.0 PG MCHC 32.9 30.7 - 37.3 g/dL RDW 12.9 11.5 - 14.0 % PLATE LET 339 130 - 400 K/uL MPV 10.1 9.2 - 11.8 FL NRBC 0.0 0 PER 100 WBC ABSOLUTE NRBC 0.0 0 0.0 - 0.01 K/uL NEUTROPHILS 78 (H) 48.0 - 72.0 % LYMPHOCYTES 14 (L) 18.0 - 40.0 % MONOCYTES 7 2.0 - 12.0 % EOSINOPHILS 1 0.0 - 7.0 % BASOPHILS 0 0.0 - 3.0 % IMMATURE G RANULOCYTES 0 0.0 - 0.5 % ABS. NEUTROPHILS 7.8 (H) 2.3 - 7.6 K/UL ABS. LYMPHOCYTES 1.4 0.9 - 4.2 K/UL ABS. MONOCYTES 0.7 0.1 - 1.7 K/UL ABS. EOSINOPHILS 0.1 0.0 - 1.0 K/UL ABS. BASOPHILS 0.0 0.0 - 0.4 K/UL ABS. IMM. GRANS. 0.0 0.0 - 0.17 K/UL DF AUTOM ATEDMETABOLIC PANEL, COMPREHENSIVE Collection Time: 10/05/19 4:05 PMResult Value Ref Range Sodium 137 136 - 145 mmol/L Potassium 4.0 3.5 - 5.1 mmol/L Chloride 103 98 - 1 07 mmol/L CO2 29 21 - 32 mmol/L Anion gap 5 4 - 12 mmol/L Glucose 90 74 - 106 mg/dL BU N 14 7 - 18 mg/dL Creatinine 1.14 0.70 - 1.30 mg/dL GFR est AA >60 >60 ml/min/1.73m2 G FR est non-AA >60 >60 ml/min/1.73m2 Calcium 8.3 (L) 8.5 - 10.1 mg/dL Bilirubin, tota l 0.7 0.2 - 1.0 mg/dL ALT (SGPT) 52 12 - 78 U/L AST (SGOT) 109 (H) 15 - 37 U/L Alk. phosphatase 70 46 - 116 U/L Protein, total 7.3 6.4 - 8.2 g/dL Albumin 3.7 3.4 - 5.0 g/dL Globulin 3.6 2.8 - 3.9 g/dL A-G Ratio 1.0 1.0 - 1.5ETHYL ALCOHOL Collection Ti me: 10/05/19 4:05 PMResult Value Ref Range ETHYL ALCOHOL, SERUM <5.0 <5 MG/DLDRUG S CREEN, URINE Collection Time: 10/05/19 4:10 PMResult Value Ref Range AMPHETAMINES NE GATIVE NEG Methamphetamines NEGATIVE NEG BARBITURATES NEGATIVE NEG BENZODIAZEPIN ES NEGATIVE NEG COCAINE Presumptive Positive (A) NEG METHADONE NEGATIVE NEG OPIATES Presumptive Positive (A) NEG PCP(PHENCYCLIDINE) BACKUP METHOD USED. D RUG NOT INCLUDED ON PANELS. (A) NEG THC (TH-CANNABINOL) NEGATIVE NEG TRICYCLICS NEGATIVE NEG DRUG SCREEN COMMENT URINEURINALYSIS W/ RFLX MICROSCOPIC Alejandro ection Time: 10/05/19 4:10 PMResult Value Ref Range Color MICHAEL Appearance CLEAR S pecific gravity >1.030 pH (UA) 6.0 Protein NEGATIVE mg/dL Glucose NEGATIVE mg/dL Ketone 40 mg/dL Blood NEGATIVE Urobilinogen 1.0 EU/dL Nitrites NEGATIVE Leukocyte Es terase NEGATIVEBILIRUBIN, CONFIRM Collection Time: 10/05/19 4:10 PMResult Value Ref Range Bilirubin UA, confirm NEGATIVE NEGURINE MICROSCOPIC Collection Time: 4:10 PMResult Value Ref Range WBC 0-3 /hpf RBC NONE NONE /hpf Epithelial cells NONE /hpf Bacteria NONE NONE /hpf Casts NONE NONE /lpf Mucus 1+ (A) NONE /lpf Amorpho us Crystals MODERATEDRUG SCREEN, URINE Collection Time: 10/06/19 7:05 AMResult Value Ref Range AMPHETAMINES NEGATIVE NEG Methamphetamines NEGATIVE NEG BARBITURA NIYA NEGATIVE NEG BENZODIAZEPINES NEGATIVE NEG COCAINE Presumptive Positive (A) NEG METHADONE NEGATIVE NEG OPIATES Presumptive Positive (A) NEG PCP(PHENCYCLIDINE) BACK UP METHOD USED. DRUG NOT INCLUDED ON PANELS. (A) NEG THC (TH-CANNABINOL) Presumptive Positive (A) NEG TRICYCLICS NEGATIVE NEG DRUG SCREEN COMMENT URINEURINALYSIS W/ R FLX MICROSCOPIC Collection Time: 10/06/19 7:05 AMResult Value Ref Range Color YELL OW Appearance CLEAR Specific gravity 1.025 pH (UA) 7.0 Protein NEGATIVE mg/dL Glucose NEGATIVE mg/dL Ketone NEGATIVE mg/dL Bilirubin NEGATIVE Blood NEGATIVE Urobil inogen 2.0 EU/dL Nitrites NEGATIVE Leukocyte Esterase NEGATIVESeen by chase Ocasio Imp ression/Diagnosis: opiate addictionPatient condition at time of disposition: stable I have reviewed the following home medications:Prior to Admission medicatio nsMedication Sig Start Date End Date Taking? Authorizing Provideribuprofen (MOTRIN) 6 00 mg tablet Take 1 Tab by mouth every six (6) hours asneeded for Pain. 10/05/19 Yes Kuldeep Whittaker PAacetaminophen (TYLENOL) 325 mg tablet Take 2 Tabs by m outh every four (4) hoursas needed for Pain. 10/05/19 Yes Kuldeep Whittaker PAcephA LEXin (KEFLEX) 500 mg capsule Take 1 Cap by mouth four (4) times daily for7 days. 10/05/1910/12/19 Yes Kuldeep Whittaker PACraig Van Roekens, MD Name Value Range Interpretation Code Description Data [facility] rce(s) Supporting Document(s ) ID Date Data Source [id number] 10/06/2019 08:09:28 AM [facility] supervisor machine workers in to see patient Name Value Range Interpretation Code Description Data Tashia rce(s) Supporting Document(s ) ID Date Data Source [id number] 10/06/2019 07:50:51 AM [facility] Recent Results (from the past 24 hour(s) )CBC WITH AUTOMATED DIFF Collection Time: 10/05/19 4:05 PMResult Value Ref Range WBC 10.0 4.8 - 10.6 K/uL RBC 4.93 4.70 - 6.00 M/uL HGB 14.2 14.0 - 18.0 g/dL HCT 43.1 42.0 - 52.0 % MCV 87.4 81.0 - 94.0 FL MCH 28.8 27.0 - 35.0 PG MCHC 32.9 30.7 - 37. 3 g/dL RDW 12.9 11.5 - 14.0 % PLATELET 339 130 - 400 K/uL MPV 10.1 9.2 - 11.8 FL NR BC 0.0 0 PER 100 WBC ABSOLUTE NRBC 0.00 0.0 - 0.01 K/uL NEUTROPHILS 78 (H) 48.0 - 72.0 % LYMPHOCYTES 14 (L) 18.0 - 40.0 % MONOCYTES 7 2.0 - 12.0 % EOSINOPHILS 1 0.0 - 7.0 % BASOPHILS 0 0.0 - 3.0 % IMMATURE GRANULOCYTES 0 0.0 - 0.5 % ABS. NEUTROPH ILS 7.8 (H) 2.3 - 7.6 K/UL ABS. LYMPHOCYTES 1.4 0.9 - 4.2 K/UL ABS. MONOCYTES 0.7 0. 1 - 1.7 K/UL ABS. EOSINOPHILS 0.1 0.0 - 1.0 K/UL ABS. BASOPHILS 0.0 0.0 - 0.4 K/UL A BS. IMM. GRANS. 0.0 0.0 - 0.17 K/UL DF AUTOMATEDMETABOLIC PANEL, COMPREHENSIVE Collection Time: 10/05/19 4:05 PMResult Value Ref Range Sodium 137 136 - 145 mmo l/L Potassium 4.0 3.5 - 5.1 mmol/L Chloride 103 98 - 107 mmol/L CO2 29 21 - 32 mmol/ L Anion gap 5 4 - 12 mmol/L Glucose 90 74 - 106 mg/dL BUN 14 7 - 18 mg/dL Creatinine 1.14 0.70 - 1.30 mg/dL GFR est AA >60 >60 ml/min/1.73m2 GFR est non-AA >60 >60 ml/ min/1.73m2 Calcium 8.3 (L) 8.5 - 10.1 mg/dL Bilirubin, total 0.7 0.2 - 1.0 mg/dL ALT (SGPT) 52 12 - 78 U/L AST (SGOT) 109 (H) 15 - 37 U/L Alk. phosphatase 70 46 - 116 U/ L Protein, total 7.3 6.4 - 8.2 g/dL Albumin 3.7 3.4 - 5.0 g/dL Globulin 3.6 2.8 - 3. 9 g/dL A-G Ratio 1.0 1.0 - 1.5ETHYL ALCOHOL Collection Time: 10/05/19 4:05 PMResult Value Ref Range ETHYL ALCOHOL, SERUM <5.0 <5 MG/DLDRUG SCREEN, URINE Collection Time: 10/05/19 4:10 PMResult Value Ref Range AMPHETAMINES NEGATIVE NEG Methamphetami ricky NEGATIVE NEG BARBITURATES NEGATIVE NEG BENZODIAZEPINES NEGATIVE NEG COCAINE Pr esumptive Positive (A) NEG METHADONE NEGATIVE NEG OPIATES Presumptive Positive (A) NE G PCP(PHENCYCLIDINE) BACKUP METHOD USED. DRUG NOT INCLUDED ON PANELS. (A) NEG THC (TH- CANNABINOL) NEGATIVE NEG TRICYCLICS NEGATIVE NEG DRUG SCREEN COMMENT URINEURINALYSIS W/ RFLX MICROSCOPIC Collection Time: 10/05/19 4:10 PMResult Value Ref Range Color MICHAEL Appearance CLEAR Specific gravity >1.030 pH (UA) 6.0 Protein NEGATIVE mg/ dL Glucose NEGATIVE mg/dL Ketone 40 mg/dL Blood NEGATIVE Urobilinogen 1.0 EU/dL Ni trites NEGATIVE Leukocyte Esterase NEGATIVEBILIRUBIN, CONFIRM Collection Ti me: 10/05/19 4:10 PMResult Value Ref Range Bilirubin UA, confirm NEGATIVE NEGURINE MICROSCOPIC Collection Time: 10/05/19 4:10 PMResult Value Ref Range WBC 0-3 /hpf RB C NONE NONE /hpf Epithelial cells NONE /hpf Bacteria NONE NONE /hpf Casts NONE NONE /lpf Mucus 1+ (A) NONE /lpf Amorphous Crystals MODERATEDRUG SCREEN, URINE Alejandro ection Time: 10/06/19 7:05 AMResult Value Ref Range AMPHETAMINES NEGATIVE NEG Met hamphetamines NEGATIVE NEG BARBITURATES NEGATIVE NEG BENZODIAZEPINES NEGATIVE NEG COCAINE Presumptive Positive (A) NEG METHADONE NEGATIVE NEG OPIATES Presumpt nakul Positive (A) NEG PCP(PHENCYCLIDINE) BACKUP METHOD USED. DRUG NOT INCLUDED ON PANELS. (A) NEG THC (TH-CANNABINOL) Presumptive Positive (A) NEG TRICYCLICS NEGATIVE NEG DRUG SCREEN COMMENT URINEURINALYSIS W/ RFLX MICROSCOPIC Alejandro ection Time: 10/06/19 7:05 AMResult Value Ref Range Color YELLOW Appearance CLEAR Specific gravity 1.025 pH (UA) 7.0 Protein NEGATIVE mg/dL Glucose NEGATIVE mg/dL Ketone NEGATIVE mg/dL Bilirubin NEGATIVE Blood NEGATIVE Urobilinogen 2.0 EU/dL Ni trites NEGATIVE Leukocyte Esterase NEGATIVE Name Value Range Interpretation Code Description Data [facility](s) Supporting Document(s ) ID Date Data Source [id number] 10/06/2019 07:23:01 AM [facility] Verbal shift change report given to Alejandro armstrong RN (oncoming nurse) by EVERTON Laurent(offgoing nurse). Report included the following in formation SBAR, ED Summary andMAR. Name Value Range Interpretation Code Description Data [facility](s) Supporting Document(s ) ID Date Data Source [id number] 10/06/2019 07:18:37 AM [facility] Physical assessment completed. The patie nt's level of consciousness is alert.The patient's mood is calm and cooperative. The patient's appearance showsedema, buising and open skin. The patient does not ind icate signs or symptomsof abuse or neglect. Name Value Range Interpretation Code Description Data [facility](s) Supporting Document(s ) ID Date Data Source [id number] 10/06/2019 07:37:24 AM EST [employer] [facility] Name Value Range Interpretation Description Data Sup porting Code Source(s) Document(s ) Amphetamine NEG [facility] Urine by Screen [employer] Backup method used Methamphetamine [Presence] in Urine NEG [employer], LLC [facility] Backup method used Barbiturates [Presence] in Urine by NEG [employer] Screen method Inc Backup method used Benzodiazepines [Presence] in Urine NEG [employer] Backup method used Cocaine [Presence] in NEG Abnormal (applies to [employer] Urine by Screen method non-numeric results) [employer] Backup method used Methadone [Presence] in Urine NEG K[employer] Backup method used Opiates [Presence] in NEG Abnormal (applies to [employer] Shanique Urine non-numeric results) [employer] Backup method used Phencyclidine [Presence] in NEG Abnormal (applies to [employer] Urine non-numeric results) [employer] Cannabinoids [Presence] in NEG Abnormal (applies to [employer] Urine by Screen method non-numeric results) [employer] Backup method used Tricyclic antidepressants [Presence] in NEG [employer] Shanique [employer] Backup method used(NOTE)Threshold Concen trations:Acetaminophen 5ug/mld-Amphetamine 1000ng/mld-M ethamphetamine 1000ng/mlBarbiturates 300ng/mlBenzodiazepine 300ng/ mlCocaine 300ng/mlMethadone 300ng/mlOpiates 30 0ng/mlPCP 25ng/mlTHC 50ng/mlTCA 1000ng/mlThese threshold concentrations are used to separate a negative resultfrom a presumptive positive result. These results are unconfirmed. Ifconfirmation of a pre sumptive positive is desired, an order for thespecific drug test is needed within 7 2 hours. A listing ofinterfering substances is available at the nursing unit and in thelaboratory. NOLOINC Kymab ID Date Data Source [id number] 10/06/2019 07:15:32 AM EST [facility] Name Value Range Interpretation Description Data Sup porting Code Source(s) Document(s ) Color of Urine Kymab Appearance of [facility] Urine Liquid Bronze Specific gravity 1.025 [facility] of Urine by Gear[employer] Software Refractometry [employer] pH of Urine by 7.0 PEERours Test strip Liquid Bronze Protein [facility] [Mass/volume] in [place] Urine by Test [employer] Glucose [facility] [Mass/volume] in [place] Urine by Health Automated test System Turning Art strip Ketones [facility] [Presence] in Shan[place] Urine by Dealo test System Inc strip Bilirubin.total [facility] [Presence] in Shan[place] Urine Health System Inc Hemoglobin [facility] [Presence] in [place] Urine by Test Health strip System Inc Urobilinogen 2.0 [facility] [Presence] in EU/dL [place] Urine by Well Done Automated test System Inc strip Nitrite [facility] [Presence] in [place] Urine by Well Done Automated test System Inc strip Leukocyte [facility] esterase Shanique [Presence] in Health Urine by System Turning Art Automated test strip ID Date Data Source 36N*ENCOUNTER [id number] 10/05/2019 07:32:28 PM EST BS [facility] [employer] [facility] EMERG ENCY DEPT [address] [place] [id number] Rikki Disla (Male) [id number] CARSON 3 ED Dispo:DISCHARGE Chief Complaint: Addiction probl em Diagnosis: Heroin dependence (HCC) [] Pain in joint of left shoulder [] Pierced ear infection, left, initial encounter [] Curr ent Providers: Attending: Casie De León A Physician Developmental Education Instructor: Hi Whittaker Primary Nurse: ROQUE Singh: [phone] Print Group [phone] - [facility] Ed Medva MrnMRN: [id number] Print Group [phone] - [facility] Ed Medva [place] n[place] SexDOB 1990 AGE 29 SEX Male Primary Care Provider: Michael, Not On FileAllergies: ( No Known Allergies)Date Reviewed: 10/05/2019Reviewed by: Annelise Traore RN - Review CompleteED Pro vider Notes: No notes of this type exist for this encounter.ED Orders [id number] XR SHOULDE R LT AP/LAT MIN 2 V [#[id number]] Priority: STAT Class: Hospital Performed Standing O rder Information Remaining Occurrences:0/1 Interval:ONE TIME Last released:0 10/05/2019 Released orders: SatOct 05, 2019 3:50 PM by: KULDEEP WHITTAKER Reason for Exam -> pain s/p fall [id number] XR SHOULDER LT AP/LAT MIN 2 V [#[id number]] P riority: STAT Class: Hospital Performed Specimen Collected: 10/05/2019 4:03 PM Resultin g Agency: [facility] Test ID: [id number] Reason for Exam -> pain s/p fall Released on: 3:50 PM CON53 IP CONSULT TO PSYCHIATRY [#[id number]] Priority: STAT C lass: Hospital Performed Standing Order Information Remaining Occurrences:0/1 Inte rval:ONE TIME Last released:10/05/2019 Released orders: SatOct 05, 2019 3:51 PM by: KULDEEP WHITTAKER Reason for Consult: -> heroin detox Did you ca ll or speak to the consulting provider? -> No Consult To -> social media specialist Schedule When? -> TODAY CON53 IP CONSULT TO PSYCHIATRY [#[id number]] Priority: STAT Class: H ospital Performed Reason for Consult: -> heroin detox Did you call or speak to the consul ting provider? -> No Consult To -> social media specialist Schedule When? -> TODAY Released on: 10/05/2019 3:51 PM [id number] CBC WITH AUTOMATED DIFF [#[id number]] Priority: STAT Class: ER Collect Standing Order Information Remaining Occurrences:0/1 Inter sabina:ONE TIME Last released:10/05/2019 Released orders: SatOct 05, 2019 3:51 PM by: KULDEEP WHITTAKER [id number] METABOLIC PANEL, COMPREHENSIVE [#[id number]] Flor ority: STAT Class: ER Collect Standing Order Information Remaining Occurrences:0 /1 Interval:ONE TIME Last released:10/05/2019 Released orders : SatOct 05, 2019 3:51 PM by: KULDEEP WHITTAKER [id number] DRUG SCREEN, URINE [#[id number]] Priority: STAT Class: ER Collect Standing Order Information Remaining Occurrences:0/1 Interval:ONE TIME Last released:10/05/2019 Rel eased orders: SatOct 05, 2019 3:51 PM by: KULDEEP WHITTAKER [id number] ETHYL ALCO HOL [#[id number]] Priority: STAT Class: ER Collect Standing Order Inf ormation Remaining Occurrences:0/1 Interval:ONE TIME Last released:0 10/05/2019 Released orders: SatOct 05, 2019 3:51 PM by: KULDEEP WHITTAKER [id number] URINALYSIS W/ RFLX MICROSCOPIC [#[id number]] Priority: STAT Class: Lab Collect S tanding Order Information Remaining Occurrences:0/1 Interval:ONE TIME Last rel eased:10/05/2019 Released orders: SatOct 05, 2019 3:51 PM by: KULDEEP WHITTAKER [id number] CBC WITH AUTOMATED DIFF [#[id number]] Priority: STAT Class: E R Collect Specimen Source: Whole Blood Specimen Collected: 10/05/2019 4:05 PM Resultin g Agency: [facility] Test ID: [id number] Released on: 10/05/2019 3: 51 PM [id number] METABOLIC PANEL, COMPREHENSIVE [#[id number]] Priority: STAT Class: E R Collect Specimen Source: Plasma Specimen Collected: 10/05/2019 4:05 PM Resulting Agency: [facility] Test ID: MPL Released on: 10/05/2019 3:51 PM [id number] DRUG SCREEN, URINE [#[id number]] Priority: STAT Class: ER Collect Speci men Source: Urine, random Specimen Collected: 10/05/2019 4:10 PM Resulting Agency: [facility] Test ID: MDRG Released on: 10/05/2019 3:51 PM [id number] ETHYL ALCOHOL [#[id number]] Priority: STAT Class: ER Collect Specimen Source : Plasma Specimen Collected: 10/05/2019 4:05 PM Resulting Agency: [facility] Test ID: MALC Released on: 10/05/2019 3:51 PM [id number] URINALYSIS W/ RFLX MICROSCOPIC [#[id number]] Priority: STAT Class: Lab Collect Specimen Source: Mi scellaneous sample Specimen Collected: 10/05/2019 4:10 PM Resulting Agency: [facility] Test ID: UA Released on: 10/05/2019 3:51 PM [id number] BILIRUBIN, CONFIRM [#[id number]] Priority: STAT Class: Lab Collect Resulting Agency: [facility] Test ID: ICTO Standing Order Information Remainin g Occurrences:0/1 Released orders: SatOct 05, 2019 4:10 PM by: Automatic Batch Pr ocess [id number] BILIRUBIN, CONFIRM [#[id number]] Priority: STAT Class: L ab Collect Specimen Source: Miscellaneous sample Specimen Collected: 10/05/2019 4:10 PM Resulting Agency: [facility] Test ID: ICTO Released on : 10/05/2019 4:10 PM [id number] URINE MICROSCOPIC [#[id number]] Priority: STA T Class: Lab Collect Resulting Agency: [facility] Test ID: UMIC Standing Order Information Remaining Occurrences:0/1 Released orders: SatOct 05, 2019 4:10 PM by: Automatic Batch Process [id number] URINE MICROSCOPIC [#[id number]] Priority: STAT Class: Lab Collect Specimen Source: Urine Specime n Collected: 10/05/2019 4:10 PM Resulting Agency: [facility] T est ID: UMIC Released on: 10/05/2019 4:10 PM naloxone (NARCAN) 0.4 mg/mL injection [# [id number]] Priority: None IBUPROFEN 600 MG TAB [#[id number]] Flor ority: STAT Class: Normal CEPHALEXIN 500 MG CAP [#[id number]] Priority : STAT Class: Normal Antibiotic Indications -> Skin and Soft Tissue Infection IBUP ROFEN 600 MG TAB [#[id number]] Priority: Routine Class: Normal ACETAMINOPHEN 325 MG TABLET [#[id number]] Priority: Routine Class: Normal CEPHALEXIN 500 MG CAP [#[id number]] Priority: Routine Class: Normal [id number] 1 APPLY SLING; SPECIFY [#[id number]] Priority: STAT Class: Hospital Performe d Standing Order Information Remaining Occurrences:0/1 Interval:ONE TI ME Last released:10/05/2019 Released orders: SatOct 05, 2019 6:56 PM by: LAURA FELTON KULDEEP Acosta [id number] APPLY [facility]; SPECIFY [#[id number]] Priority: STAT C lass: Hospital Performed Released on: 10/05/2019 6:56 PMRikki Mendoza MR#: [id number] * Rm: HAB- BHt: 6' 2" Wt: 171 lb Code: Not on file Iso:Di agnosis:Allergies: No Known Allergies -------- Current as of: 10/05/191931 GI=Given -------naloxone (NARCAN) 0.4 mg/mL injection #[id number] Ordered Dose: Route: Freq: Start Date: 10/05/19 Administration times (back 96 hours, ahead 96 hours): 10/05/19: 0 ---ibuprofen (MOTRIN) tablet 600 mg #[id number] Admin Amount: 1 Tab (1 x 600 mg Tab) Ordered Dose: 600 mg Route: Oral Freq: NOW Start Date: 10/05/19 Administration times (back 96 hours, ahead 96 hours): 10/05/19: 1915GI -----cephALEXin (KEFLEX) capsule 500 mg #[id number] Admin Amount: 1 Cap (1 x 500 mg Cap) Ordered Dose: 500 mg Route: Oral Freq: NOW Start Date: 10/05/19 Administration times (back 96 hours, ahead 96 hours): 10/05/19: 1915 ED Current OP Medicationsib uprofen (MOTRIN) 600 mg tabletSig:Take 1 Tab by mouth every six (6) hours as needed for Pain.D ispense Amount:20 TabStart Date:10/05/2019End Date:Doc. Provider: Kuldeep Whittaker PAacetami nophen (TYLENOL) 325 mg tabletSig:Take 2 Tabs by mouth every four (4) hours as needed for Pain. Dispense Amount:20 TabStart Date:10/05/2019End Date:Doc. Provider: Kuldeep Whittaker PAcephALE Ely (KEFLEX) 500 mg capsuleSig:Take 1 Cap by mouth four (4) times daily for 7 days.Dispense Amou nt: CapStart Date:10/05/2019End Date:10/12/2019Do. Provider: Kuldeep Whittaker, OR ED Prescriptionsibuprofen (MOTRIN) 600 mg tabletSig:Take 1 Tab by mouth every six (6) hours as needed for Pain.Dispense Amount:20 TabStart Date:10/05/2019End Date :Auth. Provider: Kuldeep Whittaker PAacetaminophen (TYLENOL) 325 mg tabletSig:Take 2 Tabs b y mouth every four (4) hours as needed for Pain.Dispense Amount:20 TabStart Date:10/05/2019End Date :Auth. Provider: Kuldeep Whittaker PAcephALEXin (KEFLEX) 500 mg capsuleSig:Take 1 Cap by mouth four (4) times daily for 7 days.Dispense Amount:28 CapStart Date:10/05/2019End Date:10/12/2019[facility]. Provider: Kuldeep Whittaker, PAFollow-up InformationFollow-up With:[facility] EMERGENCY DEPTDetails:Comments:If symptoms worsenContact Info:[address] [facility] 127 [phone] [id number] With:Laura Bertrand MDDetails:Schedule an appointment as samm n as possible for a visit in 3 daysComments:for left shoulder pain/infected left ear piercedC ontact Info:[address] [phone]-cl With:Kem Rubi, SOLOetails:Schedule an appointment as soon as possible for a visit in 3 daysComments:f or left shoulder painContact Info:[address] [facility] [phone] Name Value Range Interpretation Code Description Data Tashia [facility](s) Supporting Document(s ) ID Date Data Source [id number] 10/05/2019 07:30:43 PM [facility] Pt refused to sign discharge papers and [facility] but pt just walked outPapers to be mailed Name Value Range Interpretation Code Description Data [facility](s) Supporting Document(s ) ID Date Data Source [id number] 10/05/2019 06:46:26 PM [facility] BEHAVIORAL HEALTH DISCHARGE INSTRUCTIONS /REFERRALS:Rikki Mendoza[address] [phone] (russell e): 1990Payor/Plan Subscr Sex Relation Sub. Ins. ID Effective Group Nu m1. [place] [employer]* RIKKI MENDOZA 1990 Male Self [id number] 05/05/[birth year] [place] [id number] is no problem list on file f or this patient.Patient will be discharged per Dr. Acuña the patient referred to Independent Living Peer Diversion? NoIndependent Living Peer Supports [phone] the patient referred to crisis residential/respite? NoAccess Supports For Living[facility] PATH program ([facility] only)[phone] [facility] [phone] Response Team contact patient for well checkvisit? NoWill the [facility] follow-up with patient to access servicespost discharge? NoList agencies that consents have been signed:Discharge Instructions, Appointments, and Referral s:Behavioral Health Screener completed detox assessment for patient and consultedwith INFORMATION RESOURCE CONSULTANT/Psychiatrist Dr. Monteiro. Per Dr. Monteiro , the patient does not meetmedical criteri a for inpatient detox at this time, as (he/she) is not showingsymptoms of sever e withdrawal. If symptoms increase, it is encouraged that thepatient [facility] for [facility]. The patienthas been provided with a list of substance abuse referrals to help maintainsobriety in the community. Please see below for additional resources. Muchsupport offered.FOR RESOURCES NOT LI STED OR ADDITIONAL SUPPORTS PLEASE CALL [facility] [phone].STEPHANIE RUELAS ACKNOWLEDGEMENT: I hereby acknowledge that I have read the aboveinstructions (or dey ve had them read to me). The instructions were explained tome and I was given the opportunity to ask questions. I acknowledge that Iunderstand the instructions. I dey ve received a copy of these instructions. 10/05/2019Screener's Signature 10/05/2019Signature of Patient or Mission Worker* If you feel that you are at risk of harming yourself please call:National Suicide Prevention Lifelin e [phone] one of the following:EMERGENCY NUMBERSOrae Co. Mo bile Response Team [phone] Co. Crisis 9 [phone] Co. Crisis Team [phone] Co. Cr tiffani Team [phone] Children's Crisis Outreach [phone] [place] [address] Crisis Team [phone] Co. Behavioral Resp onse Team [phone] (for teens offered Sat- 4pm-10pm Saturday 4pm-12 am, Sat. 5pm -12am) [phone] [place] Hotline (peer to peer for youth) 877[facility] ([phone])Alternative Resources:[facility] Call Center 8 [phone](to access any type of behavioral health or developmental disability suppo rtservices)Access Supports for Living Behavioral [facility] Urgent [facility] Centers 1- [phone] [facility] or [facility]- y 11am-7pm and Saturday/Saturday 9am-5pm at both locationsAdults and children strugg ling with addiction or mental health concerns can walkin during those hours, regardles s of insurance or ability to payAlcoholism & Drug Abuse [facility] y support Navigation Program (for families in [place], [place], [place], &[facility])[phone] Children's Outreach Team(for families with children to seek community based supports)[phone] Name Value Range Interpretation Code Description Data Tashia rce(s) Supporting Document(s ) ID Date Data Source [id number] 10/05/2019 06:42:00 PM [facility] Comprehensive Assessment Form Part 1Sect ion I - DispositionThe on-call Psychiatrist consulted was Dr. Monteiro.The Payor source isPayor/Plan Subscr Sex Relation Sub. Ins. ID Effective Group Num1. [facility] IRS* LIBBYRIKKI 1990 Male Self [id number] 05/05/[birth year] [place] [id number] II - Integrated SummarySUMMARY:Summary: The patient is a 29 y.o. year old male brought to theEmergency Department via p iLumen car and referred by Sister in law.The information is given by the patient.The Chief Complaint is Opiate Withdrawal.The Precipitant Factors are Opiate abuse.Pre vious Hospitalizations: [facility] in AprilThe patient has not previous ly been in restraints.Current Psychiatrist and/or Private Branch Exchange Operator is NONE.CAR Screener Note:CAR\\Screener met with the PT per the request of the ED Dr. Musa CAVAZOS. [facility] at [facility] was cooperative, flat affect and mood was appropriate. PTstates his father br ought him for detox and his mother will not allow him tolive in the home till he get s treatment. Pt has a history of using percocet'sfor approximately 7 years and then when they became too expensive, PT graduatedto using Heroin via Sniffing. PT states he uses 1/2 bundle daily and last usedat 5:00am. PT currently scoring a 3 on the COW.PT's Addison:10/05/19 1836 98.3 F (36.8 C) Oral 84 19 -- 120/68 85 -- 98 % -- -- Room air-- -- -- -- -- -- -- LS10/05/19 1539 98.9 F (37.2 C) -- 83 18 -- 123/82 96 -- 96 % 6' 2" (1.88 m)77.6 kg (171 lb) Room air -- Numeric (0 - 10) 10 -- -- -- -- ADPT reports no major medical problems.PT denies SI\\HI and AV hallucin ations.Disposition/Update:CAR\\Screener reviewed the case with Dr. Monteiro. Dr. Tracy frederick withdischarge the PT with referrals.Lethality Assessment:The poten tial for suicide noted by the following: not noted . The potential forhomicide is no t noted. The patient has not reported access to weapons.The patient has not be en a perpetrator of sexual or physical abuse.The patient is not felt to be at r isk for self harm or harm to others.Section III - PsychosocialPatient presents with anxiety. Onset of symptoms was gradual. Patient statessymptoms have been exacerb ated by chemical dependency. The patient's appearanceshows no evidence of impairmen t. The patient's behavior shows poor impulsecontrol and shows poor eye contac t. The patient is oriented to time, place,person and situation. Feelings of helplessness and hopelessness are notobserved. The patient's appetite sh ows no evidence of impairment.Sleep PatternSleep Pattern: Difficulty falling asleep, Disturbed/Interrupted sleep,RestlessnessUsual # of Hours of Sl eep/Night: 8-10Current # of Hours of Sleep/Night: 5-6The patient speaks Engli sh as a primary language. The patient has nocommunication impairments affecting co mmunication. The highest grade achieved isBachelors Degree. The patient's heari ng is normal. The patient's vision isnormal.The patient is single. The pat leobardo lives with a parent. The patient does notplan to return home upon discharge.Th e patient's source of income comes from none. The patient is currentlyunemployed.The patient's greatest support comes from GOD.The patient has not been in an event describ ed as horrible or outside the realmof ordinary life experience either currentl y or in the past.The patient has not been a victim of sexual/physical abuse.Legal st atus is none. The patient does not have legal issues pending.Section IV - Substa nce AbuseThe patient does has a substance abuse problem. The patient does not have current substance abuse treatment providers.AlcoholAge First Got High: 17 (10/05/191816)Frequency of Use: 1-3 times in the last month (10/05/191816)Average Am ount Used: $5.00 of vodka 2-3 beers (10/05/191816)How Long Using at Current Pattern: 2-4x a year (10/05/191816)Date of Last Use: 10/04/19 (10/05/191816)Time of Last Use : 1399 (10/05/191816)Amount of Last Use: 1 shot of vodka (10/05/191816)Are You Abl e to Stop on Your Own: Yes (comment) (10/05/191816)TobaccoAge First Used: 22 (10/05/191816)Current Amount Used (# of packs/day): 0.25 (10/05/191816)Date of Last Use: 10/05/19 (10/05/191816)Time of Last Use: 1400 (10/05/191816)Are You Ab le to Stop on Your Own: No (10/05/191816)OpiatesAge First Got High: 20 (09/24)Pattern of Use in Past Year: no use since age 27 (10/05/191816)Frequency of Use: Daily (10/05/191816)Average Amount Used: 30 mg (10/05/191816)How Long Usin g at Current Pattern: 7 years (10/05/191816)Date of Last Use: (age 27 and then found heroin) (10/05/191816)Benzodiazepines/BarbituratesAge Fir st Got High: 22 (10/05/191816)Pattern of Use in Past Year: ORALLY (10/05/191816)Freq uency of Use: 1-3 times in the last month (10/05/191816)Average Amount Used: 2 mg (10/05/191816)How Long Using at Current Pattern: 1 year (10/05/191816)Date of L ast Use: 10/05/19 (10/05/191816)Time of Last Use: 1500 (10/05/191816)Amount of Last Use: 2 mg (10/05/191816)Are you able to stop on your own: No (10/05/191816)Marijuana Age First Got High: 16 (10/05/191816)Pattern of Use in Past Year: smoke (10/05/19)Frequency of Use: 1-2 times per week (10/05/191816)Average Amount Used: 1 bl unt (10/05/191816)How Long Using at Current Pattern: since the age of onset ([age])Date of Last Use: 10/04/19 (10/05/191816)Time of Last Use: 1400 (10/05/19 18 17)Amount of Last Use: 1 blunt (10/05/191816)Are you able to stop on your own: N o (10/05/191816)Cocaine/CrackAge First Got High: 17 (10/05/191816)Pattern of Use i n Past Year: snort (10/05/191816)Frequency of Use: 1-3 times in the last month (09/24)Average Amount Used: 1 gram (10/05/191816)How Long Using at Current Pattern: on and off over the yeaqrs (10/05/191816)Date of Last Use: 0 (10/05/191816)Time of Last Use: 1400 (10/05/191816)Amount of Last Use: 1 gra m (10/05/191816)Are you able to stop on your own: No (10/05/191816)HeroinAge First G ot High: 26 (10/05/191816)Pattern of Use in Past Year: snort (10/05/191816)Frequenc y of Use: Daily (10/05/191816)Average Amount Used: .5 budle (10/05/191816)How Long U sing at Current Pattern: 1 year (10/05/191816)Date of Last Use: 10/05/19 ( 0 1816)Time of Last Use: 0500 (10/05/191816)Amount of Last Use: 1 BAG (10/05/191816)Are you able to stop on your own: No (10/05/191816)Section V - Mental Status ExamAttitude and BehaviorGeneral Attitude: CooperativeAffect: DullMood: DepressedIn sight: FairJudgement: IntactMemory : IntactThought Content: Blaming selfHallu cinations: NoneDelusions: NoneConcentration: FairSpeech Pattern: UnremarkableThought Process: UnremarkableAngelina C Chaol Name Value Range Interpretation Code Description Data [facility](s) Supporting Document(s ) ID Date Data Source [id number] 10/05/2019 04:33:41 PM EST [facility] Physical assessment completed. The patie nt's level of consciousness is alert.The patient's mood is calm. The patient's ap pearance shows clean with goodhygiene. The patient does not indicate signs or symp toms of abuse or neglect. Name Value Range Interpretation Code Description Data [facility](s) Supporting Document(s ) ID Date Data Source [id number] 10/05/2019 04:54:06 PM EST [facility] Name Value Range Interpretation Description Data Sup porting Code Source(s) Document(s ) Color of Urine [facility] [employer] Appearance of [facility] Urine [employer] System [facility] Specific gravity [facility] of Urine by [employer] Refractometry Well [employer] pH of Urine by 6.0 [facility] Test strip [employer] System [facility] Protein [facility] [Mass/volume] in [facility] Urine by Test Well Done strip System Inc Glucose [facility] [Mass/volume] in [facility] Urine by De[employer] test System Inc strip Ketones 40 mg/dL [facility] [Presence] in [facility] Urine by [employer] strip Hemoglobin [facility] [Presence] in [facility] Urine by Test Well Done strip System Inc Urobilinogen 1.0 [facility] [Presence] in EU/dL [facility] Urine by De[employer] test [employer] strip Nitrite [facility] [Presence] in [facility] Urine by Dealo test [employer] strip Leukocyte [facility] esterase [place] [Presence] in [facility] Urine by System Inc Automated test strip ID Date Data Source [id number] 10/05/2019 04:54:06 PM EST [facility] Name Value Range Interpretation Description Data Sup porting Code Source(s) Document(s ) Leukocytes [facility] [Presence] in [facility] Urine sediment [facility] System by Light Inc microscopy Erythrocytes NONE [facility] [#/area] in [facility] Urine sediment [facility] System by [employer] high power field Epithelial cells [facility] [#/area] in [facility] Urine sediment [facility] by [employer] high power field Bacteria NONE [facility] [Presence] in [facility] [place] sediment [facility] System by Light Inc microscopy Casts [Presence] NONE [facility] in Urine [facility] sediment by [facility] Light microscopy Inc Mucus [Presence] NONE Abnormal (applies [facility] in Urine to non-numeric [facility] sediment by results) Well Done System Light microscopy Inc Crystals.amorpho [facility] us [Presence] in [facility] Urine sediment [facility] System by Light Inc microscopy ID Date Data Source [id number] 10/05/2019 04:54:06 PM EST [facility] Name Value Range Interpretation Description Data Sup porting Code Source(s) Document(s ) Bilirubin NEG [facility] [Presence] in [facility] Urine by [employer] method ID Date Data Source [id number] 10/05/2019 04:49:11 PM EST [facility] Name Value Range Interpretation Description Data Sup porting Code Source(s) Document(s ) Amphetamine NEG [facility] [Presence] in [facility] Urine by Screen [employer] [facility] [employer] Backup method used Methamphetamine [facility]Pres[facility] used Barbiturates [Presence] in Urine by NEG [facility] [employer] Screen method Inc Backup method used Benzodiazepines [Presence[facility] method used Cocaine [Presence] in NEG Abnormal (applies to [facility] Urine by Screen method non-numeric results) Well Done System Inc Backup method used Methadone [Presence[facility]G [facility] method used Opiates [Presence] in NEG Abnormal (applies to [facility] Urine non-numeric results) [employer] Backup method used Phencyclidine [Presence] in NEG Abnormal (applies to [facility] Urine non-numeric results) [employer] Cannabinoids [Presence] in NEG [facility] Urine by Screen method [employer] Backup method used Tricyclic antidepressants [Presence] in NEG [facility] [employer] Backup method used(NOTE)Threshold Concen trations:Acetaminophen 5ug/mld-Amphetamine 1000ng/mld-M ethamphetamine 1000ng/mlBarbiturates 300ng/mlBenzodiazepine 300ng/ mlCocaine 300ng/mlMethadone 300ng/mlOpiates 30 0ng/mlPCP 25ng/mlTHC 50ng/mlTCA 1000ng/mlThese threshold concentrations are used to separate a negative resultfrom a presumptive positive result. These results are unconfirmed. Ifconfirmation of a pre sumptive positive is desired, an order for thespecific drug test is needed within 7 2 hours. A listing ofinterfering substances is available at the nursing unit and in thelaboratory. NOLOINC Kym[employer] ID Date Data Source [id number] 10/05/2019 04:04:11 PM EST [facility] LEFT SHOULDER 2 VIEWHistory: Trauma.Ther e is a small bone island in the humeral head.There is no evidence of fracture, d islocation, subluxation, arthritis, calcifiedbursitis or tendinitis. The acr omioclavicular joint and glenohumeral joint arenormal.The mineralization is normal. Name Value Range Interpretation Code Description Data Tashia rce(s) Supporting Document(s ) IMP IMPRESSION: [facility] - Normal Community study. Hospital Signing date/time: 10/05/2019 4:04 PMSig gerardo by: YOSSI SHAIKH ID Date Data Source [id number] 10/05/2019 04:37:24 PM EST [facility] Name Value Range Interpretation Code Description Data Tashia rce(s) Supporting Document(s ) Ethanol <5 [facility] [Mass/volume [facility] ] in Serum System Inc or Plasma ID Date Data Source [id number] 10/05/2019 04:37:24 PM EST [facility] [employer] [facility] Name Value Range Interpretation Description Data Sup porting Code Source(s) Document(s ) Sodium 137 136-145 [facility] [Moles/volume] mmol/L [place] in Serum or Health Plasma System Inc Potassium 4.0 3.5-5.1 [facility] [Moles/volume] mmol/L [place] in Serum or Health Plasma System [facility] Chloride 103 98-107 [facility] [Moles/volume] mmol/L [place] in Serum or Health Plasma [facility] Carbon 29 21-32 [facility] dioxide, total mmol/L [place] [Moles/volume] Health in Serum or System Inc Plasma Anion gap in 5 mmol/L 4-12 [facility] Serum or [place] [facility] Glucose 90 mg/dL 74-106 [facility] [Mass/volume] [place] in Serum or Health Plasma System [facility] Urea nitrogen 14 mg/dL 7-18 [facility] [Mass/volume] [place] in Serum or Health Plasma System [facility] Creatinine 1.14 0.70-1.3 [facility] [Mass/volume] mg/dL 0 [place] in Serum or Health Plasma System [facility] Glomerular >60 [facility] filtration [place] rate/1.73 sq M Health predicted System Inc among blacks [Volume Rate/Area] in Serum or Plasma by Creatinine-bas ed formula (MDRD) Glomerular >60 [facility] filtration [place] rate/1.73 sq M Health predicted System Inc among non-blacks [Volume Rate/Area] in Serum or Plasma by Creatinine-bas ed formula (MDRD) (NOTE)Estimated GFR is calculated using the Modification of Diet in RenalDisease (MDRD) Study equation, reported for both Americans(GFRAA) and non- Americans (GFRNA), and normalized to 1.7 5i1dgef surface area. The physician must decide which value applies tothe patient . The MDRD study equation should only be used inindividuals age 18 or older. It has no t been validated for thefollowing: women, patients with serious comorbid co nditions,or on certain medications, or persons with extremes of body size,muscl e mass, or nutritional status. Calcium [Mass/volume] in 8.3 mg/dL 8.5-10.1 Below low normal [facility] Serum or Plasma Liquid Bronze Bilirubin.total 0.7 mg/dL 0.2-1.0 [facility] [Mass/volume] in Serum or [employer] Plasma System Inc Alanine aminotransferase 52 U/L 12-78 [facility] [Enzymatic activity/volume] [facility] in Serum or Plasma System Inc Aspartate aminotransferase 109 U/L 15-37 Above high normal [facility] [Enzymatic activity/volume] [facility] in Serum or Plasma by With [employer] P-5'-P Alkaline phosphatase 70 U/L 46-116 [facility] [Enzymatic activity/volume] [facility] in Serum or Plasma System Inc Protein [Mass/volume] in 7.3 g/dL 6.4-8.2 [facility] Serum or Plasma [employer] Albumin [Mass/volume] in 3.7 g/dL 3.4-5.0 [facility] Serum or Plasma by [facility] Bromocresol purple (BCP) Syste m Inc dye binding method Globulin [Mass/volume] in 3.6 g/dL 2.8-3.9 [facility] Serum by calculation [facility] System Inc Albumin/Globulin [Mass 1.0 1.0-1.5 [facility] Ratio] in Serum or Plasma [facility] test company ID Date Data Source [id number] 10/05/2019 04:22:18 PM EST [facility] Name Value Range Interpretation Description Data Sup porting Code Source(s) Document(s ) Leukocytes 10.0 4.8-10.6 [facility] [#/volume] in K/uL [place] Blood by Well Done Automated count System Inc Erythrocytes 4.93 4.70-6.0 [facility] [#/volume] in M/uL 0 [facility] Blood by Well Done Automated count System Inc Hemoglobin 14.2 14.0-18. [facility] [Mass/volume] in g/dL 0 [place] Blood Well Done System [employer] Hematocrit 43.1 % 42.0-52. [facility] [Volume 0 [place] Fraction] of Well Done Blood by System [employer] Automated count Erythrocyte mean 87.4 FL 81.0-94. [facility] corpuscular 0 [place] volume [Entitic Health volume] by System [employer] Automated count Erythrocyte mean 28.8 PG 27.0-35. [facility] corpuscular 0 [facility] hemoglobin [facility] [Entitic mass] System [employer] by Automated count Erythrocyte mean 32.9 30.7-37. [facility] corpuscular g/dL 3 [facility] hemoglobin Well Done concentration System [employer] [Mass/volume] by Automated count Erythrocyte 12.9 % 11.5-14. [facility] distribution 0 [place] width [Ratio] by Well Done Automated count System Inc Platelets 339 K/uL 130-400 [facility] [#/volume] in [facility] Blood by Dealo count System Inc Platelet mean 10.1 FL 9.2-11.8 [facility] volume [Entitic [place] volume] in Blood [employer] System Inc count Nucleated 0.0 PER 0 [facility] erythrocytes/100 100 WBC [place] leukocytes Health [Ratio] in Blood System [employer] Nucleated 0.00 0.0-0.01 [facility] erythrocytes K/uL [place] [#/volume] in Well Done Blood [employer] Segmented 78 % 48.0-72. Above high normal [facility] neutrophils/100 0 [place] leukocytes in Well Done Blood System [employer] Lymphocytes/100 14 % 18.0-40. Below low normal [facility] leukocytes in 0 [place] Blood Well Done System [employer] Monocytes/100 7 % 2.0-12.0 [facility] leukocytes in [employer] System Inc Eosinophils/100 1 % 0.0-7.0 [facility] leukocytes in [place] Blood Well Done System Inc Basophils/100 0 % 0.0-3.0 [facility] leukocytes in [employer] System Inc Immature 0 % 0.0-0.5 [facility] granulocytes/100 [place] leukocytes in Health Blood by System Inc Automated count Segmented 7.8 K/UL 2.3-7.6 Above high normal [facility] neutrophils [place] [#/volume] in [place] Lymphocytes 1.4 K/UL 0.9-4.2 [facility] [#/volume] in [place] [employer] [facility] Monocytes 0.7 K/UL 0.1-1.7 [facility] [#/volume] in [facility] [employer] [facility] Eosinophils 0.1 K/UL 0.0-1.0 [facility] [#/volume] in [place] [employer] [facility] Basophils 0.0 K/UL 0.0-0.4 [facility] [#/volume] in [place] [employer] [facility] Immature 0.0 K/UL 0.0-0.17 [facility] granulocytes [place] [#/volume] in [employer] by [email or web address] [facility] Automated count Differential [facility] cell count [place] [facility] Food [employer] Procedure Social History Code Duration Value Status Description Data Source(s ) Alcohol intake 10/06/2019 Current completed Current drinker [facility] 12:00:00 AM drinker of of alcohol CHARGED.fm alcohol (finding) System Turning Art (finding) Cigarettes 10/06/2019 UNK completed [facility] smoked current 12:00:00 AM MemfoACT [employer] (pack per day) - [place] [facility]/LBR System I nc Reported Smoking 10/06/2019 Light tobacco completed Light tobacco [facility] 12:00:00 AM smoker smoker [employer] Alcohol intake 10/05/2019 Current completed Current drinker [facility] 12:00:00 AM drinker of of alcohol CHARGED.fm alcohol (finding) [employer] (finding) Cigarettes 10/05/2019 UNK completed [facility] smoked current 12:00:00 AM MemfoACT ealth (pack per day) - [employer]/LBR System I nc Reported Smoking 10/05/2019 Light tobacco completed Light tobacco [facility] 12:00:00 AM smoker smoker [employer] Vital Signs ID Date Data Source UNK Name Value Range Interpretation Code Description Data Source(s) Oxygen saturation 98 % 98 % [facility] in Arterial blood [employer] by Pulse oximetry System Inc Body temperature 36.78 Anuradha 36.78 Anuradha [facility] Liquid Bronze Heart rate 98 /min 98 /min [facility] Diastolic blood 75 mm[Hg] 75 mm[Hg] [facility] pressure [employer] Systolic blood 125 mm[Hg] 125 mm[Hg] Baird s pressure [employer] Inc Respiratory rate 16 /min 16 /min [facility] [employer] System Inc Body mass index 21.96 kg/m2 21.96 kg/m2 [facility] (BMI) [Ratio] [employer] Body weight 77.565 kg 77.565 kg [employer] Inc Oxygen saturation 98 % 98 % [facility] in Arterial blood [employer] by Pulse oximetry System Inc Respiratory rate 16 /min 16 /min [facility] [employer] Body temperature 36.67 Anuradha 36.67 Anuradha [facility] [employer] Heart rate 83 /min 83 /min [employer] Inc Diastolic blood 77 mm[Hg] 77 mm[Hg] [facility] pressure [employer] Systolic blood 125 mm[Hg] 125 mm[Hg] Baird s pressure Liquid Bronze Body height 188 cm 188 cm [employer]Guide [facility] Oxygen saturation 98 % 98 % [facility] in Arterial blood [employer] by Pulse oximetry System Inc Respiratory rate 19 /min 19 /min [facility] [employer] Body temperature 36.83 Anuradha 36.83 Anuradha [facility] urs [employer] Inc Heart rate 84 /min 84 /min [employer] Inc Diastolic blood 68 mm[Hg] 68 mm[Hg] [facility] pressure [employer] Inc Systolic blood 120 mm[Hg] 120 mm[Hg] Baird s pressure [employer] System Inc Body mass index 21.96 kg/m2 21.96 kg/m2 [facility] (BMI) [Ratio] [employer] [facility] Body weight 77.565 kg 77.565 kg [employer] [facility] Body height 188 cm 188 cm [employer] [facility] Patient Treatment Plan of Care Planned Activity Planned Date Details Description Data Source (s) Buprenorphine 2 MG / 11/07/2019 12:00:00 [email or web address] Naloxone 0.5 MG Oral AM [facility] Well Done [facility] Strip Buprenorphine 2 MG / 11/07/2019 12:00:00 [facility] [place] Naloxone 0.5 MG Oral AM [facility] Strip Buprenorphine 2 MG / 11/07/2019 12:00:00 [facility] [place] Naloxone 0.5 MG Oral AM [facility] Strip Trazodone Hydrochloride 11/06/2019 12:00:00 [facility] [place] 150 MG Oral Tablet AM ED[facility] Cephalexin 500 MG Oral 10/05/2019 12:00:00 [facility] [place] Capsule AM EST Health System [facility] Acetaminophen 325 MG Oral 10/05/2019 12:00:00 [facility] [place] Tablet AM EST [facility] System [facility] Ibuprofen 600 MG Oral 10/05/2019 12:00:00 [facility] [place] Tablet AM EST [facility]
[2020-04-21] MEDS ORDERED: guaiFENesin 200 MG/10 ML 10 ML UNIT-DOSE CUPS PO PRN (10:49)
[2020-04-21] MEDS ORDERED: MAGNESIUM CITRATE 300 ML BOTTLE PO PRN (10:49)
[2020-04-21] MEDS ORDERED: MENTHOL/PHENOL 1 EACH UD MM PRN (10:49)
[2020-04-21] MEDS ORDERED: P-EPHED 60MG/TRIPROLIDI 2.5MG TABLET PO PRN (10:49)
[2020-04-21] MEDS ORDERED: IBUPROFEN 400 MG TABLET (FP) PO PRN (10:49)
[2020-04-21] MEDS ORDERED: MAGNESIUM HYDROX 2400MG/30ML ORAL SUSPENSION 30 ML CUP PO PRN (10:49)
[2020-04-21] MEDS ORDERED: LOPERAMIDE HCL 2 MG CAPSULE PO PRN (10:49)
--- NOTE | 2020-04-21 10:51 | HP ---
DENAE BULLOCK Rehab Assess/Revision - Admission History Admitted to Rehab from: [facility] Date of Admission to Rehab: 04/21/2020 - Vital signs Vital Signs: Vital Signs Period Temp Pulse Resp BP Sys/Cabezas Pulse Ox Last 24 Hr 98.2 F 87 18 114/63 - Findings Detox History & Physical reviewed: Yes Concur with findings: Yes Comments/Additional Findings: Physical. General Appearance: No apparent distress. HEENTM: MICKI, normocephalic. Respiratory: No Respiratory Distress. Neck: Supple. Abdominal: +Bowel Sounds, Non Tender, Flat, Soft. Musculoskele ananda: full weight bearing steady gait. Extremities: Yes: Within Normal Limits, Normal Range of Motion, Tremors. Neurological: YNs II-XII intact, Motor Strength 5/5 Inpatient Rehab Admission - Rehab Decision to Admit Inpatient rehab admission?: Yes - Initial Determination Are CD services needed?: Yes Free of communicable disease: Yes Not in need of hospitalization: Yes - Rehab Admission Criteria Previous failed treatment: Yes Poor recovery environment: Yes Comorbidities: Yes Lacks judgement: Yes Patient is meeting Inpatient Rehab admission criteria:: Yes
--- OUTSIDE RECORDS SUMMARY | 2020-04-21 14:17 | XMS ---
[...] is protected by Article 27-F of the [facility] Public Health law. If you continue you may haveaccess to information: Regarding HIV / AIDS; Provided by facilities licensed or operated by the [facility] Office of Mental Health; or Provided by the [facility] Office for People With Developmental Disabilities. If such information is present, then the following [facility] mandated warning applies: This information has been [...] law may result in a fine or correction sentence or both. A general authorization for the release of medical or other information is NOT sufficient authorization for further disclosure. Encounters Encounter Providers Location Date Indications Data Source(s ) IR Admitter: KULDEEP 10/10/2019 Opiate dependence [facility] AFFUL 02:23:00 PM Hospital EST - 11/07/2019 10:00:00 AM EDT Opiate dependence Patient discharged. Inpatient 10/10/2019 01:00:00 [facility] AM EST [facility] IR Admitter: LIONEL 10/06/2019 07:07:38 EVAL for special [facility] - 10/10/2019 treatment Hospi ananda 02:15:00 PM EST EVAL for special treatment Patient discharged. Emergency 10/06/2019 12:00:00 AM EST [facility] Emergency 10/05/2019 04:06:23 PM EST - eval de tox [facility] 10/05/2019 07:32:00 PM EST eval detox Patient discharged. Emergency 10/05/2019 12:00:00 AM EST [facility] Immunizations Vaccine Date Status Description Data Source(s) [...] Intradermal neg), 11/05/2019 H ealth (), 11/04/2019, [facility] 10/06/2019 () Medications Medication Brand Start Product Dose Route Administrative Pharmacy [facility] Indications Reaction Description Data Name Date [...] name Policy type Policy ID Covered Covered constitution party's Policy P dayron / Coverage constitution party ID relationship to Lopez Inf ormation type lopez [facility] [id number] T [facility] [id number] T [facility] [id number] T [facility] [id number] [place] [facility] [id number] MEDICAID Medicaid MEDICAID [id number] Problems, Conditions, and Diagnoses Code Display Name Description Problem Type Effective Data Sour ce(s) Dates F11.10 Opiate abuse, Opiate abuse, 24740517 10/11/2019 [facility] continuous continuous 12:00:00 AM [employer] [facility] [employer] 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 Severe major 11200028 10/09/2019 [place] depression without depression without 12:00:00 AM [facility] psychotic features psychotic features [facility] [employer] F17.210 Dependence on Dependence on 80974535 10/07/2019 [facility] nicotine from nicotine from 12:00:00 AM [facility] [facility] cigarettes cigarettes [facility] [employer] F14.10 Cocaine abuse Cocaine abuse 56269662 10/07/2019 [facility] 12:00:00 AM [employer] [facility] [employer] F12.10 Marijuana abuse Marijuana abuse 88861320 10/07/2019 [facility] 12:00:00 AM [employer] F11.10 Heroin abuse Heroin abuse 29225201 10/07/2019 [place] 12:00:00 AM [employer] F11.23 Opiate withdrawal Opiate withdrawal 51856997 10/06/2019 [facility] 12:00:00 AM [employer] F11.10 Opioid abuse, Opioid abuse, Diagnosis 10/10/2019 [facility] - uncomplicated uncomplicated 02:23:00 PM [facility] F11.23 Opioid dependence Opioid dependence Diagnosis 10/06/2019 [facility] - with withdrawal with withdrawal 06:54:56 AM [facility] L08.9 Local infection of Local infection of Diagnosis 0 [facility] - the skin and the skin and 03:49:03 PM [facility] subcutaneous subcutaneous [facility] tissue, tissue, unspecified unspecified H60.12 Cellulitis of left Cellulitis of left Diagnosis 0 [facility] - external ear external ear 03:49:03 PM [facility] [place]2 4082 prevention of Diagnosis [facility] relapse to opioid Shainque [employer] [facility] 4082 4082 prevention of Diagnosis [facility] relapse to opioid [place] [employer] [facility] [id number] insomnia Diagnosis [facility] associated with [facility] depression [facility] 4082 4082 prevention of Diagnosis [facility] to [facility] dependence System [facility] [id number] pain Diagnosis [facility] Surgeries/Procedures Procedure Description Date Indications Data Source(s) PLEASE READ & <td><content 11/06/2019 [facility] Hand arity DOCUMENT PPD TEST ID="[id number]"> 08:52:00 PM [facility] 48 HRS PLEASE READ & EDT DOCUMENT PPD TEST IN 48 HRS</content></td><td >Routine</td><td>10/2019 8:52 PM EDT</td><td></td><td> <paragraph styleCode="header">Re sults for this procedure are in the <content styleCode="xLink2-Res [id number]">results section</content>.</p aragraph></td> HEPATIC FUNCTION HEPATIC FUNCTION STAT 10/31/2019 [facility] PANEL PANEL 7:02 AM EDT 07:02:00 [facility] EDT [facility] HC DRUG SCR QL HC DRUG SCR QL STAT 10/26/2019 020 [facility] INST ALLEGRA INST ALLEGRA 2:45 PM EDT 02:45:00 PM [facility] OPTICAL READ OPTICAL READ EDT [facility] n[facility] HC DRUG SCR QL HC DRUG SCR QL Routine 10/24/2019 020 [facility] INST ALLEGRA INST ALLEGRA 7:50 PM EDT 07:50:00 PM [facility] OPTICAL READ OPTICAL READ EDT [facility] URINALYSIS W/ URINALYSIS W/ STAT 10/06/2019 0 [facility] RFLX MICROSCOPIC RFLX MICROSCOPIC 7:05 AM EST 07 :05:00 AM [facility] EST [facility] HC DRUG SCR QL HC DRUG SCR QL STAT 10/06/2019 020 [facility] INST ALLEGRA INST ALLEGRA 7:05 AM EST 07:05:00 AM [facility] OPTICAL READ OPTICAL READ EST [facility] URINE MICROSCOPIC URINE MICROSCOPIC STAT 10/05/2019 0 10/05/2019 [facility] 4:10 PM EST 04:10:00 PM [facility] EST [facility] BILIRUBIN, BILIRUBIN, STAT 10/05/2019 10/05/2019 [facility] CONFIRM CONFIRM 4:10 PM EST 04:10:[facility] W/ URINALYSIS W/ STAT 10/05/2019 0 [facility] RFLX MICROSCOPIC RFLX MICROSCOPIC 4:10 PM EST 04 :10:00 [facility] DRUG SCREEN, DRUG SCREEN, STAT 10/05/2019 10/05/2019 [facility] URINE URINE 4:10 PM EST 04:10:00 [facility] HC DRUG SCR QL HC DRUG SCR QL STAT 10/05/2019 020 [facility] INST ALLEGRA INST ALLEGRA 4:05 PM EST 04:05:[facility] READ OPTICAL READ [facility] nc METABOLIC PANEL, METABOLIC PANEL, STAT 10/05/201909/2019 [facility] COMPREHENSIVE COMPREHENSIVE 4:05 PM EST 04:05:00 PM [facility] nc CBC WITH CBC WITH STAT 10/05/2019 10/05/2019 [facility] AUTOMATED DIFF AUTOMATED DIFF 4:05 PM EST 04:05: 00 PM [facility] nc XR SHOULDER LT XR SHOULDER LT STAT 10/05/2019 020 [facility] AP/LAT MIN 2 V AP/LAT MIN 2 V 3:59 PM EST 03:59: 54 PM [facility] I nc Results ID Date Data Source [id number] 04/16/2020 10:10:00 AM EDT [facility] Name Value Range Interpretation Description Data Sup porting Code Source(s) Document(s ) SARS [facility] coronavirus 2 RNA This lab was ordered by [facility] Bill Inter and reported by [facility]. ID Date Data Source [id number] 12/20/2019 03:45:00 PM EDT [facility] Name Value Range Interpretation Description Data Sup porting Code Source(s) Document(s ) SARS [facility] CORONAVIRUS 2 RNA This lab was ordered by [facility] Bill Inter and reported by [facility]. ID Date Data Source [id number] 11/26/2019 12:44:11 PM EDT [facility] Discharge summary:Rikki Eckert [address] [phone] (home): 1990S#: [id number] or/Plan Subscr Sex Relation Sub. Ins. ID Effective Group Num1. [place] [facility]* RIKKI LUO 1990 Male Self [id number] 05/05/19 [place] [id number] was admitted to the program on 10/10/2019 [...] D/C onS11/08/19 to his sister house at [address] [place] [address]. [place], [place].Rikki outpatient program is at [address] [id number] fax [phone] on Saturday11/10/19 at 10:00am with Delaney for his substance abuse and MAT Suboxion. he will see the onSaturday11/10/2019 to continue his MAT. Rikki was accepted t [facility] ,but need to call daily ,they was not accepting new admission be cause ofthe COVID-19 disaster emergency Stop his admission at this time. Babita mix [facility] Department of homeless Services new intake packet, emailed [email or web address] as instructed. Turnaround time could be 1-2 businessdays. Treatment tiffany acosta also included [facility] Homeless Fdc information if needed,[facility] if needed, and [facility] if needed on his D/C papers. Rikki was able toreport how his addiction affe ct his life and what he needs to implement in hislife ,so he can become a better fathe r and a productive member of society.Technology Sales Representative gave pt. information on effective commun ication [...] up With Specialties Details Why Contact [facility] Call he was ac cepted, but is on hold at this time forlong-term treatment he need to contin ue calling [address] [place] [address] [phone] sig gerardo Sister home Go on 11/07/2019 [place] [phone] [facility] re Recovery Center On 11/10/2019 at 10:00 am with Delaney for his substanceabuse and MAT Suboxone. he will see the Dr. Luna [address] [address] fax [phone] signed [facility] Call To follow up on celso hearn for residential chemical dependencytreatment [address] [place], [place] [address]V: [phone]: [phone] consent [facility] Homeless Fdc Intake Center Go to As needed, [facility] [address], [place]: [place] [address] east to [address], turn left, andgo north to [address]. Entrance is now at [address] and [address]. [facility] Go to As needed, Emergency housin goption near sister's home [address], [place] [address]G: [phone] [facility] residence Go to As needed, Emergencyhou sing option near sister's home [address] [place], [place] [address]V: [phone] [facility] [place] Housing Go to As needed, Emergencyhousi ng option near sister's home [address] [place], [place] [address]Z: [phone] [facility] Marlena Go to As needed, Emergency housing optionnear sis ter's home [address] [place], [place] [address]C: [phone] Bsi, Not On File Not O n File (58) Patient has a PCP but that physician isnot listed in [facility]. Name Value Range Interpretation Code Description Data Tashia rce(s) Supporting Document(s ) ID Date Data Source [id number] 11/17/2019 01:57:49 PM EDT [facility] Problem: Chemical Dependency (Adult/Ped iatric)Goal: *STG: [...] up the appropriate after care asneeded to [facility] er help him in his recovery.Outcome: Progressing Towards GoalRikki reported that he recognize that boredom is a trigger for him. Rikkireported that he needs to stay busy. Rikki's outpatient program is at [address] [place] [address], [id number] fax [phone] on Saturday11/10/2019 at 10:00 am with Usha alex his substance abuse treatment. Rikki was accepted to [facility] to continue calling them daily for approval for admission. Rikki willattend online meet ings until they open back up for walk in's.AA/NA meetings - eROI and Https:// [employer].MasquemedicosProblem: Social DiscomfortGoal: *STG: Verbally re port positive outcomes of participation in social &support groupsDescription: Karla whalen will identify the positive things he has learn/experiencedin the groups dony vargas here in rehabOutcome: Progressing Towards GoalRikki reported that he learned that they are [...] Supporting Document(s ) ID Date Data Source [id number] 11/17/2019 01:56:51 PM EDT [facility] Treatment Plan ReviewRikki marquez date: 10/10/2019 2:23 PMToday's date: 10/22/19Members Present During Treatment Plan Review: [x] Patient [x] Nurse: Selina Peguero [x] [facility] team to review patient's progress toward treatment goals andaddre ss any concerns or discharge needs. For detail on progress please see careplan.C urrent Urges & Cravings: None at this timePost acute withdrawal updates: liam Solorzano planning progress: Rikki D/C date is Saturday10/27/19 he was acce ptedto [facility].Additional Information/Assessment: Rikki refuse to take some of [...] Supporting Document(s ) ID Date Data Source [id number] 11/17/2019 01:52:24 PM EDT [facility] Treatment Plan ReviewRikki Lucio alma date: 10/10/2019 2:23 PMToday's date: 10/29/19Members Present During Treatment Plan Review: [x] Patient [x] Nurse: Laura Flores [x] NICHOLE [facility] treatment team to review patient's progress toward treatment goals andaddre ss any concerns or discharge needs. For detail on progress please see careplan.C urrent Urges & Cravings: yes feeling agitatedPost acute withdrawal updates: a nxiousnessDischarge planning progress: Rikki is getting D/C to his sister home at [address] [place] [address]. [place], [place].He is going to a [facility] [place] [address] [phone] fax [phone] on Saturday11/10/2019 at 10:00 amwith Delaney. Consent was signed. Rikki D/C is Saturday11/06/19. Rik[facility] was [facility] but have to continue calling them daily for approval foradmission.Additional Informa tion/Assessment: Rikki reported that he is bored, Technology Sales Representative willcontinue giving him as signments.Rikki would like to start MAT Suboxone and his outpatient will continu eUrszula Writekenyon Logan [facility] will need a pres cription for MAT for a week worth of Suboxone.He will see the , on 11/11/2019 Name Value Range Interpretation Code Description Data Tashia rce(s) Supporting Document(s ) ID Date Data Source [id number] 11/17/2019 01:51:35 PM EDT [facility] Note -3:15am- 4:00 pmGroup Topic - The [place] and Struggle of Free Will. Technology Sales Representative brought literaturefocusing on wha t you deciding [...] willing to do for their r ecovery. Technology Sales Representative elaborated on howthe above mentioned components (some of many) of r ecovery were essential inunderstanding the magnitude of addiction and what it will take to properlyaddress it. Patient participated in topic being discussed an d how it pertained to theirrecovery. Name Value Range Interpretation Code Description Data Tashia rce(s) Supporting Document(s ) ID Date Data Source [id number] 11/13/2019 09:51:20 AM EDT [facility] Discharge Summary Rikki Mendoza / [id number] : 1990 Admitted 10/10/2019 Discharged: 11/07/19COURSE [...] of relapse to opioid dependence, Print, Disp-14 Film,[id number] these medications which have NOT CHANGED Detai lsacetaminophen (TYLENOL) 325 mg tablet Take 2 Tabs by mouth every four (4) hoursas n eeded for Pain., Normal, Disp-20 Tab, R-0STOP taking these medications ibuprofen (MOTR IN) 600 mg tablet Comments:Reason for Stopping: cephALEXin (KEFLEX) 500 mg cap dillan Comments:Reason for Stopping:No Known AllergiesDISCHARGE DIAGNOSIS/PLAN:Jr peguero Active Problem List Diagnosis Date Noted Opiate abuse, continuous ([facility]) 0 Severe major depression without psychotic features ([facility]) 10/09/2019 Heroin abuse ([facility]) 10/07/2019 Marijuana abuse 10/07/2019 Cocaine abuse ([facility]) 10/07/2019 Dependen ce on nicotine from cigarettes 10/07/2019 Opiate withdrawal ([facility]) 10/06/2019Contin ue after care as set up and agreed upon with clinical counselorFU with PCP and Psychi atrist as outpatientFollowing instructions given to patient:Take discharge medicati ons as prescribed and as instructed. It is important that you take the medication e xactly as they are prescribed. Keep your medication in the bottles provided by [facility] pharmacist and keep a listof the medication names, dosages, and times to be taken in your wallet. Do not take other medications without consulting your doct or.Risks/Benefits/potential adverse reactions have been discussed with the patientfor current and new medicationsEmmanjosephine Marquez NP Name Value Range Interpretation Code Description Data Tashia rce(s) Supporting Document(s ) ID Date Data Source [id number] 11/10/2019 02:44:41 PM EDT [facility] Group Topic: 11:15 AM- 12:00 PMGroup Not e: Spiritual Principals: Technology Sales Representative gave out a sheet of paper with [...] will take toproperly address their Addicted behavior. Technology Sales Representative spoke on the SpiritualPrincipal that can play [...] Supporting Document(s ) ID Date Data Source [id number] 11/10/2019 02:43:36 PM EDT [facility] Group Note: 1:15-3:pmGroup Topic: Formin g Stable Relationships:Exploring the different between Healthy and Unhealthy relationships, due torelationships being one of the common stressors that lead to a r elapse. A Goodrelationship supports recovery under other kinds of stress. Forming sta blerelationships is a valuable life skill. Technology Sales Representative explored ways of identifyingsigns of an unhealthy [...] or, in order to stay in recovery. Technology Sales Representative dariaa Movie called through the good ti [...] Supporting Document(s ) ID Date Data Source [id number] 11/06/2019 05:01:53 PM EDT [facility] Problem: Chemical Dependency (Adult/Pedi atric)Goal: *STG/LTG: Relapse prevention plan in place to include housing/aftercare,le isure activities, and spiritualityDescription: Rikki and ermelinda shaw will set up the appropriate after care asneeded to further help him in his [place] very.Outcome: Resolved/Met Completed [facility] Department of Homeless Services new jaison ke packet, emailed [email or web address] as instruc maria del rosario. Turnaround time could be 1-2 businessdays. James updated that he woul d likely still need [facility] [place] and comp lete the process there as [...] Social Work Elaine obtained train ticket to [place] which is very close tohis sister's residence in [place], [place]. James still plans on att ending outpttxt in [place] as scheduled. KENNETH Burk made aware of plan. Medicaltran sportation arranged for discharge via [employer] at 9AM on 11/06 (invoice#[phone]) t o take him to [employer] in [place] to orange picking supervisor medicationsthen to [facility] s Train station in order to get 10:40AM train to [facility];James will then make his own way from [place] to his sister's place in [facility]. Name Value Range Interpretation Code Description Data Tashia rce(s) Supporting Document(s ) ID Date Data Source [id number] 11/06/2019 04:38:04 PM EDT [facility] Dual Diagnosis Group Note 11:15AM-12PMDi fferential [...] Supporting Document(s ) ID Date Data Source [id number] 11/06/2019 04:07:40 PM EDT [facility] Group Note 3:15PM-4PM"DBT House": Purpos e [...] one doesn't have the support from the md lls each level can'tbuild on itself. Group was receptive to the activity and acknow ledged thatunderstanding how each aspect is connected helps in a house makes it help ful tosee how things in a person's life are also connected. Name Value Range Interpretation Code Description Data [facility](s) Supporting Document(s ) ID Date Data Source [id number] 11/06/2019 12:42:17 PM EDT [facility] Pt collecting breakfast tray and does no t show up for morning meds. [facility] 0900 suboxone at 1230. When asked why, Pt replied "no onewoke me up". Reminded of of the daily rules of the it as well as medicationand rule times. Pt stormed off stating he will not take his evening meds. Name Value Range Interpretation Code Description Data [facility](s) Supporting Document(s ) ID Date Data Source [id number] 11/06/2019 11:25:08 AM EDT [facility] Progress Note:Patient missed 9 am group this morning, asked RN's if patient was excused andRN's confirmed that patient w as not excused from group.Counselor aware, and was reported in AM rounds/report (9: 15). Name Value Range Interpretation Code Description Data [facility](s) Supporting Document(s ) ID Date Data Source [id number] 11/06/2019 09:06:07 AM EDT [facility] Late entry for 11/04:Stages of Change [...] Supporting Document(s ) ID Date Data Source [id number] 11/05/2019 05:50:25 PM EDT [facility] Problem: Chemical Dependency (Adult/Pedi atric)Goal: *STG: [...] articipate in outpatient after care program to [facility] mental healthOutcome: Resolved/MetProblem: Chemical Dependency (Adult/Pediatric)Goal: *STG: Identify li festyle changes to support snf sobriety such asvocation, employment, education, and legal [...] Supporting Document(s ) ID Date Data Source [id number] 11/05/2019 05:50:20 PM [address] [facility] Treatment Plan ReviewRikki marquez date: 10/10/2019 2:23 PMToday's date: 11/05/19Members Present During Treatment Plan Review: [x] Patient [x] Nurse: Jerardo lAex [x] [facility] treatment team to review patient's progress toward treatment goals andaddre ss any concerns or discharge needs. For detail on progress please see careplan.C urrent Urges & Cravings: None at this timePost acute withdrawal updates: anxio usness and anxiety.Discharge planning progress: Rikki D/C was Saturday 0 going home to hismother or father house [place]. Rikki parents stated he could not c ome home atthis time. Rikki D/C planing has change his D/C date is pending [facility] still at [address] [address] fax [phone] on Saturday11/10/19 at10:00 am with Delaney for his substance abuse and MAT Suboxone. he will see theDr. Yepez ay 11/10/2019. Rikki need to fill out the packet forAdditional Information/Assessm ent: Rikki need to orange picking supervisor his prescriptionbefore he get's to the shelt er. Rikki don't have any money for the co-paymentif needed. Name Value Range Interpretation Code Description Data Tashia rce(s) Supporting Document(s ) ID Date Data Source [id number] 11/05/2019 05:41:27 [address] [facility] Patient declined 1600 Suboxone stating t hat he did not sleep well in the nightand believes that the medicine kept him awak e. Name Value Range Interpretation Code Description Data Tashia rce(s) Supporting Document(s ) ID Date Data Source [id number] 11/05/2019 05:09:05 PM EDT [facility] Group Note (4:15-5:00 pm) TOPIC: ADDICTI ON Documentary-Why can't they just stop?Documentary from the [facility] tute on Drug Abuse (MANUELA) Table of Contents: Continue of Disc 1. Saturday night in a [place] [facility]. A mother's desperation. The science ofrelapse. The adolescent addict . Brain imaging. Opiate addiction: a new medication. Topiramate: a clinical trial foralcoholism. [facility] 638. Insurance woes Patient's all watched dis c 1 of the Documentary. Patient's all were observedactively listening to topic at h and. Name Value Range Interpretation Code Description Data Tashia rce(s) Supporting Document(s ) ID Date Data Source [id number] 11/05/2019 04:21:19 PM EDT [facility] Group Note (3:15-4:00 pm)TOPIC: ADDICTIO N Documentary-Why can't they just stop?[facility]Table of Contents:? Disc 1. Saturday night in a [place] [facility]. A mother's desperation. The science ofrelapse. The adolescent addict. Brain imaging. Op iate addiction: a new medication. Topiramate: a clinical trial foralcoholism. [facility] 638. Insurance woesPatient's all watched disc 1 of the Documentary. P atient's all were observedactively listening to topic at hand. Name Value Range Interpretation Code Description Data Tashia rce(s) Supporting Document(s ) ID Date Data Source [id number] 11/05/2019 04:13:29 PM EDT [facility] Inpatient Behavioral Health ServicesProv ider Daily Progress NotePatient: Rikki Mendoza Age: 29 y.o. : 1990EX : male CSN: [id number] Date: 10/10/2019 Attending: Bryon Rhodes, MDSUBJECTIVE: Patient [...] mg Oral Q4H PRN Kuldeep Rhodes MD cyclobe nzaprine (FLEXERIL) tablet 10 mg 10 mg Oral TID PRN Kuldeep Rhodes MD10 mg at 10/11 223 dicyclomine (BENTYL) capsule 20 mg 20 mg Oral Q8H PRN Kuldeep Rhodes MD h ydrOXYzine HCL (ATARAX) tablet 50 mg 50 mg Oral Q4H PRN Kudleep Rhodes MD50 mg at 11/04/192101 ibuprofen (MOTRIN) tablet 600 mg 600 mg Oral Q6H PRN Kuldeep Rhodes MD 600mg at 11/04/19 1650 loperamide (IMODIUM) capsule 2 mg 2 mg Oral Q3H W[place] N Kuldeep Rhodes MD magnesium hydroxide (MILK [...] nent: DBILUrine Analysis ColorDate Value Ref Range Zpcsqh2610/06/2019 YELLOW FinalApp earanceDate Value Ref Range Jkmdjn2210/06/2019 CLEAR FinalpH (UA)Date Value Ref Range Lfqzis0810/06/2019 7.0 FinalProteinDate Value Ref Range Wpsedv9110/06/2019 NEGATIV E mg/dL FinalKetoneDate Value Ref Range Jbbitl4010/06/2019 NEGATIVE mg/dL FinalBi lirubinDate Value Ref Range Nqrjmt4510/06/2019 NEGATIVE FinalBloodDate Value Ref Ran ge Wksuqp1810/06/2019 NEGATIVE FinalUrobilinogenDate Value Ref Range St atus10/06/2019 2.0 EU/dL FinalNitritesDate Value Ref Range Honnoo1710/06/2019 NEGATIV E FinalLeukocyte EsteraseDate Value Ref Range Vmjmrp6010/06/2019 NEGATIVE Final ASSESSMENT/PLAN:Active Problems: Marijuana abuse (10/07/2019) [...] Abuse Treatment Counse vlad including Family CounselingGroup ywtvksf-22-Nwou, Continuing Care, and Ps ychoeducation.Individual therapy-Behavioral, Cognitive, Cognitive-Behavioral, and Con tinuingCare.Will continue to adjust medications as deemed appropriate and to response forsymptom management (see medication orders made in EMR).Risks/Dmitriy efits/potential adverse reactions have been discussed with the patientfor current an d new medicationsEmnathaniel Marquez NP11/05/2019 Name Value Range Interpretation Code Description Data Tashia rce(s) Supporting Document(s ) ID Date Data Source [id number] 11/05/2019 04:12:10 PM EDT [facility] Inpatient Behavioral Health ServicesProv ider Daily Progress NotePatient: Rikki Mendoza Age: 29 y.o. : 1990EX : male CSN: [id number] Date: 10/10/2019 Attending: Bryon Rhodes, MDSUBJECTIVE: Patient [...] 24 hrs: Temp Pulse R aurelia BP MbS56811/03/19 0801 98 F (36.7 C) 85 16 [...] 650 mg 650 mg Oral Q4H PRN Kudleep Rhodes MD alum-mag hydroxide-s imeth (MYLANTA) oral [...] Statu s010/06/2019 YELLOW FinalAppearanceDate Value Ref Range Utrkvv7510/06/2019 CLEAR FinalpH (UA)Date Value Ref Range Aaesxu4710/06/2019 7.0 FinalProteinDate Value Ref Range Gxdcgr6010/06/2019 NEGATIVE mg/dL FinalKetoneDate Value Ref Range St atus10/06/2019 NEGATIVE mg/dL FinalBilirubinDate Value Ref Range Statu s010/06/2019 NEGATIVE FinalBloodDate Value Ref Range Wydfea1010/06/2019 NEGATIVE F inalUrobilinogenDate Value Ref Range Iokwjm3910/06/2019 2.0 EU/dL FinalNitrites Date Value Ref Range Fcknxj9810/06/2019 NEGATIVE FinalLeukocyte EsteraseDate Value Ref Range Xcpyco8010/06/2019 NEGATIVE FinalASSESSMENT/PLAN:Active Problems: M arijuana abuse (10/07/2019) [...] Value Range Interpretation Code Description Data [facility](s) Supporting Document(s ) ID Date Data Source [id number] 11/05/2019 03:06:33 PM EDT [facility] Nurse Group Note: Theme: What do you [...] Name Value Range Interpretation Code Description Data [facility] ) ID Date Data Source [id number] 11/05/2019 01:47:58 PM EDT [facility] Patient much more conversational -- sull en mood lifted. States that he is doingmuch better. Eating. Interacting with select peers. Name Value Range Interpretation Code Description Data [facility] Supporting Document(s ) ID Date Data Source [id number] 11/05/2019 10:11:02 AM EDT [facility] Rikki did not attend morning group. I requested him to come now to receive hismedications. He stated that he did n ot sleep well in the night. He wasencouraged to come down to the desk which he said h e would do. Name Value Range Interpretation Code Description Data [facility](s) Supporting Document(s ) ID Date Data Source [id number] 11/05/2019 09:25:38 AM EDT [facility] Patient presents as sullen this morning. No brightening upon approach.Cooperated with vital signs but did not stay to acc ept medications. Notinterested in conversation as he usually is. Continue to monitor. Name Value Range Interpretation Code Description Data [facility](s) Supporting Document(s ) ID Date Data Source [id number] 11/04/2019 05:25:20 PM ED[address] [facility] Technology Sales Representative met with PT, he was mora during t he session. Rikki was told by hissister that he could not come and stay with her and his mother at [address] [place] [address]. Rikki sister stated that his mother is staying with herto babysit her granddaughter at this time; also it's no t enough room for pt.Rikki reach out to his father Mr. Mendoza who stated to Tech (Y M) she wastranslating Danish to Canadian for financial writer, saying don't believe Rikki will go to his long-term treatment program [place], [place]. Mr. Mendoza stated that Rikki will try and manipulate him, sohe doesn't go [facility]. Rikki fatherstated that pt. told him [facility] is a dangerous and nasty place suchas; "patients are eating out o f the garbage". Mr. Mendoza stated Rikki cannotcome and stay with him at t his time. Technology Sales Representative reported to Rikki what his fatherstated and Rikki stated "that's f ine I will go to a long-term". Rikki reportedto financial writer that he would like his outpatient to stay where it's at [address] [place] [address] and if wr iter can get him a long-term around [facility] or in [place]. Technology Sales Representative reaches out to a homeless long-term such as; [facility] at [address] [place] [address] # Who stated they have totake in people from [facility] [address] [place] [address] # [phone] who stated they are not krzysztof ing any more admissionat this time, [facility] Department of Homeless [address] [place], [place] [address] #[phone] financial writer left message. Technology Sales Representative [facility] consent was sign ed. Name Value Range Interpretation Code Description Data Tashia rce(s) Supporting Document(s ) ID Date Data Source [id number] 11/04/2019 04:27:55 PM EDT [facility] Group Note (3:15-4:00 pm)TOPIC: Motivati onal [...] Supporting Document(s ) ID Date Data Source [id number] 11/04/2019 04:20:52 PM EDT [facility] Group Note 2:15 -2:45 pmTOPIC: Recovery [...] Value Range Interpretation Code Description Data [facility](s) Supporting Document(s ) ID Date Data Source [id number] 11/04/2019 01:45:49 PM EDT [facility] Stress Management Group Note 1:15PM-2PMP rogressive [...] Supporting Document(s ) ID Date Data Source [id number] 11/03/2019 11:38:54 PM EDT [facility] Pt showered and now requesting prn Benad ryl, states he feels his BP is high.WNL. Will monitor. Name Value Range Interpretation Code Description Data Tashia rce(s) Supporting Document(s ) ID Date Data Source [id number] 11/03/2019 04:21:38 PM EDT [facility] Group Note 3:15PM-4PMDistorted thinking: Purpose is [...] Name Value Range Interpretation Code Description Data [facility] rce(s) Supporting Document(s ) ID Date Data Source [id number] 11/03/2019 12:17:27 PM EDT [facility] Nurse group note: 11:15 Decision making . Patients were given a useful decisionmaking grid to assist in making life choices. All in the group participated inthe discussion. Name Value Range Interpretation Code Description Data [facility] rce(s) Supporting Document(s ) ID Date Data Source [id number] 11/03/2019 11:13:21 AM EDT [facility] Discussed in morning meeting that pt has been awake all night related to lateadministration time and dosage of Floyd boxone. Per Latisha DRAW STRING KNOTTER , she will speakwith prescribing MD Bar about it. Name Value Range Interpretation Code Description Data [facility] rce(s) Supporting Document(s ) ID Date Data Source [id number] 11/03/2019 08:06:05 AM EDT [facility] Patient c/o being very tired. Did not sl eep at all last night. Referred to NPfor med review. Name Value Range Interpretation Code Description Data [facility] rce(s) Supporting Document(s ) ID Date Data Source [id number] 11/03/2019 04:40:58 AM EDT [facility] 0440- Pt to mens lounge to watch TV. Name Value Range Interpretation Code Description Data [facility] rce(s) Supporting Document(s ) ID Date Data Source [id number] 11/03/2019 03:50:44 AM EDT [facility] Pt still awake , now asking [...] Supporting Document(s ) ID Date Data Source [id number] 11/02/2019 11:57:55 PM EDT [facility] Pt given standing Trazodone at HS. Now r equesting prn vistaril to assist withsleep. Given and returned to bed. Will monitor. Name Value Range Interpretation Code Description Data [facility] rce(s) Supporting Document(s ) ID Date Data Source [id number] 11/02/2019 10:44:40 PM EDT [facility] VSS. Visible on the unit. Андрей snacks & b everages. Name Value Range Interpretation Code Description Data [facility] rce(s) Supporting Document(s ) ID Date Data Source [id number] 11/02/2019 04:05:42 PM EDT [facility] Family Dynamics Group Note 3:15PM-4PMPut ting [...] Value Range Interpretation Code Description Data [facility](s) Supporting Document(s ) ID Date Data Source [id number] 11/02/2019 04:00:17 PM EDT [facility] Life Skills Group Note 1:15PM-2PMConflic t [...] Value Range Interpretation Code Description Data [facility](s) Supporting Document(s ) ID Date Data Source [id number] 11/02/2019 01:16:16 PM EDT [facility] Patient seen and evaluated and I [...] Value Range Interpretation Code Description Data [facility](s) Supporting Document(s ) ID Date Data Source [id number] 11/02/2019 01:09:07 PM EDT [facility] Pt meeting with Dr Bar for MAT. Name Value Range Interpretation Code Description Data Tashia rce(s) Supporting Document(s ) ID Date Data Source [id number] 11/01/2019 06:40:06 PM EDT [facility] SBAR report given to Supervisor Bonding. Name Value Range Interpretation Code Description Data Tashia rce(s) Supporting Document(s ) ID Date Data Source [id number] 11/01/2019 05:50:04 PM EDT [facility] Pt was cooperative and pleasant. Pt atte nded groups. Pt was social with peersand staff. Pt took all scheduled meds. Name Value Range Interpretation Code Description Data Tashia rce(s) Supporting Document(s ) ID Date Data Source [id number] 11/01/2019 04:25:32 PM EDT [facility] Group Note 3:15 pm - cravings [...] Supporting Document(s ) ID Date Data Source [id number] 10/31/2019 06:39:57 PM ED[address] [facility] SBAR report given to Supervisor Bonding. Name Value Range Interpretation Code Description Data Tashia rce(s) Supporting Document(s ) ID Date Data Source [id number] 10/31/2019 04:04:35 PM EDT [facility] Technology Sales Representative met with PT he was anxious and ex periencing urges and craving during the, session. Rikki reported that he has str ramone urges and craving on Saturday10/31/19. Technology Sales Representative was able to get an appointment wi th his outpatient program thatwill continue his MAT Suboxone. Rikki came to financial writer and stated he seen thepsychiatrist who stated he could not start it this but h e need to waituntil Saturday. Rikki was upset and stated to financial writer that he mention thi s onThurs10/29/19 and why it can't get done. Technology Sales Representative tried to encourage pt. that he needs to practice some coping skill so he can continue managing his emotionswith t he help of this financial writer. Technology Sales Representative sat with pt. and did motivationalinterviewing with loraine karla to help with his urges and craving and went over somecoping strategies. Rikki atten ds all the groups and participated in thediscussions. Rikki wanted to use the phone to speak to his cousin. Writersencourage Rikki to speak Canadian on the phone and remember that his last phonecall trigger him,so he has to put i t on speaker phone. Name Value Range Interpretation Code Description Data Tashia e(s) Supporting Document(s ) ID Date Data Source [id number] 10/31/2019 02:55:55 PM EDT [facility] Treatment planning group 1:15-2pmThe gr oup [...] Supporting Document(s ) ID Date Data Source [id number] 10/31/2019 02:47:07 PM ED[address] [facility] Group Note: 11:15am-12pmTopics: Urges an d [...] Supporting Document(s ) ID Date Data Source [id number] 10/31/2019 02:03:50 PM EDT [facility] Patient cooperative with staff and peers . Name Value Range Interpretation Code Description Data Tashia rce(s) Supporting Document(s ) ID Date Data Source [id number] 10/31/2019 07:28:44 AM EDT [facility] Name Value Range Interpretation Description Data Sup porting Code Source(s) Document(s ) Bilirubin.total 0.5 0.2-1.0 [facility] [Mass/volume] in mg/dL [facility] Serum or Plasma Streamezzo Bilirubin.direct 0.1 0.1-0.2 [facility] [Mass/volume] in mg/dL [facility] Serum or Plasma [employer] Alanine 27 U/L 12-78 [facility] aminotransferase Shanique [Enzymatic Health activity/volume] in System [employer] Serum or Plasma Aspartate 12 U/L 15-37 Below low normal [facility] aminotransferase Shanique [Enzymatic Health activity/volume] in SIM Digital Serum or Plasma by With P-5'-P Alkaline 60 U/L 46-116 [facility] phosphatase Shanique [Enzymatic Health activity/volume] in System [employer] Serum or Plasma Protein 7.3 6.4-8.2 [facility] [Mass/volume] in g/dL [facility] Serum or Plasma [facility] [employer] Albumin 3.8 3.4-5.0 [facility] [Mass/volume] in g/dL [facility] Serum or Plasma [employer] [facility] Bromocresol purple SIM Digital (BCP) dye binding method Globulin 3.5 2.8-3.9 [facility] [Mass/volume] in g/dL Shanique Serum by Health calculation [employer] Albumin/Globulin 1.1 1.0-1.5 [facility] [Mass Ratio] in Shanique Serum or Plasma [facility] System [employer] ID Date Data Source [id number] 10/31/2019 02:01:45 AM EDT [facility] Problem: Chemical Dependency (Adult/Pedi atric)Goal: *STG: Remains safe in hospitalOutcome: Progressing Towards Goa l Name Value Range Interpretation Code Description Data Tashia rce(s) Supporting Document(s ) ID Date Data Source [id number] 10/30/2019 04:19:45 PM EDT [facility] Group Note 1:15-2:00 pmTopic: Film on 'W hy can't he/she just stop using", by Daniel Corral MD, [facility].Film di scussed the Disease of Addiction, [...] group with out being excused from this financial writer.Patient never returned to oup. Name Value Range Interpretation Code Description Data Tashia rce(s) Supporting Document(s ) ID Date Data Source [id number] 10/30/2019 03:44:32 PM EDT [facility] Dual Diagnosis Group Note 11:15AM-12PMPo st-Traumatic [...] Supporting Document(s ) ID Date Data Source [id number] 10/30/2019 02:50:09 PM EDT [facility] Inpatient Behavioral Health ServicesProv ider Daily Progress NotePatient: Rikki Mendoza Age: 29 y.o. : 1990EX : male CSN: [id number] Date: 10/10/2019 Attending: Bryon Rhodes MDSUBJECTIVE: Patient [...] past 24 hrs: Temp Pulse Resp BP ZlN79810/30/19 0846 97.6 F (36.4 C) - - [...] Statu s010/06/2019 YELLOW FinalAppearanceDate Value Ref Range Qihzlf9510/06/2019 CLEAR FinalpH (UA)Date Value Ref Range Beauxw6510/06/2019 7.0 FinalProteinDate Value Ref Range Omknxp5110/06/2019 NEGATIVE mg/dL FinalKetoneDate Value Ref Range St atus10/06/2019 NEGATIVE mg/dL FinalBilirubinDate Value Ref Range Statu s010/06/2019 NEGATIVE FinalBloodDate Value Ref Range Ehlsqo2710/06/2019 NEGATIVE F inalUrobilinogenDate Value Ref Range Ppdcgo9210/06/2019 2.0 EU/dL FinalNitrites Date Value Ref Range Alrrpk8210/06/2019 NEGATIVE FinalLeukocyte EsteraseDate Value Ref Range Ziughy0610/06/2019 NEGATIVE FinalASSESSMENT/PLAN:Active Problems: M arijuana abuse (10/07/2019) [...] Abuse Treatment Counse vlad including Family CounselingGroup [id number]-[id number], Continuing Care, and Ps ychoeducation.Individual therapy-Behavioral, Cognitive, Cognitive-Behavioral, and Con tinuingCare.Will continue to adjust medications as deemed appropriate and to response forsymptom management (see medication orders made in EMR).Risks/Dmitriy efits/potential adverse reactions have been discussed with the patientfor current an d new medicationsWm Marquez NP10/30/2019 Name Value Range Interpretation Code Description Data [facility] Supporting Document(s ) ID Date Data Source [id number] 10/30/2019 01:42:07 PM EDT [facility] Pt has been given verbal and literary ed ucation upon and since admission. Willcontinue to provide education as nee ded.Pt has been visible on the unit throughout the day. Pt has been social withstaff and peers. Compliant with medications and program. No complaints. Willcontinue to monitor for safety. Name Value Range Interpretation Code Description Data [facility] Supporting Document(s ) ID Date Data Source [id number] 10/30/2019 06:47:39 AM EDT [facility] SBAR report given to Day Shift. Name Value Range Interpretation Code Description Data [facility] Supporting Document(s ) ID Date Data Source [id number] 10/30/2019 02:57:12 AM EDT [facility] Problem: Chemical Dependency (Adult/Pedi atric)Goal: *STG: [...] Supporting Document(s ) ID Date Data Source [id number] 10/29/2019 04:56:08 PM EDT [facility] Clinical meeting held with donal manriquez RN, to address staff putting him mik 24 hour contract for non-compliance with ru les and regulations of the unitsuch as; tampering with a smoke detector (putting paper towels over device tocover it), attempting to smoke and/or obtain matche s or recruiting and selection consultant from someoneelse on the unit. Rikki had [...] i s willing to continue working thisprogram. Technology Sales Representative did motivational interviewing wit h pt to try and get him tounderstanding that his poor decisions is not a setback, but can be a set up forhim to continue learning from his mistakes. Rikki reported that he was sorryfor his behaviors and will not break any rules or regulations while he is herein rehab. Technology Sales Representative received a message from Gus at [facility] he stat edthat at this time there will not be bringing any new admissions. Technology Sales Representative call [facility] and left message about they pt that got accepted to their facility.Technology Sales Representative apryl Brandt set up another aftercare plan such as; Rikki getting D/C tohis sister home at [address] [place] [address]. [place], [place] going to his outpatientprogram for his s ubstance abuse treatment at [address] [place], [place] [id number] fa x [phone] on Saturday11/10/2019 at 10:00 am with Olgaand consent signed. Rikki D /C is Saturday11/06/19. Name Value Range Interpretation Code Description Data Tashia rce(s) Supporting Document(s ) ID Date Data Source [id number] 10/29/2019 04:24:16 PM EDT [facility] Group Note 3:15 pm - The [...] Supporting Document(s ) ID Date Data Source [id number] 10/29/2019 02:27:26 [address] [facility] Stages of Change Group Note 1:15Pm-2PMEm [...] Supporting Document(s ) ID Date Data Source [id number] 10/29/2019 12:03:31 PM EDT [facility] Inpatient Behavioral Health ServicesProv ider Daily Progress NotePatient: Rikki Mendoza Age: 29 y.o. : 1990EX : male CSN: [id number] Date: 10/10/2019 Attending: Bryon Rhodes MDSUBJECTIVE: Patient [...] past 24 hrs: Temp Pulse Resp BP IfD15710/29/19 0820 97.6 F (36.4 C) - - [...] : DBILUrine Analysis ColorDate Value Ref Range Qwgvyb7410/06/2019 YELLOW FinalApp earanceDate Value Ref Range Uwlkdx4810/06/2019 CLEAR FinalpH (UA)Date Value Ref Range Ejktag8310/06/2019 7.0 FinalProteinDate Value Ref Range Iwifjj2710/06/2019 NEGATIV E mg/dL FinalKetoneDate Value Ref Range Bcaynt5710/06/2019 NEGATIVE mg/dL FinalBi lirubinDate Value Ref Range Mxjpcb5910/06/2019 NEGATIVE FinalBloodDate Value Ref Ran ge Kpaafz1610/06/2019 NEGATIVE FinalUrobilinogenDate Value Ref Range St atus10/06/2019 2.0 EU/dL FinalNitritesDate Value Ref Range Csqkxs3910/06/2019 NEGATIV E FinalLeukocyte EsteraseDate Value Ref Range Eixjta7410/06/2019 NEGATIVE Final ASSESSMENT/PLAN:Active Problems: Marijuana abuse (10/07/2019) [...] Abuse Treatment Arnol chu including Family CounselingGroup vydxerm-73-Nicd, Continuing Care, and Ps ychoeducation.Individual therapy-Behavioral, Cognitive, Cognitive-Behavioral, and Con tinuingCare.Will continue to adjust medications as deemed appropriate and to response forsymptom management (see medication orders made in EMR).Risks/Dmitriy efits/potential adverse reactions have been discussed with the patientfor current an d new medicationsKailanathaniel MarquezKENNETH10/29/2019 Name Value Range Interpretation Code Description Data Tashia rce(s) Supporting Document(s ) ID Date Data Source [id number] 10/29/2019 08:37:24 AM EDT [facility] Late Entry note for 10/28/2019:Group Top ic: Relapse Prevention PlanThis financial writer brought in a folder that included a carmen jamison for the followingtopics in order for the client to develop a relapse preventi on plan:Trigger, Managing Cravings, Useful Tools i.e Gratitude list, relaxationtec hniques, stress management techniques, Support Network, Red Flags, RiskySituati ons, People, Places, Things, Life Improvements, and Recovery Program.This financial writer shared with the group that by working this plan on a daily basis, itwill keep their awareness heightened to the point where they will understandthemselves better th an anyone and it will assist them in avoiding relapse.This financial writer also shared with the group that this plan will not be done whilethey are in treatment, the fact brandan t this plan will be forever in the works issomething they need to understand full y in order to work on themselves daily.This financial writer suggested they share their plan w ith [...] Supporting Document(s ) ID Date Data Source [id number] 10/28/2019 08:22:03 PM EDT [facility] Pt found by MHT SS in [...] Name Value Range Interpretation Code Description Data [facility] Supporting Document(s ) ID Date Data Source [id number] 10/28/2019 06:50:46 PM EDT [facility] Verbal report given to oncoming shift us ing SBAR, Doc Flowsheets and MAR. Name Value Range Interpretation Code Description Data [facility](s) Supporting Document(s ) ID Date Data Source [id number] 10/28/2019 04:11:46 PM EDT [facility] Group Note: 3:15-4:00pm Motivational G Roberthis [...] Name Value Range Interpretation Code Description Data [facility] Supporting Document(s ) ID Date Data Source [id number] 10/28/2019 03:27:54 PM EDT [facility] Late Entry for 10/12/2019Writer met with [...] getting employment.Rikki reported originally being from the [place], [place] but relocated due to hisaddiction and is currently residing with his parents. Man deion reported pendinggrand larceny charges in [facility]. Rikki Reported to have had court o n 10/01/19 whichhe did'nt attend. Rikki reports to have one daughter age 4 that [facility]. Reports having contact with his daughter's but limited due to h isaddiction. Rikki denies history of mental health at this time. Rikki reportedbein g very anxious and restlessness at this time. Technology Sales Representative had a conversation withpt. about attending all groups and only being excused by Nurse or counselor forthe second time . Name Value Range Interpretation Code Description Data Tashia macias(s) Supporting Document(s ) ID Date Data Source [id number] 10/28/2019 03:27:33 PM EDT [facility] This financial writer and supervisory geographer Elaine Muñiz met with pt. And addressed [...] the next group.[facility] a [facility]. His aftercare plan is still beingexplored wi mary financial writer and Rikki. Name Value Range Interpretation Code Description Data [facility] Supporting Document(s ) ID Date Data Source [id number] 10/28/2019 10:37:42 AM EDT [facility] Group Topic: 3:15 PM- 4:00 PMGroup Note: Spiritual Principals: Technology Sales Representative gave out a sheet of paper with [...] will take toproperly address their Addicted behavior. Technology Sales Representative spoke on the SpiritualPrincipal that can play [...] Supporting Document(s ) ID Date Data Source [id number] 10/28/2019 10:37:26 AM EDT [facility] Group Topic: 3:15 PM- 4:00 PMGroup Note: Spiritual Principals: Technology Sales Representative gave out a sheet of paper with [...] will take toproperly address their Addicted behavior. Technology Sales Representative spoke on the SpiritualPrincipal that can play [...] Supporting Document(s ) ID Date Data Source [id number] 10/28/2019 10:34:32 AM EDT [facility] Problem: Chemical Dependency (Adult/Pedi atric)Goal: *STG: [...] *STG: Identify li festyle changes to support terminal computer operator sobriety such asvocation, employment, education, and legal [...] he would like to relocate to a [place].Problem: Chemical Dependency (Adult/Pediatric)Goal: *STG/LTG: Relapse prevention plan in place to include housing/aftercare,leisure activities, an d spiritualityDescription: Rikki and counselor will set up the appropriate af ter care asneeded to further help him in his recovery.Outcome: Progressing Towards Go Mckenzie [facility]19 to help maintain hissobrietyManu iona reported that he would be attending self- help group once he get D/C fromhis long -term treatment program.Rikki reported that he would get a sponsor to help guide him through hisrecovery. Name Value Range Interpretation Code Description Data [facility](s) Supporting Document(s ) ID Date Data Source [id number] 10/28/2019 10:32:15 AM EDT [facility] Rikki had a phone screening with [facility] today Saturday10/20/2019. Whostated to give them a call t o see if he was accepted to their long-termtreatment program. Technology Sales Representative is st ill waiting for a phone assessment from [facility], sohe can get some assistance to attend a long-term treatment program. Rikki isstill working on his treatment goals and manag ing his emotions.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 Value Range Interpretation Code Description Data Tashia rce(s) Supporting Document(s ) ID Date Data Source [id number] 10/17/2019 02:00:00 AM EDT [facility] Patient refused his HS medications stati [...] Name Value Range Interpretation Code Description Data [facility] rce(s) Supporting Document(s ) ID Date Data Source [id number] 10/16/2019 07:00:38 PM EDT [facility] Verbal report given to oncoming shift us ing SBAR, Doc Flowsheets and MAR. Name Value Range Interpretation Code Description Data [facility] Supporting Document(s ) ID Date Data Source [id number] 10/16/2019 04:32:04 PM EDT [facility] Group Note 1:15 PM - SpiritualityGroup m embers were made aware of the difference between baptist andspirituality, and wh y spiritual values are important in the recovery process.The discussion centered around identifying spiritual values that will enhancetheir recovery. Some of the qualities that were discussed included honesty,acceptance, respect, patients, s elf less ness, and accountable.They were alsosupportive towards each other. Name Value Range Interpretation Code Description Data [facility] Supporting Document(s ) ID Date Data Source [id number] 10/16/2019 04:13:05 PM EDT [facility] Group Note 3:15PM-4PMDischarge planning: Purpose is [...] Supporting Document(s ) ID Date Data Source [id number] 10/16/2019 03:53:44 PM EDT [facility] Group Note 11:15pm-12:00pmGroup Topic: T wo Kinds of RelapseGroup members participated in a discussion centered on two kinds of Relapse Triggers. Technology Sales Representative distribute handout on the topic that identify therelapse be fore it becomes a reality. The addict in recovery wants to stoprelapse in its tra cks, for this reason, we conceptualize two types of relapse:behavioral relapse and Chemical relapse. Technology Sales Representative explained the differences andhow they were related, [...] re lapse. Writerreceived feedback from the group, Technology Sales Representative talked about the benefits ofrecognizing potentially risky [...] and relapse on the drug/alcohol or oldbehaviors. Technology Sales Representative also included educa tion on addiction, and [...] Supporting Document(s ) ID Date Data Source [id number] 10/16/2019 03:44:06 PM EDT [facility] Problem: Chemical Dependency (Adult/Pedi atric)Goal: *STG: [...] are going back to [place].Rikki reported that nc s trigger is being around other people that is using.Rikki reported that going back to his old neighborhood is a triggerProblem: Chemical Dependency (Adult/Pediatric)Goa l: *STG: Identify lifestyle changes to support snf sobriety such asvocati on, employment, education, and [...] Supporting Document(s ) ID Date Data Source [id number] 10/16/2019 03:05:00 PM EDT [facility] Pt was seen as he stopped [...] Value Range Interpretation Code Description Data [facility](s) Supporting Document(s ) ID Date Data Source [id number] 10/16/2019 10:02:45 AM EDT [facility] Pt refused Neurontin and Effexor, states "I am not feeling anxious, I don't wantthose meds" Name Value Range Interpretation Code Description Data [facility](s) Supporting Document(s ) ID Date Data Source [id number] 10/15/2019 06:17:04 PM EDT [facility] Kimberley Floyd RNRegistered [facility] NotesSignedDate of Service: 10/15/191813[]Hide copied text[]Murray garner or detailsNurse Group Notes: 2:15 Theme was the "Hidden Faces of Anger." Patient slearned about the various emotional expressions that masquerade anger. Ways todeal with anger in a healthy way were discussed. Name Value Range Interpretation Code Description Data [facility](s) Supporting Document(s ) ID Date Data Source [id number] 10/15/2019 04:35:16 PM EDT [facility] Group Note 3:15 PM - POP [...] Supporting Document(s ) ID Date Data Source [id number] 10/15/2019 03:53:05 PM EDT [facility] Stages of Change Group Note 1:15PM-2PmUn [facility] Change Assessment Scale (URICA): Purpose is [...] Supporting Document(s ) ID Date Data Source [id number] 10/15/2019 02:35:27 PM EDT [facility] Discharge summary:Rikki Bartholomewra[address] [phone] (home): 1990S#: [id number] or/Plan Subscr Sex Relation Sub. Ins. ID Effective Group Num1. [place] [facility] RIKKI LUO 1990 Male Self [id number] 05/05/[birth year] [place] [id number] was admitted to the program on 10/06/2019 [...] roll over to inpatientwhen taper is completed. Research Program Manager made aware [facility], Not On File Not On File (58) Patient has a PCP but that physician isnot listed in [facility]. Name Value Range Interpretation Code Description Data [facility] Supporting Document(s ) ID Date Data Source [id number] 10/15/2019 02:31:39 PM EDT [facility] This financial writer met with pt in his room. He stated that he was feeling physicallysick.He also stated that he made the medical sta ff aware of his withdrawalsymptoms. Name Value Range Interpretation Code Description Data [facility](s) Supporting Document(s ) ID Date Data Source [id number] 10/15/2019 11:30:41 AM EDT [facility] Late entry for 10/12:Stress Management Gr [...] Name Value Range Interpretation Code Description Data [facility] rce(s) Supporting Document(s ) ID Date Data Source [id number] 10/15/2019 11:10:10 AM EDT [facility] Late entry for 10/13: During 3:15PM [...] her?" WR reportedly then began shouting at [facility] to notspeak about his daughter and reportedly pushed the table toward James. Staffable to deescalate situation and switch rooms so that Manhy and WR are notrooming mari swenson Name Value Range Interpretation Code Description Data [facility] rce(s) Supporting Document(s ) ID Date Data Source [id number] 10/15/2019 06:40:29 AM EDT [facility] Verbal report given to day shift using SBAR and MAR. Name Value Range Interpretation Code Description Data [facility] rce(s) Supporting Document(s ) ID Date Data Source [id number] 10/15/2019 03:34:39 AM EDT [facility] Patient able to attend all of evening program. Patient refused neurontin,stated it might bother his stomach if taken with t he trazodone. Name Value Range Interpretation Code Description Data Tashia rce(s) Supporting Document(s ) ID Date Data Source [id number] 10/14/2019 06:42:48 PM EDT [facility] Pt has been given verbal and [...] Name Value Range Interpretation Code Description Data [facility] Supporting Document(s ) ID Date Data Source [id number] 10/14/2019 05:18:03 PM EDT [facility] Pt was involved in a verbal [...] Name Value Range Interpretation Code Description Data [facility] Supporting Document(s ) ID Date Data Source [id number] 10/14/2019 04:58:21 PM EDT [facility] Group Note 3:15-4pm: Discussing early ex [...] when patient W.R. was getting louder. This financial writer overhear d W.Rreference a comment Jessica made about his daughter. This was not overheard by this financial writer. This financial writer observed patient M.B continuing to engage in argument withpat leobardo, and was asked by this financial writer to stop, while this financial writer asked patientW.R to le ave the room and go for a walk. Neither patient listened, continued toescalate w hen patient W.R pushed table into M.B and this financial writer requested staffassistance.Catarino borrego was taken out by clinical team to deescalate. Patient returned to groupand continued to be involved in topic. Pierre Triplett [facility] Name Value Range Interpretation Code Description Data [facility] Supporting Document(s ) ID Date Data Source [id number] 10/14/2019 02:58:18 PM EDT [facility] Group Note 1:15 PM - men's [...] Value Range Interpretation Code Description Data [facility](s) Supporting Document(s ) ID Date Data Source [id number] 10/14/2019 05:53:55 AM EDT [facility] Patient doesn't appear vested in program . Asked for Vistaril at 0600 for sleep.When patient was denied and upset when he did not get his own way. Name Value Range Interpretation Code Description Data [facility](s) Supporting Document(s ) ID Date Data Source [id number] 10/13/2019 07:02:38 PM EDT [facility] Admission note:Rikki Bartholomewra[address] [phone] (home): 1990S#: [id number] or/Plan Subscr Sex Relation Sub. Ins. ID Effective [place] Num1. [place] [facility] STEVE IMELDARIKKI 1990 Male Self [id number] [birth year] [place] [id number] was admitted to [facility] for [x] Rehab [] Detox [...] Supporting Document(s ) ID Date Data Source [id number] 10/13/2019 07:01:55 PM EDT [facility] Yuqxjgp[address] [phone] (home): 1990S#: [id number]/Plan Subscr Sex Rel ation Sub. Ins. ID Effective Group Num1. [place] [facility] RIKKI MENDOZA 1990 Mal e Self [id number] [birth year] [place] [id number] FOR ENTERING TREATMENT AT THIS TIME (in [...] Inpatient [] Outpatient/IO P[] Residential [] Crisis[] [place] [] Detox[] Other: [] Yes [] No [] In patient [] Outpatient/IOP[] Residential [] Crisis[] [place] [] Detox[] Ot her: [] Yes [] No [] Inpatient [] Outpatient/IOP[] Residential [] Crisi s[] [place] [] Detox[] Other: [] Yes [] No [] Inpatient [] Outpatient/ IOP[] Residential [] Crisis[] [place] [] Detox[] Other: [] Yes [] N [...] willing to attend In patient, Outpatient, Residential, [place],Intensive Outpatient, Self-help, M AT and Peer Support. Specifically, referralswill be made to none at this [facility].Mental Health Treatment: He reported being depressed and would benefit from apsych eval.Housing: Plan for long-term is he has a home to return to, however, he isconside ring being referred to tx program with a housing component ([facility]).Transpo rtation: transportation is needed upon discharge.Financial: noneWork / School: unemployedSpiritual Needs: He believes in GOD.Legal Follow-up Needed: He has briana ges pending, he also missed court on 10/01/19[place] 10[facility]11/2019[facility] Rikki [address] [place] [address] [phone] (home): 1990S#: [id number] or/Plan Subscr Sex Relation Sub. Ins. ID Effective Group Num1. [place] [facility] STEVE SEGURARIKKI 1990 Male Self [id number] [birth year] [place] [id number] REASON FOR ENTERING TREATMENT AT THIS TIME (in the patient's own words): "Ineed to be there for my daughter" ETHNICITY/CULTURE:Race: HISP ANIC Ethnicity: Unknown Primary Language: [place] PHYSICAL HEALTH: Primary Medica l Doctor: Michael, [...] Months : Yes (10/06/19821) Beer Oral17 2-3 vwpmv5b/month 2weeks agoHave You Used To bacco in [...] Inpatient []? Outpatient/IOP[]? Residential []? Cri sis[]? [place] [x]? Detox[]? Other: 05/2019 [x]? Yes []? No [facility], [facility] []? Inpatient []? Outpatient/IOP[]? Residential []? Crisis[]? [facility] [x]? Detox[]? Other: 2017 [x]? Yes []? No Denied hx of inpatient or outpatient tx []? Inpatient []? Outpatient/IOP[]? Residential []? Crisis[]? [facility] []? Detox[]? Other: []? Yes []? No []? Inpatient []? Outpatient/IOP[]? Re sidential []? Crisis[]? [place] []? Detox[]? Other: []? Yes []? No [...] with them. FAMILY/RELATIONSHIPS:The patient was born in [place], [place] and raised by both parents. Family [...] Current legal involvement: []? Prob ation []? Claude []? ACD []?Drug Court P.O. Name: Phone: Pending Charge: (If yes, list specifics): No Next Court Lobo e: PROTESTANT/SPIRITUAL/VALUESCHRISTIAN Describe your belief in God or a [...] peers),Awareness of Substance a buse issues and Cultural/spiritual/confucianism andcommunity involvement Are there any b arriers [...] time. Patient reported pending grand kj chargesin [facility]. Reported to have had court on 10/01/19 which he did not attend. Patientreports to have one daugh ter age 3 that resides with her mother. Reports contactwith daughter but limited due to his addiction. Denies hx of MH. Patient isinterested [facility] attending [facility] inpatient rehabilitation program upondetox completion. DISCHARGE PLANNING : Addictions Treatment:: The level of care recommended is Inpatient. The patientis willing to attend Inpatient. Specifically, referrals will be made to [facility] Direct ions. Research Program Manager has been notified. Mental Health Treatment: Patient denied a hx. Housing: Plan for long-term is to return home with family. Transportation: [...] stefany eduled in treatment. Pierre Triplett 10/07/2019, [facility] Name Value Range Interpretation Code Description Data [facility] Supporting Document(s ) ID Date Data Source [id number] 10/13/2019 06:52:14 PM EDT [facility] Pt has been pushing the limit on rules, like trying to due wash during quiettime. Pt has been going to groups. Pt social with peers. Compliant with meds. Name Value Range Interpretation Code Description Data [facility](s) Supporting Document(s ) ID Date Data Source [id number] 10/13/2019 06:39:57 PM EDT [facility] Problem: Chemical Dependency (Adult/Pedi atric)Goal: *STG: [...] is currently working on aftercare with this financial writer.Problem: Social DiscomfortGo al: *STG: Verbally report positive outcomes of participation in social &support grou psDescriptionRikki will identify the positive things he has learn/experienced in the groupssetting here in rehabOutcome: Progressing Towards Goalhe is struggling going to groups. he received a contract for missing groups andnot following the rule s/regulations. Name Value Range Interpretation Code Description Data [facility] Supporting Document(s ) ID Date Data Source [id number] 10/13/2019 05:09:05 AM EDT [facility] Problem: Chemical Dependency (Adult/Pedi atric)Goal: *STG: Remains safe in hospitalOutcome: Progressing Towards Goa lGoal: *STG: Complies with medication therapyOutcome: Progressing Towards Goal Name Value Range Interpretation Code Description Data [facility] Supporting Document(s ) ID Date Data Source [id number] 10/12/2019 11:20:12 PM EDT [facility] Patient left "AA" meeting at 1945 and re turned at 1999. Patient not redirectabletonight. Asking for food galeas ghing, thinking everything this financial writer said was ajoke. Gave patient two crackers to take with his medication at 2232 when given head of mathematics of flexeril. When patient finally d ecided to go back to bed sort of hidingnear the med window and being silly. Patient finally went down the crump andlooking in each room. When discussing with Tech on this evening, he noticed thatpatient missed 7 groups in the last 3 days. Name Value Range Interpretation Code Description Data [facility] rce(s) Supporting Document(s ) ID Date Data Source [id number] 10/12/2019 10:40:08 PM EDT [facility] Pt.found in tv room watching tv with doo r locked during quiet time Name Value Range Interpretation Code Description Data [facility] rce(s) Supporting Document(s ) ID Date Data Source [id number] 10/12/2019 10:39:58 PM EDT [facility] Pt. Continues to do his own program pt w ent to aa group 10 minutes late stayedfor 5 minutes the left pt did not say anything to staff Name Value Range Interpretation Code Description Data Tashia rce(s) Supporting Document(s ) ID Date Data Source [id number] 10/12/2019 06:26:35 PM EDT [facility] Pt has been given verbal and literary ed ucation on hospital safety. Pt has beenambulating on the unit with a steady gait.Pt has been visible on the unit throughout the day. Pt has been social withstaff and peers. Compliant with medications and program. No complaints. Willcontinue to monitor for safety. Name Value Range Interpretation Code Description Data [facility](s ) ID Date Data Source [id number] 10/12/2019 04:49:42 PM EDT [facility] Life Skills Group Note 1:15PM-2PMConflic t [...] Name Value Range Interpretation Code Description Data [facility] rce(s) Supporting Document(s ) ID Date Data Source [id number] 10/12/2019 02:30:17 PM EDT [facility] 48 HOUR NOTIFICATION and INITIAL TREATME SURAJ Bartholomewra[address] [facility] [phone] (home)DO B: 1990Date of Admission: 10/10/19Diagnosis:Patient Active Problem L istDiagnosis Code Opiate withdrawal (HCC) F11.23 Heroin abuse (HCC) F11.10 Marij uana abuse F12.10 Cocaine abuse (HCC) F14.10 Dependence on nicotine from cigarettes F 17.210 Severe major depression without psychotic features (HCC) F32.2 Opiate a buse, continuous (HCC) F11.75TRFIEQH1 Report (Attached) Rehab Initial Treatment PlanInitial Goal(s) [x] Individual [x] Group [] Family sessions: [x] Skills/Medication to reduc e urges/craving [x] Motivational Interviewing to increase internal Commitment [x] Copi ng skills building to improve emotional regulation, self-soothing [x] Facilitate engagement with others - social skills to support recovery [] Other:Supervisory Geographer A ssigned: Mendel Green [x] Education about, [...] Supporting Document(s ) ID Date Data Source [id number] 10/12/2019 09:48:49 AM EDT [facility] NUTRITIONNutrition screening referral wa s triggered based on results obtained duringnursing admission assessment. Pt triggered for weight loss- pt was seen bydietitian on 10/08/2019. The patient's c jose was reviewed and nutrition assessmentis not indicated at this time.Sakina nugent, RD, CDE Name Value Range Interpretation Code Description Data Tashia rce(s) Supporting Document(s ) ID Date Data Source [id number] 10/12/2019 06:41:44 AM EDT [facility] SBAR to day shift. Name Value Range Interpretation Code Description Data [facility] Supporting Document(s ) ID Date Data Source [id number] 10/12/2019 06:41:23 AM EDT [facility] Pt again came to nursing area [...] Value Range Interpretation Code Description Data [facility](s) Supporting Document(s ) ID Date Data Source [id number] 10/11/2019 09:24:09 PM EDT [facility] Pt did come out of room at 2100 after al l meetings looking for snack andwatching TV. Suggested pt to come to groups and snack on time - given an orange.He states he is doing his best. Encouraged better attend ance tomorrow. Name Value Range Interpretation Code Description Data [facility] Supporting Document(s ) ID Date Data Source [id number] 10/11/2019 09:20:35 PM EDT [facility] After receiving a verbal warning today f or missing groups 3 within 2 days ptdid not attend 7pm aa group and 8:15pm wrap up g roup Name Value Range Interpretation Code Description Data [facility](s) Supporting Document(s ) ID Date Data Source [id number] 10/11/2019 03:46:44 PM EDT [facility] History and PhysicalNAME: Rikki Mendoza : 1990MRN: [id number]/Time: 10/11/2019 12:33 PMPatient PCP: Michael, Not On [...] was seen, examined, and POC [facility] whoconcurs with above plan. Risks/Benefits/potential adverse reactio ns have been discussed with the patientfor current and new medications Kuldeep hearn MD10/11/2019 Name Value Range Interpretation Code Description Data [facility] rce(s) Supporting Document(s ) ID Date Data Source [id number] 10/11/2019 09:58:53 AM EDT [facility] Informed pt multiple times to get OOB fo r AM medications and group, ptverbalized understanding, however, did not leave ro om. Was not given permissionto not attend first group. Name Value Range Interpretation Code Description Data [facility] rce(s) Supporting Document(s ) ID Date Data Source [id number] 10/10/2019 04:01:20 PM EST [facility] Patient completed detox and admitted to [facility]. Name Value Range Interpretation Code Description Data [facility] rce(s) Supporting Document(s ) ID Date Data Source [id number] 10/10/2019 01:45:02 PM EST [place] [id number] Discharge SummaryPatient ID:Rikki Bartholomew [id number] y.o.[id number] date: 10/06/2019Discharge date: 10/10/2019* Admiss ion [...] Allergies* Hospital Course:The patient was admitted to [facility] detox for heroin withdrawal. [...] A1C results-No results found for: HBA1C, HGBE8, EZX5ANEK, HBA1C EXTTreatment and Response: betterSignificant adverse reaction [...] roll over to inpatientwhen taper is completed. Research Program Manager made aware [facility] New Directions Bsi, Not On File Not On File (58) Patient has a PCP but that physician isnot listed in [facility].Risks/Benefits/potential adverse reactions have been discussed with the p atientfor current and new medicationsSigned:Kuldeep Rhodes MD/02/03 0201:08 PM Name Value Range Interpretation Code Description Data [facility](s) Supporting Document(s ) ID Date Data Source [id number] 10/10/2019 03:40:43 AM EST [facility] Visible on unit..Patient is on Methadone taper. Received 5 mg.Saturday night.Monitoring on going Safety checks in place. Name Value Range Interpretation Code Description Data [facility] Supporting Document(s ) ID Date Data Source [id number] 10/10/2019 03:37:31 AM [facility] Problem: Patient Education: Go to Patien t Education ActivityGoal: Patient/Family EducationOutcome: Progressing Towards Go alProblem: Anxiety-Behavioral Health (Adult/Pediatric)Goal: *STG: Attends act ivities and groupsDescriptionAttending activities as ableOutcome: Progressing T owards GoalGoal: *STG/LTG: Complies with medication therapyDescriptionCompliant w [facility] medical protocolOutcome: Progressing Towards GoalProblem: Opiate WithdrawalGo al: *STG: Complies with medication therapyDescriptionManuel will take all m edication as prescribed.Outcome: Progressing Towards Goal Name Value Range Interpretation Code Description Data [facility](s) Supporting Document(s ) ID Date Data Source [id number] 10/09/2019 06:21:40 PM [facility] Patient did eat dinner. He was out on t he unit for a while in the [employer] loungeaWaybeo Incer dinner. Name Value Range Interpretation Code Description Data [facility] Supporting Document(s ) ID Date Data Source [id number] 10/09/2019 04:27:04 PM [facility] Detox Progress NoteDate: 10/09/2019Account Number: [id number]: Rikki GoodenUBJECTIVE:Pt seen and examined. Pt continues [...] notes, ancillary staff notes, vitals andlabs in [facility] EMR reviewed in f ull. OBJECTIVE: Physical Exam:CHEST: Heart S1, S2, no murmurs, gallops, rhythm regu lar.LUNGS: Clear, no rales, no rhonchi heard.ABDOMEN: Soft, nontender, no organ omegaly noted.EXTREMITIES: no cyanosis, clubbing, edema noted.CENTRAL NERVOUS SY STEM: Unremarkable. Pertinant Data:Patient Vitals for the past 8 hrs: Temp Pulse Re sp BP SyC417/06/20 1200 98.1 F (36.7 C) 80 14 [...] (HCC) (10/07/2019) Marijuana abuse (10/07/2019) Cocaine abuse ([facility]) (10/07/2019) Dependence on nicotine from cigarettes (10/07/2019) Sev ere major depression without psychotic features ([facility]) (10/09/2019)Continue Methad one taper as orderedContinue detox treatment per unit protocolContinue PRN meds for w ithdrawal symptomsPsych FU PRNMonitor closelyCoordinated treatment team rounds conducted with nurse operations research group manager, nurse, andsocial worker present... discussions held re: POC for this patient.Will continue to adjust medications as deemed appropri ate and to response forsymptom management (see medication orders made in EMR).Risk s/Benefits/potential adverse reactions have been discussed with the patientfor dimitri ruelas and new medicationsWm Marquez NP10/09/2019 Name Value Range Interpretation Code Description Data [facility](s) Supporting Document(s ) ID Date Data Source [id number] 10/09/2019 03:50:55 PM [facility] Patient has remained in his room and on his bed all day except to shower andeat. Continues on taper. He has not been in g rou today. Name Value Range Interpretation Code Description Data [facility](s) Supporting Document(s ) ID Date Data Source [id number] 10/09/2019 11:19:41 AM [facility] Patient prompted to come for assessment and medications. Still waiting forpatient. Name Value Range Interpretation Code Description Data [facility] Supporting Document(s ) ID Date Data Source [id number] 10/09/2019 11:00:00 AM [facility] Patient has been sleeping in his room th is morning. Name Value Range Interpretation Code Description Data [facility] Supporting Document(s ) ID Date Data Source [id number] 10/08/2019 11:56:12 PM [facility] VSS this evening. Con't with Methadone t aper, 7.5 mg po @ HS. Social with peers;visible on the unit. Name Value Range Interpretation Code Description Data [facility](s) Supporting Document(s ) ID Date Data Source [id number] 10/08/2019 06:52:20 PM [facility] SBAR given to Supervisor Bonding. Name Value Range Interpretation Code Description Data [facility](s) Supporting Document(s ) ID Date Data Source [id number] 10/08/2019 05:20:47 PM [facility] Visible on unit. Taper given 7.5 mg. po Methadone Med education Andreinforcement. Follows smith routine. Monitoring ongoing . Safety checks in place. Name Value Range Interpretation Code Description Data [facility](s) Supporting Document(s ) ID Date Data Source [id number] 10/08/2019 03:44:12 PM [facility] Detox Progress NoteDate: 10/08/2019Account Number: [id number]: Rikki GoodenUBJECTIVE:Pt seen and examined. Pt continues [...] Palpitat ions, headaches. Chartreviewed in full including crop consultant notes, ancillary st aff notes, vitals andlabs in [facility] EMR reviewed in full. OBJECTIVE: Physical [...] closelyCoordinated treatment team rounds conducted with nurse operations research group manager, nurse, andsocial worker present... discussions held [...] Supporting Document(s ) ID Date Data Source [id number] 10/08/2019 03:35:03 PM EST [facility] 29 yo male with a history of [...] ontinued drug use He has worked for [employer],and on [employer] and lost both jobs due to drug use. He has had legal issuesdue to drugs. Just was arrested at or September for grand underwood. [facility]ole 2 coats [facility]. He's done this before. Did this toobtain money for drugs. He missed his court date on because he wasgetting high. He thought he would jus t change the date and show up to court butnever went and then ended up here.FMH X: Brother with Bipolar affective disorderHe has support from gabriella and his sibling. Kiana with parents. HS grad [employer] in 2011. Not working now. Just lost [...] Supporting Document(s ) ID Date Data Source [id number] 10/08/2019 01:47:53 PM [facility] RECOMMENDATIONS:Continue with the Usha peguero dietNUTRITION ASSESSMENT MST ScreenSubjective: Pt is alert and orien maria del rosario. PO intake is reported as good at thistime. No chewing or swallowing diffi culties reported. No GI issues reported atthis time. 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 due ton not eating and due todug [...] 10/08/19 1338Nutrition Rx: 1940-2 328kcal;78 g protein (1g/kg);9776-9495 ml fluid (1ml/kcal)[based on: Kcal/kg] X 2 [...] Discharge Needs/ Plan Identified [x] No cultural, confucianism, or ethnic dietary needs identified [] C ultural, confucianism and ethnic food preferences identified and addressed [] Participated in care plan, discharge planning/Interdisciplinary roundsJeremy Gr RD Name Value Range Interpretation Code Description Data Tashia rce(s) Supporting Document(s ) ID Date Data Source [id number] 10/08/2019 08:35:22 AM [facility] Patient is a 29 year old male. [...] Trang froy reported pending grand kj chargesin [facility]. Reported to have had court on which he did not attend. Patientreports to have one daughter age 4 that resides wit h her mother. Reports contactwith daughter but limited due to his addiction. Denies hx of MH. Patient isinterested in attending [facility] rehabilitat ion program upondetox completion. Name Value Range Interpretation Code Description Data Tashia rce(s) Supporting Document(s ) ID Date Data Source [id number] 10/08/2019 08:35:11 AM EST [facility] PsychosocialEricsonuel Jrysmpg[address] [phone] ( home): 1990S#: [id number]/Plan Subscr Sex Rel ation Sub. Ins. ID Effective Group Num1. [place] [facility]* RIKKI MENDOZA 1990 Mal e Self [id number] 05/05/19 [place] [id number] FOR ENTERING TREATMENT AT THIS TIME (in [...] Months : Yes (10/06/19821) Beer Oral17 2-3 ivayu2l/month 2weeks agoHave You Used To bacco in [...] of Program Dates Attended Completed[facility] [place] [] Inpatient [] Outpatient/IOP[] Residential [] Crisis[] [place] [x] Detox[] Other: 05/2019 [x] Yes [] [facility] [] Inpatient [] Ou tpatient/IOP[] Residential [] Crisis[] [place] [x] Detox[] Other: 2017 [ x] Yes [] NoDenied hx of inpatient or outpatient tx [] Inpatient [] Outpatie nt/IOP[] Residential [] Crisis[] [place] [] Detox[] Other: [] Yes [] N o [] Inpatient [] Outpatient/IOP[] Residential [] Crisis[] [place] [] Detox[] Other: [] Yes [] NoCurrent [...] with them.FAMILY/RELATIONSHIPS:The patient wa s born in [place], [place] and raised by both parents. Family [...] HISTORY: NOBRANCH: Between what years:[] Served in [employer][] Discharge Type:[] Used drugs during service; Type:[] [...] grand larcenyCurrent legal involvement: [] Probation [] Claude [] ACD [] DrugCourtP.O. Na me: Phone:Pending Charge: (If yes, list spec ifics): NoNext Court Date:PROTESTANT/SPIRITUAL/VALUESCHRISTIAN Describe your belief in God or a [...] peers),Awareness of Substance a buse issues and Cultural/spiritual/confucianism andcommunity involvementAre there any ba rriers to your recovery? legal issuesWhat specific needs/preferences do you have f or your treatment here [facility]after[facility]? N/AEVALUATION SUMMARY:Describe factors l eading to the onset of dependency, current stage of change,and assessment of biopsy chosocial needs for recovery process.Patient is a 29 year old male. Patient presented with flat affect, moodsubdued. Patient admitted himself into [facility] for opiate withdrawal.Patient reported that this is [...] time. Patient reported pending grand larceny chargesin [facility]. Reported to have had court on 10/01/19 [...] Inpatient. Specifically, referrals will be made to [facility] Direct ions. Research Program Manager has been notified.Mental Health Treatment: Jr peguero denied a hx.Housing: Plan for long-term is to return home with family.Transportation: Will explore family or medicaid transportation.Financial: noneWork / Lela ool: unemployedSpiritual Needs: Will continue to explore in treatment.Legal F ollow-up Needed: Patient has court on 10/01/19 which he did not attend.Will nee d to further consult with patient while in rehabilitation if he wouldlike this to earnest e addressed and rescheduled in treatment.Pierre Triplett 10/07/2019 , [facility] Name Value Range Interpretation Code Description Data [facility](s) Supporting Document(s ) ID Date Data Source [id number] 10/08/2019 06:34:27 AM [facility] Report to day staff using SBAR Name Value Range Interpretation Code Description Data [facility](s) Supporting Document(s ) ID Date Data Source [id number] 10/08/2019 12:17:21 AM [facility] Patient settled following administration of methadone 10 mg flexeril andvistaril Will continue to monitor Name Value Range Interpretation Code Description Data [facility](s) Supporting Document(s ) ID Date Data Source [id number] 10/07/2019 10:13:39 PM [facility] History and PhysicalPatient: Rikki yeboah Sex: male [...] past 24 hrs: Temp Pulse Resp BP CnI67010/07/19 0542 98.1 F (36.7 C) 76 1 [...] 109*Urine Analysis C olorDate Value Ref Range Fzakmc0110/06/2019 YELLOW FinalAppearanceDate Value Ref R jaron Gzavnx0010/06/2019 CLEAR FinalpH (UA)Date Value Ref Range Dtmeee21 0 7.0 FinalProteinDate Value Ref Range Nzizie6510/06/2019 NEGATIVE mg/dL FinalKe toneDate Value Ref Range Eitrif1910/06/2019 NEGATIVE mg/dL FinalBilirubinDate Value Ref Range Mugdmh0410/06/2019 NEGATIVE FinalBloodDate Value Ref Range Mhkyym9010/2019 NEGATIVE FinalUrobilinogenDate Value Ref Range Thktel8810/06/2019 2.0 EU/ dL FinalNitritesDate Value Ref Range Ckxvcq5210/06/2019 NEGATIVE FinalLeukoc yte EsteraseDate Value Ref Range Dgkcae5610/06/2019 NEGATIVE FinalAssess ment/PlanPrincipal Problem: Opiate withdrawal (HCC) [...] Name Value Range Interpretation Code Description Data [facility] Supporting Document(s ) ID Date Data Source [id number] 10/07/2019 06:55:10 PM [facility] SBAR report given to Supervisor Bonding. Name Value Range Interpretation Code Description Data [facility] Supporting Document(s ) ID Date Data Source [id number] 10/07/2019 06:05:45 PM [facility] Problem: Opiate WithdrawalGoal: *STG: Co mplies with medication therapyDescriptionManuel will take all m edication as prescribed.Outcome: Progressing Towards GoalManuel is compliant with med ication therapy. Started Methadone taper. Qbqfbgfx55 mg Methadone this morning. Am bulatory on the unit with a steady gait.Verbalizes with staff and peers. Ap petite is good. Fluids encouraged andtolerated. Offers no complaints at th is time. Will continue to monitor forsafety. Name Value Range Interpretation Code Description Data [facility] Supporting Document(s ) ID Date Data Source [id number] 10/07/2019 02:00:28 PM [facility] Admission note:Rikki Mendoza[address] [facility] [phone] (home): 1990S#: [id number] or/Plan Subscr Sex Relation Sub. Ins. ID Effective Group Num1. [facility]* RIKKI LUO 1990 Male Self [id number] 05/05/19 [place] [id number] was admitted to [facility] for [] Rehab [x] Detox [...] Inpatient Rehab [] Residential [] Other:[facility]. [facility] for the following: None at this time.Will continue to work with pt on treatment and aftercare needs.Tim Triplett LMSW Name Value Range Interpretation Code Description Data Tashia rce(s) Supporting Document(s ) ID Date Data Source [id number] 10/07/2019 01:52:20 PM EST [facility] SCORE: 2[place] Gambling ScreenPatien ts name: Rikki Mendoza Date: [...] (at [employer], the track, or with a bindery helper).Xc. Bet on sports (parlay cards, with bindery helper, at [facility].) Xd. Pl ayed dice games, including craps, over and under or other dice games. Xe. Went to [facility] (legal or otherwise). Xf. Played the [employer] or bet on lotteries. Xg. Played bingo. [...] Nc. From relatives or in-laws Nd. From [employer], [employer] companies, or [employer] unions Ne. From credit cards Nf. From [employer] sharks Ng. You cashed in stocks, bonds or other securities Nh. You sold personal or family property Ni. You borrowed on your [employer] accounts (passed bad checks) Nj. You have (had) a credit line with a bindery helper Nk. Yo u have (had) a credit line with a casino [place] MUST PRINT AND USE THE SCORE SHEET PROVI DED AT NURSES STATION!!! Name Value Range Interpretation Code Description Data Tashia rce(s) Supporting Document(s ) ID Date Data Source [id number] 10/07/2019 10:27:40 AM [facility] 48 HOUR NOTIFICATION and INITIAL TREATME [address] [facility] [phone] (home)DO B: 1990Date of Admission: 10/06/2019Diagnosis:Patient Active Probl em ListDiagnosis Code Opiate withdrawal (HCC) F11.23 Heroin abuse (HCC) F11.10 Marijuana abuse F12.10 Cocaine abuse (HCC) F14.10 Dependence on nicotine from ciga rettes F17.110RWPIMBJ7 Report (Attached) Detox Initial Treatment PlanAdhere to ANEESH pratt proved detoxification taper/protocol:Current Facility-Administered MedicationsMedicat ion Dose Route Frequency Provider Last Rate Last Dose methadone (DOLOPHINE) tablet 10 mg 10 mg Oral Q12H Wm Marquez NP [START ON 10/08/2019] methadone (DOLOPHINE ) tablet 7.5 mg 7.5 mg Oral [id number] porter NP [START ON 10/09/2019] methad one [...] capsule 2 mg 2 mg Oral Q3H [place] N Wm Marquez NP acetaminophen (TYLENOL) tablet [...] Supporting Document(s ) ID Date Data Source [id number] 10/07/2019 06:50:13 AM EST [facility] 29 y/o male presents with father [...] medical: Not on fileTobacco Use Smoking status: [facility] t Tobacco Smoker Packs/day: 0.25 Smokeless tobacco: [...] file Gets together: Not on file Attends confucianism service: Not on file Active member of [...] Capillary refill takes less than 2 seconds. [place] ration: Skin is not jaundiced or pale. [...] patientto follow the instructions of the social work therapist for an outpatienttreatment /resources. Follow up with [...] Value Range Interpretation Code Description Data [facility](s) Supporting Document(s ) ID Date Data Source [id number] 10/07/2019 06:48:46 AM [facility] Report to day staff using SBA Name Value Range Interpretation Code Description Data [facility](s) Supporting Document(s ) ID Date Data Source [id number] 10/07/2019 05:51:26 AM [facility] Patient able to sleep til 0540, out of bed, assessed, COW score 5, patientmedicated with methadone 5 mg and flexeril 10 mg. Patient complained of hunger,had 3 cereals and milk, tolerated, returned to bed. Name Value Range Interpretation Code Description Data [facility](s) Supporting Document(s ) ID Date Data Source [id number] 10/07/2019 12:54:14 AM [facility] Patient awaken fo r vital signs food and fluid at 2240hrs Patient vital signswithin normal limits Patient offering no compla ints other than general achiness.Administered flexeril and vistaril to promote comfort and rest Name Value Range Interpretation Code Description Data [facility](s) Supporting Document(s ) ID Date Data Source [id number] 10/06/2019 07:03:51 PM [facility] Pt cooperative and quiet. Pt remained in room most of the day. Pt took allscheduled meds and was evaluated for COW. Name Value Range Interpretation Code Description Data Tashia rce(s) Supporting Document(s ) ID Date Data Source [id number] 10/06/2019 03:15:14 PM [facility] analytic manager NotePatient: Rikki barry Age: 29 y.o. : 1990EX: male CSN: [id number] from ED. Oriented to Unit.Substance Abused: HeroinLast [...] Supporting Document(s ) ID Date Data Source [id number] 10/06/2019 12:07:18 PM [facility] Comprehensive Assessment Form Part 1Sect ion I - DispositionThe on-call Psychiatrist consulted was KENNETH MarquezThe admit ting Diagnosis is Opioid Dependence with withdrawal F11.23Parent/Guardian Name: e Payor source isPayor/Plan Subscr Sex Relation Sub. Ins. ID Effective Group Nu m1. [facility] RIKKI MENDOZA 1990 Male Self [id number] 05/05/19 [place] [id number] II - Integrated SummarySUM PRIMO:Summary: The patient is a 29 y.o. year old male brought to [facility] y Department via walking and referred by Self.The information is given by the pat ient and past medical records.The Chief Complaint is Opioid Dependence.The Preci pitant Factors are Unable to control usagePrevious Hospitalizations: [facility] - Detox/rehab May 2019The patient has not previously been in restraints.Usha peguero Psychiatrist and/or Supervisory Geographer is None.SW Screener Note:SW/Screener met with the p atient at the request of the ED Doctor. Patientpresented to the ED requesting de tox from heroin. Patient was alert and orientedx3. Patient came to the ED yeste rday and did not meet the criteria. Patientreports that his father dropped h im off here yesterday and went back to [facility].Patient reports staying [facility] the [facility] last night and came back here inthe am. Patient reports snorting 2-3 b ags of heroin daily for at least 1-year.Patient reports last using yester day morning, 1 bag. Patient reports history ofsubstance abuse treatment with last de tox in May 2019 at [facility]. Patient reports completing the program and [...] CocaineDi sposition/Update:SW/Screener reviewed the case with the DRAW STRING KNOTTER. Per DRAW STRING KNOTTER Wade Marquez, admit to [facility]. Consents obtained [...] of Hours of Sleep/Night: (5)The patient speaks Canadian as a primary lang uage. The patient [...] from family. The patient is currentlyunemployed.The patient's [facility] support comes from family and this person [...] Document(s ) ID Date Data Source 36N*ENCOUNTER [id number] 10/06/2019 10:11:53 AM EST BS [facility] BS 4 BEH AV HLTH DETOX 160 [facility] [address] [id number]/10/22 [place] mackeyRikki (Male) [id number] CARSON 3 ED Dispo:ADMIT Chief Complaint: Drug Problem Diagnosis: Substance abuse (HCC) [] Opiate withdrawal (HCC) [] Current Providers: Attending: Hi Doll; Santi Askew Primary Karis se: Elysia CCSN: [id number] Print Group [phone] - [facility] MrnMR N: [id number] Print Group [phone] - [facility] Age SexDOB 1990 AGE 29 SEX Male Primary Care Provider: Michael, Not On FileAllergies: (No Known Allergies)Date Reviewed: 10/06/2019Reviewed by: Anastasiia Sood, RN - Review CompleteED Provider Notes: All no tesHNO ID: [id number]: Romario Doll MDService: EMERGENCYAuthor Type: Physici anFiled: [...] Gets together: Not o n file Attends confucianism service: Not on file Active member of [...] Orders CON53 IP CONSULT TO PSYCHIATRY [#[id number]] Priority: STAT Class: Hospital Performed Standing Order Information Remainin g Occurrences:0 Interval:ONE TIME Last released:10/06/2019 Released orders : SatOct 06, 2019 6:59 AM by: ROMARIO DOLL Reason for Consult: -> heroin addcition Did you call or speak to the consulting provider? -> No Consult To -> sw Schedule When? -> TODAY CON53 IP CONSULT TO PSYCHIATRY [#[id number]] Priority: STAT Class: Hospital Performed Reason for Consult: -> heroin addcition Did yo u call or speak to the consulting provider? -> No Consult To -> sw Schedule When? -> TODAY Released on: 10/06/2019 6:59 AM [id number] DRUG SCREEN, URINE [#[id number]] Priority: STAT Class: ER Collect Standing Order Information Remaining Occurre nces:0/1 Interval:ONE TIME Last released:10/06/2019 Released orders : SatOct 06, 2019 6:59 AM by: ROMARIO DOLL [id number] URINALYSIS W/ RFLX MICRO SCOPIC [#[id number]] Priority: STAT Class: Lab Collect Standing Order Information Remaining Occurrences:0/1 Interval:ONE TIME Last released:10/06/2019 Relea sed orders: SatOct 06, 2019 6:59 AM by: ROMARIO DOLL [id number] DRUG SCREEN, UR INE [#[id number]] Priority: STAT Class: ER Collect Specimen Source: Urin e, random Specimen Collected: 10/06/2019 7:05 AM Resulting Agency: [facility] Test ID: MDRG Released on: 10/06/2019 6:59 AM [id number] URINALYSIS W/ RFLX MICROSCOPIC [#[id number]] Priority: STAT Class: Lab Collect Specimen Sourc e: Urine Specimen Collected: 10/06/2019 7:05 AM Resulting Agency: [facility] Test ID: UA Released on: 10/06/2019 6:59 AM TRIMETHOPR IM-SULFAMETHOXAZOLE 160 MG* [#[id number]] Priority: STAT Class: Normal Antibiotic Cassi cations -> Skin and Soft Tissue Infection MUPIROCIN 2 % OINTMENT [# [id number]] Priority: STAT Class: Normal ONDANSETRON 4 MG TAB, RAPID DISSOLVE [# [id number]] Priority: STAT Class: Normal ondansetron (ZOFRAN ODT) 4 mg tablet [# [id number]] Priority: None CEPHALEXIN 500 MG CAP [#[id number]] Prio rity: None Class: Normal Antibiotic Indications -> Skin and Soft Tissue Infection Skin duration of therapy -> 5 days METHADONE 10 MG TAB [#[id number]] Pr iority: None Class: Normal METHADONE 10 MG TAB [#[id number]] Priori ty: None Class: Normal TUBERCULIN PPD 5 UNIT/0.1 ML INTRADE* [#[id number]] Flor ority: None Class: Normal HYDROXYZINE 50 MG TAB [#[id number]] Prio rity: None Class: Normal PROCHLORPERAZINE MALEATE 5 MG TAB [#[id number]] Flor ority: None Class: Normal TRIMETHOBENZAMIDE 100 MG/ML IM [#[id number]] Prio rity: None Class: Normal CLONIDINE 0.1 MG TAB [#[id number]] Priority : None Class: Normal LOPERAMIDE 2 MG CAP [#[id number]] Priority: No ne Class: Normal LOPERAMIDE 2 MG CAP [#[id number]] Priority: None Class: Normal ACETAMINOPHEN 325 MG TABLET [#[id number]] Priority: None Clas s: Normal IBUPROFEN 600 MG TAB [#[id number]] Priority: None Class: N ormal DICYCLOMINE 10 MG CAP [#[id number]] Priority: None Class: N ormal ALUM-MAG HYDROXIDE- SIMETH 200 MG-200* [#[id number]] Priority: None Class: N ormal CYCLOBENZAPRINE 10 MG TAB [#[id number]] Priority: None Class: N ormal MULTIVITAMIN TAB [#[id number]] Priority: None Class: N ormal THIAMINE MONONITRATE 100 MG TABLET [#[id number]] Priority: None Class: N ormal MAGNESIUM HYDROXIDE 400 MG/5 ML ORAL* [#[id number]] Priority: None Class: N ormal BISACODYL 5 MG TAB, DELAYED RELEASE [#[id number]] Priority: None Class: N ormal [id number] DIET REGULAR [#[id number]] Priority: STAT Class: H ospital Performed Standing Order Information Remaining Occurrences:0/1 Inter sabina:DIET EFFECTIVE NOW Last released:10/06/2019 Released orders: SatOct 05 0 7:00 AM by: ROMARIO DOLL [id number] DIET REGULAR [#[id number]] Priority: STAT Class: Hospital Performed Released on: 10/06/2019 7:00 AM [id number] DIET REGULAR [#[id number]] Priority: STAT Class: Hospital Performe d Standing Order Information Remaining Occurrences:N/A-not released Interval :DIET EFFECTIVE NOW Comment:Encourage fluids [id number] EKG NOTEWRITER(ALF ONLY) [# [id number]] Canceled Priority: STAT Class: Clinic Performed Canceled by ROMARIO DOLL on SatOct 06, 2019 8:23 AM Reason: None Comment: Standing Order Information Remaining Occurrences:0/1 Last released:10/06/2019 Released orders : SatOct 06, 2019 8:23 AM by: ROMARIO DOLL Comment:This order was created via procedure documentation [id number] EKG [#[id number]] Canceled Priority: STAT Class: Clinic Performed Canceled by ROMARIO DOLL on Sat 8:23 AM Reason: None Comment: Comment:This order was created via proce dure documentation Released on: 10/06/2019 8:23 AM [id number] VITAL SIGNS PER UNIT ROUTINE [#[id number]] Priority: STAT Class: Hospital Performed Standing Order Information Remaining Occurrences:N/A-not released Interval:CONTINUOUS [id number] UP AD WILLIAM [#[id number]] Priority: STAT Class: Hospital Performed Stand ing Order Information Remaining Occurrences:N/A-not released Interval:CONTINUOUS [id number] NOTIFY PROVIDER: VITAL SIGNS CHANGES [#[id number]] Priority: STAT Class: Hospital Performe d Standing Order Information Remaining Occurrences:N/A-not released Interval :CONTINUOUS COD2 FULL CODE [#[id number]] Priority: Routine Cla ss: Hospital Performed Standing Order Information Remaining Occurrences:N/A-not released Interval:CONTINUOUS [id number] INITIAL PHYSICIAN ORDER: INPATIENT [#[id number]] Priority: R outine Class: ADT Pend Transfer Cosign required by LIONEL ASKEW[[id number]] Standing Or yovany Information Remaining Occurrences:0/ Interval:ONE [...] Discharge Plan: -> Home with Office Follow-up [id number] INITIAL PHYSICIAN ORDER: INPATI ENT [#[id number]] Priority: Routine Class: ADT Pend Transfer Status: [...] Office Follow-up Released on: 10/06/2019 9:40 AM [id number] INITIAL YSICIAN ORDER: INPATIENT [#[id number]] Priority: Routine Class: ADT Pend Transfer Cos ign required by LIONEL ASKEW[[id number]] Standing Order Information Remaining Occurre nces:0/ Interval:ONE [...] -> 3-4 Midnights Discharge Plan: -> Ho mo with Office Follow-up [id number] INITIAL PHYSICIAN ORDER: INPATIENT [#[id number]] Magda tristan: Routine Class: ADT Pend Transfer Status: -> IP [facility] l[facility] Certified Necessary for the Following Reasons [...] 10/06/2019 10:00 AM PRE9 SAFETY PRECAUTIONS [# [id number]] Priority: Routine Class: Hospital Performed Standing Order Information Remaining Occurrences:N/A-not released Interval:CONTINUOUS Comment:Every 15 minute rounds [id number] PLEASE READ & DOCUMENT PPD TEST IN 4* [#[id number]] Priority: STAT Cl ass: ER Collect Standing Order Information Remaining Occurrences:N/A-not released Interval:ONE TIME [id number] PLEASE READ & DOCUMENT PPD TEST IN 7* [#[id number]] Priority: STA T Class: ER Collect Standing Order Information Remaining Occurrences:N/A-not released Interval:ONE TIMERikki Mendoza MR#: [id number] * Rm: 413-02H t: 6' 2" Wt: 171 lb Code: Not on file Iso:Diagnosis:Opiate withdrawal (HCC) [F 11.23]Allergies: No Known Allergies -------- Current as of: 10/06/19 1011 GI=Given -------ibuprofen (MOTRIN) tablet 600 mg #[id number] Admin Amount: 1 Tab (1 x 600 mg Tab) Ordered Dose: 600 mg Route: Oral Freq: NOW Start Date: 10/05/19 Administration times (back 96 hours, ahead 96 hours): 10/05/19: 1915GI -----cephALEXin (KEFLEX) capsule 500 mg #[id number] Admin Amount: 1 Cap (1 x 500 mg Cap) Ordered Dose: 500 mg Route: Oral Freq: NOW Start Date: 10/05/19 Administration times (back 96 hours, ahead 96 hours): 10/05/19: 1915GI -----trimethoprim -sulfamethoxazole (BACTRIM DS, SEPTRA DS ) 160-800 mg per*#[id number] Admin Amount: 1 Tab Ordered Dose: 1 Tab Route: Ora l Freq: NOW Start Date: 10/06/19 Administration times (back 96 hours, ahe ad 96 hours): 10/06/19: 0715GI -----mupirocin (BACTROBAN) 2 % ointment #[id number] Ordered Dose: Route: Topical Freq: DAILY Start Date: 10/06/19 Administration times (back 96 hours, ahead 96 hours): 10/06/19: 69910/07/19: 89910/08/19: 89910/09/19: 89910/10/19: 899 ---ondansetron (ZOFRAN ODT) tablet 4 mg #[id number] Admin Amount: 1 Tab (1 x 4 [...] Value Range Interpretation Code Description Data [facility](s) Supporting Document(s ) ID Date Data Source [id number] 10/06/2019 09:57:49 AM [facility] TRANSFER - OUT REPORT:Verbal report give n to Sammy jennifer Mendoza being transferred to [facility] on of careReport consisted of patient's Situation, Background, Assessment andRehi lyndaveronica(SBAR).Information from the following report(s) ED Summary was revie wed with thereceiving nurse.Lines:Opportunity for questions and clarification was prov ided.Patient transported with: securityComfortable at time of transfer Name Value Range Interpretation Code Description Data [facility] ) ID Date Data Source [id number] 10/06/2019 09:35:50 AM [facility] Patient to be admitted. Name Value Range Interpretation Code Description Data [facility] Supporting Document(s ) ID Date Data Source [id number] 10/06/2019 09:03:37 AM [facility] Resting quietly, dry heaves, med with on dansetron as ordered with good effect. Name Value Range Interpretation Code Description Data [facility] rce(s) Supporting Document(s ) ID Date Data Source [id number] 10/06/2019 08:23:52 AM [facility] This pt is bib self co wanting [...] Gets together: Not o n file Attends confucianism service: Not on file Active member of [...] Supporting Document(s ) ID Date Data Source [id number] 10/06/2019 08:09:28 AM [facility] body and fender worker in to see patient Name Value Range Interpretation Code Description Data Tashia rce(s) Supporting Document(s ) ID Date Data Source [id number] 10/06/2019 07:50:51 AM [facility] Recent Results (from the past 24 hour(s) [...] Name Value Range Interpretation Code Description Data [facility] Supporting Document(s ) ID Date Data Source [id number] 10/06/2019 07:23:01 AM [facility] Verbal shift change report given to Alejandro armstrong RN (oncoming nurse) by EVERTON Laurent(offgoing nurse). Report included the following in formation SBAR, ED Summary andMAR. Name Value Range Interpretation Code Description Data [facility](s) Supporting Document(s ) ID Date Data Source [id number] 10/06/2019 07:18:37 AM [facility] Physical assessment completed. The patie nt's level of consciousness is alert.The patient's mood is calm and cooperative. The patient's appearance showsedema, buising and open skin. The patient does not ind icate signs or symptomsof abuse or neglect. Name Value Range Interpretation Code Description Data [facility](s) Supporting Document(s ) ID Date Data Source [id number] 10/06/2019 07:37:24 AM EST [facility] Name Value Range Interpretation Description Data Sup porting Code Source(s) Document(s ) Amphetamine NEG [facility] [Presence] in [facility] Urine by Screen eROI method Inc Backup method used Methamphetamine [Presence] in Urine NEG Bon Quickoffice [employer] [facility] Backup method used Barbiturates [Presence] in Urine by NEG [employer]Cabin Screen method Inc Backup method used Benzodiazepines [Presence] in Urine NEG [employer] Inc Backup method used Cocaine [Presence] in NEG Abnormal (applies to [email or web address] Urine by Screen method non-numeric results) Streamezzo Backup method used Methadone [Presence] in Urine NEG [employer] Backup method used Opiates [Presence] in NEG Abnormal (applies to Spyder Lynk Shanique Urine non-numeric results) No [employer] Backup method used Phencyclidine [Presence] in NEG Abnormal (applies to [employer] Urine non-numeric results) No [employer] Cannabinoids [Presence] in NEG Abnormal (applies to [employer] Urine by Screen method non-numeric results) Streamezzo Backup method used Tricyclic antidepressants [Presence] in NEG Spyder Lynk Shanique [employer] Backup method used(NOTE)Threshold Concen trations:Acetaminophen 5ug/mld-Amphetamine 1000ng/mld-M [...] the nursing unit and in thelaboratory. NOLOINC [employer] ID Date Data Source [id number] 10/06/2019 07:15:32 AM EST [facility] Name Value Range Interpretation Description Data Sup porting Code Source(s) Document(s ) Color of Urine [employer] Appearance of [facility] Urine Quickoffice Specific gravity 1.025 [facility] of Urine by Bioniz Refractometry Streamezzo pH of Urine by 7.0 [facility] Test strip Quickoffice Protein [facility] [Mass/volume] in Shanique Urine by Test Tamr Glucose [facility] [Mass/volume] in [place] Urine by Health Automated test System [employer]Finance strip Ketones [facility] [Presence] in [place] Urine by Dialoggy test System Inc strip Bilirubin.total [facility] [Presence] in [place] Urine Health System Inc Hemoglobin [facility] [Presence] in [place] Urine by Test Health strip System Inc Urobilinogen 2.0 [facility] [Presence] in EU/dL [place] Urine by SyncSum Automated test System Inc strip Nitrite [facility] [Presence] in [place] Urine by SyncSum Automated test System Inc strip Leukocyte [facility] esterase [place] [Presence] in Health Urine by System [employer]est[employer] Automated test strip ID Date Data Source 36N*ENCOUNTER [id number] 10/05/2019 07:32:28 PM EST BS [facility] [place] [facility] [employer] [facility] [place] [place] [facility] DEPT [address] [place] [id number] Rikki Disla (Male) [id number] CARSON 3 ED Dispo:DISCHARGE Chief Complaint: Addiction probl em Diagnosis: Heroin dependence (HCC) [] Pain in joint of left shoulder [] Pierced ear infection, left, initial encounter [] Curr ent Providers: Attending: Casie De León A Physician Bituminous Distributor Operator: Hi Whittaker Primary Nurse: ROQUE Singh: [phone] Print Group [phone] - [facility] MrnMRN: [id number] Print Group [phone] - [facility] [place] SexDOB 1990 AGE 29 SEX Male Primary Care Provider: Michael, Not On FileAllergies: ( No Known Allergies)Date Reviewed: 10/05/2019Reviewed by: Annelise Traore RN - Review CompleteED Pro vider Notes: No notes of this type exist for this encounter.ED Orders [id number] XR SHOULDE R LT AP/LAT MIN 2 V [#[id number]] Priority: STAT Class: Hospital Performed Standing O rder Information Remaining Occurrences:0/1 Interval:ONE TIME Last released:0 10/05/2019 Released orders: SatOct 05, 2019 3:50 PM by: KULDEEP WHITTAKER Reason for Exam -> pain s/p fall [id number] XR SHOULDER LT AP/LAT MIN 2 V [#[id number]] P riority: STAT Class: Hospital Performed Specimen Collected: 10/05/2019 4:03 PM Resultin g Agency: [facility] Test ID: [id number] Reason for Exam -> pain s/p fall Released on: 3:50 PM CON53 IP CONSULT TO PSYCHIATRY [#[id number]] Priority: STAT C lass: Hospital Performed Standing Order Information Remaining Occurrences:0/1 Inte rval:ONE TIME Last released:10/05/2019 Released orders: SatOct 05, 2019 3:51 PM by: KULDEEP WHITTAKER Reason for Consult: -> heroin detox Did you ca ll or speak to the consulting provider? -> No Consult To -> social work therapist Schedule When? -> TODAY CON53 IP CONSULT TO PSYCHIATRY [#[id number]] Priority: STAT Class: H ospital Performed Reason for Consult: -> heroin detox Did you call or speak to the consul ting provider? -> No Consult To -> social work therapist Schedule When? -> TODAY Released on: 10/05/2019 3:51 PM [id number] CBC WITH AUTOMATED DIFF [#[id number]] Priority: STAT Class: ER Collect Standing Order Information Remaining Occurrences:0/1 Inter sabina:ONE TIME Last released:10/05/2019 Released orders: SatOct 05, 2019 3:51 PM by: KULDEEP WHITTAKER [id number] METABOLIC PANEL, COMPREHENSIVE [#[id number]] Flor ority: STAT Class: ER Collect Standing Order Information Remaining Occurrences:0 /1 Interval:ONE TIME Last released:10/05/2019 Released orders : SatOct 05, 2019 3:51 PM by: KULDEEP WHITTAKER [id number] DRUG SCREEN, URINE [#[id number]] Priority: STAT Class: ER Collect Standing Order Information Remaining Occurrences:0/1 Interval:ONE TIME Last released:10/05/2019 Rel eased orders: SatOct 05, 2019 3:51 PM by: KULDEEP WHITTAKER [id number] ETHYL ALCO HOL [#[id number]] Priority: STAT Class: ER Collect Standing Order Inf ormation Remaining Occurrences:0/1 Interval:ONE TIME Last released:0 10/05/2019 Released orders: SatOct 05, 2019 3:51 PM by: KULDEEP WHITTAKER LAB [id number] URINALYSIS W/ RFLX MICROSCOPIC [#[id number]] Priority: STAT Class: Lab Collect S tanding Order Information Remaining Occurrences:0/1 Interval:ONE TIME Last rel eased:10/05/2019 Released orders: SatOct 05, 2019 3:51 PM by: KULDEEP WHITTAKER [id number] CBC WITH AUTOMATED DIFF [#[id number]] Priority: STAT Class: E R Collect Specimen Source: Whole Blood Specimen Collected: 10/05/2019 4:05 PM Resultin g Agency: [facility] Test ID: [id number] Released on: 10/05/2019 3: 51 PM [id number] METABOLIC PANEL, COMPREHENSIVE [#[id number]] Priority: STAT Class: E R Collect Specimen Source: Plasma Specimen Collected: 10/05/2019 4:05 PM Resulting Agency: [facility] Test ID: MPL Released on: 10/05/2019 3:51 PM [id number] DRUG SCREEN, URINE [#[id number]] Priority: STAT Class: ER Collect Speci men Source: Urine, random Specimen Collected: 10/05/2019 4:10 PM Resulting Agency: [facility] Test ID: MDRG Released on: 10/05/2019 3:51 PM [id number] ETHYL ALCOHOL [#[id number]] Priority: STAT Class: ER Collect Specimen Source : Plasma Specimen Collected: 10/05/2019 4:05 PM Resulting Agency: [facility] Test ID: MALC Released on: 10/05/2019 3:51 PM [id number] URINALYSIS W/ RFLX MICROSCOPIC [#[id number]] Priority: STAT Class: Lab Collect Specimen Source: Mi scellaneous sample Specimen Collected: 10/05/2019 4:10 PM Resulting Agency: [facility] Test ID: UA Released on: 10/05/2019 3:51 PM [id number] BILIRUBIN, CONFIRM [#[id number]] Priority: STAT Class: Lab Collect Resulting Agency: [facility] Test ID: ICTO Standing Order Information Remainin g Occurrences:0/1 Released orders: SatOct 05, 2019 4:10 PM by: Automatic Batch Pr ocess [id number] BILIRUBIN, CONFIRM [#[id number]] Priority: STAT Class: L ab Collect Specimen Source: Miscellaneous sample Specimen Collected: 10/05/2019 4:10 PM Resulting Agency: [facility] Test ID: ICTO Released on : 10/05/2019 4:10 PM [id number] URINE MICROSCOPIC [#[id number]] Priority: STA T Class: Lab Collect Resulting Agency: [facility] Test ID: UMIC Standing Order Information Remaining Occurrences:0/1 Released orders: SatOct 05, 2019 4:10 PM by: Automatic Batch Process [id number] URINE MICROSCOPIC [#[id number]] Priority: STAT Class: Lab Collect Specimen Source: Urine Specime n Collected: 10/05/2019 4:10 PM Resulting Agency: [facility] T est ID: UMIC Released on: 10/05/2019 4:10 PM naloxone (NARCAN) 0.4 mg/mL injection [# [id number]] Priority: None IBUPROFEN 600 MG TAB [#[id number]] Flor ority: STAT Class: Normal CEPHALEXIN 500 MG CAP [#[id number]] Priority : STAT Class: Normal Antibiotic Indications -> Skin and Soft Tissue Infection IBUP ROFEN 600 MG TAB [#[id number]] Priority: Routine Class: Normal ACETAMINOPHEN 325 MG TABLET [#[id number]] Priority: Routine Class: Normal CEPHALEXIN 500 MG CAP [#[id number]] Priority: Routine Class: Normal [id number] 1 APPLY SLING; SPECIFY [#[id number]] Priority: STAT Class: Hospital Performe d Standing Order Information Remaining Occurrences:0/1 Interval:ONE TI ME Last released:10/05/2019 Released orders: SatOct 05, 2019 6:56 PM by: LAURA FELTON KULDEEP Acosta [id number] [facility]; SPECIFY [#[id number]] Priority: STAT C lass: Hospital Performed Released on: 10/05/2019 6:56 PMRikki Mendoza MR#: [id number] * Rm: HAB- BHt: 6' 2" Wt: 171 lb Code: Not on file Iso:Di agnosis:Allergies: No Known Allergies -------- Current as of: 10/05/191931 GI=Given -------naloxone (NARCAN) 0.4 mg/mL injection #[id number] Ordered Dose: Route: Freq: Start Date: 10/05/19 Administration times (back 96 hours, ahead 96 hours): 10/05/19: 0 ---ibuprofen (MOTRIN) tablet 600 mg #[id number] Admin Amount: 1 Tab (1 x 600 mg Tab) Ordered Dose: 600 mg Route: Oral Freq: NOW Start Date: 10/05/19 Administration times (back 96 hours, ahead 96 hours): 10/05/19: 1915GI -----cephALEXin (KEFLEX) capsule 500 mg #[id number] Admin Amount: 1 Cap (1 x 500 [...] nt: CapStart Date:10/05/2019End Date:10/12/2019Do. Provider: Kuldeep [place]ittaker, [place] ED Prescriptionsibuprofen (MOTRIN) 600 mg tabletSig:Take 1 [...] for 7 days.Dispense Amount:28 CapStart Date:10/05/2019End Date:10/12/2019A [facility]. Provider: Kuldeep Whittaker, PAFollow-up InformationFollow-up With:[facility] [place] [place] EMERGENCY DEPTDetails:Comments:If symptoms worsenContact Info:[address] [phone] [id number] With:Laura Bertrand MDDetails:Schedule an appointment as samm n as possible for a visit in 3 daysComments:for left shoulder pain/infected left ear piercedC ontact Info:[address] [phone]-pt With:Kem Rubi, SOLOetails:Schedule an appointment as soon as possible for a visit in 3 daysComments:f or left shoulder painContact Info:[address] [facility] [phone] Name Value Range Interpretation Code Description Data [facility](s) Supporting Document(s ) ID Date Data Source [id number] 10/05/2019 07:30:43 PM [facility] Pt refused to sign discharge papers and [facility] but pt just walked outPapers to be mailed Name Value Range Interpretation Code Description Data [facility](s) Supporting Document(s ) ID Date Data Source [id number] 10/05/2019 06:46:26 PM [facility] BEHAVIORAL HEALTH DISCHARGE INSTRUCTIONS /REFERRALS:Rikki Mendoza[address] [phone] (russell e): 1990Payor/Plan Subscr Sex Relation Sub. Ins. ID Effective Group Nu m1. [place] HEALTHFIR* RIKKI MENDOZA 1990 Male Self [id number] 05/05/[birth year] [place] [id number] is no problem list on file f or this patient.Patient will be discharged per Dr. Acuña the patient referred to Independent Living Peer Diversion? NoIndependent Living Peer Supports [phone] the patient referred to crisis residential/respite? NoAccess Supports For Living[facility] PATH program ([facility])/[phone] 2[facility] [phone] contact patient for well checkvisit? NoWill the [facility] follow-up with patient to access servicespost discharge? NoList agencies that consents have been signed:Discharge Instructions, Appointments, and Referral s:Behavioral Health Screener completed detox assessment for patient and consultedwith DRAW STRING KNOTTER/Psychiatrist Dr. Monteiro. Per Dr. Monteiro , the patient does not meetmedical criteri a for inpatient detox at this time, as (he/she) is not showingsymptoms of sever e withdrawal. If symptoms increase, it is encouraged [facility]. The patienthas been provided with a list of substance abuse referrals to help maintainsobriety in the community. Please see below for additional resources. Muchsupport offered.FOR RESOURCES NOT LI STED OR ADDITIONAL SUPPORTS PLEASE CALL [facility] [phone].STEPHANIE RUELAS ACKNOWLEDGEMENT: I hereby acknowledge that I have read the aboveinstructions (or dey ve had them read to me). The instructions were explained tome and I was given the opportunity to ask questions. I acknowledge that Iunderstand the instructions. I dey ve received a copy of these instructions. 10/05/2019Screener's Signature 10/05/2019Signature of Patient or Greige Goods Examiner* If you feel that you are at risk of harming yourself please call:National Suicide Prevention Lifelin e [phone] one of the following:EMERGENCY NUMBERSOrae Co. Mo bile Response Team [phone] Co. Crisis 9 [phone] [place]. Crisis Team [phone] Co. Cr tiffani Team [phone] Children's Crisis Outreach [phone] [place] [address] Crisis Team [phone] Co. Behavioral Resp onse Team [phone] (for teens offered Sat- 4pm-10pm Saturday 4pm-12 am, Sat. 5pm -12am) [phone] [place] Hotline (peer to peer for youth) 877[facility] ([phone])Alternative Resources:[facility] Call Center (to access any type of behavioral health or developmental disability suppo rtservices)Access Supports for Living Behavioral Health Urgent Care Centers 1- [phone] [facility] or [facility]- y 11am-7pm and Saturday/Saturday 9am-5pm at both locationsAdults and children strugg ling with addiction or mental health concerns can walkin during those hours, regardles s of insurance or ability to payAlcoholism & Drug Abuse [facility] CenterFagallup indian medical center y support Navigation Program (for families in [place], [place], [place], &[facility])[phone] Children's Outreach Team(for families with children to seek community based supports)[phone] Name Value Range Interpretation Code Description Data Tashia rce(s) Supporting Document(s ) ID Date Data Source [id number] 10/05/2019 06:42:00 PM [facility] Comprehensive Assessment Form Part 1Sect ion I - DispositionThe on-call Psychiatrist consulted was Dr. Monteiro.The Payor source isPayor/Plan Subscr Sex Relation Sub. Ins. ID Effective Group Num1. [facility] IRS* LIBBYRIKKI 1990 Male Self [id number] 05/05[birth year] [place] [id number] II - Integrated SummarySUMMARY:Summary: The patient is a 29 y.o. year old male brought to theEmergency Department via p [employer] car and referred by Sister in law.The information is given by the patient.The Chief Complaint is Opiate Withdrawal.The Precipitant Factors are Opiate abuse.Pre vious [facility] AprilThe patient has not previous ly been in restraints.Current Psychiatrist and/or Supervisory Geographer is NONE.CAR Screener Note:CAR\\Screener met with the PT per the request of the ED Dr. Musa CAVAZOS. [facility] at [facility] was cooperative, flat affect and mood was [...] NoneConcentration: FairSpeech Pattern: UnremarkableThought Process: UnremarkableAngelina C Chalo Name Value Range Interpretation Code Description Data [facility](s) Supporting Document(s ) ID Date Data Source [id number] 10/05/2019 04:33:41 PM EST [facility] Physical assessment completed. The patie nt's level of consciousness is alert.The patient's mood is calm. The patient's ap pearance shows clean with goodhygiene. The patient does not indicate signs or symp toms of abuse or neglect. Name Value Range Interpretation Code Description Data [facility](s) Supporting Document(s ) ID Date Data Source [id number] 10/05/2019 04:54:06 PM EST [facility] Name Value Range Interpretation Description Data Sup porting Code Source(s) Document(s ) Color of Urine [facility]Asanti [facility] Appearance of [facility] Urine MedMark Services System [facility] Specific gravity [facility] of Urine by Shanique Refractometry SyncSum System Inc pH of Urine by 6.0 [facility] Test strip ShaniqueAsanti System [facility] Protein [facility] [Mass/volume] in [facility] Urine by Test SyncSum strip System Inc Glucose [facility] [Mass/volume] in [facility] Urine by Dialoggy test System Inc strip Ketones 40 mg/dL [facility] [Presence] in [facility] Urine by Dialoggy test System Inc strip Hemoglobin [facility] [Presence] in [facility] Urine by Test SyncSum strip System Inc Urobilinogen 1.0 [facility] [Presence] in EU/dL [facility] Urine by Dialoggy test System Inc strip Nitrite [facility] [Presence] in [facility] Urine by Dialoggy test System Inc strip Leukocyte [facility] esterase Shanique [Presence] in [facility] Urine by System Inc Automated test strip ID Date Data Source [id number] 10/05/2019 04:54:06 PM EST [facility] Name Value Range Interpretation Description Data Sup porting Code Source(s) Document(s ) Leukocytes [facility] [Presence] in [facility] Urine sediment [facility] System by Light Inc microscopy Erythrocytes NONE [facility] [#/area] in [facility] Urine sediment [facility] System by Microscopy Inc high power field Epithelial cells [facility] [#/area] in [facility] Urine sediment [facility] by Microscopy Inc high power field Bacteria NONE [facility] [Presence] in [facility] sediment [facility] System by Light Inc microscopy Casts [Presence] NONE [facility] in Urine [facility] sediment by [facility] Light microscopy Inc Mucus [Presence] NONE Abnormal (applies [facility] in Urine to non-numeric [facility] sediment by results) SyncSum System Light microscopy Inc Crystals.amorpho [facility] us [Presence] in [facility] Urine sediment [facility] System by Light Inc microscopy ID Date Data Source [id number] 10/05/2019 04:54:06 PM EST [facility] Name Value Range Interpretation Description Data Sup porting Code Source(s) Document(s ) Bilirubin NEG [facility] [Presence] in [facility] Urine by eROI Confirmatory Inc method ID Date Data Source [id number] 10/05/2019 04:49:11 PM EST [facility] Name Value Range Interpretation Description Data Sup porting Code Source(s) Document(s ) Amphetamine NEG [facility] [Presence] in [facility] Urine by Screen [employer] Inc Backup method used Methamphetamine [Presence] in Urine NEG [facility] Backup method used Barbiturates [Presence] in Urine by NEG [facility] eROI Screen method Inc Backup method used Benzodiazepines [Presence] in Urine NEG [facility] Backup method used Cocaine [Presence] in NEG Abnormal (applies to [facility] Urine by Screen method non-numeric results) SyncSum System Inc Backup method used Methadone [Presence] in Urine NEG [facility] Backup method used Opiates [Presence] in NEG Abnormal (applies to [facility] Urine non-numeric results) [employer] Backup method used Phencyclidine [Presence] in NEG Abnormal (applies to [facility] Urine non-numeric results) [employer] Cannabinoids [Presence] in NEG [facility] Urine by Screen method Streamezzo Backup method used Tricyclic antidepressants [Presence] in NEG [facility] PacerPro Inc Backup method used(NOTE)Threshold Concen trations:Acetaminophen 5ug/mld-Amphetamine [...] the nursing unit and in thelaboratory. NOLOINC [employer] Tree [employer] ID Date Data Source [id number] 10/05/2019 04:04:11 PM EST [facility] LEFT SHOULDER 2 VIEWHistory: Trauma.Ther e [...] by: YOSSI SHAIKH ID Date Data Source [id number] 10/05/2019 04:37:24 PM EST [facility] Name Value Range Interpretation Code Description Data Tashia rce(s) Supporting Document(s ) Ethanol <5 [facility] [Mass/volume [facility] ] in Serum System Inc or Plasma ID Date Data Source [id number] 10/05/2019 04:37:24 PM EST [facility] Wasabi 3D [facility] Name Value Range Interpretation Description [...] non- Americans (GFRNA), and normalized to 1.7 5h0kgkd surface area. The physician must decide which [...] low normal [facility] Serum or Plasma Quickoffice Bilirubin.total 0.7 mg/dL 0.2-1.0 [facility] [Mass/volume] in Serum or Briana Asanti Plasma System Inc Alanine aminotransferase 52 U/L 12-78 [facility] [Enzymatic activity/volume] [facility] in Serum or Plasma System Inc Aspartate aminotransferase 109 U/L 15-37 Above high normal [facility] [Enzymatic activity/volume] [facility] in Serum or Plasma by With Buxfer Inc P-5'-P Alkaline phosphatase 70 U/L 46-116 [facility] [Enzymatic activity/volume] [facility] in Serum or Plasma System Inc Protein [Mass/volume] in 7.3 g/dL 6.4-8.2 [facility] Serum or Plasma ShaniqueKuaidi Dache Albumin [Mass/volume] in 3.7 g/dL 3.4-5.0 [facility] Serum or Plasma by [facility] Bromocresol purple (BCP) Syste m Inc dye binding method Globulin [Mass/volume] in 3.6 g/dL 2.8-3.9 [facility] Serum by calculation [facility] System Inc Albumin/Globulin [Mass 1.0 1.0-1.5 [facility] Ratio] in Serum or Plasma [facility] Kuaidi Dache ID Date Data Source [id number] 10/05/2019 04:22:18 PM EST [facility] Name Value Range Interpretation Description Data Sup porting Code Source(s) Document(s ) Leukocytes 10.0 4.8-10.6 [facility] [#/volume] in K/uL Shanique Blood by SyncSum Automated count System Inc Erythrocytes 4.93 4.70-6.0 [facility] [#/volume] in M/uL 0 [facility] Blood by SyncSum Automated count System Inc Hemoglobin 14.2 14.0-18. [facility] [Mass/volume] in g/dL 0 Shanique Blood SyncSum System [employer] Hematocrit 43.1 % 42.0-52. [facility] [Volume 0 Shanique Fraction] of SyncSum Blood by System ZestFin[employer] Automated count Erythrocyte mean 87.4 FL 81.0-94. [facility] corpuscular 0 Shanique volume [Entitic Health volume] by System [employer] Automated count Erythrocyte mean 28.8 PG 27.0-35. [facility] corpuscular 0 [facility] hemoglobin [facility] [Entitic mass] System [employer]Fin[employer] by Automated count Erythrocyte mean 32.9 30.7-37. [facility] corpuscular g/dL 3 [facility] hemoglobin SyncSum concentration System [employer] [Mass/volume] by Automated count Erythrocyte 12.9 % 11.5-14. [facility] distribution 0 Shanique width [Ratio] by SyncSum Automated count System Inc Platelets 339 K/uL 130-400 [facility] [#/volume] in [facility] Blood by Dialoggy count System Inc Platelet mean 10.1 FL 9.2-11.8 [facility] volume [Entitic Shanique volume] in Blood Global Experience System Inc count Nucleated 0.0 PER 0 [facility] erythrocytes/100 100 WBC Shanique leukocytes Health [Ratio] in Blood System [employer] Nucleated 0.00 0.0-0.01 [facility] erythrocytes K/uL Shanique [#/volume] in SyncSum Blood SIM Digital Segmented 78 % 48.0-72. Above high normal [facility] neutrophils/100 0 Shanique leukocytes in SyncSum Blood System [employer] Lymphocytes/100 14 % 18.0-40. Below low normal [facility] leukocytes in 0 Shanique Blood SyncSum System [employer] Monocytes/100 7 % 2.0-12.0 [facility] leukocytes in ShaniqueIdea2 System Inc Eosinophils/100 1 % 0.0-7.0 [facility] leukocytes in Shanique Blood SyncSum System Inc Basophils/100 0 % 0.0-3.0 [facility] leukocytes in [employer] System Inc Immature 0 % 0.0-0.5 [facility] granulocytes/100 Shanique leukocytes in Health Blood by System Inc Automated count Segmented 7.8 K/UL 2.3-7.6 Above high normal [facility] neutrophils Shanique [#/volume] in [place] Lymphocytes 1.4 K/UL 0.9-4.2 [facility] [#/volume] in Shanique [employer] [facility] Monocytes 0.7 K/UL 0.1-1.7 [facility] [#/volume] in [facility] [employer] [facility] Eosinophils 0.1 K/UL 0.0-1.0 [facility] [#/volume] in Shanique [employer] [facility] Basophils 0.0 K/UL 0.0-0.4 [facility] [#/volume] in Shanique [employer] [facility] Immature 0.0 K/UL 0.0-0.17 [facility] granulocytes Shanique [#/volume] in NATIONSPLAY by Sanswire [facility] Automated count Differential [facility] cell count Shanique [facility] [employer] Procedure Social History Code Duration Value Status Description Data Source(s ) Alcohol intake 10/06/2019 Current completed Current drinker [facility] 12:00:00 AM drinker of of alcohol [place] alcohol (finding) System [employer]estFinance (finding) Cigarettes 10/06/2019 UNK completed [facility] smoked current 12:00:00 AM [employer] ealtTiragiu (pack per day) - Burning Sky Software System I nc Reported Smoking 10/06/2019 Light tobacco completed Light tobacco [facility] 12:00:00 AM smoker smoker TigerText Alcohol intake 10/05/2019 Current completed Current drinker [facility] 12:00:00 AM drinker of of alcohol [place] alcohol (finding) SIM Digital (finding) Cigarettes 10/05/2019 UNK completed [facility] smoked current 12:00:00 AM [employer] ealth (pack per day) - [employer] System I nc Reported Smoking 10/05/2019 Light tobacco completed Light tobacco [facility] 12:00:00 AM smoker smoker TigerText Vital Signs ID Date Data Source UNK Name Value Range Interpretation Code Description Data Source(s) Oxygen saturation 98 % 98 % [facility] in Arterial blood MedMark Services by Pulse oximetry System Inc Body temperature 36.78 Anuradha 36.78 Anuradha [facility] Quickoffice Heart rate 98 /min 98 /min [facility] Inc Diastolic blood 75 mm[Hg] 75 mm[Hg] [facility] pressure ixigo Inc Systolic blood 125 mm[Hg] 125 mm[Hg] [place] s pressure ixigo Inc Respiratory rate 16 /min 16 /min [facility] MedMark Services System Inc Body mass index 21.96 kg/m2 21.96 kg/m2 [facility] (BMI) [Ratio] Social & Loyal Body weight 77.565 kg 77.565 kg CouponCabin Inc Oxygen saturation 98 % 98 % [facility] in Arterial blood MedMark Services by Pulse oximetry System Inc Respiratory rate 16 /min 16 /min [facility] ixigo Inc Body temperature 36.67 Anuradha 36.67 Anuradha [facility] ixigo Inc Heart rate 83 /min 83 /min [employer] Inc Diastolic blood 77 mm[Hg] 77 mm[Hg] [facility] pressure ixigo Inc Systolic blood 125 mm[Hg] 125 mm[Hg] [place] s pressure Quickoffice Body height 188 cm 188 cm CouponCabin [facility] Oxygen saturation 98 % 98 % [facility] in Arterial blood ShaniqueAsanti by Pulse oximetry System Inc Respiratory rate 19 /min 19 /min [facility] ixigo Inc Body temperature 36.83 Anuradha 36.83 Anuradha LocalCircles Seco urs ixigo Inc Heart rate 84 /min 84 /min [employer] Inc Diastolic blood 68 mm[Hg] 68 mm[Hg] [facility] pressure ixigo Inc Systolic blood 120 mm[Hg] 120 mm[Hg] [place] s pressure MedMark Services System Inc Body mass index 21.96 kg/m2 21.96 kg/m2 [facility] (BMI) [Ratio] MOgene [facility] Body weight 77.565 kg 77.565 kg CouponCabin [facility] Body height 188 cm 188 cm CouponCabin [facility] Patient Treatment Plan of Care Planned Activity Planned Date Details Description Data Source (s) Buprenorphine 2 MG / 11/07/2019 12:00:00 [email or web address] Naloxone 0.5 MG Oral AM [facility] SyncSum [facility] Strip Buprenorphine 2 MG / 11/07/2019 12:00:00 [...]
[2020-04-21] MEDS: ACETAMINOPHEN 325 MG TABLET (FP) PO PRN (19:00)
[2020-04-21] MEDS: hydrOXYzine PAMOATE 25 MG CAPSULE (FP) PO PRN (19:01)
[2020-04-21] MEDS: MELATONIN 5 MG TABLETS PO SCH (21:57)
[2020-04-21] MEDS: THIAMINE HCL 100 MG TABLET (FP) PO SCH (21:57)
[2020-04-22] MEDS: PRENATAL VITAMINS W/ FOLIC ACID TABLET (FP) PO SCH (10:58)
[2020-04-22] MEDS: THIAMINE HCL 100 MG TABLET (FP) PO SCH (21:46)
[2020-04-22] MEDS: MELATONIN 5 MG TABLETS PO SCH (21:46)
[2020-04-23] MEDS: PRENATAL VITAMINS W/ FOLIC ACID TABLET (FP) PO SCH (11:31)
[2020-04-23] MEDS: ACETAMINOPHEN 325 MG TABLET (FP) PO PRN (11:51)
[2020-04-23] MEDS: hydrOXYzine PAMOATE 25 MG CAPSULE (FP) PO PRN ×2 (11:52→18:08)
[2020-04-23] MEDS: MELATONIN 5 MG TABLETS PO SCH (22:00)
[2020-04-23] MEDS: THIAMINE HCL 100 MG TABLET (FP) PO SCH (22:01)
[2020-04-24] MEDS: PRENATAL VITAMINS W/ FOLIC ACID TABLET (FP) PO SCH (09:28)
[2020-04-24] MEDS: THIAMINE HCL 100 MG TABLET (FP) PO SCH (21:47)
[2020-04-24] MEDS: MELATONIN 5 MG TABLETS PO SCH (21:47)
[2020-04-25] MEDS: PRENATAL VITAMINS W/ FOLIC ACID TABLET (FP) PO SCH (10:50)
[2020-04-25] MEDS: hydrOXYzine PAMOATE 25 MG CAPSULE (FP) PO PRN (11:13)
[2020-04-25] MEDS: ACETAMINOPHEN 325 MG TABLET (FP) PO PRN (11:13)
[2020-04-25] MEDS: MELATONIN 5 MG TABLETS PO SCH (22:06)
[2020-04-25] MEDS: THIAMINE HCL 100 MG TABLET (FP) PO SCH (22:06)
[2020-04-26] MEDS: PRENATAL VITAMINS W/ FOLIC ACID TABLET (FP) PO SCH (10:53)
[2020-04-26] MEDS: ACETAMINOPHEN 325 MG TABLET (FP) PO PRN (11:16)
[2020-04-26] MEDS: hydrOXYzine PAMOATE 25 MG CAPSULE (FP) PO PRN (11:16)
[2020-04-26] MEDS: MELATONIN 5 MG TABLETS PO SCH (21:49)
[2020-04-26] MEDS: THIAMINE HCL 100 MG TABLET (FP) PO SCH (21:49)
[2020-04-27] MEDS: PRENATAL VITAMINS W/ FOLIC ACID TABLET (FP) PO SCH (10:22)
[2020-04-27] MEDS: hydrOXYzine PAMOATE 25 MG CAPSULE (FP) PO PRN (13:02)
[2020-04-27] MEDS: THIAMINE HCL 100 MG TABLET (FP) PO SCH (21:56)
[2020-04-27] MEDS: MELATONIN 5 MG TABLETS PO SCH (21:56)
[2020-04-28] MEDS: PRENATAL VITAMINS W/ FOLIC ACID TABLET (FP) PO SCH (10:19)
[2020-04-28] MEDS: hydrOXYzine PAMOATE 25 MG CAPSULE (FP) PO PRN (10:19)
[2020-04-28] MEDS: THIAMINE HCL 100 MG TABLET (FP) PO SCH (21:52)
[2020-04-28] MEDS: MELATONIN 5 MG TABLETS PO SCH (21:52)
[2020-04-29] MEDS: hydrOXYzine PAMOATE 25 MG CAPSULE (FP) PO PRN ×2 (03:30→09:16)
[2020-04-29] MEDS: PRENATAL VITAMINS W/ FOLIC ACID TABLET (FP) PO SCH (09:16)
[2020-04-29] MEDS: MELATONIN 5 MG TABLETS PO SCH (22:43)
[2020-04-29] MEDS: THIAMINE HCL 100 MG TABLET (FP) PO SCH (22:43)
[2020-04-30] MEDS: PRENATAL VITAMINS W/ FOLIC ACID TABLET (FP) PO SCH (10:24)
[2020-04-30] MEDS: hydrOXYzine PAMOATE 25 MG CAPSULE (FP) PO PRN (18:38)
[2020-04-30] MEDS: THIAMINE HCL 100 MG TABLET (FP) PO SCH (22:39)
[2020-04-30] MEDS: MELATONIN 5 MG TABLETS PO SCH (22:40)
[2020-05-01] MEDS: PRENATAL VITAMINS W/ FOLIC ACID TABLET (FP) PO SCH (10:34)
[2020-05-01] MEDS: MELATONIN 5 MG TABLETS PO SCH (22:06)
[2020-05-01] MEDS: THIAMINE HCL 100 MG TABLET (FP) PO SCH (22:06)
[2020-05-02] MEDS: hydrOXYzine PAMOATE 25 MG CAPSULE (FP) PO PRN (06:46)
[2020-05-02] MEDS: PRENATAL VITAMINS W/ FOLIC ACID TABLET (FP) PO SCH (10:38)
[2020-05-02] MEDS: MAG HYDROX/AL HYDROX/SIMETH 30 ML UNIT-DOSE CUP PO PRN (18:34)
[2020-05-02] MEDS: MELATONIN 5 MG TABLETS PO SCH (21:30)
[2020-05-02] MEDS: THIAMINE HCL 100 MG TABLET (FP) PO SCH (21:31)
[2020-05-02] MEDS ORDERED: PT OWN MED DRAWER 7, Y5N ONE (21:58)
[2020-05-03] MEDS: PRENATAL VITAMINS W/ FOLIC ACID TABLET (FP) PO SCH (10:35)
[2020-05-03] MEDS: ACETAMINOPHEN 325 MG TABLET (FP) PO PRN (20:00)
[2020-05-03] MEDS: THIAMINE HCL 100 MG TABLET (FP) PO SCH (21:11)
[2020-05-03] MEDS: MELATONIN 5 MG TABLETS PO SCH (21:11)
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
[2020-05-04] MEDS: PRENATAL VITAMINS W/ FOLIC ACID TABLET (FP) PO SCH (10:21)
[2020-05-04] MEDS: THIAMINE HCL 100 MG TABLET (FP) PO SCH (21:51)
[2020-05-04] MEDS: MELATONIN 5 MG TABLETS PO SCH (21:51)
[2020-05-05] MEDS: PRENATAL VITAMINS W/ FOLIC ACID TABLET (FP) PO SCH (10:06)
[2020-05-05] MEDS: MELATONIN 5 MG TABLETS PO SCH (21:07)
[2020-05-05] MEDS: THIAMINE HCL 100 MG TABLET (FP) PO SCH (21:07)
[2020-05-06] MEDS: PRENATAL VITAMINS W/ FOLIC ACID TABLET (FP) PO SCH (09:58)
[2020-05-06] MEDS: MELATONIN 5 MG TABLETS PO SCH (22:25)
[2020-05-06] MEDS: THIAMINE HCL 100 MG TABLET (FP) PO SCH (22:25)
[2020-05-07] MEDS: PRENATAL VITAMINS W/ FOLIC ACID TABLET (FP) PO SCH (11:39)
[2020-05-07] MEDS: MAG HYDROX/AL HYDROX/SIMETH 30 ML UNIT-DOSE CUP PO PRN (15:20)
[2020-05-07] MEDS: MELATONIN 5 MG TABLETS PO SCH (22:55)
[2020-05-07] MEDS: THIAMINE HCL 100 MG TABLET (FP) PO SCH (22:56)
[2020-05-08] MEDS: PRENATAL VITAMINS W/ FOLIC ACID TABLET (FP) PO SCH (09:12)
[2020-05-08] MEDS: MELATONIN 5 MG TABLETS PO SCH (21:28)
[2020-05-08] MEDS: THIAMINE HCL 100 MG TABLET (FP) PO SCH (21:29)
[2020-05-09] MEDS: PRENATAL VITAMINS W/ FOLIC ACID TABLET (FP) PO SCH (10:03)
[2020-05-09] MEDS: MAG HYDROX/AL HYDROX/SIMETH 30 ML UNIT-DOSE CUP PO PRN (15:36)
[2020-05-09] MEDS: MELATONIN 5 MG TABLETS PO SCH (21:59)
[2020-05-09] MEDS: THIAMINE HCL 100 MG TABLET (FP) PO SCH (21:59)
[2020-05-10] MEDS: PRENATAL VITAMINS W/ FOLIC ACID TABLET (FP) PO SCH (10:17)
[2020-05-10] MEDS: THIAMINE HCL 100 MG TABLET (FP) PO SCH (21:40)
[2020-05-10] MEDS: MELATONIN 5 MG TABLETS PO SCH (21:40)
--- NOTE | 2020-05-11 08:48 | DS ---
[facility] Rehab Discharge Summary - [facility] Rehab Discharge Summary Admission Date: 04/21/20 Discharge Date: 05/12/20 - History Present History: Alcohol dependence, Cannabis dependence, Cocaine dependence, Opioid dependence Pertinent Past History: this 29 years old with heroin ,cocaine,marijuana dependence seeking help in detox,withdrawal symptom, had previous admissions in this facility before detox and rehab last admission in detox 12/20/19 to 12/25/19 denied seizure,denied syncope denied suboxone maintenance i stop showed patient suboxone 4mg/1 mg 30 films on 02/26/20 stated use suboxone off the street 4mg/1 mg film on 04/11/20 homeless,unemployed,no legal issue no significant period of sobriety plan for rehab after detox - Discharge Physical Exam Vital Signs: Vital Signs Temperature 98 F 05/11/20 06:45 Pulse Rate 82 05/11/20 06:45 Respiratory Rate 18 05/11/20 06:45 Blood Pressure 120/75 05/11/20 06:45 O2 Sat by Pulse Oximetry (%) 98 05/11/20 06:45 Pertinent Admission Physical Exam Findings: Physical General Appearance:No apparent distress HEENTM: Normocephalic, MICKI, Respiratory: No Respiratory Distress Neck: Supple, Abdominal: +Bowel Sounds Musculoskeletal: Full weight bearing, steady gait, full ROM 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 He had no acute or urgent medical problems while in rehab. He was adherent to his medication regimen and treatment plan. - Medication Discharge Medications: Ambulatory Orders NK [No Known Home Medication] 04/16/20 - Medication-Assisted Treatment (MAT) Medication-Assisted Treatment (MAT): No - Discharge Instructions Diet, activity, other medical instructions: Diet: as tolerated Activity: as tolerated Other medical instructions: Please follow up with aftercare referral. - Diagnosis (1) Opioid dependence with withdrawal Current Visit: No Status: Chronic (2) Cannabis dependence, uncomplicated Current Visit: No Status: Chronic (3) Cocaine dependence Current Visit: No Status: Chronic Qualifiers: Substance use status: uncomplicated Qualified Code(s): F14.20 - Cocaine dependence, uncomplicated - Follow-up Referral Minutes to complete discharge: 15 - AMA Did Patient Leave Against Medical Advice: No
[2020-05-11] MEDS: PRENATAL VITAMINS W/ FOLIC ACID TABLET (FP) PO SCH (09:30)
[2020-05-11] MEDS: MELATONIN 5 MG TABLETS PO SCH (21:42)
[2020-05-11] MEDS: THIAMINE HCL 100 MG TABLET (FP) PO SCH (21:42)
[2020-05-12 07:11] VITALS: BP 128/73; PULSE 86; TEMP 97.3
== END 2020-05-12 09:41 | disposition home or self-care (01) | DRG 772 ==
LOC: YASAS 09:37 → Y3W 09:45
PROVIDERS: ADMIT Allergy & Immunology; ATTEND Allergy & Immunology
PROC: HZ42ZZZ Group Counseling for Substance Abuse Treatment, Cognitive-Behavioral (ICD-10-PCS; principal; 2020-04-21)
DX: F11.20 Opioid dependence, uncomplicated (principal); F10.20 Alcohol dependence, uncomplicated; F14.20 Cocaine dependence, uncomplicated; F12.20 Cannabis dependence, uncomplicated; Z56.0 Unemployment, unspecified; Z59.0 Homelessness; Y04.0XXA Assault by unarmed brawl or fight, initial encounter; Y93.89 Activity, other specified; Y92.238 Other place in hospital as the place of occurrence of the external cause; Y99.8 Other external cause status

== ENCOUNTER 2022-05-10 19:39 | Inpatient (IN) | payer SELFPAY ==
[2022-05-10 20:03] VITALS: BMI 21.2
[2022-05-10] MEDS ORDERED: MAG HYDROX/AL HYDROX/SIMETH 30 ML UNIT-DOSE CUP PO PRN (20:25)
[2022-05-10] MEDS ORDERED: MAGNESIUM CITRATE 300 ML BOTTLE PO PRN (20:25)
[2022-05-10] MEDS ORDERED: BISMUTH SUBSALICYLATE 524 MG/30 ML PO PRN (20:25)
[2022-05-10] MEDS ORDERED: DICYCLOMINE HCL 10 MG CAPSULE PO PRN (20:25)
[2022-05-10] MEDS ORDERED: MAGNESIUM HYDROX 2400MG/30ML ORAL SUSPENSION 30 ML CUP PO PRN (20:25)
[2022-05-10] MEDS ORDERED: ONDANSETRON *ODT* 4 MG TABLET SL PRN (20:25)
[2022-05-10] MEDS ORDERED: guaiFENesin 200 MG/10 ML 10 ML UNIT-DOSE CUPS PO PRN (20:25)
[2022-05-10] MEDS ORDERED: METHOCARBAMOL 500 MG TABLET PO PRN (20:25)
[2022-05-10] MEDS ORDERED: NALOXONE HCL 0.4 MG/ML VIAL IM PRN (20:25)
[2022-05-10] MEDS ORDERED: IBUPROFEN 600 MG TABLET (FP) PO PRN (20:25)
[2022-05-10] MEDS ORDERED: IBUPROFEN 400 MG TABLET (FP) PO PRN (20:25)
[2022-05-10] MEDS ORDERED: ACETAMINOPHEN 325 MG TABLET (FP) PO PRN ×2 (20:25)
[2022-05-10] MEDS ORDERED: MELATONIN 5 MG TABLETS PO PRN (20:25)
[2022-05-10] MEDS ORDERED: NICOTINE 10 MG CARTRIDGE (INHALER) IH PRN (20:25)
[2022-05-10] MEDS ORDERED: LOPERAMIDE HCL 2 MG CAPSULE PO PRN (20:25)
[2022-05-10] MEDS ORDERED: P-EPHED 60MG/TRIPROLIDI 2.5MG TABLET PO PRN (20:25)
[2022-05-10] MEDS ORDERED: BENZOCAINE/MENTHOL (CHLORASEPTIC ) LOZENGE MM PRN (20:25)
[2022-05-10] MEDS ORDERED: NALOXONE HCL (KLOXXADO) 8 MG SPRAY NS PRN (20:25)
[2022-05-10] MEDS: hydrOXYzine PAMOATE 25 MG CAPSULE (FP) PO PRN (22:34)
[2022-05-10] MEDS: THIAMINE HCL 100 MG TABLET (FP) PO SCH (22:34)
[2022-05-11] MEDS ORDERED: cloNIDine HCL 0.1 MG TABLET PO PRN (09:36)
[2022-05-11] MEDS ORDERED: methaDONE HCL 10 MG TABLET (FOR DETOX USE ONLY) PO ONE (09:36)
[2022-05-11 09:50] LABS: CALCIUM 9.1 mg/dL (8.5-10.1)
[2022-05-11 09:51] LABS: ALBUMIN 3.5 g/dl (3.4-5.0); BLOOD UREA NITROGEN 20.9 mg/dL (7-18)
[2022-05-11 09:54] LABS: CREATININE 0.8 mg/dL (0.55-1.3)
[2022-05-11 09:55] LABS: HEMATOCRIT 42.2 % (35.4-49); HEMOGLOBIN 13.7 GM/dL (11.7-16.9); MCH 28.3 pg (25.7-33.7); MCHC 32.5 g/dl (32.0-35.9); MEAN CELL VOLUME 87.1 fl (80-96); MEAN PLT VOLUME 8.3 fl (7.5-11.1); PLATELET COUNT 298 10^3/uL (134-434); RBC 4.84 M/mm3 (4.00-5.60); RDW 13.3 % (11.9-15.9); TOT PROT 6.3 g/dl (6.4-8.2); WHITE BLOOD COUNT 5.9 K/mm3 (4.0-10.0)
[2022-05-11 09:56] LABS: BILIRUBIN,TOTAL 0.4 mg/dL (0.2-1)
[2022-05-11] MEDS: PRENATAL VITAMINS W/ FOLIC ACID TABLET (FP) PO SCH (10:20)
[2022-05-11 11:50] LABS: HIV INTERPRETATION NEGATIVE (NEGATIVE)
[2022-05-11] MEDS: THIAMINE HCL 100 MG TABLET (FP) PO SCH (22:44)
[2022-05-12] MEDS: hydrOXYzine PAMOATE 25 MG CAPSULE (FP) PO PRN (08:59)
[2022-05-12 09:01] VITALS: BP 131/70; PULSE 84; RESP 18; TEMP 96.9
[2022-05-12] MEDS: PRENATAL VITAMINS W/ FOLIC ACID TABLET (FP) PO SCH (10:40)
[2022-05-13] MEDS ORDERED: methaDONE HCL 10 MG TABLET (FOR DETOX USE ONLY) PO ONE (10:00)
[2022-05-15] MEDS ORDERED: methaDONE HCL 10 MG TABLET (FOR DETOX USE ONLY) PO ONE (10:00)
== END 2022-05-12 10:17 | disposition left against medical advice (07) | DRG 770 ==
LOC: YASAS 19:39 → UNDOADMIN 20:48 → Y6N 20:48
PROVIDERS: ADMIT Allergy & Immunology; ATTEND Surgery
PROC: HZ2ZZZZ Detoxification Services for Substance Abuse Treatment (ICD-10-PCS; principal; 2022-05-10)
DX: F11.23 Opioid dependence with withdrawal (principal); F14.20 Cocaine dependence, uncomplicated; F16.20 Hallucinogen dependence, uncomplicated; F12.20 Cannabis dependence, uncomplicated; F17.210 Nicotine dependence, cigarettes, uncomplicated; R63.4 Abnormal weight loss; Z68.21 Body mass index [BMI] 21.0-21.9, adult
CPT/HCPCS: 36415; 80053; 85027; 86780; 87389; C9803-CS; Q0162; U0003; U0005